=== PATIENT | male | born 1940 | race Caucasian/White ===

== ENCOUNTER → 2018-09-13 07:38 | Outpatient (BNVA) | payer OTHER, SELFPAY | PROVIDERS: PCP Family Medicine; Visit Provider Urology | DX: N13.8 Other obstructive and reflux uropathy (principal); N40.1 Benign prostatic hyperplasia with lower urinary tract symptoms | CPT/HCPCS: 99213 ==

== ENCOUNTER 2019-04-07 10:29 | Outpatient (REF) | payer OTHER, SELFPAY ==
[2019-04-07 19:30] LABS: RBC 20-50 (0-2); WBC >50 HPF (0-5)
[2019-04-07 19:31] LABS: Bacteria Many HPF (Negative); C & S Indicated? Yes; Casts Negative LPF (Negative); Crystals Negative HPF (Negative); Epithelial Cells Negative HPF (Negative); Mucus Negative (Negative)
[2019-04-07 19:52] LABS: ALT 26 U/L (12-78); AST 18 U/L (15-37); Alkaline Phosphatase 87 U/L (46-116); Anion Gap 11.3 mmol/L (3-11); BUN 18 mg/dL (7-18); Bilirubin, Total 0.4 mg/dL (0.2-1.0); CO2 23.7 mmol/L (21.0-32.0); Calcium 9.6 mg/dL (8.5-10.1); Chloride 104 mmol/L (98-107); Glucose 148 mg/dL (70-100); Potassium 4.3 mmol/L (3.5-5.1); Sodium 139 mmol/L (136-145); Total Protein 7.8 g/dL (6.4-8.2)
[2019-04-07 20:19] LABS: Hemoglobin A1C 7.3 % (4.5-6.2)
== END 2019-04-07 10:49 ==
LOC: NCHCN 10:29
PROVIDERS: PCP Family Medicine; Visit Provider Family Medicine
DX: R31.0 Gross hematuria (principal); N40.0 Benign prostatic hyperplasia without lower urinary tract symptoms; E11.9 Type 2 diabetes mellitus without complications; I10 Essential (primary) hypertension; E78.5 Hyperlipidemia, unspecified
CPT/HCPCS: 80053; 81015; 83036; 87086

== ENCOUNTER 2019-04-20 07:40 | Outpatient (CLI) | payer OTHER, SELFPAY ==
[2019-04-20 08:47] LABS: Bilirubin Negative (Negative); Blood Trace-intact (Negative); Clarity Sl Cloudy (Clear); Glucose Negative (Negative); Ketones Negative (Negative); Leukocyte Esterase Moderate (Negative); Nitrite Negative (Negative); Urobilinogen 0.2 EU/dL (Up TO 0.2)
[2019-04-20 08:57] LABS: Bacteria Many HPF (Negative); C & S Indicated? Yes; Casts Negative LPF (Negative); Crystals Negative HPF (Negative); Epithelial Cells Negative HPF (Negative); Mucus Negative (Negative); WBC >50 HPF (0-5)
== END 2019-04-20 08:00 ==
PROVIDERS: PCP Family Medicine; Visit Provider Family Medicine
DX: R31.9 Hematuria, unspecified (principal)
CPT/HCPCS: 81003; 81015; 87086

== ENCOUNTER → 2019-09-12 07:38 | Outpatient (BNVA) | payer OTHER, SELFPAY | PROVIDERS: PCP Family Medicine; Referring Provider Family Medicine; Visit Provider Urology | DX: N40.1 Benign prostatic hyperplasia with lower urinary tract symptoms (principal); N13.8 Other obstructive and reflux uropathy | CPT/HCPCS: 99213 ==

== ENCOUNTER 2019-09-22 09:23 | Outpatient (REF) | payer OTHER, SELFPAY ==
[2019-09-22 19:14] LABS: BUN 16 mg/dL (7-18); CREATININE 0.91 mg/dL (0.70-1.30); Chloride 105 mmol/L (98-107); Glucose 150 mg/dL (74-106); Potassium 4.2 mmol/L (3.5-5.1); Sodium 140 mmol/L (136-145); Vitamin B12 371 pg/mL (193-986)
== END 2019-09-22 09:43 ==
LOC: NCHCN 09:23
PROVIDERS: PCP Family Medicine; Visit Provider Family Medicine
DX: E11.9 Type 2 diabetes mellitus without complications (principal); R20.2 Paresthesia of skin
CPT/HCPCS: 80048; 82607; 84443

== ENCOUNTER 2020-04-09 00:35 | Outpatient (REF) | payer OTHER, SELFPAY | END 2020-04-09 00:55 | LOC: NCHCN 00:35 | PROVIDERS: PCP Family Medicine; Visit Provider Family Medicine | DX: R31.9 Hematuria, unspecified (principal) | CPT/HCPCS: 87086 ==

== ENCOUNTER → 2020-09-10 07:48 | Outpatient (BNVA) | payer OTHER, SELFPAY | PROVIDERS: PCP Family Medicine; Referring Provider Family Medicine; Visit Provider Urology | DX: N40.1 Benign prostatic hyperplasia with lower urinary tract symptoms (principal); N13.8 Other obstructive and reflux uropathy; Z79.899 Other long term (current) drug therapy | CPT/HCPCS: 99213 ==

== ENCOUNTER 2021-06-27 13:35 | Outpatient (REF) | payer OTHER, SELFPAY ==
[2021-06-27 19:54] LABS: ALT 27 U/L (16-63); AST 22 U/L (15-37); Albumin 3.7 g/dL (3.4-5.0); Alkaline Phosphatase 98 U/L (46-116); Anion Gap 5.3 mmol/L (3-11); BUN 15 mg/dL (7-18); Bilirubin, Total 0.3 mg/dL (0.2-1.0); CO2 28.7 mmol/L (21.0-32.0); CREATININE 0.8 mg/dL (0.70-1.30); Calcium 9.2 mg/dL (8.5-10.1); Chloride 107 mmol/L (98-107); Glucose 143 mg/dL (74-106); Potassium 4.3 mmol/L (3.5-5.1); Sodium 141 mmol/L (136-145); Total Protein 7.5 g/dL (6.4-8.2)
== END 2021-06-27 13:36 | disposition home or self-care (01) ==
LOC: NCHCN 13:35
PROVIDERS: PCP Family Medicine; Referring Provider Family Medicine; Visit Provider Family Medicine
DX: I10 Essential (primary) hypertension (principal); E11.9 Type 2 diabetes mellitus without complications; E78.5 Hyperlipidemia, unspecified
CPT/HCPCS: 80053

== ENCOUNTER → 2021-09-12 09:26 | Outpatient (BNVA) | payer MEDICARE, SELFPAY | PROVIDERS: PCP Family Medicine; Referring Provider Family Medicine; Visit Provider Urology | DX: N40.1 Benign prostatic hyperplasia with lower urinary tract symptoms (principal); N13.8 Other obstructive and reflux uropathy; Z79.899 Other long term (current) drug therapy | CPT/HCPCS: 99213 ==

== ENCOUNTER 2022-01-01 02:30 | Outpatient (CLI) | payer MEDICARE, SELFPAY ==
--- NOTE | 2022-01-01 | DI.US_ITS ---
Exam(s) US AAA SCREENING EXAM: US AAA SCREENING CLINICAL HISTORY: HX OF SMOKING, Z87.891, HYPERTENSION, I10,screening for aaa COMPARISON: CT RENAL COLIC WO CONTRAST from 07/14/2016 FINDINGS: Abdominal Aorta: Proximal: Obscured by overlying bowel. Cm Mid: 1.7 x 1.6 cm Distal: 1.5 x 1.4 cm Iliac's: Right: 1.1 x 1.2 cm Left: 1.1 x 1.0 cm Mild atherosclerosis. The urinary bladder is prominently distended and trabeculated. The urinary bladder measures 15 x 16 x 14 cm. IMPRESSION: 1. No evidence of abdominal aortic aneurysm. 2. Distended and trabeculated urinary bladder. This can be seen with chronic bladder outlet obstruct ion, neurogenic bladder or chronic infection/inflammation. Please correlate clinically. DATA REPOSITORY:
== END 2022-01-01 02:50 ==
PROVIDERS: PCP Family Medicine; Visit Provider Family Medicine
DX: I10 Essential (primary) hypertension (principal); Z87.891 Personal history of nicotine dependence; R93.41 Abnormal radiologic findings on diagnostic imaging of renal pelvis, ureter, or bladder
CPT/HCPCS: 76706

== ENCOUNTER 2022-07-02 16:42 | Outpatient (REF) | payer MEDICARE, SELFPAY ==
[2022-07-02 15:57] LABS: HGB 13.3 g/dL (13.5-17.5)
[2022-07-02 16:15] LABS: ALT 19 U/L (16-63); AST 17 U/L (15-37); Albumin 3.7 g/dL (3.4-5.0); Alkaline Phosphatase 103 U/L (46-116); Anion Gap 7.9 mmol/L (3-11); BUN 18 mg/dL (7-18); Bilirubin, Total 0.4 mg/dL (0.2-1.0); CO2 28.1 mmol/L (21.0-32.0); CREATININE 0.9 mg/dL (0.70-1.30); Calcium 9.4 mg/dL (8.5-10.1); Chloride 104 mmol/L (98-107); Estimated GFR 86.34 (mL/min/1.73m2); Glucose 141 mg/dL (74-106); Sodium 140 mmol/L (136-145)
[2022-07-02 16:41] LABS: Hemoglobin A1C 6.9 % (<5.7)
[2022-07-03 17:44] LABS: Ferritin 37 ng/mL (26-388)
== END 2022-07-02 16:43 | disposition home or self-care (01) ==
LOC: NCHCN 16:42
PROVIDERS: PCP Family Medicine; Visit Provider Family Medicine
DX: E11.9 Type 2 diabetes mellitus without complications (principal); I10 Essential (primary) hypertension; E78.5 Hyperlipidemia, unspecified
CPT/HCPCS: 80053; 82728; 83036; 85014; 85018

== ENCOUNTER → 2022-09-11 10:10 | Outpatient (BNVA) | payer MEDICARE, SELFPAY | PROVIDERS: PCP Family Medicine; Referring Provider Family Medicine; Visit Provider Urology | DX: N40.1 Benign prostatic hyperplasia with lower urinary tract symptoms (principal); R33.9 Retention of urine, unspecified | CPT/HCPCS: 99213 ==

== ENCOUNTER 2023-04-23 15:14 | Outpatient (REF) | payer MEDICARE, SELFPAY ==
[2023-04-23 15:51] LABS: Hemoglobin A1C 7.1 % (<5.7)
[2023-04-23 15:59] LABS: ALT 18 U/L (16-63); AST 17 U/L (15-37); Albumin 3.8 g/dL (3.4-5.0); Alkaline Phosphatase 91 U/L (46-116); Anion Gap 10.5 mmol/L (3-11); BUN 19 mg/dL (7-18); Bilirubin, Total 0.4 mg/dL (0.2-1.0); CO2 26.5 mmol/L (21.0-32.0); Calcium 9.3 mg/dL (8.5-10.1); Chloride 104 mmol/L (98-107); Estimated GFR 75.61 (mL/min/1.73m2); Glucose 131 mg/dL (74-106); Potassium 4.1 mmol/L (3.5-5.1); Sodium 141 mmol/L (136-145); Total Protein 7.4 g/dL (6.4-8.2)
[2023-04-26 10:50] LABS: PSA, Screening 0.9 ng/mL (<=6.5)
== END 2023-04-23 15:15 | disposition home or self-care (01) ==
LOC: NCHCN 15:14
PROVIDERS: PCP Family Medicine; Visit Provider Family Medicine
DX: E11.9 Type 2 diabetes mellitus without complications (principal); I10 Essential (primary) hypertension; E78.5 Hyperlipidemia, unspecified; D64.9 Anemia, unspecified; N40.0 Benign prostatic hyperplasia without lower urinary tract symptoms; Z12.5 Encounter for screening for malignant neoplasm of prostate
CPT/HCPCS: 80053; 84153; 83036

== ENCOUNTER → 2023-09-17 14:06 | Outpatient (BNVA) | payer MEDICARE, SELFPAY | PROVIDERS: PCP Family Medicine; Referring Provider Family Medicine; Visit Provider Urology | DX: N13.30 Unspecified hydronephrosis (principal) | CPT/HCPCS: 76775 ==

== ENCOUNTER 2023-11-11 15:13 | Outpatient (REF) | payer MEDICARE, SELFPAY ==
[2023-11-11 15:54] LABS: ALT 51 U/L (16-63); AST 71 U/L (15-37); Albumin 3.7 g/dL (3.4-5.0); Alkaline Phosphatase 88 U/L (46-116); Anion Gap 11.6 mmol/L (3-11); BUN 22 mg/dL (7-18); Bilirubin, Total 0.7 mg/dL (0.2-1.0); CO2 25.4 mmol/L (21.0-32.0); CREATININE 0.8 mg/dL (0.70-1.30); Calcium 9.7 mg/dL (8.5-10.1); Chloride 99 mmol/L (98-107); Estimated GFR 88.36 (mL/min/1.73m2); Glucose 173 mg/dL (74-106); Potassium 4.1 mmol/L (3.5-5.1); Sodium 136 mmol/L (136-145)
[2023-11-11 16:08] LABS: Abs Immature Grans 0.02 10^3/uL (0.0-0.06); Absolute Basophil Count 0.13 10^3/uL (0.0-0.2); Absolute Eosinophil Count 0.31 10^3/uL (0.0-0.7); Absolute Lymphocyte Count 2.02 10^3/uL (1.2-3.4); Absolute Monocyte Count 1.01 10^3/uL (0.1-0.8); Absolute Neutrophil Count 5.07 10^3/uL (1.2-6.7); Basophils % 1.5; Eosinophils % 3.6; HCT 41.1 % (40.0-50.0); HGB 13.4 g/dL (13.5-17.5); Immature Grans % 0.2; Lymphocytes % 23.6; MCH 30.1 pg (27.0-33.0); MCHC 32.6 % (32.0-36.0); MCV 92 fL (80-95); MPV 10.6 fL (8.0-11.0); Monocytes % 11.8; Neutrophils % 59.3; Platelet Count 315 10^3/uL (130-400); RBC 4.45 10^6/uL (4.36-5.78); RDW 13.6 % (11.8-14.1); RDW-SD 46.5 fL; WBC 8.56 10^3/uL (4.4-10.8)
[2023-11-11 16:21] LABS: RBC >50 HPF (0-2)
[2023-11-11 16:22] LABS: Bacteria Many HPF (Negative); C & S Indicated? C&S Done As Ordered
== END 2023-11-11 15:14 | disposition home or self-care (01) ==
LOC: LBN 15:13
PROVIDERS: PCP Family Medicine; Visit Provider Physician Assistant Medical
DX: R31.9 Hematuria, unspecified (principal)
CPT/HCPCS: 80053; 81015; 85025; 87086

== ENCOUNTER → 2023-11-12 01:22 | Outpatient (CLI) | payer MEDICARE, SELFPAY ==
--- NOTE | 2023-11-12 | DI.CT_ITS ---
Exam(s) CT ABDOMEN PELVIS W EXAM: CT ABDOMEN PELVIS W CLINICAL HISTORY: ABD MASS,r19.00 TECHNIQUE: Imaging Protocol: Axial computed tomography images with coronal and sagittal reformatted images were created and reviewed. CONTRAST MATERIAL: Intravenous: Omnipaque 350 Contrast volume:100 mL Oral: Yes COMPARISON: CT RENAL COLIC WO CONTRAST from 07/14/2016 US POCUS EXAM from 09/17/2023 FINDINGS: ABDOMEN: Lung Bases: There is a small hiatal hernia. Liver: Normal density. No measurable mass. Portal, Superior Mesenteric, and Splenic Veins: Unremarkable. Gallbladder and Biliary Tract: No radiodense calculus or dilation. Pancreas: Normal density, no abnormal calcifications or inflammatory process. Spleen: Normal. Adrenals: No masses seen. Kidneys: Normal size, contour and axis. The prostate gland is enlarged. There is marked dilatation o f the urinary bladder with wall trabeculation/thickening and numerous bladder wall diverticula. Ther e is bilateral moderate hydronephrosis likely secondary to the distended urinary bladder. No stones are seen within the ureters. There is been significant worsening of the degree of bladder wall dilat ation compared to the prior examination. There are bilateral renal cysts. There is a new 2.3 x 2.2 cm exophytic hyperdense lesion in the midpole of the left kidney. This may represent a hyperdense cy st or solid mass. Ultrasound and/or MRI is recommended for further evaluation. Abdominal Aorta: Abdominal portion non-dilated. Atherosclerosis. Bowel: The stomach is incompletely distended limiting evaluation. No definite bowel wall thickening is seen. No evidence of bowel obstruction. There is no evidence of appendicitis. Peritoneal Cavity: There is a trace amount of free fluid in the pelvis. No free air. Lymph Nodes: Within normal limits. Bones: Within normal limits for the patient's age. 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 Soft Tissues: Unremarkable. PELVIS: Bladder: Please see the above section under kidneys. Reproductive Organs: The prostate gland is enlarged with calcifications. Lymph Nodes: Within normal limits. Bones: Within normal limits for the patient's age. IMPRESSION: 1. Enlarged prostate gland. 2. Marked enlargement of the urinary bladder with wall trabeculation/thickening and wall diverticula. This may be due to chronic bladder outlet obstruction/neurogenic bladder. Infection or neoplasm ca nnot be entirely excluded. 3. Moderate bilateral hydronephrosis secondary to the urinary bladder obstruction. No obstructing st ones. RADIATION DOSE DELIVERED: 633.44mGy.cm Total DLP DATA REPOSITORY: All CT scans at this facility are submitted to the National Radiology Data Registry (NRDR) Dose Index Registry (DIR) with the [employer] (A[employer]). RADIATION OPTIMIZATION: All CT scans at this facility use at least one of these dose optimization te chniques: automated exposure control; mA and/or kV adjustment per patient size (includes targeted exa ms where dose is matched to clinical indication); or iterative reconstruction.
[2023-11-12] MEDS: Barium Sulfate 2% W/V-Berry Smoothie 450 ML BTL 900 ML PO (09:20)
[2023-11-12] MEDS: Omnipaque 350 MG/ML 500 ML BTL-Imaging package 100 ML IJ (11:25)
[2023-11-12] MEDS: Normal Saline - Diluent 50 ML VIAL IJ (11:26)
== END ==
PROVIDERS: PCP Family Medicine; Visit Provider Physician Assistant Medical
DX: I67.89 Other cerebrovascular disease (principal); R19.00 Intra-abdominal and pelvic swelling, mass and lump, unspecified site
CPT/HCPCS: 74177

== ENCOUNTER 2023-11-13 10:21 | Inpatient (IN) | payer MEDICARE, SELFPAY ==
[2023-11-13] VITALS (7 sets, daily range): BP systolic 111–157; BP diastolic 58–85; PULSE 61–88; RESP 12–121; TEMP 35.6–37.2; O2SAT 95–98
--- NOTE | 2023-11-13 10:30 | DI.CT_ITS ---
Exam(s) CT HEAD WO EXAM: CT HEAD WO CLINICAL HISTORY: ams. TECHNIQUE: Imaging Protocol: Axial computed tomography images with coronal and sagittal reformatted images were created and reviewed COMPARISON: No exams were available for comparison FINDINGS: There are no skull fractures. There is no fluid in the visualized paranasal sinuses. There is no evidence of intracranial hemorrhage, mass effect, or shift of midline structures. There are no extra-axial fluid collections. The ventricles are not enlarged or shifted and there is no blo od within the ventricular system nor within the basal cisterns. There is mild bilateral periventricular hypodensity consistent with chronic small vessel disease. Al so subtle area of hypodensity in the central scottie, probably also ischemic sequela. IMPRESSION: Chronic small-vessel white matter ischemic changes. No obvious focal acute infarct. If clinically i ndicated follow-up MRI with diffusion imaging would add sensitivity and specificity. RADIATION DOSE DELIVERED: 761.43mGy.cm Total DLP DATA REPOSITORY: All CT scans at this facility are submitted to the National Radiology Data Registry (NRDR) Dose Index Registry (DIR) with the [employer] (ACR). RADIATION OPTIMIZATION: All CT scans at this facility use at least one of these dose optimization te chniques: automated exposure control; mA and/or kV adjustment per patient size (includes targeted exa ms where dose is matched to clinical indication); or iterative reconstruction.
[2023-11-13 10:57] LABS: Abs Immature Grans 0.01 10^3/uL (0.0-0.06); Absolute Eosinophil Count 0.27 10^3/uL (0.0-0.7); Absolute Lymphocyte Count 1.89 10^3/uL (1.2-3.4); Absolute Monocyte Count 0.97 10^3/uL (0.1-0.8); Basophils % 1.2; Eosinophils % 3.2; HCT 34.2 % (40.0-50.0); HGB 11.6 g/dL (13.5-17.5); Immature Grans % 0.1; Lymphocytes % 22.1; MCH 30.5 pg (27.0-33.0); MCHC 33.9 % (32.0-36.0); MCV 90 fL (80-95); MPV 9.7 fL (8.0-11.0); Monocytes % 11.4; Platelet Count 251 10^3/uL (130-400); RDW 13.4 % (11.8-14.1); RDW-SD 44.3 fL; WBC 8.54 10^3/uL (4.4-10.8)
--- NOTE | 2023-11-13 11:15 | ED.GENADUL_ITS ---
HPI General Date/Time Provider Initiated Documentation: 11/13/23 10:35 . Limitations to Documentation: altered mental status . Information obtained by: patient and family . HPI Narrative: 83-year-old gentleman with past medical history of BPH, diabetes presents for evaluation of altered mental status. He is here with his brother and vyeuml-gl-oht and son. 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 They report that they have been checking on him daily and over the last 3 days they have noticed a significant change in his mental status. They report that he is very confused. He thinks it is 1940. He has been talking about his children as if there young. They noted that he did have a fall last week and [facility]. They are not sure if he is taking his medications at home they have been making him food to eat. His did a month ago and they felt like since then he has had some decline, but the waistline joiner overlock the last 3 days has been very drastic. Related Data Home Medications Medication Instructions Recorded Confirmed atorvastatin 40 mg tablet (Lipitor) 40 mg PO DAILY 07/14/16 11/13/23 flaxseed oil 1,300 mg-omega 3,6,9 1,400 mg PO DAILY 07/14/16 11/13/23 845 mg-117 mg-117 mg capsule losartan 50 mg tablet 50 mg PO DAILY 07/14/16 11/13/23 metformin 500 mg tablet 500 mg PO am and noon 07/14/16 11/13/23 omeprazole 20 mg capsule,delayed 20 mg PO DAILY 07/14/16 11/13/23 release saw palmetto 450 mg capsule 450 mg PO DAILY 07/14/16 11/13/23 aspirin 81 mg tablet,delayed 81 mg PO DAILY 07/16/16 11/13/23 release (Aspir-) turmeric root extract 500 mg 500 mg PO DAILY 09/12/19 11/13/23 capsule vit A 300 mcg-C 200 mg-E 27 1 tab PO DAILY 09/10/20 11/13/23 rx-xitrkzgg-ddlqpz-lutein tablet (Eye Multivitamin-Lutein(X-C-O-Zn-Cu-selen)) docusate sodium 100 mg capsule 100 mg PO BID 09/11/22 11/13/23 (Dulcolax Stool Softener (docusate)) finasteride 5 mg tablet 5 mg PO DAILY #90 tab-caps 09/11/22 11/13/23 terazosin 10 mg capsule 10 mg PO DAILY #90 caps 09/11/22 11/13/23 vitamin D3 125 mcg (5,000 1 cap PO DAILY 09/17/23 11/13/23 unit)-vitamin K2 90 mcg capsule Previous Rx's Medication Instructions Recorded finasteride 5 mg tablet 5 mg PO DAILY #90 tab-caps 09/11/22 terazosin 10 mg capsule 10 mg PO DAILY #90 caps 09/11/22 Allergies Allergy/AdvReac Type Severity Reaction Status Date / Time No Known Allergies Allergy Unverified 11/13/23 11:00 General Stated Complaint: AMS/LOC TAVARES: 3 Exam Narrative Exam Narrative: Review of Systems: All systems reviewed & are unremarkable except as noted in HPI and below Well-developed, no acute distress NCAT PERRL, normal conjunctiva RRR Unlabored respiratory effort, clear breath sounds bilaterally Nondistended abdomen, nontender Extremities w/o deformity, no cyanosis, no edema No rashes or lesions. Oriented to person, able to identify family members in the room. States it is 1940. States that he has gone back in time Appropriate mood and affect Course Vital Signs Vital signs: Vital Signs Temperature 36.7 C 11/13/23 10:26 Pulse 73 11/13/23 10:26 Respiratory Rate 18 11/13/23 10:26 Blood Pressure 111/85 11/13/23 10:26 Pulse Oximetry 98 11/13/23 10:26 Temperature 36.7 C 11/13/23 10:49 Temperature Source Temporal Artery Scan 11/13/23 10:49 Pulse 73 11/13/23 10:49 Respiratory Rate 18 11/13/23 10:49 Respiratory Effort Normal, Non-Labored 11/13/23 10:49 Respiratory Depth Normal 11/13/23 10:49 Respiratory Pattern Normal 11/13/23 10:49 Blood Pressure 111/85 11/13/23 10:49 Blood Pressure Position Sitting 11/13/23 10:49 Pulse Oximetry 98 11/13/23 10:49 Oxygen Delivery Method Room Air 11/13/23 10:49 Oxygen Flow Rate 0 11/13/23 10:49 Pain Level 0 11/13/23 10:49 Lab/Test Results Lab/Test Results: Laboratory Tests Range/Units 11/13/23 10:47 WBC (4.4-10.8) 10^3/uL 8.54 RBC (4.36-5.78) 10^6/uL 3.80 L Hgb (13.5-17.5) g/dL 11.6 L Hct (40.0-50.0) % 34.2 L MCV (80-95) fL 90 MCH (27.0-33.0) pg 30.5 MCHC (32.0-36.0) % 33.9 RDW (11.8-14.1) % 13.4 Plt Count (130-400) 10^3/uL 251 MPV (8.0-11.0) fL 9.7 Immature Gran % 0.1 Neutrophils % 62.0 Lymphocytes % 22.1 Monocytes % 11.4 Eosinophils % 3.2 Basophils % 1.2 Nucleated RBC % (0.0-0.3) % 0.0 Absolute Neutrophils (1.2-6.7) 10^3/uL 5.30 Absolute Lymphocytes (1.2-3.4) 10^3/uL 1.89 Absolute Monocytes (0.1-0.8) 10^3/uL 0.97 H Absolute Eosinophils (0.0-0.7) 10^3/uL 0.27 Absolute Basophils (0.0-0.2) 10^3/uL 0.10 Medical Decision Making Emergent evaluation of altered mental status. Initial differential includes infectious etiology, CVA, less likely traumatic mechanism. Could be grief reaction or other depression. He has an otherwise nonfocal neurologic exam other than his mental status. He is currently being followed by urology for issues regarding his BPH and urinary incontinence. Recent culture did not indicate an infection. Will repeat labs, cultures, get head CT. Lab work reviewed. No significant leukocytosis or anemia. That his BUN is slightly elevated, but creatinine at baseline. His urinalysis is essentially unreadable secondary to the blood. I visually inspected the urine and it is quite dark, almost black in color. A culture has been sent. I will cover him with Rocephin given his history of recurrent urine infections. His head CT is concerning for some possible subacute findings but an MRI would be beneficial to evaluate for stroke etiology. I discussed with the hospitalist who will admit the patient for further management and workup of his encephalopathy. Medical Records Medical records reviewed: Yes I reviewed the patient's medical records. Lab Data Lab results reviewed: Yes I reviewed the patient's lab results. Quality:SDOH Health Related Social Needs: No Data to Display PFSH All Active Problems (Updated 11/13/23 @ 13:23 by Wei Reed MD) Encephalopathy (Acute) Acute confusion (Acute) Urinary retention with incomplete bladder emptying (Acute) Hematuria (Acute 07/16/16) 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) Social History Smoking/Tobacco Use Status: Former Tobacco Use Smoking risk assessment performed?: Yes Alcohol Intake: never Drug use: Never Substance use type: does not use Housing: house Do you feel safe at home: Yes Do you feel safe in your relationship?: Yes Discharge Plan Disposition Patient Disposition: Admit to [facility] Condition: Stable Discharge Details Chief Complaint: AMS/LOC Clinical Impression: Acute confusion, Hematuria, Encephalopathy Primary Care Provider: Vanita Johnson V ED Provider: Wei Reed Home Meds and New Rx's Prescriptions: No Action turmeric root extract 500 mg capsule 500 mg PO DAILY docusate sodium [Dulcolax Stool Softener (dss)] 100 mg capsule 100 mg PO BID terazosin 10 mg capsule 10 mg PO DAILY Qty: 90 4RF finasteride 5 mg tablet 5 mg PO DAILY Qty: 90 4RF Eye Multivit-Lutein(selenium) 300 mcg-200 mg- 27 mg tablet 1 tab PO DAILY vitamin D3-vitamin K2 125-90 mcg capsule 1 cap PO DAILY aspirin [Aspir-81] 81 MG tablet,delayed release (DR/EC) 81 mg PO DAILY losartan 50 MG tablet 50 mg PO DAILY atorvastatin [Lipitor] 40 MG tablet 40 mg PO DAILY metformin 500 MG tablet 500 mg PO am and noon omeprazole 20 MG capsule,delayed release(DR/EC) 20 mg PO DAILY saw palmetto 450 MG capsule 450 mg PO DAILY flaxseed oil-omega 3,6,9 1 EACH capsule 1,400 mg PO DAILY
[2023-11-13 11:19] LABS: ALT 44 U/L (16-63); AST 39 U/L (15-37); Albumin 2.9 g/dL (3.4-5.0); Alkaline Phosphatase 67 U/L (46-116); Anion Gap 11.9 mmol/L (3-11); BUN 30 mg/dL (7-18); Bilirubin, Total 0.6 mg/dL (0.2-1.0); CO2 23.1 mmol/L (21.0-32.0); CREATININE 0.9 mg/dL (0.70-1.30); Calcium 8.9 mg/dL (8.5-10.1); Chloride 105 mmol/L (98-107); Estimated GFR 85.27 (mL/min/1.73m2); Glucose 170 mg/dL (74-106); Magnesium 1.7 mg/dL (1.8-2.4); Potassium 3.5 mmol/L (3.5-5.1); Sodium 140 mmol/L (136-145); TSH (W/Ref FT4) 1.05 uIU/mL (0.36-3.74); Total Protein 6.8 g/dL (6.4-8.2); Troponin I < 50 ng/L (< or =60)
[2023-11-13 11:21] LABS: ETHANOL BLOOD < 3.0 mg/dL (<10)
--- NOTE | 2023-11-13 11:32 | DI.VRAD_ITS ---
PROCEDURE INFORMATION: Exam: CT Head Without Contrast Exam date and time: 11/13/2023 11:07 AM Age: 83 years old Clinical indication: Alteration of consciousness; Other: Not identified TECHNIQUE: Imaging protocol: Computed tomography of the head without contrast. COMPARISON: No relevant prior studies available. FINDINGS: Brain: Hypodensities bilaterally, nonspecific, but compatible with changes of small vessel disease, lacunar infarctions. Hypodensities over brainstem, scottie may be artifact. Otherwise, no intracranial mass, midline shift, acute intracranial hemorrhage, nor abnormal extra-axial fluid collection seen. Cerebral ventricles: Prominence of ventricles, sulci bilaterally suggesting volume loss, atrophy. Paranasal sinuses: Partial opacification left maxillary sinus with rounded filling defect which may be mucous retention cyst or other polypoid lesion. Mild partial opacification ethmoid air cells, sphenoid sinus, frontoethmoidal areas. Mastoid air cells: Slight partial opacification posterior right mastoid air cells.. Bones/joints: No displaced, depressed skull fracture seen. Soft tissues: Subcutaneous densities left foraminal region, supraorbital area, possible contusions. Vasculature: Arterial calcification. IMPRESSION: Hypodensities bilaterally, nonspecific, but compatible with changes of small vessel disease, lacunar infarctions. Hypodensities over brainstem, scottie may be artifact. MRI may be helpful, if indicated. Dictated and Authenticated by: Sean Woods MD. Ordering:PEARL West MD
[2023-11-13 12:33] LABS: *AMPHETAMINES SCREEN URINE Negative (Negative); *BARBITURATES SCREEN URINE Negative (Negative); *BENZODIAZEPINES SCREEN URINE Negative (Negative); Cannabinoids THC Negative (Negative); Cocaine Screen,Urine Negative (Negative); METHADONE URINE SCREEN Negative (Negative); OPIATES URINE SCREEN Negative (Negative)
[2023-11-13 12:41] LABS: Tricyclic Antidepressants Negative (Negative)
[2023-11-13 12:47] LABS: Bilirubin Color Interference (Negative); Blood Color Interference (Negative); Clarity Cloudy (Clear); Glucose Color Interference mg/dL (Negative); Ketones Color Interference mg/dL (Negative); Leukocyte Esterase Color Interference (Negative); Nitrite Color Interference (Negative); Specific Gravity 1.025 (1.005-1.025); Urobilinogen Color Interference mg/dL (Up to 0.2)
[2023-11-13 12:48] LABS: C & S Indicated? Yes; RBC >50 HPF (0-2)
[2023-11-13] MEDS: cefTRIAXone 1 GM/50 ML BAG IVPB (13:06)
[2023-11-13] MEDS: MAGNESIUM SULFATE 2 GM/50 ML BAG IVPB (13:50)
--- NOTE | 2023-11-13 13:59 | HPE_ITS ---
Date of service: 11/13/23 Time of Service: 13:15 Assessment and Plan Assessment and plan (1) Encephalopathy: Status: Acute Assessment and plan: Might be d/t grieving process VS infection: Treating UTI Continue rocephin, urine culture pending Abnormal head CT: MRI on Wednesday (2) Urinary tract infection: Status: Acute Assessment and plan: As above Qualifiers: Hematuria presence: with hematuria (3) Hematuria: Status: Acute Assessment and plan: As above Qualifiers: Hematuria type: gross Qualified Code(s): R31.0 - Gross hematuria (4) Acute confusion: Status: Acute Assessment and plan: As above (5) Urinary retention with incomplete bladder emptying: Status: Acute Assessment and plan: Resuming home meds: Finesteride and Terasozin Bladder scan and straight cath PRN for vol >500 (6) BPH w urinary obs/LUTS: Status: Acute Assessment and plan: As above (7) Contraindication for enoxaparin: Status: Acute Assessment and plan: Hematuria no lovenox for DVT prophylaxis TEDs SCD's (8) Abdominal tenderness: Status: Acute Assessment and plan: CT of the abdomen completed on 11/12/2023: MRI recommended for findings, no GI findings except for trace amount of fluid in peritoneal cavity: please see report. (9) Medication management: Status: Acute Assessment and plan: Resuming home meds : ASA and Lipitor fro PMHx of CVA Omeprazole Losartan: HTN (10) Discharge planning issues: Status: Acute Assessment and plan: CM to follow Discussed with Dr. Blanc History of Present Illness History of Present Illness Chief Complaint: Encephalopathy, confusion, UTI, stroke Narrative: This 84-year-old male patient living alone at home since the recent of his spouse a month ago with a past medical history of CVA, benign prostatic hypertrophy, diabetes, presented to the ED at [facility] today for evaluation of confusion. Family member family members reported checking on him on a daily basis and that over the last 3 days they noticed important an change in his mental status. As reported by family members the patient thought it was 1940 and has been talking about his children as if they were young. They also reported a fall last week for which the patient was a very evaluated at [facility]. They are not sure if they were not sure that the patient was taking his medicine at home but they have been ensuring that he has food to eat.. Family members mention noticing some decline since the passing of his spouse a month ago with more acute changes in the past 3 days. In the emergency room lab work was unremarkable except for WBC at 11.27, BUN at 30. The urine analysis was reported as unreadable due to hematuria. The ED provider reported that urine was quite dark almost black in color; urine culture sent. Patient was treated with IV ceftriaxone. The head CT reported concern for subacute findings with recommendation for an MRI to evaluate for stroke etiology. The hospitalist was consulted and the patient was admitted for evaluation and management of encephalopathy, confusion, UTI and stroke. Patient was met in the ED and the present of is son Cornell and [id number] Jagruti. The patient denied lightheadedness, dizziness, change in vision, recent falls, chest pain, shortness of breath, nausea, vomiting. Patient reports constipation over the past 10 days with 2 episodes of liquid stool yesterday, patient also reports diffuse abdominal pain on palpation. Patient has a COLST form indicating DNR/DNI. Review of Systems All systems reviewed & are unremarkable except as noted in HPI and below PFSH All Active Problems (Updated 11/13/23 @ 14:49 by Meredith Ordaz APRN) Medication management (Acute) Abdominal tenderness (Acute) Discharge planning issues (Acute) Contraindication for enoxaparin (Acute) Urinary tract infection (Acute) Encephalopathy (Acute) Acute confusion (Acute) Urinary retention with incomplete bladder emptying (Acute) Hematuria (Acute 07/16/16) 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) Medical History (Updated 11/13/23 @ 14:49 by Meredith Ordaz APRN) Bilateral renal cysts Social History Smoking/Tobacco Use Status: Former Tobacco Use Smoking risk assessment performed?: Yes Alcohol Intake: never Drug use: Never Substance use type: does not use Housing: house Do you feel safe at home: Yes Do you feel safe in your relationship?: Yes Meds Allergies and Home Medications Allergies Allergy/AdvReac Type Severity Reaction Status Date / Time No Known Allergies Allergy Unverified 11/13/23 11:00 Home Medications Medication Instructions Recorded Confirmed Type atorvastatin 40 mg tablet (Lipitor) 40 mg PO DAILY 07/14/16 11/13/23 History flaxseed oil 1,300 mg-omega 3,6,9 1,400 mg PO DAILY 07/14/16 11/13/23 History 845 mg-117 mg-117 mg capsule losartan 50 mg tablet 50 mg PO DAILY 07/14/16 11/13/23 History metformin 500 mg tablet 500 mg PO am and noon 07/14/16 11/13/23 History omeprazole 20 mg capsule,delayed 20 mg PO DAILY 07/14/16 11/13/23 History release saw palmetto 450 mg capsule 450 mg PO DAILY 07/14/16 11/13/23 History aspirin 81 mg tablet,delayed 81 mg PO DAILY 07/16/16 11/13/23 History release (Aspir-) turmeric root extract 500 mg 500 mg PO DAILY 09/12/19 11/13/23 History capsule vit A 300 mcg-C 200 mg-E 27 1 tab PO DAILY 09/10/20 11/13/23 History hz-fbmavztq-cmkyjl-lutein tablet (Eye Multivitamin-Lutein(H-M-L-Zn-Cu-selen)) docusate sodium 100 mg capsule 100 mg PO BID 09/11/22 11/13/23 History (Dulcolax Stool Softener (docusate)) finasteride 5 mg tablet 5 mg PO DAILY #90 tab-caps 09/11/22 11/13/23 Rx terazosin 10 mg capsule 10 mg PO DAILY #90 caps 09/11/22 11/13/23 Rx vitamin D3 125 mcg (5,000 1 cap PO DAILY 09/17/23 11/13/23 History unit)-vitamin K2 90 mcg capsule Exam Narrative Exam Narrative: Constitutional The patient on stretcher in ED HENMT: Head is atraumatic, normocephalic, no lymphadenopathy. Facial structures with normal appearance Eyes: Well aligned, intact ROM Neck: Normal ROM, no JVD,no meningeal signs Neuro:alert and oriented to self, person, place, confused about time . No neurological focal deficit, PERRLA on ambient light Altered short term memory, nursing home memory intact Chest:Chest is symmetrical and normal appearance Resp: Normal respiratory pattern, speaks in full sentences, unlabored breathing, clear lung bilaterally Cardio: regular rhythm, S1, S2, no murmur, capillary refill<3 sec., bilateral radial and dorsalis pedis pulses are positive GI: Abdomen is not distended, semi-firm and tender, bowel sounds are present : no bladder distension, gross hematuria Back/spine/Pelvis: No back tenderness, normal alignment Integumentary: No skin lesions or rash Extremities: strength 5/5 to bilateral lower and upper extremities Psych: RASS 0, congruent mood and normal-sad affect. Results Labs 11/13/23 10:47 11/13/23 10:47 Labs: Laboratory Results - last 24 hr 11/13/23 11/13/23 10:47 12:02 WBC 8.54 RBC 3.80 L Hgb 11.6 L Hct 34.2 L MCV 90 MCH 30.5 MCHC 33.9 RDW 13.4 Plt Count 251 MPV 9.7 Immature Gran % 0.1 Neutrophils % 62.0 Lymphocytes % 22.1 Monocytes % 11.4 Eosinophils % 3.2 Basophils % 1.2 Nucleated RBC % 0.0 Absolute Neutrophils 5.30 Absolute Lymphocytes 1.89 Absolute Monocytes 0.97 H Absolute Eosinophils 0.27 Absolute Basophils 0.10 Sodium 140 Potassium 3.5 Chloride 105 Carbon Dioxide 23.1 Anion Gap 11.9 H BUN 30 H Creatinine 0.9 Est GFR (CKD-EPI 2020) 85.27 Glucose 170 H Calcium 8.9 Magnesium 1.7 L Total Bilirubin 0.6 AST 39 H ALT 44 Alkaline Phosphatase 67 Troponin I < 50 Total Protein 6.8 Albumin 2.9 L TSH 1.05 Urine Color Brown Urine Clarity Cloudy Urine pH Ur Specific [place] 1.025 Urine Protein Color Interference Urine Ketones Color Interference Urine Blood Color Interference Urine Nitrite Color Interference Urine Bilirubin Color Interference Urine Urobilinogen Color Interference Ur Leukocyte Esterase Color Interference Urine RBC >50 H Urine WBC Ur Epithelial Cells Not Applicable Urine Crystals Not Applicable Urine Bacteria Not Applicable Urine Mucus Not Applicable Ur Culture Indicated? Yes Urine Glucose Color Interference Urine Opiates Screen Negative Urine Methadone Screen Negative Ur Barbiturates Screen Negative Ur Tricyclics Screen Negative Ur Amphetamines Screen Negative U Benzodiazepines Scrn Negative Urine Cocaine Screen Negative Ur THC Screen Negative Ethyl Alcohol < 3.0 Last Vital Signs Temp 36.7 C 11/13/23 10:49 Pulse 73 11/13/23 10:49 Resp 18 11/13/23 10:49 BP 111/85 11/13/23 10:49 Pulse Ox 98 11/13/23 10:49 PAWSS Pt Consumed Any Amount of Alcohol Within the Last 30 days OR had positive ASHANTI Upon Admission: No Time Spent Time spent with Patient: >75 minutes Time was spent: preparing to see the patient(eg.review tests), obtaining and/or reviewing separately otained hiistory, ordering medications,tests, procedures, referring, communicating with other health healthcare administration internship, indepentently interpreting results, counseling the patient and care coordination
[2023-11-13] MEDS: Insulin Aspart 300 UNITS/3 ML PEN SC (17:30)
[2023-11-13] MEDS: Docusate Sodium 100 MG CAP PO (19:36)
[2023-11-13] MEDS: Normal Saline Flush 10 ML SYR IVP (19:37)
[2023-11-14 06:24] LABS: Abs Immature Grans 0.03 10^3/uL (0.0-0.06); Absolute Basophil Count 0.09 10^3/uL (0.0-0.2); Absolute Lymphocyte Count 1.61 10^3/uL (1.2-3.4); Absolute Monocyte Count 0.91 10^3/uL (0.1-0.8); Absolute Neutrophil Count 5.93 10^3/uL (1.2-6.7); Eosinophils % 4.5; HCT 34.7 % (40.0-50.0); HGB 11.8 g/dL (13.5-17.5); Immature Grans % 0.3; Lymphocytes % 17.9; MCV 91 fL (80-95); MPV 10.4 fL (8.0-11.0); Monocytes % 10.1; Neutrophils % 66.2; Platelet Count 259 10^3/uL (130-400); RBC 3.81 10^6/uL (4.36-5.78); RDW 13.5 % (11.8-14.1); RDW-SD 45.1 fL; WBC 8.97 10^3/uL (4.4-10.8)
[2023-11-14 06:35] LABS: Anion Gap 8.6 mmol/L (3-11); BUN 27 mg/dL (7-18); CO2 24.4 mmol/L (21.0-32.0); Calcium 8.6 mg/dL (8.5-10.1); Chloride 104 mmol/L (98-107); Estimated GFR 75.14 (mL/min/1.73m2); Glucose 168 mg/dL (74-106); Potassium 3.6 mmol/L (3.5-5.1); Sodium 137 mmol/L (136-145)
[2023-11-14 07:57] VITALS: BP 198/78; PULSE 63; RESP 17; TEMP 36.6; O2SAT 98
--- NOTE | 2023-11-14 09:07 | INITIAL_ITS ---
Date of service: 11/14/23 Time of Service: 09:07 Care Management Initial Assmt Initial Assessment REASON FOR HOSPITALIZATION:: Encephalopathy, UTI, stroke PREVIOUS FUNCTIONAL STATUS/SOCIAL/FAMILY SUPPORTS:: Jamey lives in [place], alone. His in August 2023, and his son, brother and sister in law have been helping to support him since her passing. He is independent with his ADL's at baseline. CURRENT FUNCTIONAL STATUS:: Jamey was lying in bed when CM met with him. He had multiple visitors this morning, and stated that he played cribbage with his son, brother and sister in law. He expressed overwhelming grief over losing his ; he stated that he spent all of his time with her, including playing cards with their morning coffee. He stated that he is ready to go now, and be with her. He stated that he feels he is close to , both physically and emotionally. He stated that he wants to be on hospice, as his was. CM stated that there is a palliative care consult pending, and that he will likely meet with them during this admission to discuss his healthcare goals and wishes. Per report, he is receiving antibiotics, and is scheduled to have an MRI tomorrow. Jamey stated that he is ok with being at [facility] and having treatment at this time, and he is very happy with the care he is receiving. CM will continue to follow. ADVANCE DIRECTIVES:: [facility] on file; Arleen (his late ) listed as HCA. Palliative is consulted to discuss his healthcare goals, and to discuss naming an alternative HCA. Has patient been provided with info about the portal/API?: Yes Did the patient sign up for the portal?: No CODE STATUS:: DNR/DNI INSURANCE COVERAGE / FINANCIAL ISSUES:: [facility] MCR replacement CURRENT HOME/COMMUNITY SERVICES/EQUIPMENT:: Family support since the passing of his . PRIMARY CARE PHYSICIAN:: Vanita Johnson POTENTIAL DISCHARGE NEEDS:: Evaluations for further needs, follow up appointments. PATIENT/FAMILY EDUCATION NEEDS:: Review discharge instructions and limitations, discussion of self care needs including ask me three. ANTICIPATED BARRIERS TO DISCHARGE:: None identified. TRANSPORTATION:: Via private vehicle by family. PLAN:: Anticipate Jamey will return home once medically cleared. His family will drive him home via private vehicle when ready. He will follow up with his PCP and discharge plan of care. CM will continue to follow. PFSH All Active Problems (Updated 11/13/23 @ 14:49 by Meredith Ordaz APRN) Medication management (Acute) Abdominal tenderness (Acute) Discharge planning issues (Acute) Contraindication for enoxaparin (Acute) Urinary tract infection (Acute) Encephalopathy (Acute) Acute confusion (Acute) Urinary retention with incomplete bladder emptying (Acute) Hematuria (Acute 07/16/16) 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) Medical History (Updated 11/13/23 @ 14:49 by Meredith Ordaz APRN) Bilateral renal cysts Social History Smoking/Tobacco Use Status: Former Tobacco Use Smoking risk assessment performed?: Yes Alcohol Intake: never Drug use: Never Substance use type: does not use Housing: house Do you feel safe at home: Yes Do you feel safe in your relationship?: Yes SDOH(Care Management) Screening Will the Patient Participate in the Screening?: Yes Do you worry about having a steady place to live?: no Problems where you live: no known problems In the past 12 months, have you had to go without electric, gas, oil or water in your home?: no Have you or anyone in your house had to go without enough food to eat?: no Has lack of transportation kept you from medical appointments or from doing things needed for daily living?: no Has anyone in your support network made you feel unsafe for any reason?: no
[2023-11-14] MEDS: Omeprazole 20 MG CAPCR PO (09:10)
[2023-11-14] MEDS: Insulin Aspart 300 UNITS/3 ML PEN SC ×3 (09:10→16:41)
[2023-11-14] MEDS: Losartan 50 MG TAB PO (09:11)
[2023-11-14] MEDS: Aspirin E.C. 81 MG TABEC PO (09:11)
[2023-11-14] MEDS: Atorvastatin 40 MG TAB PO (09:11)
[2023-11-14] MEDS: Docusate Sodium 100 MG CAP PO (09:11)
[2023-11-14] MEDS: Finasteride 5 MG TAB PO (09:11)
[2023-11-14] MEDS: Normal Saline Flush 10 ML SYR IVP ×2 (09:12→21:55)
--- NOTE | 2023-11-14 10:30 | W.PM.PROGNOT ---
Date of Service Date of service: 11/14/23 Time of Service: 10:31 Assessment and Plan Assessment and plan (1) Encephalopathy: Status: Acute Assessment and plan: Might be d/t grieving process VS infection: Most unlikely to have a UTI: GPC < 35572 colonies in urine, UA with gross hematiuria no other abnormalities Treating with ceftriaxone 2 gm IV Q 12 : Meningitis VS tick borne illness Tick and lyme panel ordered Abnormal head CT: MRI, MRA head and neck on Wednesday Psych consult Neuro consult palliative care consult (2) Urinary tract infection: Status: Acute Assessment and plan: As above Bladder scan and Straight cath PRN Qualifiers: Hematuria presence: with hematuria (3) Hematuria: Status: Acute Assessment and plan: As above Qualifiers: Hematuria type: gross Qualified Code(s): R31.0 - Gross hematuria (4) Acute confusion: Status: Acute Assessment and plan: As above (5) Urinary retention with incomplete bladder emptying: Status: Acute Assessment and plan: As above and continue Finesteride and Terasozin ( Were resumed on the day of admission as patient had stopped taking his medicine a month ago after spouse passing) Considering urology consult As per CT report completed on 11/12/2023 as an outpatient, the patient had -Enlarged prostate gland -Marked enlargement of the urinary bladder with wall trabeculation/thickening and wall diverticula. This may be due to chronic bladder outlet obstruction/ neurogenic bladder. Infection or neoplasm cannot be entirely excluded. - Moderate bilateral hydronephrosis secondary to the urinary bladder obstruction. No obstructing stones. Horner catheter and urology consultation ordered by Dr. Norton on 11/15/2023 (6) BPH w urinary obs/LUTS: Status: Acute Assessment and plan: As above (7) Contraindication for enoxaparin: Status: Acute Assessment and plan: Hematuria no lovenox for DVT prophylaxis Continue SCD's (8) Medication management: Status: Acute Assessment and plan: Continue home meds : ASA, Lipitor, Omeprazole and losartan (9) Discharge planning issues: Status: Acute Assessment and plan: CM to follow Discussed with Dr. Norton Subjective Subjective Patient reports: no new complaints, feels better, tolerating liquids well, tolerating a regular diet, voiding w/o difficulty (hematuria), flatus and bowel movement; denies diarrhea, vomiting, shortness of breath or fever Exam Narrative Exam Narrative: Constitutional The patient in bed feeling sleepy, cooperative and pleasant Eyes: Well aligned, intact ROM Neck: Normal ROM, no JVD,no meningeal signs Neuro:alert and oriented to self, person, place, confused about time, can repeat the date immediately but cannot remember the date after 5 minutes . No neurological focal deficit Resp: clear lung bilaterally Cardio: regular rhythm, S1, S2, no murmur GI: Abdomen is not distended, semi-firm and non-tender, bowel sounds are present : no bladder distension Extremities: strength 5/5 to bilateral lower and upper extremities Psych: RASS 0, congruent mood and normal-sad affect. Objective Last Vital Signs Temp 36.6 C 11/14/23 07:57 Pulse 63 11/14/23 07:57 Resp 17 11/14/23 07:57 BP 198/78 H 11/14/23 07:57 Pulse Ox 98 11/14/23 07:57 Laboratory Results - last 24 hr 11/13/23 11/13/23 11/14/23 10:47 12:02 05:56 WBC 8.54 8.97 RBC 3.80 L 3.81 L Hgb 11.6 L 11.8 L Hct 34.2 L 34.7 L MCV 90 91 MCH 30.5 31.0 MCHC 33.9 34.0 RDW 13.4 13.5 Plt Count 251 259 MPV 9.7 10.4 Immature Gran % 0.1 0.3 Neutrophils % 62.0 66.2 Lymphocytes % 22.1 17.9 Monocytes % 11.4 10.1 Eosinophils % 3.2 4.5 Basophils % 1.2 1.0 Nucleated RBC % 0.0 0.0 Absolute Neutrophils 5.30 5.93 Absolute Lymphocytes 1.89 1.61 Absolute Monocytes 0.97 H 0.91 H Absolute Eosinophils 0.27 0.40 Absolute Basophils 0.10 0.09 Sodium 140 137 Potassium 3.5 3.6 Chloride 105 104 Carbon Dioxide 23.1 24.4 Anion Gap 11.9 H 8.6 BUN 30 H 27 H Creatinine 0.9 1.0 Est GFR (CKD-EPI 2020) 85.27 75.14 Glucose 170 H 168 H Calcium 8.9 8.6 Magnesium 1.7 L Total Bilirubin 0.6 AST 39 H ALT 44 Alkaline Phosphatase 67 Troponin I < 50 Total Protein 6.8 Albumin 2.9 L TSH 1.05 Urine Color Brown Urine Clarity Cloudy Urine pH Ur Specific [place] 1.025 Urine Protein Color Interference Urine Ketones Color Interference Urine Blood Color Interference Urine Nitrite Color Interference Urine Bilirubin Color Interference Urine Urobilinogen Color Interference Ur Leukocyte Esterase Color Interference Urine RBC >50 H Urine WBC Ur Epithelial Cells Not Applicable Urine Crystals Not Applicable Urine Bacteria Not Applicable Urine Mucus Not Applicable Ur Culture Indicated? Yes Urine Glucose Color Interference Urine Opiates Screen Negative Urine Methadone Screen Negative Ur Barbiturates Screen Negative Ur Tricyclics Screen Negative Ur Amphetamines Screen Negative U Benzodiazepines Scrn Negative Urine Cocaine Screen Negative Ur THC Screen Negative Ethyl Alcohol < 3.0 PAWSS Pt Consumed Any Amount of Alcohol Within the Last 30 days OR had positive ASHANTI Upon Admission: No Time Spent with Patient Time Spent with Patient: >50 minutes Time was spent: preparing to see the patient(eg.review tests), obtaining and/or reviewing separately otained hiistory, ordering medications,tests, procedures, referring, communicating with other health intensive care ambulance paramedic, indepentently interpreting results, counseling the patient and care coordination
[2023-11-14 11:09] VITALS: BP 123/68
[2023-11-14] MEDS: cefTRIAXone 1 GM/50 ML BAG IVPB ×2 (11:33→13:36)
[2023-11-14 13:55] LABS: Lab Add On Test DONE
[2023-11-14 14:19] LABS: Ammonia < 10 umol/L (11-32)
[2023-11-14 15:15] VITALS: BP 134/67; PULSE 64; RESP 16; TEMP 35.9; O2SAT 96
--- NOTE | 2023-11-15 | DI.MRI_ITS ---
Exam(s) MR ANGIO BRAIN WO EXAM: MR ANGIO BRAIN WO CLINICAL HISTORY: Abnormal CT TECHNIQUE: Performed on 1.5 ann unit with [id number] sequence. COMPARISON: MR MR BRAIN WO from 11/15/2023 FINDINGS: ANTERIOR CIRCULATION: Both internal carotid arteries are patent in the skull base-carotid canals and are also patent within the cavernous sinuses. The supraclinoid aspects are patent and nonaneurysmal. A1 segments are diff icult to assess because of motion artifact but appear to be patent. There is no obvious aneurysm at the level of the anterior communicating artery, realized limitations of resolution due to motion here . Middle cerebral arteries appear patent. No obvious stenosis. No aneurysms. POSTERIOR CIRCULATION: Basilar artery at the skull base is formed by both vertebral arteries and the basilar artery ascends with normal luminal diameter. Distally it gives off superior cerebellar arteries and above this leve l terminates as patent bilateral posterior cerebral arteries. There is a posterior communicating art joana on the left side of the [id number]. There is no aneurysm of the tip of the basilar artery. IMPRESSION: This study is somewhat limited by motion artifact but the intracranial arteries appear to be patent a nd there are no obvious significant stenoses nor obvious aneurysms evident. DATA REPOSITORY:
[2023-11-15 00:08] VITALS: BP 148/73; PULSE 64; RESP 16; TEMP 36.5; O2SAT 95
[2023-11-15] MEDS: cefTRIAXone 2 GM/50 ML BAG IVPB ×2 (00:56→12:20)
[2023-11-15 07:16] LABS: Abs Immature Grans 0.02 10^3/uL (0.0-0.06); Absolute Eosinophil Count 0.43 10^3/uL (0.0-0.7); Absolute Lymphocyte Count 1.65 10^3/uL (1.2-3.4); Absolute Monocyte Count 0.63 10^3/uL (0.1-0.8); Absolute Neutrophil Count 4.16 10^3/uL (1.2-6.7); Basophils % 1.4; Eosinophils % 6.2; HCT 34.7 % (40.0-50.0); HGB 11.6 g/dL (13.5-17.5); Immature Grans % 0.3; Lymphocytes % 23.6; MCH 30.3 pg (27.0-33.0); MCHC 33.4 % (32.0-36.0); MCV 91 fL (80-95); MPV 10.7 fL (8.0-11.0); Neutrophils % 59.5; Platelet Count 254 10^3/uL (130-400); RBC 3.83 10^6/uL (4.36-5.78); RDW 13.4 % (11.8-14.1); RDW-SD 44.6 fL; WBC 6.99 10^3/uL (4.4-10.8)
[2023-11-15 07:27] LABS: Anion Gap 10.3 mmol/L (3-11); BUN 24 mg/dL (7-18); CO2 26.7 mmol/L (21.0-32.0); CREATININE 0.9 mg/dL (0.70-1.30); Calcium 8.7 mg/dL (8.5-10.1); Chloride 105 mmol/L (98-107); Estimated GFR 85.27 (mL/min/1.73m2); Glucose 182 mg/dL (74-106); Magnesium 1.7 mg/dL (1.8-2.4); Potassium 3.8 mmol/L (3.5-5.1); Sodium 142 mmol/L (136-145)
[2023-11-15 07:45] VITALS: BP 171/75; PULSE 60; TEMP 36.7; O2SAT 98
[2023-11-15] MEDS: Insulin Aspart 300 UNITS/3 ML PEN SC ×3 (07:51→16:55)
[2023-11-15] MEDS: MAGNESIUM SULFATE 2 GM/50 ML BAG IVPB (07:52)
[2023-11-15] MEDS: Docusate Sodium 100 MG CAP PO (07:53)
[2023-11-15] MEDS: Aspirin E.C. 81 MG TABEC PO (07:53)
[2023-11-15] MEDS: Omeprazole 20 MG CAPCR PO (07:53)
[2023-11-15] MEDS: Normal Saline Flush 10 ML SYR IVP ×2 (07:53→12:21)
[2023-11-15] MEDS: Losartan 50 MG TAB PO (07:53)
[2023-11-15] MEDS: Atorvastatin 40 MG TAB PO (07:53)
[2023-11-15] MEDS: Finasteride 5 MG TAB PO (07:53)
--- NOTE | 2023-11-15 08:00 | DI.MRI_ITS ---
Exam(s) MR BRAIN WO EXAM: MR BRAIN WO CLINICAL HISTORY: Abnormal CT TECHNIQUE: Multiplanar multisequence MRI of the brain was performed. COMPARISON: MR MR ANGIO BRAIN WO from 11/15/[address] scan of 11/12/2023 reviewed FINDINGS: CEREBRAL PARENCHYMA: There is no evidence of intracranial hemorrhage, mass effect, or shift of midline structures. There are no extra-axial fluid collections. Ventricles are not enlarged or shifted. There is involutional change consistent with this patient's advanced age. No evidence to suggest normal pressure hydrocep halus. There is no significant signal abnormality in the cerebellar hemispheres. There is signal abnormalit y in the central scottie consistent with chronic ischemic change, not associated with hemorrhage nor res tricted diffusion. There is no abnormal signal in the mesentery Rojas nor in the thalami. There is a moderate amount of bilateral periventricular signal abnormality consistent with chronic small vesse l disease. There is no significant focal signal abnormality evident on diffusion imaging to suggest acute ischem ic event. PITUITARY GLAND: No obvious mass. No obvious abnormality of the cavernous sinuses. FLOW VOIDS: The expected flow void are noted. No evidence of obvious aneurysm nor obvious vascular ma lformation. PARANASAL SINUSES: There is a post inflammatory retention cyst in the left maxillary sinus measuring approximately 1.3 x 1.0 cm. There is no associated fluid level. Other paranasal sinuses are clear. ORBITS: No obvious findings. IMPRESSION: There is a moderate amount of bilateral periventricular signal abnormality consistent with chronic sm all vessel disease. Also chronic ischemic changes in the central scottie noted. There is no evidence o f restricted diffusion to suggest acute ischemic event. No evidence of intracranial hemorrhage. Involutional changes symmetrical and consistent with this patient's advanced age. No evidence to sug gest normal pressure hydrocephalus DATA REPOSITORY:
--- NOTE | 2023-11-15 08:00 | DI.MRI_ITS ---
Exam(s) MR ANGIO NECK WO CLINICAL HISTORY: Abnormal CT. TECHNIQUE: Performed on 1.5 ann unit with [id number] sequence CONTRAST MATERIAL: IV Contrast: None COMPARISON: None. Brain CT scan 11/13/2023 was reviewed. FINDINGS: Anterior circulation: Both common arteries ascend with normal luminal diameters. There is no significant stenosis at the c arotid bifurcations and proximal internal carotid arteries on either side. Both internal carotid art eries are patent and non tortuous in the upper neck and are also demonstrated to be patent in the sku ll base. Posterior circulation: Vertebral arteries originate in conventional fashion off of the subclavian arteries and both vertebra l arteries ascend with normal and equal luminal diameters within the foramen transverse area with no evidence of intraluminal filling defects nor evidence to suggest vertebral artery dissection. At the skull base both vertebral arteries contribute to the formation of the basilar artery. IMPRESSION: 1. Patent carotid arteries in the neck without evidence of obvious significant stenosis. 2. Both vertebral arteries are also demonstrated to be patent in the neck and of equal diameter. Bot h vertebral arteries contribute to the formation of the basilar artery. This patient was apparently not able to complete further sequences of the brain. DATA REPOSITORY:
--- NOTE | 2023-11-15 08:22 | PDOC.CMPRO ---
Date of service: 11/15/23 Time of Service: 08:23 Care Management Progress Note Progress Note Text Progress Note Text: S/O:Jamey was sitting up in a chair visiting with his [id number]-[id number]-bup Jacob when CM met with him. He was polite and agreeable to conversation. Jamey informed CM that his about a month ago, almost to the day. He stated that she had a stroke and went on hospice and 4 days later. He is still grieving and admits to having a difficult time, understandably. Jacob's sister was Jamey's . Both men shared what good friends they are and how they spent a lot of time together as couples. Jamey stated that he is independent at baseline and does not receive any community services nor does her require the use of a cane or walker. He does not anticipate needing any services at discharge. A: Jamey is an 83 year old man admitted on 11/13/23 with encephalopathy, stroke and a UTI P:Anticipate Jamey will return home with no new services, once medically cleared. His family will drive him home via private vehicle when ready. He will follow up with his PCP and discharge plan of care. CM will continue to follow and support discharge planning needs. SDOH(Care Management) Screening Will the Patient Participate in the Screening?: Yes Do you worry about having a steady place to live?: no Problems where you live: no known problems In the past 12 months, have you had to go without electric, gas, oil or water in your home?: no Have you or anyone in your house had to go without enough food to eat?: no Has lack of transportation kept you from medical appointments or from doing things needed for daily living?: no Has anyone in your support network made you feel unsafe for any reason?: no
--- NOTE | 2023-11-15 10:09 | PGE_ITS ---
Date of Service Date of service: 11/15/23 Time of Service: 10:09 Assessment and Plan Assessment and plan (1) Encephalopathy: Status: Acute Assessment and plan: Might be d/t grieving process VS infection: Most unlikely to have a UTI: GPC < 86776 colonies in urine, UA with gross hematiuria no other abnormalities Initially treating with ceftriaxone 2 gm IV Q 12 for Meningitis VS tick borne illness; Tick and lyme panel pending. Seen by neuro , please see notes -Patient is likely to have dementia and will see neurology as an outpatient after discussion with Dr. Tran -Will stop ceftriaxone -Will order B12 level and supplement last level in 2019 was in the 300's Abnormal head CT: MRI, MRA head and neck are negative for stroke, occlusion or stenosis Psych consult : unable to complete as patient was somnolent after MRI, to be reordered when more alert if needed palliative care consult pending (2) Urinary retention with incomplete bladder emptying: Status: Acute Assessment and plan: Continue Finesteride and Terasozin ( Were resumed on the day of admission as patient had stopped taking his medicine a month ago after spouse passing) Urology consult pending As per CT report completed on 11/12/2023 as an outpatient, the patient had: -An enlarged prostate gland -Marked enlargement of the urinary bladder with wall trabeculation/thickening and wall diverticula. This may be due to chronic bladder outlet obstruction/ neurogenic bladder. Infection or neoplasm cannot be entirely excluded. - Moderate bilateral hydronephrosis secondary to the urinary bladder obstruction. No obstructing stones. Rivera catheter and urology consultation ordered by Dr. Norton on 11/15/2023 Urology consult pending (3) BPH w urinary obs/LUTS: Status: Acute Assessment and plan: As above (4) Acute confusion: Status: Acute Assessment and plan: As above Encephalopathy VS urinary retention: Urology consult pending As per neurology: Dementia (5) Hematuria: Status: Acute Assessment and plan: As above Qualifiers: Hematuria type: gross Qualified Code(s): R31.0 - Gross hematuria (6) Urinary tract infection: Status: Acute Assessment and plan: Unlikely: UA inconclusive and micro has < 66655 colonies of mixed GPC Qualifiers: Hematuria presence: with hematuria (7) Contraindication for enoxaparin: Status: Acute Assessment and plan: Continue SCD's, hemturia on admission (8) Medication management: Status: Acute Assessment and plan: Continue home meds restarted on admit: ASA, Lipitor, Omeprazole and losartan (9) Discharge planning issues: Status: Acute Assessment and plan: CM to follow Discussed with Dr. Norton Subjective Subjective Patient reports: no new complaints, tolerating liquids well, tolerating a regular diet, voiding w/o difficulty (rivera in ), flatus and bowel movement; denies diarrhea, blood in stool, nausea, vomiting, shortness of breath or fever Exam Narrative Exam Narrative: Constitutional The patient in bed feeling sleepy, cooperative and pleasant,tangential and persevere with his ideas Eyes: intact ROM Neck: Normal ROM,no meningeal signs, no nuchal rigidity Neuro:alert and oriented to self, person, place, confused about time. No focal neurological deficit Resp: clear lung bilaterally Cardio: regular rhythm, S1, S2, no murmur GI: Abdomen is not distended, semi-firm and non-tender, bowel sounds are present : no bladder distension rivera in place, no CVA tenderness Extremities: strength 5/5 to bilateral lower and upper extremities Psych: RASS 0, congruent mood and normal-sad affect. Objective Last Vital Signs Temp 36.7 C 11/15/23 07:45 Pulse 60 11/15/23 07:45 Resp 16 11/15/23 00:08 BP 171/75 H 11/15/23 07:45 Pulse Ox 98 11/15/23 07:45 Laboratory Results - last 24 hr 11/14/23 11/14/23 11/15/23 13:55 Unknown 06:30 WBC 6.99 RBC 3.83 L Hgb 11.6 L Hct 34.7 L MCV 91 MCH 30.3 MCHC 33.4 RDW 13.4 Plt Count 254 MPV 10.7 Immature Gran % 0.3 Neutrophils % 59.5 Lymphocytes % 23.6 Monocytes % 9.0 Eosinophils % 6.2 Basophils % 1.4 Nucleated RBC % 0.0 Absolute Neutrophils 4.16 Absolute Lymphocytes 1.65 Absolute Monocytes 0.63 Absolute Eosinophils 0.43 Absolute Basophils 0.10 Sodium 142 Potassium 3.8 Chloride 105 Carbon Dioxide 26.7 Anion Gap 10.3 BUN 24 H Creatinine 0.9 Est GFR (CKD-EPI 2020) 85.27 Glucose 182 H Calcium 8.7 Magnesium 1.7 L Ammonia < 10 L Add-On Test Request DONE PAWSS Pt Consumed Any Amount of Alcohol Within the Last 30 days OR had positive ASHANTI Upon Admission: No Time Spent with Patient Time Spent with Patient: >50 minutes Time was spent: preparing to see the patient(eg.review tests), obtaining and/or reviewing separately otained hiistory, ordering medications,tests, procedures, referring, communicating with other health career consultant, indepentently interpreting results, counseling the patient and care coordination
[2023-11-15] MEDS: LORazepam 2 MG/ML VIAL 1 MG IVP (11:22)
[2023-11-15] MEDS: MORPHine 2 MG/ML SYR 0.5 MG IVP (11:22)
--- NOTE | 2023-11-15 12:31 | DM INPTCON_ITS ---
Date of service: 11/15/23 Time of Service: 10:30 Diabetes Inpatient Consult Reason for Visit: routine consult - diabetes education DESCRIPTION/ASSESSMENT: Pt with visitors (including his son) upon visit. He is an 83yo male who recently lost his this past August, leaving him home alone to prepare meals for himself (with the help of his supporting family). Last A1C was 7.1% last April. FBG this morning was 182 and 168 yesterday. low albumin, low hgb/h ct, low Mg noted. Ordered for heart healthy consistent carb diet with normal consistencies. Pt denies food allergies or any special dietary needs during this admission. taking metformin and sensitive sliding scale insulin aspart for meal coverage during this admission - pt just takes Metformin BID at home. Report good food quality here but states he has trouble getting lids off and opening containers on his tray. INTERVENTION: Reviewed diet order with pt. Alerted staff in kitchen that when meal trays are passed that pt need assistance with getting items set up and open for him. After discussing with pt and attending hospitalist, will initiate oral nutrition supplements for nutrition and protein support. Will add glucerna ONS to break fast tray and will add 8oz whey protein smoothie with sucralose to 2pm nourishment. Pt voices that he doesn't feel he needs diabetes education at this time (son disagrees however). PLAN: I left some carb counting materials with pt and reviewed 2-3 carb servings per meal and 1 per snack (1-3 snacks per day) is a good thing to keep in mind. I gave pt my business card should he desire to come in for diabetes education more specific to his needs. will monitor labs and ONS toleration/po intake. Time Spent in Nutritional Counseling and Treatment: 15 minutes face to face
--- NOTE | 2023-11-15 14:10 | W.TELEPSYCH ---
Date of service: 11/15/23 Time of Service: 14:11 Summary Note Name: Jamey Jhaveri?: 1940 Date?and?Time: 11/15/2023 1:46:21 PM Location of the patient: [facility] IP?Location of the doctor: [facility] Length of consult: 45 minutes This evaluation was conducted via video telepsychiatry with the assistance of onsite staff Reason for consult: Psychiatric Evaluation Requested by: Medicine team History of Present Illness: Patient is 83 year old male who resides in [place]. He has a past psychiatric history for bereavement ( one month ago), no prior inpatient psychiatrics hospitalizations, no prior suicide attempts, no history of non suicidal self injurious behavior, and no prior chemical dependency concerns. He has a past medical history significant for urinary retention. BPH, and diabetes. Patient presented to the emergency room on 11/13/23 with altered mental status. Patient was subsequently admitted for further medical stabilization. Psychiatry was consulted with concern for bereavement and co-occurring depression as patient has been refusing medications during this admission. On psychiatric interview, patient had significant alterations in his sensorium and orientation. Patient is only oriented to self, and month. Patient is not oriented to year, day of the week, reason for hospitalization. Patient is not able to open his eyes and is difficult to engage. Nursing reports that patient went for an MRI at 11:30 am and had to receive lorazepam for claustrophobia and has been sedated since returning from the MRI. Collateral Contacted: No?Reason for not contacting the collateral:None available Sleep issues?: Unknown-NA Psychiatric History/Treatment History:? Past diagnoses: unknown Hospitalizations: Unknown-NA Current Treatment:Unknown-NA Suicide Assessment: PSS-3: 1) Over the past 2 weeks have you felt down, depressed or hopeless??Unknown-NA? 2) Over the past 2 weeks have you had thoughts of killing yourself??Unknown-NA 3) Have you ever in your life attempted to kill yourself??Unknown-NA Within the past 6 months??? [facility] Safety Assessment: Risk Factors Stressors: chronic medical conditions Attempts/Self-injury: Unknown-NA Impulsivity:Unknown-NA Drug/Alcohol History:Unknown-NA Trauma History:Unknown-NA Access to firearms:Unknown-NA HI/Violence/Property destruction:Unknown-NA Legal: Unknown-NA Family Psych History:Unknown-NA ? Family History of suicide:Unknown-NA Protective Factors:? Can handle stress well??Unknown-NA ? Shinto??Unknown-NA ? External: ? Social supports/ Therapeutic relationships: Unknown-NA ? Relationship history: unknown ? Living situation: unknown ? Employment: Unknown-NA ? Education: unknown ? Responsibility to family/children/work: Unknown-NA ? Future orientation:Unknown-NA Health History: ? Medical History: BPH diabetes ? Medications & Freq: no psychotropics ? Allergies: no known allergies Mental Status Exam: Appearance and Attire:?dressed in hospital gown, not able to open eyes laying back in chair Psychomotor agitation:?calm kinetics Attitude and behavior:?very calm, appears quite sedated Speech:?Slow, Soft, Slurred, Paucity of speech, Increased latency Mood:?unable to assess due to somnolence Affect:?unable to assess due to somnolence Thought process:?unable to assess due to somnolence Thought content:?unable to assess due to somnolence Perception:?unable to assess due to somnolence Intel:?unable to assess due to somnolence Abstract:?Poor reasoning Language:?Impaired to Naming, Impaired to Word finding, Impaired to Repetition Orientation:?oriented to self and month only Sense:?altered sensorium Knowledge:?unable to assess due to somnolence Memory:?Impaired to Immediate recall, Impaired to Recent recall (3 min), Impaired to Remote recall, Impaired to Executive function Insight:?limited insight Judgement:?limited judgment Gait:?unable to assess Impression/Risk Assessment: Current Suicide Risk Elevated?Description:?too sedated to participate Current Violence Risk Elevated?Description:?too sedated to participate Issues with ability to care for self?Description:?too sedated to participate Summary: Patient is 83 year old male who resides in [place]. He has a past psychiatric history for bereavement ( one month ago), no prior inpatient psychiatrics hospitalizations, no prior suicide attempts, no history of non suicidal self injurious behavior, and no prior chemical dependency concerns. He has a past medical history significant for urinary retention. BPH, and diabetes. Patient presented to the emergency room on 11/13/23 with altered mental status. Patient was subsequently admitted for further medical stabilization. Psychiatry was consulted with concern for bereavement and co-occurring depression as patient has been refusing medications during this admission. Patient was sedated from MRI after receiving lorazepam. Patient was unable to open his eyes and was only oriented to self and month. Diagnosis: F43.0 Acute stress reaction CPT Codes: 23833 - Psychiatric Diagnostic Evaluation with Medical Services Treatment Plan:? General: 1. Patient was quite sedated after receiving lorazepam for previously performed MRI at 11:30 am. 2. Would recommend to consult psychiatry when patient is no longer sedated and is able to participate in psychiatric interview. ? Level of Care: Continue current status ? Psychiatric Clearance: No??Description:?too sedated to participate ? Observation level ? 1:1 needed?: No ? Pharmacological: none ? Patient psychotic?No ? Therapy: None ? Follow up needed while in the hospital?: Yes?Follow up Frequency:?24hr ? Discussed plan with onsite steamfitter supervisor: Yes Who Deann Ordaz nurse practitioner ? Other:
--- NOTE | 2023-11-15 16:05 | UCONE_ITS ---
Date of service: 11/16/23 Time of Service: 07:21 Assessment and Plan Assessment and plan (1) Urinary retention with incomplete bladder emptying: Status: Acute (2) Hydronephrosis: Status: Acute Assessment and plan: Our recommended management for his incomplete bladder emptying and hydronephrosis is clean intermittent catheterization. When I last met with the patient, I had serious doubts that he would be able to perform CIC on his own. He had no interest in an invasive workup or treatment. Now that he is in the hospital, CIC seems much more appropriate. With the degree of his bladder distention, it is not likely that he would ever be able to empty his bladder completely even if we were to do a surgical procedure such as a TURP. He is already on maximal medical therapy, so I do not think I have any medical or surgical treatments that would be of benefit for him. I had considered recommending an indwelling catheter (rivera or suprapubic tube) in this gentleman, but with his lack of urinary tract infections and his preserved renal function, I was concerned that introducing a chronic catheter in this gentleman would just lead to recurrent infections and episodes of sepsis. Now that he has had gross hematuria even with negative urine cultures, we should arrange for hematuria workup if the patient is agreeable. Typically, we recommend some type of imaging study that involves the kidneys. He has already had CT scans. We would also need a cystoscopy to evaluate his lower urinary tract. Perhaps the cysto could be done while he is here in the hospital assuming his mental status improves. Doing a cystoscopy in the office as an outpatient is also an option for us. I guess our ultimate recommendations for his bladder management will depend on his placement. History of Present Illness History of Present Illness Chief Complaint: Incomplete bladder emptying Narrative: This is an 83-year-old gentleman who is well-known to me. He has a history of incomplete bladder emptying dating at least back to 2012. When I first met him in 2014, he was having recurrent UTIs. He had a markedly distended bladder but had no hydronephrosis at that time. We were able to manage him with alpha blockers and timed voiding. He was not able to empty his bladder completely, but he was able to remain infection free. More recently, he has had progression of his incomplete bladder emptying to the point where he now has findings of bilateral hydronephrosis and hydroureter. Remarkably, his renal function has not been compromised. He has not had any documented urinary tract infections, but he has had episodes of gross hematuria. He does have urinary incontinence. He has had a recent CT of the abdomen and pelvis and there was a question of a solid mass on the left kidney. As I had reviewed his previous renal ultrasounds, it appeared that he did have a cystic mass on the left kidney previously. I had recommended a follow-up renal ultrasound to assess the renal mass. He is now admitted with mental status changes [facility] All Active Problems (Updated 11/15/23 @ 20:46 by Meryl Blanchard MD) Acute cognitive decline (Acute) Memory changes (Acute) Hydronephrosis (Acute) Medication management (Acute) Abdominal tenderness (Acute) Discharge planning issues (Acute) Contraindication for enoxaparin (Acute) Urinary tract infection (Acute) Encephalopathy (Acute) Acute confusion (Acute) Urinary retention with incomplete bladder emptying (Acute) Hematuria (Acute 07/16/16) 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) Medical History Bilateral renal cysts Social History Smoking/Tobacco Use Status: Former Tobacco Use Smoking risk assessment performed?: Yes Alcohol Intake: never Drug use: Never Substance use type: does not use Housing: house Do you feel safe at home: Yes Do you feel safe in your relationship?: Yes Exam Narrative Exam Narrative: He is sitting up in the chair this morning. His vital signs are documented elsewhere He has a Rivera catheter in place that is draining yellow-tinged urine with no gross hematuria He is awake and alert. He recognizes me but lacks insight when discussing his current medical situation Results Last Vital Signs Temp 36.7 C 11/15/23 07:45 Pulse 60 11/15/23 07:45 Resp 16 11/15/23 00:08 BP 171/75 H 11/15/23 07:45 Pulse Ox 98 11/15/23 07:45 Labs 11/15/23 06:30 11/15/23 06:30 Labs: Laboratory Results - last 24 hr 11/15/23 06:30 WBC 6.99 RBC 3.83 L Hgb 11.6 L Hct 34.7 L MCV 91 MCH 30.3 MCHC 33.4 RDW 13.4 Plt Count 254 MPV 10.7 Immature Gran % 0.3 Neutrophils % 59.5 Lymphocytes % 23.6 Monocytes % 9.0 Eosinophils % 6.2 Basophils % 1.4 Nucleated RBC % 0.0 Absolute Neutrophils 4.16 Absolute Lymphocytes 1.65 Absolute Monocytes 0.63 Absolute Eosinophils 0.43 Absolute Basophils 0.10 Sodium 142 Potassium 3.8 Chloride 105 Carbon Dioxide 26.7 Anion Gap 10.3 BUN 24 H Creatinine 0.9 Est GFR (CKD-EPI 2020) 85.27 Glucose 182 H Calcium 8.7 Magnesium 1.7 L
[2023-11-15 16:12] VITALS: BP 95/52; PULSE 61; RESP 18; TEMP 36.8; O2SAT 96
--- NOTE | 2023-11-15 17:33 | W.NEUROCONSU ---
Date of service: 11/15/23 Time of Service: 17:33 Assessment and Plan Assessment and plan (1) Memory changes: Status: Acute (2) Acute cognitive decline: Status: Acute Assessment and plan: Mr. Jhaveri is admitted with acute on chronic decline. 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 In the last one month, he has had a more acute decline likely secondary to mourning passing of his 's , other increased stressors, and sleep deprivation. Please check a vitamin B12 as further work-up. Agree with psych eval. Will plan to perform extensive cognitive testing as an outpatient. Encourage good sleep hygiene. CM/SW for placement vs home with significant supports. He shouldn't be living independently at this time. He should not be driving. Will schedule him for f/up in neurology clinic. History of Present Illness History of Present Illness Chief Complaint: AMS Narrative: Handedness: right. HPI: Mr. Jhaveri is an 83 year-old with hyperlipidemia, DM2, GERD, known distended bladder and hydronephrosis as well as episodes of gross hematuria. Ms. Jhaveri was brought by family to [facility] ER on 11/13/23 for several weeks of increased confusion and inability to care for himself. Mr. Jhaveri's about 1month ago. Since then, family has been bringing him food, but otherwise, it's not clear that he has been taking his medications or performing any other self or home care. Mr. Jhaveri notes difficulty sleeping in the last 1 month. He has been reporting vivid dreams to his family - not reported in the past. Otherwise, son at bedside. Family has noted memory issues for 2 years and presumed that he had dementia. Though it's not clear that he was ever evaluated for this. Mr. Jhaveri's it seemed managed the household, bills, etc. Mr. Jhaveri was apparently driving without issue until about 1 month ago. In addition to mourning his and reduce sleep, it sounds like there have been other stressors regarding moving households x2 in the last month?? I am not clear. Since admission, Mr. Jhaveri continues to have confusion/timelines, tangential speech worse than baseline 1 mo ago. He has current gross hematuria of unknown duration. He has a fixed delusion that his right kidney is and that it needs to be surgically removed - he even went into detail of how it should be done including a small hand to reach in and grab the kidney and then tape to close the wound after. He has had an extensive negative work-up for stroke, UTI, etc. Pysch eval was attempted today, but he was still sedated from MRI medications. Work-up: -CTH (11/13/23): ?old ischemia in the central [place]. Chronic vascular changes. No acute findings. I reviewed these images personally and this is my personal interpretation. -Labs (11/13/23): W 8.54, Hgb 11.6, Na 140, K 3.5, BUN 30, Cr 0.9, glucose 170, UDS/ETOH neg, Ca 8.9, Mg 1.7, Tbili 0.6, AST 39, ALT 44, AlkP 67, tropx1 neg, TSH 1.05, ammonia <10 -UA (11/11/23 and 11/13/23): cultures negative - small amounts of mixed gram+ radha. -MRI brain w/o (11/15/23): No acute findings. Mild chronic vascular changes as expected for age. More significant generalized atrophy. I reviewed these images personally and this is my personal interpretation. -MRA head/neck (11/15/23): Limited by motion artifact, but no obvious narrowing, etc. I reviewed these images personally and this is my personal interpretation. -Pending: tick/lyme panel Review of Systems Unobtainable due to mental status PFSH All Active Problems (Updated 11/15/23 @ 20:46 by Meryl Blanchard MD) Acute cognitive decline (Acute) Memory changes (Acute) Hydronephrosis (Acute) Medication management (Acute) Abdominal tenderness (Acute) Discharge planning issues (Acute) Contraindication for enoxaparin (Acute) Urinary tract infection (Acute) Encephalopathy (Acute) Acute confusion (Acute) Urinary retention with incomplete bladder emptying (Acute) Hematuria (Acute 07/16/16) 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) Medical History Bilateral renal cysts Social History (Reviewed 11/15/23 @ 20:40 by SEBASTIAN Jones Smoking/Tobacco Use Status: Former Tobacco Use Smoking risk assessment performed?: Yes Alcohol Intake: never Drug use: Never Substance use type: does not use Housing: house Do you feel safe at home: Yes Do you feel safe in your relationship?: Yes Visit Medication and Allergies Active Medications Generic Name Dose Route Start Last Admin Trade Name Freq PRN Reason Stop Dose Admin Albuterol Sulfate 2.5 mg 11/13/23 14:40 Albuterol 2.5 Mg/3 Ml Inh Soln Vial UPD Q2H PRN PRN Aspirin 81 mg 11/14/23 08:30 11/15/23 07:53 Aspirin E.C. 81 Mg Tabec PO 81 mg DAILY PAUL Administration Atorvastatin Calcium 40 mg 11/14/23 08:30 11/15/23 07:53 Atorvastatin 40 Mg Tab PO 40 mg DAILY PAUL Administration Dextrose 0 gm 11/13/23 14:46 Glucose Oral Gel 15 Gm/37.5 Gm Tube PO DIRECTED PRN Dextrose/Water 0 gm 11/13/23 14:46 Dextrose 50%-Water 25 Gm/50 Ml Syr IVP DIRECTED PRN Docusate Sodium 100 mg 11/13/23 20:00 11/15/23 07:53 Docusate Sodium 100 Mg Cap PO 100 mg BID PAUL Administration Docusate Sodium 100 mg 11/13/23 14:40 Docusate Sodium 100 Mg Cap PO TID PRN PRN Finasteride 5 mg 11/14/23 08:30 11/15/23 07:53 Finasteride 5 Mg Tab PO 5 mg DAILY PAUL Administration Ceftriaxone Sodium/Dextrose 2 gm in 50 mls @ 100 mls/hr 11/15/23 00:00 11/15/23 12:20 Rocephin IVPB 100 mls/hr Q12H PAUL Administration IV Miscellaneous Supplies 1 each 11/13/23 14:40 Iv Access IV DIRECTED PAUL Insulin Aspart 0 units 11/15/23 08:00 11/15/23 16:55 Insulin Aspart 300 Units/3 Ml Pen SC 2 units 0800,1200,1700,2200 PAUL Administration Protocol Lorazepam 1 mg 11/15/23 10:45 11/15/23 11:22 Lorazepam 2 Mg/Ml Vial IVP 1 mg [employer] PAUL Administration Losartan Potassium 50 mg 11/14/23 08:30 11/15/23 07:53 Losartan 50 Mg Tab PO 50 mg DAILY PAUL Administration Melatonin 3 mg 11/14/23 22:00 11/14/23 21:55 Melatonin 3 Mg Tab PO Not Given HS [facility] Metformin HCl 500 mg 11/17/23 08:30 Metformin 500 Mg Tab PO 0830,1200 [facility] Morphine Sulfate 0.5 mg 11/15/23 11:15 11/15/23 11:22 Morphine 2 Mg/Ml Syr IVP 0.5 mg [employer] PAUL Administration Omeprazole 20 mg 11/14/23 07:30 11/15/23 07:53 Omeprazole 20 Mg Capcr PO 20 mg DAILY@0730 PAUL Administration Polyethylene Glycol 17 gm 11/13/23 14:40 Polyethylene Glycol 3350 17 Gm Packet PO DAILY PRN PRN Constipation Sodium Chloride 0 ml 11/13/23 14:40 11/15/23 12:21 Normal Saline Flush 10 Ml Syr IVP 20 ml PRN PRN Administration Sodium Chloride 0 ml 11/13/23 20:00 11/15/23 07:53 Normal Saline Flush 10 Ml Syr IVP 10 ml BID PAUL Administration Sodium Chloride 0 ml 11/13/23 14:40 Normal Saline 10 Ml Vial IJ DIRECTED PRN Terazosin HCl 10 mg 11/14/23 08:30 11/15/23 07:53 Terazosin 5 Mg Cap PO 10 mg DAILY PAUL Administration Allergies No Known Allergies Allergy (Unverified 11/13/23 11:00) Exam Narrative Exam Narrative: Physical Exam: Constitutional: Patient of apparent stated age, well nourished, well developed, no acute distress Neck: Supple, no meningismus CV: RRR, S1, S2, no murmur Resp: CTAB Abd: Soft, nontender, nondistended Extrem: no edema Neuro: MS/Language/Speech: Alert, oriented to self only - could not tell me where we were but then asked me what he would do to make the hospital more efficient - though again never answered directly my question. No aphasia. No dysarthria. Tangential speech. For example, he was talking about his urinary symptoms and then switched without warning to constipation. No segue. CN: PERRL, EOMI, visual edmondson full, trigeminal sensation intact, no facial asymmetry, hearing intact, palate elevates symmetrically, tongue protrudes midline, SCM and trap strength intact Motor: Normal bulk and tone. FMM intact, no pronator drift. 5/5 strength in bilateral upper and lower extremities Sensation: Intact to light touch throughout Reflexes: 2+ DTRs except absent at the achilles bilaterally, downgoing toes Coordination: Finger to nose performed without dysmetria Gait: not seen Results Last Vital Signs Temp 98.2 F 11/15/23 16:12 Pulse 61 11/15/23 16:12 Resp 18 11/15/23 16:12 BP 95/52 L 11/15/23 16:12 Pulse Ox 96 11/15/23 16:12 Labs 11/15/23 06:30 11/15/23 06:30 Labs: Laboratory Results - last 24 hr 11/15/23 06:30 WBC 6.99 RBC 3.83 L Hgb 11.6 L Hct 34.7 L MCV 91 MCH 30.3 MCHC 33.4 RDW 13.4 Plt Count 254 MPV 10.7 Immature Gran % 0.3 Neutrophils % 59.5 Lymphocytes % 23.6 Monocytes % 9.0 Eosinophils % 6.2 Basophils % 1.4 Nucleated RBC % 0.0 Absolute Neutrophils 4.16 Absolute Lymphocytes 1.65 Absolute Monocytes 0.63 Absolute Eosinophils 0.43 Absolute Basophils 0.10 Sodium 142 Potassium 3.8 Chloride 105 Carbon Dioxide 26.7 Anion Gap 10.3 BUN 24 H Creatinine 0.9 Est GFR (CKD-EPI 2020) 85.27 Glucose 182 H Calcium 8.7 Magnesium 1.7 L
[2023-11-15 19:25] VITALS: BP 137/56; PULSE 69; RESP 19; TEMP 36.3; O2SAT 97
[2023-11-15 23:18] VITALS: BP 133/48; PULSE 73; RESP 20; TEMP 36; O2SAT 97
[2023-11-16 03:10] VITALS: BP 129/56; PULSE 74; RESP 19; TEMP 36.2; O2SAT 94
[2023-11-16 07:08] VITALS: BP 138/71; PULSE 66; RESP 17; TEMP 36.6; O2SAT 98
[2023-11-16 07:42] LABS: Vitamin B12 743 pg/mL (193-986)
[2023-11-16 07:54] LABS: Abs Immature Grans 0.03 10^3/uL (0.0-0.06); Absolute Eosinophil Count 0.64 10^3/uL (0.0-0.7); Absolute Lymphocyte Count 1.66 10^3/uL (1.2-3.4); Absolute Monocyte Count 0.68 10^3/uL (0.1-0.8); Basophils % 1.1; Eosinophils % 6.9; HGB 12.1 g/dL (13.5-17.5); Immature Grans % 0.3; Lymphocytes % 17.8; MCHC 32.7 % (32.0-36.0); MCV 92 fL (80-95); MPV 10.9 fL (8.0-11.0); Monocytes % 7.3; Neutrophils % 66.6; Platelet Count 286 10^3/uL (130-400); RBC 4.03 10^6/uL (4.36-5.78); RDW 13.5 % (11.8-14.1); RDW-SD 45.9 fL; WBC 9.31 10^3/uL (4.4-10.8)
[2023-11-16] MEDS: Docusate Sodium 100 MG CAP PO ×2 (07:58→20:33)
[2023-11-16] MEDS: Cyanocobalamin 500 MCG TAB 1000 MCG PO (07:58)
[2023-11-16] MEDS: Aspirin E.C. 81 MG TABEC PO (07:58)
[2023-11-16] MEDS: Losartan 50 MG TAB PO (07:58)
[2023-11-16] MEDS: Omeprazole 20 MG CAPCR PO (07:59)
[2023-11-16] MEDS: Insulin Aspart 300 UNITS/3 ML PEN SC ×4 (07:59→20:33)
[2023-11-16] MEDS: Finasteride 5 MG TAB PO (07:59)
[2023-11-16] MEDS: Atorvastatin 40 MG TAB PO (08:01)
[2023-11-16] MEDS: Normal Saline Flush 10 ML SYR IVP ×2 (08:02→20:33)
[2023-11-16 08:20] LABS: Anion Gap 4.8 mmol/L (3-11); BUN 25 mg/dL (7-18); CO2 28.2 mmol/L (21.0-32.0); CREATININE 0.9 mg/dL (0.70-1.30); Calcium 8.9 mg/dL (8.5-10.1); Chloride 105 mmol/L (98-107); Estimated GFR 85.27 (mL/min/1.73m2); Glucose 183 mg/dL (74-106); Magnesium 1.9 mg/dL (1.8-2.4); Potassium 4.3 mmol/L (3.5-5.1); Sodium 138 mmol/L (136-145)
--- NOTE | 2023-11-16 09:55 | PDOC.CMPRO ---
Date of service: 11/16/23 Time of Service: 09:55 Care Management Progress Note Progress Note Text Progress Note Text: S/O:Jamey was sitting up in a chair chatting with a visitor when CM met with him. He looked much better today than yesterday. His color was better and he was more engaged in conversation. Jamey was eating lunch and the conversation turned to food and appetites. Jamey talked about all of the food that was cooked for him after his . He stated that he ate too many sweets and needs to eat a little less right now. His visitor laughed and stated that he ate well on the leftovers as well. Jamey had a telepsych consult today. Jamey was able to participate and no new medications were recommended. The psychiatrist did not feel that Jamey has a major depressive disorder, just Adjustment disorder with depressed mood related to the recent loss of his . The psychiatrist also identified that Jamey may have early Alzheimers type dementia. A: Jamey is an 83 year old man admitted on 11/13/23 with encephalopathy, stroke and a UTI P:Anticipate Jamey will return home with no new services, once medically cleared. His family will drive him home via private vehicle when ready. He will follow up with his PCP and discharge plan of care. CM will continue to follow and support discharge planning needs. SDOH(Care Management) Screening Will the Patient Participate in the Screening?: Yes Do you worry about having a steady place to live?: no Problems where you live: no known problems In the past 12 months, have you had to go without electric, gas, oil or water in your home?: no Have you or anyone in your house had to go without enough food to eat?: no Has lack of transportation kept you from medical appointments or from doing things needed for daily living?: no Has anyone in your support network made you feel unsafe for any reason?: no
[2023-11-16 10:23] LABS: Lyme Ab w Rflx to Lyme Confirm Negative (Negative)
[2023-11-16 11:13] VITALS: BP 114/73; PULSE 70; RESP 17; TEMP 36.3; O2SAT 99
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
--- NOTE | 2023-11-16 12:53 | W.PM.PROGNOT ---
Date of Service Date of service: 11/16/23 Time of Service: 12:53 Assessment and Plan Assessment and plan (1) Encephalopathy: Status: Acute Assessment and plan: neurology as an outpatient after discussion with Dr. Tran Psych consult : normal grieving process - no meds recommended Palliative care consult pending (2) Urinary retention with incomplete bladder emptying: Status: Acute Assessment and plan: Continue Finesteride and Terasozin Urology consult - will see out patient Horner catheter in place and draining, clear, pale yellow (3) BPH w urinary obs/LUTS: Status: Acute Assessment and plan: As above (4) Acute confusion: Status: Acute Assessment and plan: As per neurology: Dementia (5) Hematuria: Status: Resolved Assessment and plan: As above Qualifiers: Hematuria type: gross Qualified Code(s): R31.0 - Gross hematuria (6) Urinary tract infection: Status: Resolved Assessment and plan: Unlikely: UA inconclusive and micro has < [id number] colonies of mixed GPC Qualifiers: Hematuria presence: with hematuria (7) Contraindication for enoxaparin: Status: Acute Assessment and plan: Continue SCD's, hemturia on admission (8) Medication management: Status: Acute Assessment and plan: Continue home meds restarted on admit: ASA, Lipitor, Omeprazole and losartan (9) Discharge planning issues: Status: Acute Assessment and plan: CM to follow Discussed with Dr. Norton Subjective Subjective Patient reports: no new complaints, tolerating liquids well, tolerating a regular diet and bowel movement; denies diarrhea, nausea, vomiting, shortness of breath or fever Interval history since last seen: Continues to be sad s/t to his passing Exam Narrative Exam Narrative: Constitutional Semi fowlers in bed, tearful, conversant HENMT: Head is atraumatic, normocephalic, no lymphadenopathy. Facial structures with normal appearance Eyes: Well aligned, EOMI, intact, PERRL Neck: Normal ROM, no JVD, no meningeal signs Neuro:alert and oriented to self, knows he is in the hospital, confused about past events and time Altered short term memory, retirement memory intact Chest:Chest is symmetrical and normal appearance Resp: Normal respiratory pattern, speaks in full sentences, unlabored breathing, lungs clear bilaterally Cardio: regular rhythm, S1, S2, no murmur, capillary refill<3 sec., bilateral radial and dorsalis pedis pulses are positive GI: Abdomen is not distended, non-tender, bowel sounds are present throughout : no bladder distension, gross hematuria Back/spine/Pelvis: No back tenderness, normal alignment Integumentary: No skin lesions or rash Extremities: strength 5/5 to bilateral lower and upper extremities Psych: Flat, crying, states he is sad about his passing 1 week ago to the day Objective Last Vital Signs Temp 36.3 C L 11/16/23 11:13 Pulse 70 11/16/23 11:13 Resp 17 11/16/23 11:13 BP 114/73 11/16/23 11:13 Pulse Ox 99 11/16/23 11:13 Laboratory Results - last 24 hr 11/14/23 11/16/23 11/16/23 05:56 06:20 06:30 WBC 9.31 RBC 4.03 L Hgb 12.1 L Hct 37.0 L MCV 92 MCH 30.0 MCHC 32.7 RDW 13.5 Plt Count 286 MPV 10.9 Immature Gran % 0.3 Neutrophils % 66.6 Lymphocytes % 17.8 Monocytes % 7.3 Eosinophils % 6.9 Basophils % 1.1 Nucleated RBC % 0.0 Absolute Neutrophils 6.20 Absolute Lymphocytes 1.66 Absolute Monocytes 0.68 Absolute Eosinophils 0.64 Absolute Basophils 0.10 Sodium 138 Potassium 4.3 Chloride 105 Carbon Dioxide 28.2 Anion Gap 4.8 BUN 25 H Creatinine 0.9 Est GFR (CKD-EPI 2020) 85.27 Glucose 183 H Calcium 8.9 Magnesium 1.9 Vitamin B12 743 Lyme Disease Antibody Negative PAWSS Pt Consumed Any Amount of Alcohol Within the Last 30 days OR had positive ASHANTI Upon Admission: No Time Spent with Patient Time Spent with Patient: 25-34 minutes Time was spent: preparing to see the patient(eg.review tests), obtaining and/or reviewing separately otained hiistory, referring, communicating with other health critical care technician, indepentently interpreting results, counseling the patient and care coordination
--- NOTE | 2023-11-16 13:49 | PHA.REVIEW2 ---
Pharmacy Admission Review Admission Clinical Review Admission Pharmacy Review: (Updated 11/15/23 @ 20:46 by Meryl Blanchard MD) Acute cognitive decline (Acute) Memory changes (Acute) Hydronephrosis (Acute) Medication management (Acute) Abdominal tenderness (Acute) Discharge planning issues (Acute) Contraindication for enoxaparin (Acute) Urinary tract infection (Acute) Encephalopathy (Acute) Acute confusion (Acute) Urinary retention with incomplete bladder emptying (Acute) Hematuria (Acute 07/16/16) 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) No Known Allergies Allergy (Unverified 11/13/23 11:00) Resuscitation Status DNR/DNI Height 5 ft 4 in Weight 66.76 kg Comments Comments/Follow Ups: Thought to have UTI when presented to ER and was started on ABX but these were discontinued when UTI was ruled out. Per morning meeting there is still blood present in patients urine. Psych evaluation scheduled for today. Pharmacy Admission Review Renal Dosing Renal Dosing: BUN 25 mg/dL (7-18) H 11/16/23 06:20 Creatinine 0.9 mg/dL (0.70-1.30) 11/16/23 06:20 Medications needing adjustments: Reviewed (CrCl 53.78 mL/min) Anticoagulation Anticoagulation: Hgb 12.1 g/dL (13.5-17.5) L 11/16/23 06:20 Hct 37.0 % (40.0-50.0) L 11/16/23 06:20 Plt Count 286 10^3/uL (130-400) 11/16/23 06:20 Creatinine 0.9 mg/dL (0.70-1.30) 11/16/23 06:20 DVT Prophylaxis: Reviewed (SCD's, no chemical prophylaxis due to hematuria) Relevant Labs Relevant Labs: Sodium 138 mmol/L (136-145) 11/16/23 06:20 Potassium 4.3 mmol/L (3.5-5.1) 11/16/23 06:20 Chloride 105 mmol/L (98-107) 11/16/23 06:20 Magnesium 1.9 mg/dL (1.8-2.4) 11/16/23 06:20 Electrolytes, C-Reactive P, ESR: Reviewed (BUN 25, Hgb increased to 12.1, serology pending) DM Control DM Control: Reviewed Insulin Dosing, Diabetic Medication: Glucose 183 at 0620 this morning. Has order for sliding scale insulin and metformin (home med) Cardiac Review Cardiac Review: Troponin I < 50 ng/L (< or =60) 11/13/23 10:47 BP, HR, EF%: Reviewed (HR/BP WNL) QTc Review QTc: N/A (No EKG in patients file) IV to PO Switch IV Medications: Reviewed Home Meds Home Med List reviewed: Reviewed Relevent Home Meds Not ordered & why?: Supplements were okay to D/C per MD, all other home meds have orders Current Meds Current Medication Order Review: Reviewed Comments Comments/Follow Ups: Thought to have UTI when presented to ER and was started on ABX but these were discontinued when UTI was ruled out. Per morning meeting there is still blood present in patients urine. Psych evaluation scheduled for today.
[2023-11-16 14:45] VITALS: BP 138/71; PULSE 73; RESP 17; TEMP 36.2; O2SAT 97
--- NOTE | 2023-11-16 15:20 | PSYCO_ITS ---
Date of service: 11/16/23 Time of Service: 03:25 Summary Note Name: Jamey Jhaveri?: 1940 Date?and?Time: 11/16/2023 2:43:05 PM Location of the patient: [facility] IP?Location of the doctor: [place] Length of consult: 45 minutes This evaluation was conducted via video telepsychiatry with the assistance of onsite staff Reason for consult: Depression Requested by: hospitalist History of Present Illness: 83-year-old male who resides in [place]. He has no prior psychiatric diagnosis that is known but has been admitted to the emergency department on 11/13/2023 for abdominal tenderness, and altered mental status. Patient has additional medical history of urinary retention, BPH, diabetes. Brother, [id number], and son brought him in but he does live alone. They have been checking on him daily and have him have noticed a significant change in his mental status. He has been more confused, thinks it is 1939. He has been talking as if his children were still young. He apparently had a fall the prior week and was seen at [facility] for that. They are not sure if he has been taking his meds but they have been making sure he has been eating. 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 Psychiatry was asked to see him to rule out depression and attempted yesterday however he was unable to be examined. He apparently has been refusing medications during hospitalization as well. At the time of the evaluation he was are only oriented to self and was not able to open his eyes, difficult to engage, and sedated since returning from MRI. He apparently had to receive Ativan due to claustrophobia. Recommendation was for consult when he is more awake and able to participate. Neuro has seen him and feel he has early dementia and recommended B12 levels and scheduled for outpatient neurocognitive testing. AMS likely due to Sleep deprivation, mourning and other stressors. Met with patient and he says he is here for medical issues. He had been retaining urine. He says his just a bit over a month ago. He admits he's been depressed. He feels he has been doing as good as I can be coping with it. He is often sad, talks to her she talks back to me then he goes to sleep. Not hallucinating. Relying on his sasha. He believes in a creator but doesnt attend muslim, believes in the 10 commandments. He says his sleep is down, goes to bed but thinking all the time, gets an hour or 2 of sleep at best and this has been ongoing, no change since his passed. Appetite has been about usual but he admits he ate alot of sweet people brought after his . Feels like he has enjoyed the usual things he would. Still goes to the diner he frequents, maintaining contact with friends. Denies any loss of interest. Deneis any SI or feelings of not wanting to live. Collateral Contacted: No?Reason for not contacting the collateral:Other?Other:? not needed for this consult Sleep issues?: Yes?Sleep Quantity:?2 hours?Sleep Quality:?chronic, no change in sleep since of Psychiatric History/Treatment History:? Past diagnoses: none Hospitalizations: No Current Treatment:No Suicide Assessment: PSS-3: 1) Over the past 2 weeks have you felt down, depressed or hopeless??Yes? 2) Over the past 2 weeks have you had thoughts of killing yourself??No 3) Have you ever in your life attempted to kill yourself??No Within the past 6 months??? [facility] Safety Assessment: Risk Factors Stressors: of Attempts/Self-injury: No Impulsivity:No Drug/Alcohol History:No Trauma History:No Access to firearms:Yes?Description:?has guns at home but most he gave to his son a while ago. Has 3-4 he uses for hunting. HI/Violence/Property destruction:No Legal: No Family Psych History:Yes?Description:?alcoholism in family ? Family History of suicide:No Protective Factors:? Can handle stress well??No ? Jewish??Unknown-NA ? External: ? Social supports/ Therapeutic relationships: Yes?Description:?family ? Relationship history: ? Living situation: lives alone since a month ago ? Employment: No ? 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 Responsibility to family/children/work: No ? Future orientation:Yes?Description: Health History: ? Medical History: see HPI ? Medications & Freq: none ? Allergies: Mental Status Exam: Appearance and Attire:?Normal, Good eye contact, Well groomed Psychomotor agitation:?No abnormality Attitude and behavior:?Cooperative Speech:?No abnormality, Mood:?Depressed Affect:?Full range of affect Thought process:?Circumstantial Thought content:?No abnormality, No suicidal ideation, No homicidal ideation, No paranoia, No delusions Perception:?No hallucinations Intel:?Average Abstract:?Appropriate Language:?No abnormality Orientation:?Oriented to person, Oriented to place, Nov, Sense:?Normal Knowledge:?Mild impairment, Devin, Has trouble coming up with president before him Memory:?Can spell world forwards, WORLD/ video unit on backward task and lost signal Insight:?Appropriate Judgement:?Appropriate Gait:?No abnormality Impression/Risk Assessment: Current Suicide Risk Elevated??No ? Current Violence Risk Elevated??No ? Issues with ability to care for self??Yes ? Summary: 83-year-old male who resides in [place]. He has no prior psychiatric diagnosis that is known but has been admitted to the emergency department on 11/13/2023 for abdominal tenderness, and altered mental status. Patient has additional medical history of urinary retention, BPH, diabetes. Brother, [id number], and son brought him in but he does live alone. They have been checking on him daily and have him have noticed a significant change in his mental status. He has been more confused, thinks it is [birth year]. He has been talking as if his children were still young. He apparently had a fall the prior week and [facility] They are not sure if he has been taking his meds but they have been making sure he has been eating. 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 Psychiatry was asked to see him to rule out depression and attempted yesterday however he was unable to be examined. He apparently has been refusing medications during hospitalization as well. At the time of the evaluation he was are only oriented to self and was not able to open his eyes, difficult to engage, and sedated since returning from MRI. He apparently had to receive Ativan due to claustrophobia. Recommendation was for consult when he is more awake and able to participate. When seen, patient is pleasant and cooperative. He appears to be better oriented than when he came in. He admits he has been depressed over the past month since his but denies most neurovegetative symptoms of major depression. He does say that he has been having trouble sleeping and only gets about 2 hours a night however he says this is his usual and that his sleep pattern has not changed since his passed. I am concerned that with chronic primary insomnia that he may be more prone to cognitive changes when under stress. In addition, it appears he may be developing Alzheimer's type dementia and be in the early stages. At this point, I do not feel that he needs psychiatric medications. I do feel he would benefit from supportive counseling as an outpatient, however he is not interested, and he feels that he has enough supports through friends and family. Given this, no further interventions are indicated at this time. Diagnosis: F43.21 Adjustment disorder with depressed mood, F51.01 Primary insomnia, G309 Alzheimer's disease, unspecified CPT Codes: 85719 - Psychiatric Diagnostic Evaluation with Medical Services Treatment Plan:? Level of Care: Outpatient ? Psychiatric Clearance: Yes? Observation level ? 1:1 needed?: No ? Pharmacological: Not indicated ? Patient psychotic?No ? Therapy: Recommended supportive psychotherapy to cope with of , the patient is not interested ? Follow up needed while in the hospital?: No ? Discussed plan with onsite maintenance team member: Yes Who Althea Limon viscose cellar charge hand ? Other:
[2023-11-16 16:39] LABS: Lab Add On Test DONE
[2023-11-16 17:25] LABS: Vitamin B12 710 pg/mL (193-986)
[2023-11-16 19:27] VITALS: BP 149/75; PULSE 63; RESP 18; TEMP 36.8; O2SAT 96
[2023-11-16] MEDS: Melatonin 3 MG TAB PO (20:33)
[2023-11-16 21:48] VITALS: BP 121/57; PULSE 69; RESP 18; TEMP 36.4; O2SAT 95
--- NOTE | 2023-11-16 21:49 | NUR.NOTE ---
Nursing Note: Patient called staff and stated not feeling good as I will pass out B/P 121/57 [place] 69. FS repeated was 174.Patient requested for orange juice. and was tolerated. Instructed not to get out of bed without assistance. Patient does not trust hospital glucometer, he was used of result of single digit. Education provided and verbalized of understanding. Bed alarm in progress and call lights at reach.
[2023-11-17 06:51] LABS: Abs Immature Grans 0.03 10^3/uL (0.0-0.06); Absolute Basophil Count 0.11 10^3/uL (0.0-0.2); Absolute Eosinophil Count 0.72 10^3/uL (0.0-0.7); Absolute Lymphocyte Count 1.74 10^3/uL (1.2-3.4); Absolute Monocyte Count 0.64 10^3/uL (0.1-0.8); Absolute Neutrophil Count 5.44 10^3/uL (1.2-6.7); Basophils % 1.3; Eosinophils % 8.3; HCT 36.1 % (40.0-50.0); HGB 11.8 g/dL (13.5-17.5); Immature Grans % 0.3; MCH 29.9 pg (27.0-33.0); MCHC 32.7 % (32.0-36.0); MCV 92 fL (80-95); MPV 10.7 fL (8.0-11.0); Monocytes % 7.4; Neutrophils % 62.7; Platelet Count 224 10^3/uL (130-400); RBC 3.94 10^6/uL (4.36-5.78); RDW 13.2 % (11.8-14.1); RDW-SD 44.8 fL; WBC 8.68 10^3/uL (4.4-10.8)
[2023-11-17 07:23] LABS: Anion Gap 9.7 mmol/L (3-11); BUN 19 mg/dL (7-18); CO2 25.3 mmol/L (21.0-32.0); CREATININE 0.8 mg/dL (0.70-1.30); Chloride 106 mmol/L (98-107); Estimated GFR 88.36 (mL/min/1.73m2); Glucose 185 mg/dL (74-106); Magnesium 1.8 mg/dL (1.8-2.4); Potassium 4.4 mmol/L (3.5-5.1); Sodium 141 mmol/L (136-145)
[2023-11-17] MEDS: Docusate Sodium 100 MG CAP PO (08:45)
[2023-11-17] MEDS: Cyanocobalamin 500 MCG TAB 1000 MCG PO (08:45)
[2023-11-17] MEDS: Finasteride 5 MG TAB PO (08:45)
[2023-11-17] MEDS: Losartan 50 MG TAB PO (08:46)
[2023-11-17] MEDS: Insulin Aspart 300 UNITS/3 ML PEN SC ×2 (08:46→12:10)
[2023-11-17] MEDS: metFORMIN 500 MG TAB PO ×2 (08:46→12:09)
[2023-11-17] MEDS: Omeprazole 20 MG CAPCR PO (08:46)
[2023-11-17] MEDS: Aspirin E.C. 81 MG TABEC PO (08:46)
[2023-11-17 08:50] VITALS: BP 145/74; PULSE 74; RESP 18; TEMP 36.7; O2SAT 92
--- NOTE | 2023-11-17 08:56 | PDOC.CMPRO ---
Date of service: 11/17/23 Time of Service: 08:56 Care Management Progress Note Progress Note Text Progress Note Text: S/O:Jamey A: Jamey is an 83 year old man admitted on 11/13/23 with encephalopathy, stroke and a UTI P:Anticipate Jamey will return home with no new services, once medically cleared. His family will drive him home via private vehicle when ready. He will follow up with his PCP and discharge plan of care. CM will continue to follow and support discharge planning needs. SDOH(Care Management) Screening Will the Patient Participate in the Screening?: Yes Do you worry about having a steady place to live?: no Problems where you live: no known problems In the past 12 months, have you had to go without electric, gas, oil or water in your home?: no Have you or anyone in your house had to go without enough food to eat?: no Has lack of transportation kept you from medical appointments or from doing things needed for daily living?: no Has anyone in your support network made you feel unsafe for any reason?: no
[2023-11-17] MEDS: Normal Saline Flush 10 ML SYR IVP (08:57)
[2023-11-17] MEDS: Atorvastatin 40 MG TAB PO (08:58)
[2023-11-17 09:35] VITALS: BP 121/60; PULSE 70; RESP 18; TEMP 36.4; O2SAT 95
--- NOTE | 2023-11-17 11:39 | DSE_ITS ---
Date of service: 11/17/23 Time of Service: 11:39 DS: Diagnosis Discharge Diagnosis (1) Palliative care encounter: Status: Acute (2) Advanced care planning/counseling discussion: Status: Acute (3) Mild cognitive impairment: Status: Acute (4) Encephalopathy: Status: Acute (5) Urinary retention with incomplete bladder emptying: Status: Acute (6) Grief reaction: Status: Chronic Discharge Plan Disposition Patient Disposition: Home W/Home Health Services Condition: Improving Discharge Details Reason For Visit: Encephalopathy, UTI, Stroke Admit Date/Time: 11/13/23 13:21 Admit Provider: Ovidio Blanc Attending Provider: Ovidio Blanc Primary Care Provider: Vanita Johnson V Hospital Course Hospital Course: This 84-year-old male patient living alone at home since the recent (one month ago) of his spouse, who has significant but not limited to past medical history of CVA, benign prostatic hypertrophy, diabetes, who presented to the [facility] ED on 11/13/23 for evaluation of confusion. Family member reported a 3 day history of altered mental status. Per family, the patient thought it was 1940 and has been referring to his children as if they were school aged. They also reported a fall last week for which the patient was evaluated at [facility] and found to be ok. Patient has not been taking his medication since his . In the ED, patient was noted to have hematuria. Patient was treated with IV ceftriaxone for suspected UTI. The patient denied lightheadedness, dizziness, change in vision, recent falls, chest pain, shortness of breath, nausea, vomiting. Head CT concern for subacute findings with recommendation for an MRI to evaluate for stroke etiology. The patient was admitted to the hospital. He was evaluated by urology, psychiatry, neurology and palliative care. Patient is established patient of Dr Mendoza, urology. He saw him and recommended he have a cystoscopy out patient and should go home with indwelling urinary catheter as patient is unable to do clean intermittent catheterization. MRI negative for stroke. Neurology recommended he follow up with them out patient for cognitive testing, and also recommended he not drive and he not live alone. Palliative care recommends follow up out patient. Patient is DNR/DNI. Patient is grieving his passing and is sad. He denies suicidal ideation. Psychiatry saw him and recommended the patient seek counseling as an outpatient, however patient is not interested and feels he has good family and friend support. No interventions were recommended. 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 Patient was discharged to home, stable, with indwelling urinary catheter with his son. Home Meds and New Rx's Prescriptions: Continued turmeric root extract 500 mg capsule 500 mg PO DAILY docusate sodium [Dulcolax Stool Softener (dss)] 100 mg capsule 100 mg PO BID terazosin 10 mg capsule 10 mg PO DAILY Qty: 90 4RF finasteride 5 mg tablet 5 mg PO DAILY Qty: 90 4RF Eye Multivit-Lutein(selenium) 300 mcg-200 mg- 27 mg tablet 1 tab PO DAILY vitamin D3-vitamin K2 125-90 mcg capsule 1 cap PO DAILY aspirin [Aspir-81] 81 MG tablet,delayed release (DR/EC) 81 mg PO DAILY Patient Comments: pt's son reports pt has not been taking any medications for approx. 6wks losartan 50 MG tablet 50 mg PO DAILY atorvastatin [Lipitor] 40 MG tablet 40 mg PO DAILY omeprazole 20 MG capsule,delayed release(DR/EC) 20 mg PO DAILY saw palmetto 450 MG capsule 450 mg PO DAILY flaxseed oil-omega 3,6,9 1 EACH capsule 1,400 mg PO DAILY metformin 500 MG tablet 500 mg PO am and noon Qty: 60 0RF Discharge Instructions Instructions: Urinary Retention in Men (ED), Enlarged Prostate (BPH) (DC), Grief and Loss (DC) Additional Instructions: Follow up with Dr Mendoza as planned. Home health will call you and arrange a time to come to your home; they will help you with medication managment and rivera catheter care. Do not drive until follow up with PCP. Stand Alone Forms: Nursing Discharge Form Referrals: Vanita Johnson MD [Primary Care Provider] - 11/19/23 11:30 am (BARBIE Regarding glucose control) Sagar Mendoza MD [ [facility] STAFF PHYSICIAN] - 11/29/23 3:00 pm (1-2 weeks for OP cysto as discussed) Nena Aguilar MD [ [facility] STAFF PHYSICIAN] - (2-3 weeks) Meryl Blanchard MD [ [facility] STAFF PHYSICIAN] - (2-3 weeks) Activity:: Activity as Tolerated Equipment/Supplies:: Rivera Catheter Diet:: As Tolerated Discharge Orders Discharge Orders: Discharge Order (Routine); Ordered 11/17/23 Ordered By: Cassy Hannah Discharge Data Discharge Date/Time-TO BE ENTERED AT DEPARTURE: 11/17/23 13:26 DS: Summary Time Spent with Patient providing and/or coordinating discharge services: Greater than 30 minutes Status at Discharge Functional status at discharge: independent ambulation Overall status at discharge: patient is progressing back to baseline Mental Status: mental status grossly normal Speech and Movement: speech and movement normal Mood: congruent mood Affect: normal affect Quality:SDOH Health Related Social Needs: No Data to Display Exam Narrative Exam Narrative: Constitutional Sitting in a chair, smiling, conversant HENMT: Head is atraumatic, normocephalic, no lymphadenopathy. Facial structures with normal appearance Eyes: Well aligned, EOMI, intact, PERRL Neck: Normal ROM, no JVD, no meningeal signs Neuro:alert and oriented to self, knows he is in the hospital, less confusion today: altered short term memory, senior care memory intact Chest:Chest is symmetrical and normal appearance Resp: Normal respiratory pattern, speaks in full sentences, unlabored breathing, lungs clear bilaterally Cardio: regular rhythm, S1, S2, no murmur, capillary refill<3 sec., bilateral radial and dorsalis pedis pulses are positive GI: Abdomen is not distended, non-tender, bowel sounds are present throughout : no bladder distension, gross hematuria Back/spine/Pelvis: No back tenderness, normal alignment Integumentary: No skin lesions or rash Extremities: strength 5/5 to bilateral lower and upper extremities Psych: Smiling, conversant, pleasant, denies SI Psych Mental Status: mental status grossly normal Speech and Movement: speech and movement normal Mood: congruent mood Affect: normal affect DS: Data Vitals/I&O Vitals and I&O: Vital Signs Temperature 36.4 C L 11/17/23 09:35 Temperature Source Tympanic 11/17/23 09:35 Pulse 70 11/17/23 09:35 Pulse Rhythm Regular 11/17/23 08:35 Pulse 61 11/13/23 14:00 Respiratory Rate 18 11/17/23 09:35 Respiratory Effort Normal, Non-Labored 11/17/23 08:35 Respiratory Depth Normal 11/17/23 08:35 Respiratory Pattern Normal 11/17/23 08:35 Blood Pressure 121/60 11/17/23 09:35 Blood Pressure Position Sitting 11/13/23 10:49 Pulse Oximetry 95 11/17/23 09:35 Oxygen Delivery Method Room Air 11/17/23 09:35 Oxygen Flow Rate 0 11/17/23 09:35 Pain Level 0 11/17/23 08:50 Comment Nurse notified about BP. 11/14/23 07:57 Intake & Output 11/16/23 11/16/23 11/17/23 11:59 23:59 11:59 Intake Total 350 / 360 Output Total 1775 / 3125 1350 / 3125 1650 / 1650 Balance -1425 / -2765 -1340 / -2765 -1640 / -1640 Weight 66.76 kg Intake: IV Oral 340 / 340 Output: Urine 1775 / 3125 1350 / 3125 1650 / 1650 Other: Urine Color Yellow Yellow Yellow [place] Urine Appearance Sediment Clear Sediment Hematuria Comment streaks of blood noted at times, no clots Voiding Methods Indwelling Catheter Data Completed and Pending Labs on day of discharge: Labs from last 24 hours 11/17/23 11/16/23 11/16/23 06:25 16:39 06:30 WBC 8.68 RBC 3.94 L Hgb 11.8 L Hct 36.1 L MCV 92 MCH 29.9 MCHC 32.7 RDW 13.2 Plt Count 224 MPV 10.7 Immature Gran % 0.3 Neutrophils % 62.7 Lymphocytes % 20.0 Monocytes % 7.4 Eosinophils % 8.3 Basophils % 1.3 Nucleated RBC % 0.0 Absolute Neutrophils 5.44 Absolute Lymphocytes 1.74 Absolute Monocytes 0.64 Absolute Eosinophils 0.72 H Absolute Basophils 0.11 Sodium 141 Potassium 4.4 Chloride 106 Carbon Dioxide 25.3 Anion Gap 9.7 BUN 19 H Creatinine 0.8 Est GFR (CKD-EPI 2020) 88.36 Glucose 185 H Calcium 9.0 Magnesium 1.8 Vitamin B12 710 Add-On Test Request DONE PFSH All Active Problems (Updated 11/16/23 @ 20:43 by Nena Aguilar MD) Grief reaction (Chronic) Mild cognitive impairment (Acute) Advanced care planning/counseling discussion (Acute) Palliative care encounter (Acute) Acute cognitive decline (Acute) Memory changes (Acute) Hydronephrosis (Acute) Medication management (Acute) Abdominal tenderness (Acute) Discharge planning issues (Acute) Contraindication for enoxaparin (Acute) Encephalopathy (Acute) Acute confusion (Acute) Urinary retention with incomplete bladder emptying (Acute) 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) Medical History Bilateral renal cysts Social History Smoking/Tobacco Use Status: Former Tobacco Use Smoking risk assessment performed?: Yes Alcohol Intake: never Drug use: Never Substance use type: does not use Housing: house Do you feel safe at home: Yes Do you feel safe in your relationship?: Yes Time Spent with Patient Time Spent with Patient: 45-69 minutes Time was spent: preparing to see the patient(eg.review tests), ordering medications,tests, procedures, referring, communicating with other health career education teacher, indepentently interpreting results, counseling the patient and care coordination
--- NOTE | 2023-11-17 14:43 | PDOC.HHF2F ---
Home Health Referral Home Health Orders Clinical synopsis of why skilled professionals are needed: This 84-year-old male patient living alone at home since the recent (one month ago) of his spouse, who has significant but not limited to past medical history of CVA, benign prostatic hypertrophy, diabetes, who presented to the [facility] ED on 11/13/23 for evaluation of confusion. Family member reported a 3 day history of altered mental status. Per family, the patient thought it was 1940 and has been referring to his children as if they were school aged. They also reported a fall last week for which the patient was evaluated at [facility] and found to be ok. Patient has not been taking his medication since his . In the ED, patient was noted to have hematuria. Patient was treated with IV ceftriaxone for suspected UTI. The patient denied lightheadedness, dizziness, change in vision, recent falls, chest pain, shortness of breath, nausea, vomiting. Head CT concern for subacute findings with recommendation for an MRI to evaluate for stroke etiology. The patient was admitted to the hospital. He was evaluated by urology, psychiatry, neurology and palliative care. Patient is established patient of Dr Mendoza, urology. He saw him and recommended he have a cystoscopy out patient and should go home with indwelling urinary catheter as patient is unable to do clean intermittent catheterization. MRI negative for stroke. Neurology recommended he follow up with them out patient for cognitive testing, and also recommended he not drive and he not live alone. Palliative care recommends follow up out patient. Patient is DNR/DNI. Patient is grieving his passing and is sad. He denies suicidal ideation. Psychiatry saw him and recommended the patient seek counseling as an outpatient, however patient is not interested and feels he has good family and friend support. No interventions were recommended. 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 Patient was discharged to home, stable, with indwelling urinary catheter with his son. Medical diagnosis necessitation home health referral: Urinary retention; unable to manage medications, falls, situational depression Registered Nurse: Check all that apply Instruct on new or changed medication(s)/assess compliance: Ordered Instruct on, and maintenance of, urinary device: Ordered Assess for exacerbation of medical condition, instruct patient/caregivers on signs and symptoms to report for early detection: Ordered Physical Therapist: Check all that apply Increase strength & endurance for safe mobility at home: Ordered To design/establish home maintenance program: Ordered Fall reduction therapy program for patient with history of frequent falls: Ordered Home safety evaluation and teaching/gait training including stair management (if applicable): Ordered Occupational Therapist: Evaluate and treat for patient unable to perform ADL/IADL/self-care: Ordered Upper extremity strengthening, range and motion: Ordered Brand Coordinator: Assist with community resources: Ordered Assist with shelter care planning: Ordered Home Bound Status Assistance of another person (Describe assistance and medical necessity): Unable to take medications independently; unable to care for rivera catheter Patient has a condition such that leaving home is medically contraindicated (Describe): Patient has been told not to drive; patient lives alone Describe why leaving home would require a considerable and taxing effort: Confusion and Safety Concerns: describe (recent fall; altered mental status) Encounter Date and Reason: I certify that a FTF encounter for this patient was performed on November 17, 2023 and that such encounter was related to the primary reason the patient requires home health services. The encounter was conducted in the following manner: By me as the certifying physician, EXHIBIT BUILDER, PA or By an inpatient physician, EXHIBIT BUILDER or PA during an inpatient stay who communicated findings to me, Certification And Authentication I certify that I composed the above information based on my clinical judgment relating to this patient's medical condition and, if applicable, clinical findings communicated to me by the NPP or inpatient physician who performed the FTF encounter. Name of Provider that will be monitoring home health services: Vanita Johnson
--- NOTE | 2023-11-17 17:15 | PDOC.CMDIS ---
Date of service: 11/17/23 Time of Service: 17:15 LACE Index Scoring Tool Questions: Length of Stay (in days): 4 - 6 Was the patient admitted via the E.D.?: Yes E.D. 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 he will follow up with his PCP and transport with family. Patient/Family Education Needs: Review discharge instructions and limitations, discussion of self care needs including ask me three. Services Needed at Discharge: Home Health Care Services SDOH Health Related Social Needs: No Data to Display
[2023-11-19 15:28] LABS: Anaplasma phagocytophilum Negative (Negative); B. miyamotoi PCR Negative (Negative); Babesia divergens/MO-1 Negative (Negative); Babesia duncani Negative (Negative); Babesia microti Negative (Negative); Ehrlichia chaffeensis Negative (Negative); Ehrlichia ewingii/canis Negative (Negative); Ehrlichia muris eauclairensis Negative (Negative)
== END 2023-11-17 13:26 | disposition home health service (06) | DRG 71 ==
LOC: ER 13:56 → MS 14:31
PROVIDERS: Internal Medicine; Nurse Practitioner Acute Care; Nurse Practitioner Family; Admitting Provider Family Medicine; Emergency Provider Emergency Medicine; PCP Family Medicine; Visit Provider Family Medicine
DX: G93.40 Encephalopathy, unspecified (principal); N13.30 Unspecified hydronephrosis; N40.1 Benign prostatic hyperplasia with lower urinary tract symptoms; R33.8 Other retention of urine; R31.0 Gross hematuria; N31.8 Other neuromuscular dysfunction of bladder; R41.3 Other amnesia; R10.819 Abdominal tenderness, unspecified site; N28.1 Cyst of kidney, acquired; Z87.891 Personal history of nicotine dependence; I10 Essential (primary) hypertension; Z66 Do not resuscitate; Z86.73 Personal history of transient ischemic attack (TIA), and cerebral infarction without residual deficits; Z91.148 Patient's other noncompliance with medication regimen for other reason; F43.21 Adjustment disorder with depressed mood; E11.9 Type 2 diabetes mellitus without complications; Z79.84 Long term (current) use of oral hypoglycemic drugs
CPT/HCPCS: 00123; 36415; 70544; 70547; 80048; 80053; 80307; 87798; 96365; 96367; 99222; 99223; 99285; 70450; 70551; 80320; 81003; 81015; 82140; 82607; 83735; 84443; 84484; 85025; 86618; 87086; 99232; 99233; 99239; J0696; J1815; J2060; J2270; J3475

== ENCOUNTER 2023-11-18 08:46 | Emergency (ER) | payer MEDICARE, SELFPAY ==
[2023-11-18 08:49] VITALS: BP 144/82; PULSE 78; RESP 16; TEMP 37; O2SAT 98
--- NOTE | 2023-11-18 09:03 | ED.GENADUL_ITS ---
HPI General Date/Time Provider Initiated Documentation: 11/18/23 08:47 . Limitations to Documentation: no limitations . Information obtained by: patient and family . History of Present Illness 83 year old M presents to the emergency department with the chief complaint of Pulled out catheter, described as moderate, Patient started experiencing this hour(s) (2) and it has been constant. No relieving factors improve symptom(s), No exacerbating factors reported . Patient notes no other symptoms.; denies chest pain, fever/chills and shortness of breath. Patient did receive the following treatments prior to arrival, none Related Data Home Medications Medication Instructions Recorded Confirmed atorvastatin 40 mg tablet (Lipitor) 40 mg PO DAILY 07/14/16 11/13/23 flaxseed oil 1,300 mg-omega 3,6,9 1,400 mg PO DAILY 07/14/16 11/13/23 845 mg-117 mg-117 mg capsule losartan 50 mg tablet 50 mg PO DAILY 07/14/16 11/13/23 omeprazole 20 mg capsule,delayed 20 mg PO DAILY 07/14/16 11/13/23 release saw palmetto 450 mg capsule 450 mg PO DAILY 07/14/16 11/13/23 aspirin 81 mg tablet,delayed 81 mg PO DAILY 07/16/16 11/13/23 release (Aspir-) turmeric root extract 500 mg 500 mg PO DAILY 09/12/19 11/13/23 capsule vit A 300 mcg-C 200 mg-E 27 1 tab PO DAILY 09/10/20 11/13/23 wm-gryvxjzi-clqroi-lutein tablet (Eye Multivitamin-Lutein(W-E-Y-Zn-Cu-selen)) docusate sodium 100 mg capsule 100 mg PO BID 09/11/22 11/13/23 (Dulcolax Stool Softener (docusate)) finasteride 5 mg tablet 5 mg PO DAILY #90 tab-caps 09/11/22 11/13/23 terazosin 10 mg capsule 10 mg PO DAILY #90 caps 09/11/22 11/13/23 vitamin D3 125 mcg (5,000 1 cap PO DAILY 09/17/23 11/13/23 unit)-vitamin K2 90 mcg capsule metformin 500 mg tablet 500 mg PO am and noon #60 tabs 11/17/23 Previous Rx's Medication Instructions Recorded finasteride 5 mg tablet 5 mg PO DAILY #90 tab-caps 09/11/22 terazosin 10 mg capsule 10 mg PO DAILY #90 caps 09/11/22 metformin 500 mg tablet 500 mg PO am and noon #60 tabs 11/17/23 Allergies Allergy/AdvReac Type Severity Reaction Status Date / Time No Known Allergies Allergy Unverified 11/13/23 11:00 General Stated Complaint: Urinary TAVARES: 4 Review of Systems All systems reviewed & are unremarkable except as noted in HPI and below Constitutional Constitutional: Denies chills, Denies fever(s) and Denies weakness Cardiovascular Cardiovascular: Denies chest pain and Denies dyspnea Respiratory Respiratory: Denies cough and Denies dyspnea Gastrointestinal Gastrointestinal: Denies abdominal pain, Denies nausea and Denies vomiting Musculoskeletal Musculoskeletal: Denies joint swelling Neurologic Neurologic: Denies weakness Exam Const General: no acute distress Orientation: alert HENMT Head: normal to inspection Ears: external ears normal General nose exam: external nose normal Mouth: moist mucous membranes Eyes General: appearance normal, both eyes and all related structures Neck Neck: normal visual inspection Resp Effort & Inspection: normal respiratory effort and able to speak in complete sentences Cardio Rate: regular rate GI Palpation: soft and nontender Scrotum: no ecchymosis and not edematous Skin General skin exam: no rashes or lesions noted Neuro General: patient alert and patient oriented x3 Extrem General: normal to inspection Psych Mental Status: mental status grossly normal Course Vital Signs Vital signs: Vital Signs Temperature 37 C 11/18/23 08:49 Pulse 78 11/18/23 08:49 Respiratory Rate 16 11/18/23 08:49 Blood Pressure 144/82 H 11/18/23 08:49 Pulse Oximetry 98 11/18/23 08:49 Temperature 37 C 11/18/23 08:49 Temperature Source Skin 11/18/23 08:49 Pulse 78 11/18/23 08:49 Respiratory Rate 16 11/18/23 08:49 Blood Pressure 144/82 H 11/18/23 08:49 Blood Pressure Position Sitting 11/18/23 08:49 Pulse Oximetry 98 11/18/23 08:49 Oxygen Delivery Method Room Air 11/18/23 08:49 Oxygen Flow Rate 0 11/18/23 08:49 Pain Level 0 11/18/23 08:49 Medical Decision Making 83-year-old with history of dementia, hypertension, diabetes, who was just discharged from the hospital yesterday after being admitted for encephalopathy, comes in after he pulled out his Rivera catheter this morning. He denies any abdominal pain back pain fevers chills vomiting. He is alert and oriented to name and place, not sure of the time. He has no abdominal tenderness no back tenderness no scrotal edema does have small amount of blood at the meatus. Given lack of symptoms and just discharged from the hospital yesterday do not feel any imaging or blood work indicated, will have nursing attempt to place Rivera catheter Nursing successfully place Rivera with no complications, patient tolerated well, draining yellow-colored urine. 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) Medical History Bilateral renal cysts Social History Smoking/Tobacco Use Status: Former Tobacco Use Smoking risk assessment performed?: Yes Alcohol Intake: never Drug use: Never Substance use type: does not use Housing: house Do you feel safe at home: Yes Do you feel safe in your relationship?: Yes Discharge Plan Disposition Patient Disposition: Home Condition: Stable Discharge Details Clinical Impression: Displacement of Rivera catheter Primary Care Provider: Vanita Johnson V ED Provider: Russ Bryant Home Meds and New Rx's Prescriptions: Continued turmeric root extract 500 mg capsule 500 mg PO DAILY docusate sodium [Dulcolax Stool Softener (dss)] 100 mg capsule 100 mg PO BID terazosin 10 mg capsule 10 mg PO DAILY Qty: 90 4RF finasteride 5 mg tablet 5 mg PO DAILY Qty: 90 4RF Eye Multivit-Lutein(selenium) 300 mcg-200 mg- 27 mg tablet 1 tab PO DAILY vitamin D3-vitamin K2 125-90 mcg capsule 1 cap PO DAILY aspirin [Aspir-81] 81 MG tablet,delayed release (DR/EC) 81 mg PO DAILY Patient Comments: pt's son reports pt has not been taking any medications for approx. 6wks losartan 50 MG tablet 50 mg PO DAILY atorvastatin [Lipitor] 40 MG tablet 40 mg PO DAILY omeprazole 20 MG capsule,delayed release(DR/EC) 20 mg PO DAILY saw palmetto 450 MG capsule 450 mg PO DAILY flaxseed oil-omega 3,6,9 1 EACH capsule 1,400 mg PO DAILY metformin 500 MG tablet 500 mg PO am and noon Qty: 60 0RF Discharge Instructions Additional Instructions: Follow-up with your outpatient providers as scheduled If you, feel more ill, have severe abdominal pain, fevers, or difficulty breathing return to the emergency department
[2023-11-18 09:16] VITALS: BP 144/82; PULSE 78; RESP 16; TEMP 37; O2SAT 98
[2023-11-18] MEDS: Lidocaine 2% Jelly 6 ML SYR (09:18)
== END 2023-11-18 09:37 | disposition home or self-care (01) ==
PROVIDERS: Emergency Provider Emergency Medicine; PCP Family Medicine
DX: T83.021A Displacement of indwelling urethral catheter, initial encounter (principal); N40.1 Benign prostatic hyperplasia with lower urinary tract symptoms; N13.8 Other obstructive and reflux uropathy; G31.84 Mild cognitive impairment of uncertain or unknown etiology
CPT/HCPCS: 51702; 99283

== ENCOUNTER 2023-11-19 05:43 | Emergency (ER) | payer MEDICARE, SELFPAY ==
[2023-11-19 05:45] VITALS: BP 175/69; PULSE 89; RESP 16; TEMP 36.6; O2SAT 97
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
--- NOTE | 2023-11-19 06:19 | NUR.NOTE ---
Referral to Care Management for potential assistance at home. Refer to Dr Agarwal's note.Nursing Note:
--- NOTE | 2023-11-19 06:21 | NUR.NOTE ---
Pt refusing to have rivera replaced. Pt has an appointment at PCP at 1100 today. Family is hoping that either pt will be able to spontaneously empty his bladder or that he will be uncomfortable as it fills and be agreeable to cauterization.
== END 2023-11-19 06:23 | disposition home or self-care (01) ==
PROVIDERS: Emergency Provider Student in an Organized Health Care Education/Training Program; PCP Family Medicine
DX: T83.021A Displacement of indwelling urethral catheter, initial encounter (principal); N40.1 Benign prostatic hyperplasia with lower urinary tract symptoms; N13.8 Other obstructive and reflux uropathy; G31.84 Mild cognitive impairment of uncertain or unknown etiology; E66.9 Obesity, unspecified
CPT/HCPCS: 99282; 99283

== ENCOUNTER 2023-11-19 13:20 | Emergency (ER) | payer MEDICARE, SELFPAY ==
[2023-11-19 13:26] VITALS: BP 138/50; PULSE 78; RESP 16; TEMP 36.7; O2SAT 99
[2023-11-19 13:33] VITALS: BP 180/62; PULSE 98; RESP 14; TEMP 36.5; O2SAT 97
--- NOTE | 2023-11-19 13:38 | ED.GENADUL_ITS ---
HPI General Date/Time Provider Initiated Documentation: 11/19/23 13:31 . HPI Narrative: 83-year-old male accidentally pulled out his Horner catheter this morning. History of BPH. Has not been able to void since. Related Data Home Medications Medication Instructions Recorded Confirmed atorvastatin 40 mg tablet (Lipitor) 40 mg PO DAILY 07/14/16 11/19/23 flaxseed oil 1,300 mg-omega 3,6,9 1,400 mg PO DAILY 07/14/16 11/19/23 845 mg-117 mg-117 mg capsule losartan 50 mg tablet 50 mg PO DAILY 07/14/16 11/19/23 omeprazole 20 mg capsule,delayed 20 mg PO DAILY 07/14/16 11/19/23 release saw palmetto 450 mg capsule 450 mg PO DAILY 07/14/16 11/19/23 aspirin 81 mg tablet,delayed 81 mg PO DAILY 07/16/16 11/19/23 release (Aspir-) turmeric root extract 500 mg 500 mg PO DAILY 09/12/19 11/19/23 capsule vit A 300 mcg-C 200 mg-E 27 1 tab PO DAILY 09/10/20 11/19/23 [id number]-lutein tablet (Eye Multivitamin-Lutein(B-X-G-Zn-Cu-selen)) docusate sodium 100 mg capsule 100 mg PO BID 09/11/22 11/19/23 (Dulcolax Stool Softener (docusate)) finasteride 5 mg tablet 5 mg PO DAILY #90 tab-caps 09/11/22 11/19/23 terazosin 10 mg capsule 10 mg PO DAILY #90 caps 09/11/22 11/13/23 vitamin D3 125 mcg (5,000 1 cap PO DAILY 09/17/23 11/19/23 unit)-vitamin K2 90 mcg capsule metformin 500 mg tablet 500 mg PO am and noon #60 tabs 11/17/23 11/19/23 Previous Rx's Medication Instructions Recorded finasteride 5 mg tablet 5 mg PO DAILY #90 tab-caps 09/11/22 terazosin 10 mg capsule 10 mg PO DAILY #90 caps 09/11/22 metformin 500 mg tablet 500 mg PO am and noon #60 tabs 11/17/23 Allergies Allergy/AdvReac Type Severity Reaction Status Date / Time No Known Allergies Allergy Unverified 11/19/23 05:54 General Stated Complaint: Urinary TAVARES: 4 Review of Systems Narrative: Review of Systems Constitutional: negative Eyes: negative ENT: negative Cardiovascular: negative Respiratory: negative Gastrointestinal: negative : Dislodged Horner catheter Musculoskeletal: negative Skin: negative Neurologic: negative Psych: negative Exam Narrative Exam Narrative: Physical Examination General: alert, awake, cooperative, resting comfortably, no acute distress : Suprapubic fullness, mild irritation to urethra without evidence of urethral disruption or penile laceration Skin: no lesions, rashes or trauma appreciated Neuro: AAOx3, normal speech, moving all extremities Course Vital Signs Vital signs: Vital Signs Temperature 36.7 C 11/19/23 13:26 Pulse 78 11/19/23 13:26 Respiratory Rate 16 11/19/23 13:26 Blood Pressure 138/50 L 11/19/23 13:26 Pulse Oximetry 99 11/19/23 13:26 Temperature 36.7 C 11/19/23 13:26 Temperature Source Temporal Artery Scan 11/19/23 13:26 Pulse 78 11/19/23 13:26 Respiratory Rate 16 11/19/23 13:26 Blood Pressure 138/50 L 11/19/23 13:26 Pulse Oximetry 99 11/19/23 13:26 Oxygen Delivery Method Room Air 11/19/23 13:26 Oxygen Flow Rate 0 11/19/23 13:26 Pain Level 0 11/19/23 13:26 Medical Decision Making 83-year-old male accidentally dislodged his urinary catheter, history of BPH, has not been able to void since, patient does have suprapubic fullness on examination nonperitoneal, slight irritation to urethral meatus without evidence of penile laceration. Horner catheter being placed at bedside. Afebrile nontoxic. Will be discharged home with leg bag. Quality:SDOH Health Related Social Needs: No Data to Display PFSH All Active Problems (Updated 11/19/23 @ 13:41 by Eleno Perez MD) Complication of Horner catheter (Acute) Horner catheter problem (Acute) Displacement of Horner catheter (Acute) Grief reaction (Chronic) Mild cognitive impairment (Acute) Hydronephrosis (Acute) Urinary retention with incomplete bladder emptying (Acute) 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) Medical History Memory changes Bilateral renal cysts Social History Smoking/Tobacco Use Status: Former Tobacco Use Smoking risk assessment performed?: Yes Alcohol Intake: never Drug use: Never Substance use type: does not use Housing: house Do you feel safe at home: Yes Do you feel safe in your relationship?: Yes Discharge Plan Disposition Patient Disposition: Home Condition: Improving Discharge Details Chief Complaint: Urinary Clinical Impression: Complication of Horner catheter Primary Care Provider: Vanita Johnson V ED Provider: Eleno Perez Home Meds and New Rx's Prescriptions: No Action turmeric root extract 500 mg capsule 500 mg PO DAILY docusate sodium [Dulcolax Stool Softener (dss)] 100 mg capsule 100 mg PO BID terazosin 10 mg capsule 10 mg PO DAILY Qty: 90 4RF finasteride 5 mg tablet 5 mg PO DAILY Qty: 90 4RF Eye Multivit-Lutein(selenium) 300 mcg-200 mg- 27 mg tablet 1 tab PO DAILY vitamin D3-vitamin K2 125-90 mcg capsule 1 cap PO DAILY aspirin [Aspir-81] 81 MG tablet,delayed release (DR/EC) 81 mg PO DAILY Patient Comments: pt's son reports pt has not been taking any medications for approx. 6wks losartan 50 MG tablet 50 mg PO DAILY atorvastatin [Lipitor] 40 MG tablet 40 mg PO DAILY omeprazole 20 MG capsule,delayed release(DR/EC) 20 mg PO DAILY saw palmetto 450 MG capsule 450 mg PO DAILY flaxseed oil-omega 3,6,9 1 EACH capsule 1,400 mg PO DAILY metformin 500 MG tablet 500 mg PO am and noon Qty: 60 0RF Discharge Instructions Instructions: Horner Catheter Placement and Care (ED) Additional Instructions: Please follow-up with urology team as scheduled. Return to the emergency department for any worsening symptoms
[2023-11-19 14:01] VITALS: BP 180/62; PULSE 98; RESP 14; TEMP 36.5; O2SAT 97
== END 2023-11-19 14:13 | disposition home or self-care (01) ==
PROVIDERS: Emergency Provider Emergency Medicine; PCP Family Medicine
DX: T83.028A Displacement of other urinary catheter, initial encounter (principal); N40.1 Benign prostatic hyperplasia with lower urinary tract symptoms; R33.8 Other retention of urine; I10 Essential (primary) hypertension; Z79.82 Long term (current) use of aspirin; Z87.891 Personal history of nicotine dependence
CPT/HCPCS: 51702; 99283

== ENCOUNTER → 2023-11-26 01:38 | Outpatient (CLI) | payer MEDICARE, SELFPAY ==
--- NOTE | 2023-11-26 | DI.US_ITS ---
Exam(s) US RENAL EXAM: US RENAL CLINICAL HISTORY: DISORDER OF KIDNEY,URETER,N28.9,F/U ABNL CT, RENAL LESION. TECHNIQUE: Silvestre scale, color and spectral Doppler were used. COMPARISON: CT CT ABDOMEN PELVIS W from 11/12/2023 FINDINGS: Renal size in cm: Right: 10.5. Left: 11.1. Echogenicity: Normal. Hydronephrosis: No. Cyst or mass: There are bilateral renal cysts. There is a 1.0 x 1.1 x 1.0 cm septated cyst in the ri ght kidney. This corresponds to the cysts seen on the CT scan. No follow-up is recommended. On the left, there is a simple cyst in the inferior pole measuring 2.8 x 3.7 x 3.9 cm. This corresponds to the simple cyst seen on the CT scan. There is a 2 x 1.9 x 1.9 cm cyst in the posterior aspect of th e midpole of the left kidney which corresponds to the hyperdense lesion seen on the CT scan from 2023. No solid renal mass is seen. Nephrolithiasis: No. Other findings: None. Bladder:There is marked thickening of the wall of the urinary bladder. There is a Horner catheter wit hin the bladder which is not distended. Ureteral jets: Right: Not visualized on this examination. Left: Not visualized on this examination. Prevoid vol:0 cc. There is a Horner catheter present. Postvoid vol:0 cc Renal color flow: Symmetric and within normal limits. IMPRESSION: 1. No evidence of a solid left renal mass. 2. The hyperdense lesion seen on the CT scan from 11/12/2023 corresponds to the 2 x 1.9 x 1.9 cm cyst s een sonographically. 3. Bilateral renal cysts. No follow-up is recommended. 4. Markedly thickened wall of the urinary bladder. This may be due to chronic bladder outlet obstruc tion, neurogenic bladder. Neoplasm cannot be excluded. There is a Horner catheter in place limiting evaluation. Follow-up as clinically appropriate. DATA REPOSITORY:
== END ==
PROVIDERS: PCP Family Medicine; Visit Provider Physician Assistant Medical
DX: N28.9 Disorder of kidney and ureter, unspecified (principal)
CPT/HCPCS: 76770

== ENCOUNTER → 2023-11-29 14:47 | Outpatient (BNVA) | payer MEDICARE, SELFPAY | PROVIDERS: PCP Family Medicine; Referring Provider Family Medicine; Visit Provider Urology | DX: N13.30 Unspecified hydronephrosis (principal); R33.9 Retention of urine, unspecified | CPT/HCPCS: 99213 ==

== ENCOUNTER 2023-12-04 08:28 | Observation (INO) | payer MEDICARE, SELFPAY ==
[2023-12-04] VITALS (20 sets, daily range): BP systolic 120–217; BP diastolic 56–80; PULSE 44–70; RESP 11–22; TEMP 36.2–37.1; O2SAT 95–99
--- NOTE | 2023-12-04 08:15 | DI.CT_ITS ---
Exam(s) CT BRAIN NECK CTA EXAM: CT BRAIN NECK CTA CLINICAL HISTORY: hx fall AMS. TECHNIQUE: Imaging Protocol: Axial CT angiography was performed with multi-slice acquisition and mu lti-planar and/or 3D reconstructions. CONTRAST MATERIAL: Intravenous: Omnipaque 350 Contrast volume:85 mL. COMPARISON: CT CT ABDOMEN PELVIS W from 11/12/2023 FINDINGS: CTA Neck W: Aortic arch anatomy: The aortic arch anatomy is conventional and there is no significant stenosis at the origin of the great vessels off of the aortic arch. No intimal flap evident. Anterior circulation: Both common carotid arteries ascend with normal luminal diameters. At the level the carotid bulbs and proximal internal carotid arteries there is mild plaque evident bi laterally but without hemodynamically significant stenosis evident. Internal carotid arteries also demonstrated be patent in the upper neck and not tortuous. Also demon strated be patent in the skull base-carotid canals without aneurysm nor dissection. Posterior circulation: Both vertebral arteries originate in conventional fashion off of the subclavian arteries and there is no obvious stenosis at the origin of the vertebral arteries. Both vertebral arteries exhibit normal luminal diameters within the foramen transversarium. Lumen diameter of both vertebral arteries in the foramen transverse area is symmetrical. At the skul l base both vertebral arteries contribute to the formation of the basilar artery. CTA Brain W: Anterior circulation: Both internal carotid arteries are patent in the skull base-carotid canals as well as within the cave rnous sinuses. There is some peripheral calcification of the intracavernous internal carotid arterie s but doubtful for significant stenosis. The supraclinoid aspects of the ICAs are patent. Both A1 segments are patent as are the anterior cer ebral arteries and there is no evidence of aneurysm at the level of the anterior communicating artery . Both middle cerebral arteries are patent with no evidence of significant stenosis nor intraluminal th rombus. There also no aneurysms of these vessels. Posterior circulation: Basilar artery is patent and relatively midline. Distally the basilar artery gives off superior cerebellar arteries on both sides and above this level terminates as patent posterior cerebral arteries. There is no evidence of aneurysm at the tip of the basilar artery nor elsewhere in the [id number]-Mvqb is. CT BRAIN: There is no evidence of intracranial hemorrhage, mass effect, or shift of midline structures. There are no extra-axial fluid collections. Ventricles are not enlarged or shifted. There are no ring enh ancing lesions in the brain and no abnormal meningeal enhancement. Is some bilateral periventricular hypodensity which is relatively symmetrical and consistent with chronic small vessel disease. No ob vious acute infarct evident. Mucosal thickening noted in the maxillary sinuses and there is also a fluid level in left maxillary s inus consistent with acute sinusitis superimposed upon chronic mucosal thickening. Mild mucosal thic kening also noted in the frontal sinuses and ethmoidal air cells. IMPRESSION: 1. Patent carotid arteries in the neck. No hemodynamically significant stenosis. 2. Patent vertebral arteries. 3. Patent intracranial arteries. 4. Chronic small-vessel white matter ischemic changes in the periventricular white matter which are s ymmetrical. No evidence of obvious acute infarct. No ring enhancing lesions nor abnormal meningeal enhancement. RADIATION DOSE DELIVERED: 2,055.71mGy.cm Total DLP DATA REPOSITORY: All CT scans at this facility are submitted to the National Radiology Data Registry (NRDR) Dose Index Registry (DIR) with the [employer] (ACR). RADIATION OPTIMIZATION: All CT scans at this facility use at least one of these dose optimization te chniques: automated exposure control; mA and/or kV adjustment per patient size (includes targeted exa ms where dose is matched to clinical indication); or iterative reconstruction.
--- NOTE | 2023-12-04 08:15 | RT.EKG_ITS ---
APPROVED REPORT Exam: Resting ECG Reason for Exam: Fall Patient Location: E HR:59 bpm ECG Measurements Heart Rate 59 AXIS NJ 141 P 64 QRSd 98 QRS 64 QT 432 T 49 QTc 429 Conclusion Sinus bradycardia...rate< 60 Narrow complex sinus bradycardia at a rate of 59. Intervals within normal limits. No ST segment abn ormalities. No T wave inversions. T wave flattening in aVL. No prior for comparison. No acute inj ury pattern.
--- NOTE | 2023-12-04 08:21 | W.ED.GENAD ---
Discharge Plan Disposition Patient Disposition: Admit to [facility] Discharge Details Clinical Impression: Syncope and collapse, Hypoalbuminemia, Hypomagnesemia Admit Date/Time: 12/04/23 10:26 Admit Provider: Yary Norton Attending Provider: Yary Norton Primary Care Provider: Vanita Johnson V ED Provider: Jacob Wright Discharge Data Discharge Date/Time-TO BE ENTERED AT DEPARTURE: 12/04/23 10:51 HPI General Date/Time Provider Initiated Documentation: 12/04/23 08:54. HPI Narrative: MDM This is a chronically ill-appearing hypertensive but afebrile and nontachycardic altered DNI DNR 83-year-old male with sudden onset unresponsive depressed GCS concerning for the possibility of intracranial hemorrhage versus ischemic CVA versus seizure versus syncope for which patient will undergo CT head with angiogram and CT neck with angiogram. Primary survey intact. Reassuring shock index. Regular rate and rhythm. No pain out of proportion to suggest necrotizing soft tissue infection. No recent nausea no vomiting to suggest intra-abdominal infection. No reported preceding chest pain and nonischemic ECG however will obtain 2 sets of troponins. No reported overdose however will obtain salicylates, ethanol, and acetaminophen levels. I considered sepsis however in the absence of any preceding fevers and with no hypotension or tachycardia I did not draw cultures nor treat empirically with antibiotics. No concerns for overdose based on report from family. Given concern for possible seizures we will load with 3.5 g levetiracetam. No obvious focal neurological deficits and given concern for intracranial hemorrhage I felt that the patient is a tPA candidate. Will maintain c-collar given trauma. 8:54 AM CBC showing normocytic anemia improved creatinine prior. No leukocytosis. No thrombocytopenia. Venous blood gas with no acidemia nor hypercarbia. 9 AM Patient's son Cornell can be reached at the following number: [phone] 9:15 AM Patient returned from CT scan. On reassessment he is GCS is 15. He had no cervical spinal tenderness and I was able to clear his cervical collar clinically based on Nexus criteria. His chest x-ray showed no acute cardiopulmonary process. On tertiary survey he had a reassuring trauma assessment. I discontinued his levetiracetam as he did not bite his tongue my suspicion is low for seizure. He is neurologically intact and as result I do not feel he is a tPA candidate. Given no focal neurological deficits I do not feel he requires an MRI as my suspicion is low for CVA. No nuchal rigidity no fevers to suggest meningitis I do not feel he requires a lumbar puncture. Given low suspicion for seizures I do not feel he requires an EEG. 9:31 AM Negative acetaminophen level. Comprehensive metabolic panel with mild hyperglycemia but no anion gap and normal bicarbonate??not consistent with DKA. No acute electrolyte abnormalities. No significant LFT abnormalities. Mild hypoalbuminemia. Mild hypomagnesemia for which patient will receive oral repletion. Normal lipase. Negative salicylate level. Normal reassuring TSH. Reassuring normal troponin. CK not consistent with rhabdomyolysis. 10 AM Patient remains GCS 15. He is occasionally a bit bradycardic on the monitor and certainly may benefit from an echocardiogram ongoing telemetry and possibly Holter monitor with consideration of pacemaker if patient has any significant abnormalities. Reassuring CT head. 10:20 AM Negative ethanol level. I spoke with Dr. Norton who graciously agreed to accept the patient for hospitalization. Chronic conditions affecting the care of the patient: Mild cognitive impairment History obtained from an outside historian: Paramedics and family External record review: Minimal records [facility] [place] Diagnostic interpretations performed by me: Per my independent interpretation chest x-ray shows: No acute cardiopulmonary process. Per my independent interpretation EKG shows: Narrow complex sinus bradycardia at a rate of 59. Intervals within normal limits. No ST segment abnormalities. No T wave inversions. T wave flattening in aVL. No prior for comparison. No acute injury pattern. ]Medications: Levetiracetam Social determinants of health affecting disposition: N/A Management discussed with: Dr. Norton Treatment/interventions considered: Intubation but deferred given DNI DNR Response to therapies provided: Improved mental status HPI This is an 83-year-old male with mild cognitive impairment via paramedics following a fall with unresponsiveness. Patient was reportedly last seen normal last night at 10 PM by family. Patient reportedly stood up from his chair where he sleeps and fell forward to the ground. He was found by his daughter's boyfriend at approximately 8:00 this morning. He is minimally responsive. He is an orally controlled diabetic and his fingerstick blood glucose per paramedics was 161. He was protecting his airway. He is a DNI DNR in place. His end-tidal was 25. His blood pressure was 197/88. He was saturating 93% on room air. His GCS was reportedly 6. His daughter reports that he sleeps overnight in a chair. He had been in his usual state of health yesterday. Unable to obtain any review of systems secondary to the acuity of the patient's presentation. Exam General: Chronically ill minimally responsive protecting airway. Head: Normocephalic, atraumatic. Eye:[Pupils equal, round reactive to light.] No conjunctival injection. No scleral icterus. Ear, nose, mouth, throat: Grossly normal inspection. handling secretions normally. Neck: Trachea midline. Wearing cervical spinal collar. Cardiovascular: Well-perfused distal extremities. Regular rate and rhythm. Respiratory: Nonlabored respiration. Clear lungs bilaterally. Gastrointestinal: Nondistended abdomen. Soft nontender. Musculoskeletal: Several beats of clonus bilateral lower extremities. At the end of assessment patient did follow commands with his uppers. Skin: Normal for age and race, grossly normal temperature and turgor. No acute rash. Neurologic: initially GCS 7: E , 3, V3, M1. Subsequently patient's GCS improved to 12: E3, V3, M6. Related Data Home Medications Medication Instructions Recorded Confirmed atorvastatin 40 mg tablet (Lipitor) 40 mg PO DAILY 07/14/16 12/04/23 losartan 50 mg tablet 50 mg PO DAILY 07/14/16 12/04/23 omeprazole 20 mg capsule,delayed 20 mg PO DAILY 07/14/16 12/04/23 release docusate sodium 100 mg capsule 100 mg PO BID 09/11/22 12/04/23 (Dulcolax Stool Softener (docusate)) finasteride 5 mg tablet 5 mg PO DAILY #90 tab-caps 09/11/22 12/04/23 metformin 500 mg tablet 500 mg PO am and noon #60 tabs 11/17/23 12/04/23 terazosin 10 mg capsule 10 mg PO QPM 12/04/23 12/04/23 Previous Rx's Medication Instructions Recorded finasteride 5 mg tablet 5 mg PO DAILY #90 tab-caps 09/11/22 metformin 500 mg tablet 500 mg PO am and noon #60 tabs 11/17/23 Allergies Allergy/AdvReac Type Severity Reaction Status Date / Time No Known Allergies Allergy Verified 12/02/23 14:37 General TAVARES: 4 Medical Decision Making Quality:SDOH Health Related Social Needs: No Data to Display PFSH All Active Problems (Updated 12/04/23 @ 13:44 by Sun Umaña NP) Acute confusion (Acute) Hypomagnesemia (Acute) Hypoalbuminemia (Acute) Syncope and collapse (Acute) Complication of Horner catheter (Acute) Horner catheter problem (Acute) Displacement of Horner catheter (Acute) Grief reaction (Chronic) Mild cognitive impairment (Acute) Hydronephrosis (Acute) Urinary retention with incomplete bladder emptying (Acute) 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) Medical History Memory changes Bilateral renal cysts Social History Smoking/Tobacco Use Status: Former Tobacco Use Quit Date: 10/11/60 Smoking risk assessment performed?: Yes Alcohol Intake: never Drug use: Never Substance use type: does not use Housing: house Additional Social history: Unable to assess privately
--- NOTE | 2023-12-04 08:30 | DI.RAD_ITS ---
Exam(s) XR PORTABLE CHEST AP EXAM: XR PORTABLE CHEST AP CLINICAL HISTORY: Altered mental status. TECHNIQUE: 2D digital imaging was performed. COMPARISON: No exams were available for comparison FINDINGS: Single AP portable view. Heart size is upper normal. The mediastinum is not widened. No infiltrates nor obvious pleural effusions. IMPRESSION: No acute pulmonary findings on this single AP portable view of the chest. DATA REPOSITORY: RADIATION DOSE DELIVERED:
[2023-12-04] MEDS: Normal Saline - Diluent 50 ML VIAL IJ (08:37)
[2023-12-04 08:48] LABS: BE (Venous) 2 mmol/L (-2-3); HCO3 (Venous) 26 mmol/L (23-28); O2 Sat (Venous) 81 %; TCO2 (Venous) 24 mmol/L (24-29); pCO2 (Venous) 42 mmHg (41-51); pH (Venous) 7.41 (7.31-7.41); pO2 (Venous) 46 mmHg
[2023-12-04 08:49] LABS: Abs Immature Grans 0.02 10^3/uL (0.0-0.06); Absolute Basophil Count 0.04 10^3/uL (0.0-0.2); Absolute Eosinophil Count 0.43 10^3/uL (0.0-0.7); Absolute Lymphocyte Count 1.87 10^3/uL (1.2-3.4); Absolute Monocyte Count 0.62 10^3/uL (0.1-0.8); Basophils % 0.6; Eosinophils % 6.1; HCT 38.2 % (40.0-50.0); HGB 12.5 g/dL (13.5-17.5); Immature Grans % 0.3; Lymphocytes % 26.4; MCH 29.8 pg (27.0-33.0); MCHC 32.7 % (32.0-36.0); MCV 91 fL (80-95); MPV 9.7 fL (8.0-11.0); Monocytes % 8.8; Neutrophils % 57.8; Platelet Count 220 10^3/uL (130-400); RDW 13.2 % (11.8-14.1); RDW-SD 44.1 fL; WBC 7.08 10^3/uL (4.4-10.8)
[2023-12-04 08:58] LABS: INR 1.1 (0.9-1.1)
[2023-12-04] MEDS: Normal Saline 500 ML IV (09:00)
[2023-12-04 09:06] LABS: Salicylate < 2.8 mg/dL (<2.8)
[2023-12-04 09:15] LABS: ALT 16 U/L (16-63); AST 16 U/L (15-37); Albumin 2.9 g/dL (3.4-5.0); Alkaline Phosphatase 78 U/L (46-116); Anion Gap 7.7 mmol/L (3-11); BUN 16 mg/dL (7-18); Bilirubin, Total 0.5 mg/dL (0.2-1.0); CO2 26.3 mmol/L (21.0-32.0); Chloride 104 mmol/L (98-107); Creatine Kinase 59 U/L (39-308); Estimated GFR 75.14 (mL/min/1.73m2); Glucose 157 mg/dL (74-106); Lipase 43 U/L (16-77); Magnesium 1.7 mg/dL (1.8-2.4); Potassium 3.9 mmol/L (3.5-5.1); Sodium 138 mmol/L (136-145); TSH (W/Ref FT4) 0.57 uIU/mL (0.36-3.74); Total Protein 7.4 g/dL (6.4-8.2); Troponin I < 50 ng/L (< or =60)
--- NOTE | 2023-12-04 09:18 | DI.VRAD_ITS ---
PROCEDURE INFORMATION: Exam: XR Chest Exam date and time: 12/04/2023 9:10 AM Age: 83 years old Clinical indication: Other: AMS TECHNIQUE: Imaging protocol: Radiologic exam of the chest. Views: 1 view. COMPARISON: CT BRAIN NECK CTA 12/04/2023 8:42 AM FINDINGS: Lungs: Unremarkable. No consolidation. Pleural spaces: Unremarkable. No pleural effusion. No pneumothorax. Heart/Mediastinum: Unremarkable. No cardiomegaly. Bones/joints: Unremarkable. IMPRESSION: No acute findings. Dictated and Authenticated by: Diandra Lozano MD. Ordering:CIARA James MD
--- NOTE | 2023-12-04 09:21 | NUR.NOTE ---
Nursing Note: Pt's mental status dramatically improved shortly after arrival - he started answering questions appropriately.
[2023-12-04 09:28] LABS: Acetaminophen < 2 ug/mL (10-30)
[2023-12-04 09:32] LABS: ETHANOL BLOOD < 3.0 mg/dL (<10)
--- NOTE | 2023-12-04 09:41 | DI.VRAD_ITS ---
PROCEDURE INFORMATION: Exam: CTA Head Without and With Contrast, Arteriography Exam date and time: 12/04/2023 8:42 AM Age: 83 years old Clinical indication: Altered mental status. Other: HX fall AMS TECHNIQUE: Imaging protocol: Initial unenhanced images were obtained through the brain to determine presence or absence of acute intracranial hemorrhage. Computed tomographic angiography of the head with contrast. Exam focused on the arteries. 3D rendering (Not supervised by radiologist): MIP and/or 3D reconstructed images were created by the technologist. Contrast material: OMNIPAQUE 350; Contrast volume: 85 ml; Contrast route: INTRAVENOUS (IV); COMPARISON: MR ANGIO BRAIN WO 11/15/2023 (NO REPORT AVAILABLE) FINDINGS: Initial unenhanced images demonstrate no obvious acute intracranial hemorrhage or mass effect. Chronic appearing small-vessel ischemic changes are seen within both cerebral hemispheres. There is age-related generalized cerebral atrophy and volume loss with associated prominence of ventricles and sulci. Minimal fluid in the left maxillary sinus. Mild mucosal thickening throughout the paranasal sinuses. Delayed images show no obvious pathologic intracranial enhancement. Left transverse sinus may be developmentally absent. Right transverse sinus in the left sigmoid sinus are widely patent. Superior sagittal sinus and straight sinus are patent. Internal carotid: Intracranial segments of the internal carotid arteries are patent. Bilateral carotid siphon atherosclerotic calcifications without evidence of flow-limiting stenosis. Anterior cerebral: Bilateral anterior cerebral arteries are patent without obvious flow-limiting stenosis. Middle cerebral: Bilateral middle cerebral arteries and proximal branch vessels are patent without obvious flow-limiting stenosis or occlusion. Posterior cerebral: Bilateral proximal posterior cerebral arteries are patent without evidence of flow-limiting stenosis or occlusion. A left posterior communicating artery is present. Vertebrobasilar: No basilar artery stenosis. No significant stenosis of the intracranial segments of the vertebral arteries. IMPRESSION: 1. CTA head demonstrates no large vessel occlusion or flow-limiting stenosis. 2. No acute intracranial hemorrhage or mass effect detected. PROCEDURE INFORMATION: Exam: CTA Neck With Contrast Exam date and time: 12/04/2023 8:42 AM Age: 83 years old Clinical indication: Other: HX fall AMS TECHNIQUE: Imaging protocol: Computed tomographic angiography of the neck with contrast. Exam focused on the cervical segments of the vasculature. 3D rendering (Not supervised by radiologist): MIP and/or 3D reconstructed images were created by the technologist. Contrast material: OMNIPAQUE 350; Contrast volume: 85 ml; Contrast route: INTRAVENOUS (IV); COMPARISON: MR ANGIO NECK WO 11/15/2023 (NO REPORT AVAILABLE) FINDINGS: Aortic arch: Standard arch anatomy without evidence of significant stenosis involving the great vessels at their origins from the aortic arch. Right carotid: Minimal atherosclerosis at the bifurcation with estimated stenosis less than 15%. No significant stenosis of the right common, internal, or proximal external carotid arteries in the neck is identified. Left carotid: Minimal atherosclerosis at the left carotid bifurcation with estimated stenosis less than 15%. No hemodynamically significant stenosis of the left common, internal, or proximal external carotid arteries in the neck is identified. Left vertebral: Patent without evidence of flow-limiting stenosis or dissection. Right vertebral: Patent without evidence of flow-limiting stenosis or dissection. Chronic multilevel cervical degenerative disc disease and facet arthropathy are present. There is focal ossification in the ligamentum nuchae at the C4-C5 level, perhaps related to remote trauma. No acute abnormality of the soft tissues of the neck identified. Incidental note of a 1 cm right thyroid nodule. IMPRESSION: CTA neck demonstrates no occlusion or significant stenosis involving the extracranial cerebrovascular circulation. REFERENCES: NASCET CRITERIA. The degree of stenosis in the cervical segment of the internal carotid artery is based on NASCET criteria. Normal is no stenosis. Mild is less than 50% stenosis. Moderate is 50-69% stenosis. Severe is 70% to 99% stenosis. Total occlusion is no detectable patent lumen. Dictated and Authenticated by: Onur Rodriguez MD. Ordering:CIARA James MD
[2023-12-04] MEDS: Magnesium Oxide 400 MG TAB PO (10:32)
[2023-12-04] MEDS: Finasteride 5 MG TAB PO (10:43)
[2023-12-04] MEDS: Losartan 25 MG TAB 50 MG PO (10:43)
[2023-12-04] MEDS: Insulin Aspart 300 UNITS/3 ML PEN SC ×2 (12:10→16:56)
[2023-12-04 12:14] LABS: Troponin I < 50 ng/L (< or =60)
--- NOTE | 2023-12-04 13:39 | W.PM.HP.N ---
Date of service: 12/04/23 Time of Service: 13:39 Assessment and Plan Assessment and plan (1) Syncope and collapse: Status: Acute Assessment and plan: admitted on telemetry check orthostatics consider echo on Wednesday if still here. PT consult and fall precautions (2) Acute confusion: Status: Acute Assessment and plan: now at baseline. ? postictal, ? concussed, (3) Urinary retention with incomplete bladder emptying: Status: Acute Assessment and plan: Continue Finesteride and Terasozin Urology consult - will see out patient Horner catheter in place and draining, clear, pale yellow (4) Medication management: Status: Deleted Assessment and plan: Continue home meds restarted on admit: ASA, Lipitor, Omeprazole and losartan (5) Discharge planning issues: Status: Deleted Assessment and plan: CM to follow Discussed with Dr. Norton History of Present Illness History of Present Illness Chief Complaint: syncope Narrative: This is an 83 year old male, found down today, initially confused but now at his baseline. He has no complaints and had no injuries, he states prior he was in his usual state of health with no recent illness. 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) Medical History Memory changes Bilateral renal cysts Social History Smoking/Tobacco Use Status: Former Tobacco Use Quit Date: 10/11/60 Smoking risk assessment performed?: Yes Alcohol Intake: never Drug use: Never Substance use type: does not use Housing: house Additional Social history: Unable to assess privately Meds Allergies and Home Medications Allergies Allergy/AdvReac Type Severity Reaction Status Date / Time No Known Allergies Allergy Verified 12/02/23 14:37 Home Medications Medication Instructions Recorded Confirmed Type atorvastatin 40 mg tablet (Lipitor) 40 mg PO DAILY 07/14/16 12/04/23 History losartan 50 mg tablet 50 mg PO DAILY 07/14/16 12/04/23 History omeprazole 20 mg capsule,delayed 20 mg PO DAILY 07/14/16 12/04/23 History release docusate sodium 100 mg capsule 100 mg PO BID 09/11/22 12/04/23 History (Dulcolax Stool Softener (docusate)) finasteride 5 mg tablet 5 mg PO DAILY #90 tab-caps 09/11/22 12/04/23 Rx metformin 500 mg tablet 500 mg PO am and noon #60 tabs 11/17/23 12/04/23 Rx terazosin 10 mg capsule 10 mg PO QPM 12/04/23 12/04/23 History Exam Const General: frail appearing and ill appearing chronically Nutritional Appearance: average body habitus Orientation: alert, awake and oriented x3 HENMT Head: normal to inspection, normocephalic and atraumatic Face and sinus: normal facial exam Mouth: oral mucosae normal Eyes General: appearance normal, both eyes and all related structures Chest Chest: normal inspection of the chest Resp Effort & Inspection: normal respiratory effort Auscultation: clear to auscultation bilaterally Cardio Rate: regular rate Rhythm: regular rhythm GI Inspection: normal to inspection Palpation: soft Skin General skin exam: dry skin Neuro General: patient alert, patient awake and patient oriented x3 Cognition: normal cognition Speech: speech normal Extrem General: normal to inspection and full ROM Results Labs 12/05/23 06:02 12/05/23 06:02 Labs: Laboratory Results - last 24 hr 12/04/23 12/04/23 12/04/23 08:25 08:32 11:40 WBC 7.08 RBC 4.20 L Hgb 12.5 L Hct 38.2 L MCV 91 MCH 29.8 MCHC 32.7 RDW 13.2 Plt Count 220 MPV 9.7 Immature Gran % 0.3 Neutrophils % 57.8 Lymphocytes % 26.4 Monocytes % 8.8 Eosinophils % 6.1 Basophils % 0.6 Nucleated RBC % 0.0 Absolute Neutrophils 4.10 Absolute Lymphocytes 1.87 Absolute Monocytes 0.62 Absolute Eosinophils 0.43 Absolute Basophils 0.04 PT 11.0 INR 1.1 VBG pH 7.41 VBG pCO2 42 VBG pO2 46 VBG HCO3 26 VBG Total CO2 24 VBG O2 Saturation 81 VBG Base Excess 2 Sodium 138 Potassium 3.9 Chloride 104 Carbon Dioxide 26.3 Anion Gap 7.7 BUN 16 Creatinine 1.0 Est GFR (CKD-EPI 2020) 75.14 Glucose 157 H Calcium 9.0 Magnesium 1.7 L Total Bilirubin 0.5 AST 16 ALT 16 Alkaline Phosphatase 78 Ammonia Cancelled Creatine Kinase 59 Cancelled Troponin I < 50 Cancelled < 50 Total Protein 7.4 Albumin 2.9 L Lipase 43 TSH 0.57 Salicylates < 2.8 Acetaminophen < 2 Ethyl Alcohol < 3.0 Last Vital Signs Temp 36.2 C L 12/04/23 11:06 Pulse 55 L 12/04/23 11:06 Resp 16 12/04/23 11:06 BP 177/73 H 12/04/23 11:06 Pulse Ox 97 12/04/23 11:06 Time Spent Time spent with Patient: 40-54 minutes Time was spent: preparing to see the patient(eg.review tests), obtaining and/or reviewing separately otained hiistory, ordering medications,tests, procedures, indepentently interpreting results and counseling the patient
[2023-12-04 16:22] LABS: Troponin I < 50 ng/L (< or =60)
[2023-12-04] MEDS: Normal Saline Flush 10 ML SYR IVP (19:38)
[2023-12-04] MEDS: Docusate Sodium 100 MG CAP PO (19:38)
[2023-12-05 03:39] VITALS: BP 152/73; PULSE 68; RESP 16; TEMP 37.1; O2SAT 97
[2023-12-05 06:36] LABS: Abs Immature Grans 0.02 10^3/uL (0.0-0.06); Absolute Basophil Count 0.05 10^3/uL (0.0-0.2); Absolute Eosinophil Count 0.25 10^3/uL (0.0-0.7); Absolute Lymphocyte Count 2.01 10^3/uL (1.2-3.4); Absolute Monocyte Count 0.68 10^3/uL (0.1-0.8); Basophils % 0.6; Eosinophils % 2.9; HCT 36.9 % (40.0-50.0); HGB 12.3 g/dL (13.5-17.5); Immature Grans % 0.2; Lymphocytes % 23.3; MCH 29.9 pg (27.0-33.0); MCHC 33.3 % (32.0-36.0); MCV 90 fL (80-95); MPV 10.1 fL (8.0-11.0); Monocytes % 7.9; Neutrophils % 65.1; Platelet Count 213 10^3/uL (130-400); RBC 4.11 10^6/uL (4.36-5.78); RDW 12.9 % (11.8-14.1); RDW-SD 42.5 fL; WBC 8.61 10^3/uL (4.4-10.8)
[2023-12-05 06:51] LABS: Anion Gap 10.8 mmol/L (3-11); BUN 15 mg/dL (7-18); CO2 24.2 mmol/L (21.0-32.0); CREATININE 0.8 mg/dL (0.70-1.30); Calcium 8.8 mg/dL (8.5-10.1); Calculated LDL 145 mg/dL (<100); Chloride 103 mmol/L (98-107); Cholesterol 205 mg/dL (<200); Estimated GFR 88.36 (mL/min/1.73m2); Glucose 156 mg/dL (74-106); HDL Cholesterol 51 mg/dL (40-60); Magnesium 1.7 mg/dL (1.8-2.4); Potassium 3.8 mmol/L (3.5-5.1); Sodium 138 mmol/L (136-145); Triglyceride 45 mg/dL (<150)
[2023-12-05 07:40] VITALS: BP 176/73; PULSE 71; RESP 18; TEMP 36.6; O2SAT 98
[2023-12-05] MEDS: Insulin Aspart 300 UNITS/3 ML PEN SC ×4 (08:19→22:00)
[2023-12-05] MEDS: Docusate Sodium 100 MG CAP PO ×2 (08:20→20:48)
[2023-12-05] MEDS: Omeprazole 20 MG CAPCR PO (08:20)
[2023-12-05] MEDS: Atorvastatin 40 MG TAB PO (08:20)
[2023-12-05] MEDS: Finasteride 5 MG TAB PO (08:20)
[2023-12-05] MEDS: MAGNESIUM SULFATE 2 GM/50 ML BAG IVPB (08:20)
[2023-12-05] MEDS: Losartan 50 MG TAB PO (08:20)
[2023-12-05] MEDS: Normal Saline Flush 10 ML SYR IVP ×2 (08:21→20:56)
--- NOTE | 2023-12-05 09:44 | PT.INIE ---
Date of service: 12/05/23 Time of Service: 09:10 PT Notes Visit Reasons: Syncope Inpatient Physical Therapy Evaluation Date: December 05, 2023 Referring Doctor: Yary Norton PT Orders: PT CONSULT: Limited ability Precautions: Standard Patient Profile/Admitting Diagnosis: Jamey is an 83 year old male admitted secondary to Syncope and collapse, Hypoalbuminemia, Hypomagnesemia. Jamey was found by his family on the floor yesterday morning. Brought to ED. PMHX: (Updated 12/04/23 @ 13:44 by Sun Umaña NP) Acute confusion (Acute) Hypomagnesemia (Acute) Hypoalbuminemia (Acute) Syncope and collapse (Acute) Complication of Horner catheter (Acute) Horner catheter problem (Acute) Displacement of Horner catheter (Acute) Grief reaction (Chronic) Mild cognitive impairment (Acute) Hydronephrosis (Acute) Urinary retention with incomplete bladder emptying (Acute) 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) Medical History Memory changes Bilateral renal cysts Social History/Home Situation: Lives alone in a private home. Recently lost his . Has 2 children. Daughter lives in [place], son lives close by and checks in regularly. Jamey notes he is completely independent at home. Lives off grid. Utilizing a pellet stove for heating. Continues to be able to lift the 40lb bags of pellets without difficulty. Current Functional Limitations: Memory changes. Physically feels good. Equipment Owned/DME: Does not utilize any assistive device. Subjective: Jamey notes overall feeling well. Complains of pain in his penis. Does see Urology for this. Notes that he has told his nurse. Objective: General Observation: IV L UE, catheter, telemetry Mental Status: Alert and oriented Pain: Noted pain in his penis. Vital Signs: Monitored via nursing ROM: Right Upper Extremity: Demonstrates WNL AROM of the R UE Left Upper Extremity: Demonstrates WNL AROM of the L UE Right Lower Extremity: Demonstrates WNL AROM of the R LE Left Lower Extremity: Demonstrates WNL AROM of the L LE Strength: Right Upper Extremity: Demonstrates good functional strength of the R UE Left Upper Extremity: Demonstrates good functional strength of the L UE Right Lower Extremity: Demonstrates good functional strength of the R LE Left Lower Extremity: Demonstrates good functional strength of the L LE Bed Mobility/Transfers: Supine-sit: Supervision Sit-supine: Independent Sit-stand: Supervision Stand-sit: Supervision Bed-Chair: SBA no assistive device Gait: 40 ft bed to door with use of IV pole no other assistive device, supervision. Patient then ambulated to bathroom from chair then back to chair following toileting. Balance: Static Sitting: Normal Dynamic Sitting: Normal Static Standing: Good Dynamic Standing: Fair Special Tests: Mobility Limitations Standardized Measure [facility] 6 clicks Basic Mobility Inpatient Short Form: Raw Score: 21 CMS Score: 28.97% Informed Consent/Education: Patient instructed in purpose of PT consult and plan of care. Assessment: Patient is a 83 year old male referred to physical therapy services with the diagnosis of syncope. Patient presents with clinical signs and symptoms consistent with diagnosis, as demonstrated by the following impairment level findings: mild dynamic balance impairment otherwise demonstrates good UE/LE strength and overall mobility. Required only supervision with transfers. Impairments are contributing to the following functional limitations: mild balance deficit Patient is assessed as a Low 04397 complexity based on the following: History: As above Examination: As above Presentation: Stable Decision Making: Low Goals: Goals X1 week 1. Supine-Sit Independent 2. Sit-Supine Independent 3. Sit-Stand Independent 4. Stand-Sit Independent 5. Bed-Chair Independent 6. Chair-Bed Independent 7. Gait Independent 8. Stairs Independent with use of railing Plan of Care/Treatment Plan: 1-2x/day, 7 days/week x 1 week. Plan of care has been reviewed with the [employer] LEADER providing the service under Physical Therapy direction. Initiate Physical Therapy intervention for strengthening, bed mobility, transfers, gait, stairs, balance training, use of assistive device. DISCHARGE RECOMMENDATIONS: Home with no services once medically cleared TREATMENT CODE/TIME: 68735, 30 minutes, IE 9:10 am TASH [place] [facility] Please sign an return this page within 30 days if you agree with the above POC. Thank you! Physician Signature Date [facility] Disclaimer: This note was created using [employer] voice recognition software. It was reviewed for major content. However, there may be multiple small discrepancies and errors due to the voice recognition aspects of the software.
--- NOTE | 2023-12-05 09:56 | NUR.NOTE ---
Nursing Note: Patient is sitting in chair, no complaints. Patient is oriented to person, place, and time, but has limited comprehension of situation and is confused. Patient's son is at the bedside. Patient had a necklace with three rings and a pendant attached which was on the bedside table, and patient's son told this RN he took it for safe keeping. Patient reported pain in the lower abdomen at the level of the bladder this morning, but reported the pain resolved before intervention could be performed.
--- NOTE | 2023-12-05 10:15 | INITIAL_ITS ---
Date of service: 12/05/23 Time of Service: 10:16 Care Management Initial Assmt Initial Assessment REASON FOR HOSPITALIZATION:: Syncope PREVIOUS FUNCTIONAL STATUS/SOCIAL/FAMILY SUPPORTS:: Jamey lives in [place], alone. His in August 2023, and his son, brother and sister in law have been helping to support him since her passing. He is independent with his ADL's at baseline. CURRENT FUNCTIONAL STATUS:: Jamey was lying in bed, watching a basketball game. When asked, he reports being at [facility] like 4 times in the last month, including ED visits. He reports I pulled out my catheter, he smiles when he says I'm going to be good now. Jamey was pleasant in interaction and did not appear confused to this service writer. He reported having home health, and stated he believed they sent him to the hospital, but wasn't fully sure. ADVANCE DIRECTIVES:: COLST Has patient been provided with info about the portal/API?: Yes Did the patient sign up for the portal?: No CODE STATUS:: DNR/DNI INSURANCE COVERAGE / FINANCIAL ISSUES:: [facility] MCR replacement CURRENT HOME/COMMUNITY SERVICES/EQUIPMENT:: Family support since the passing of his . PRIMARY CARE PHYSICIAN:: Vanita Johnson POTENTIAL DISCHARGE NEEDS:: Evaluations for further needs, follow up appointments. PATIENT/FAMILY EDUCATION NEEDS:: Review discharge instructions and limitations, discussion of self care needs including ask me three. ANTICIPATED BARRIERS TO DISCHARGE:: None identified. TRANSPORTATION:: Via private vehicle by family. PLAN:: Jamey will return home once medically cleared. His family will drive him home via private vehicle when ready. He will follow up with his PCP and discharge plan of care. CM will continue to follow. PFSH All Active Problems (Updated 12/05/23 @ 11:27 by Sun Uamña NP) Medication management (Acute) Discharge planning issues (Acute) Acute confusion (Acute) Hypomagnesemia (Acute) Hypoalbuminemia (Acute) Syncope and collapse (Acute) Complication of Horner catheter (Acute) Horner catheter problem (Acute) Displacement of Horner catheter (Acute) Grief reaction (Chronic) Mild cognitive impairment (Acute) Hydronephrosis (Acute) Urinary retention with incomplete bladder emptying (Acute) 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) Medical History Memory changes Bilateral renal cysts Social History Smoking/Tobacco Use Status: Former Tobacco Use Quit Date: 10/11/60 Smoking risk assessment performed?: Yes Alcohol Intake: never Drug use: Never Substance use type: does not use Housing: house Additional Social history: Unable to assess privately Readmission Within the Past 30 Days Yes or No: Yes Date of First Admission Date of 1st Admission: 11/13/23 Date of this Admission Date of Admission: 12/04/23 This admission was: Through ED Speicalist Appointments Have you seen any other specialist since your 1st Admission?: Yes Date you saw the Specialist: 11/29/23 Specialist Seen: Urologist: Reji If the patient had a VNA ordered Did the patient have a VNA order?: Yes Did you call the VNA before you came?: Yes Did the VNA tell you to come to the hospital?: Yes Do you know if the VNA called your physician?: No If the patient had home care service Call them to discuss the patient's admission: Wkend admission ED visits How many ED visits in the past 12 months: 5 Assessment for Readmission Summary of readmission circumstances, based upon interviews: 11/13/23-11/17/23 Inpatient: Encephalopathy, UTI, Stroke 11/18/23 ED Urinary 11/19/23 ED Cath pulled out 11/19/23 ED Urinary 11/26/23: Diagnostic Imaging 11/29/23 Dr. Mendoza: Urology 12/06/23 Dr. Mendoza: Scheduled Cysto SPT 12/21/23 Dr. Aguilar: Palliative SDOH(Care Management) Screening Will the Patient Participate in the Screening?: Yes Do you worry about having a steady place to live?: no In the past 12 months, have you had to go without electric, gas, oil or water in your home?: no Have you or anyone in your house had to go without enough food to eat?: no Has lack of transportation kept you from medical appointments or from doing things needed for daily living?: no Has anyone in your support network made you feel unsafe for any reason?: no
--- NOTE | 2023-12-05 10:52 | W.PM.PROGNOT ---
Date of Service Date of service: 12/05/23 Time of Service: 10:52 Assessment and Plan Assessment and plan (1) Syncope and collapse: Status: Acute Assessment and plan: no definite etiology, continue telemetry. did have self limiting SVT last night in setting of agitation echo on Wednesday PT consult and fall precautions (2) Acute confusion: Status: Acute Assessment and plan: now at baseline. ? postictal, ? concussed, (3) Urinary retention with incomplete bladder emptying: Status: Acute Assessment and plan: Continue Finesteride and Terasozin Urology consult - will place for wednesday with possible suprapubic tube placement Horner catheter in place and draining, clear, pale yellow. (4) Medication management: Status: Acute Assessment and plan: Continue home medications (5) Discharge planning issues: Status: Acute Assessment and plan: CM to follow Discussed with Dr. Norton Subjective Subjective Patient reports: no new complaints, tolerating liquids well, tolerating a regular diet and afebrile; denies shortness of breath Exam Const General: frail appearing and ill appearing chronically Nutritional Appearance: average body habitus Orientation: alert, awake and oriented x3 HENMT Head: normal to inspection, normocephalic and atraumatic Face and sinus: normal facial exam Mouth: oral mucosae normal Eyes General: appearance normal, both eyes and all related structures Chest Chest: normal inspection of the chest Resp Effort & Inspection: normal respiratory effort Auscultation: clear to auscultation bilaterally Cardio Rate: regular rate Rhythm: regular rhythm GI Inspection: normal to inspection Palpation: soft Skin General skin exam: dry skin Neuro General: patient alert, patient awake and patient oriented x3 Cognition: normal cognition Speech: speech normal Extrem General: normal to inspection and full ROM Objective Last Vital Signs Temp 36.6 C 12/05/23 07:40 Pulse 71 12/05/23 07:40 Resp 18 12/05/23 07:40 BP 176/73 H 12/05/23 07:40 Pulse Ox 98 12/05/23 07:40 Laboratory Results - last 24 hr 12/04/23 12/04/23 12/05/23 11:40 15:45 06:02 WBC 8.61 RBC 4.11 L Hgb 12.3 L Hct 36.9 L MCV 90 MCH 29.9 MCHC 33.3 RDW 12.9 Plt Count 213 MPV 10.1 Immature Gran % 0.2 Neutrophils % 65.1 Lymphocytes % 23.3 Monocytes % 7.9 Eosinophils % 2.9 Basophils % 0.6 Nucleated RBC % 0.0 Absolute Neutrophils 5.60 Absolute Lymphocytes 2.01 Absolute Monocytes 0.68 Absolute Eosinophils 0.25 Absolute Basophils 0.05 Sodium 138 Potassium 3.8 Chloride 103 Carbon Dioxide 24.2 Anion Gap 10.8 BUN 15 Creatinine 0.8 Est GFR (CKD-EPI 2020) 88.36 Glucose 156 H Calcium 8.8 Magnesium 1.7 L Troponin I < 50 < 50 Triglycerides 45 Total Cholesterol 205 H LDL Cholesterol, Calc 145 H HDL Cholesterol 51 Time Spent with Patient Time Spent with Patient: <25 minutes Time was spent: preparing to see the patient(eg.review tests), ordering medications,tests, procedures, indepentently interpreting results and counseling the patient
[2023-12-05 11:36] VITALS: BP 115/64; PULSE 57; RESP 16; TEMP 36.4; O2SAT 97
[2023-12-05 15:03] VITALS: BP 111/64; PULSE 70; RESP 17; TEMP 36.8; O2SAT 97
[2023-12-05 20:08] VITALS: BP 144/74; PULSE 63; RESP 17; TEMP 36; O2SAT 96
[2023-12-05] MEDS: Metoprolol 12.5 MG TAB PO (20:47)
[2023-12-05 22:50] VITALS: BP 126/74; PULSE 57; RESP 17; TEMP 36.4; O2SAT 96
[2023-12-06 03:06] VITALS: BP 162/77; PULSE 55; RESP 18; TEMP 35.7; O2SAT 98
[2023-12-06 08:06] VITALS: BP 157/77; PULSE 52; RESP 17; TEMP 36.3; O2SAT 97
[2023-12-06] MEDS: Normal Saline Flush 10 ML SYR IVP (08:50)
[2023-12-06] MEDS: Atorvastatin 40 MG TAB PO (08:51)
[2023-12-06] MEDS: Insulin Aspart 300 UNITS/3 ML PEN SC ×2 (08:51→13:06)
[2023-12-06] MEDS: Finasteride 5 MG TAB PO (08:51)
[2023-12-06] MEDS: Omeprazole 20 MG CAPCR PO (08:51)
[2023-12-06] MEDS: Losartan 50 MG TAB PO (08:51)
[2023-12-06] MEDS: Metoprolol 12.5 MG TAB PO (08:51)
[2023-12-06] MEDS: Docusate Sodium 100 MG CAP PO (08:51)
--- NOTE | 2023-12-06 09:43 | DSE_ITS ---
Date of service: 12/06/23 Time of Service: 09:43 DS: Diagnosis Discharge Diagnosis (1) Syncope and collapse: Status: Acute (2) Acute confusion: Status: Acute (3) Urinary retention with incomplete bladder emptying: Status: Acute Discharge Plan Disposition Patient Disposition: Home W/Home Health Services Condition: Improving Discharge Details Reason For Visit: Syncope Admit Date/Time: 12/04/23 10:26 Admit Provider: Yary Norton Attending Provider: Yary Norton Primary Care Provider: Vanita Johnson V Hospital Course Hospital Course: This frail appearing 83-year-old male patient with past medical history of hypertension, dementia, hydronephrosis and urinary retention presented to the ED at [facility] on 12/04/2023 for evaluation of sudden onset of unresponsiveness. The patient the patient had a depressed [place] Coma Scale on arrival concerning for the possibility of intracranial hemorrhage versus ischemic CVA versus seizure versus syncope. The patient was found by the ED provider to have a reassuring primary survey,, regular heart rate and rhythm. Labs in the ED were unremarkable and no overdose concerns were verbalized by the family. The CT of the head with angiogram and CT of the neck with angiogram completed in the ED were negative. The patient received 1 dose of Keppra in the emergency room but due to low suspicion of seizure due to the absence of tongue biting the ED provider stopped the Keppra. The patient had a few episodes of bradycardia on the monitor warranting an echocardiogram encourage monitoring and a possible Holter monitor with consideration of pacemaker if the patient has significant abnormalities. The hospitalist was consulted and the patient was admitted to the medical surgical floor with telemetry for evaluation and management of syncope. During the stay, the patient had an episode of SVT with an heart rate of 150 without symptoms. The patient was initiated on metoprolol tartrate 12.5 oral twice a day but then during the night the patient had his heart rate dropped into the 40s maintaining his sinus rhythm, this morning while awake the patient heart rate was 52. Lopressor was discontinued. The patient wanted to go home Against medical advice today. The patient was convinced to remain in the hospital until we could complete the urology consult and the echocardiogram. 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 Dr. Mendoza saw the patient and the course is maintain for outpatient treatment if the patient decides to leave before tomorrow. 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 The patient will need to follow-up with his primary care physician within 7 days. The patient will resume services. Discussed with Dr. Sanchez Home Meds and New Rx's Prescriptions: Continued docusate sodium [Dulcolax Stool Softener (dss)] 100 mg capsule 100 mg PO BID finasteride 5 mg tablet 5 mg PO DAILY Qty: 90 4RF losartan 50 MG tablet 50 mg PO DAILY atorvastatin [Lipitor] 40 MG tablet 40 mg PO DAILY omeprazole 20 MG capsule,delayed release(DR/EC) 20 mg PO DAILY metformin 500 MG tablet 500 mg PO am and noon Qty: 60 0RF terazosin 10 mg capsule 10 mg PO QPM Discharge Instructions Stand Alone Forms: Nursing Discharge Form Referrals: Vanita Johnson MD [Primary Care Provider] - (keep your appointment that you already have for next week ) Sagar Mendoza MD [[facility] STAFF PHYSICIAN] - None (Suprapubic catheter consultation: Already initiated outpatient A nurse will call you from Dr Mendoza office with an appointment ) Activity:: Activity as Tolerated Equipment/Supplies:: No Equipment Needed Diet:: heart healthy diabetic Discharge Orders Discharge Orders: Discharge Order (Routine); Ordered 12/06/23 Ordered By: Meredith Ordaz Other Ambulatory Orders: Cardiac Event Recorder (Routine) Timeframe: 20231206 Facility: [facility] - Location: Respiratory Therapy Ordered By: Meredith Ordaz Discharge Data Discharge Date/Time-TO BE ENTERED AT DEPARTURE: 12/06/23 15:21 DS: Summary Time Spent with Patient providing and/or coordinating discharge services: Greater than 30 minutes Status at Discharge Functional status at discharge: uses cane/walker Overall status at discharge: patient is progressing back to baseline Mental Status: mental status grossly normal Speech and Movement: speech and movement normal Mood: anxious mood Affect: labile affect and anxious affect Quality:SDOH Health Related Social Needs: No Data to Display Exam Narrative Exam Narrative: Constitutional The patient is sitting in chair, well groomed without acute distress HENMT: Facial structures with normal appearance Eyes: Well aligned, intact ROM Neuro:alert and confused. No neurological focal deficit Chest:Chest is symmetrical and normal appearance Resp: Normal respiratory pattern, speaks in full sentences, unlabored breathing, clear lung bilaterally Cardio: regular rhythm, S1, S2, no murmur, capillary refill<3 sec. GI: Abdomen is not distended, soft and non tender, bowel sounds are present Extremities: strength 5/5 to bilateral lower and upper extremities Psych: RASS 0, congruent, labile, mood and normal , anxious affect. Psych Mental Status: mental status grossly normal Speech and Movement: speech and movement normal Mood: anxious mood Affect: labile affect and anxious affect DS: Data Vitals/I&O Vitals and I&O: Vital Signs Temperature 36.3 C L 12/06/23 08:06 Temperature Source Tympanic 12/06/23 08:06 Pulse 52 L 12/06/23 08:06 Pulse Rhythm Regular 12/06/23 00:18 Pulse 61 12/04/23 10:30 Respiratory Rate 17 12/06/23 08:06 Respiratory Effort Normal, Non-Labored 12/06/23 00:18 Respiratory Depth Shallow 12/06/23 00:18 Respiratory Pattern Normal 12/06/23 00:18 Blood Pressure 157/77 H 12/06/23 08:06 Blood Pressure Mean 90 12/04/23 10:17 Blood Pressure Position Supine 12/04/23 08:25 Pulse Oximetry 97 12/06/23 08:06 Oxygen Delivery Method Room Air 12/06/23 08:06 Oxygen Flow Rate 0 12/06/23 08:06 Pain Level 0 12/06/23 08:06 Comment RN Notified 12/05/23 03:39 Intake & Output 12/05/23 12/05/23 12/06/23 11:59 23:59 11:59 Intake Total 580 / 580 Output Total 800 / 950 150 / 950 400 / 400 Balance -800 / -370 430 / -370 -390 / -390 Intake: IV Oral 580 / 580 Output: Urine 800 / 950 150 / 950 400 / 400 Other: Urine Color Straw Yellow Yellow Urine Appearance Sediment Cloudy Clear Comment Urine had a smell. 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) Medical History Memory changes Bilateral renal cysts Social History Smoking/Tobacco Use Status: Former Tobacco Use Quit Date: 10/11/60 Smoking risk assessment performed?: Yes Alcohol Intake: never Drug use: Never Substance use type: does not use Housing: house Additional Social history: Unable to assess privately Time Spent with Patient Time Spent with Patient: <45 minutes Time was spent: preparing to see the patient(eg.review tests), ordering medications,tests, procedures, referring, communicating with other health auto care center manager, indepentently interpreting results and counseling the patient
[2023-12-06 11:15] LABS: Abs Immature Grans 0.02 10^3/uL (0.0-0.06); Absolute Basophil Count 0.04 10^3/uL (0.0-0.2); Absolute Lymphocyte Count 1.36 10^3/uL (1.2-3.4); Absolute Monocyte Count 0.49 10^3/uL (0.1-0.8); Absolute Neutrophil Count 6.61 10^3/uL (1.2-6.7); Basophils % 0.5; Eosinophils % 1.2; HCT 36.9 % (40.0-50.0); Immature Grans % 0.2; Lymphocytes % 15.8; MCH 29.6 pg (27.0-33.0); MCHC 32.5 % (32.0-36.0); MCV 91 fL (80-95); Monocytes % 5.7; Neutrophils % 76.6; Platelet Count 173 10^3/uL (130-400); RBC 4.06 10^6/uL (4.36-5.78); WBC 8.62 10^3/uL (4.4-10.8)
[2023-12-06 11:26] LABS: Anion Gap 11.3 mmol/L (3-11); BUN 25 mg/dL (7-18); CO2 23.7 mmol/L (21.0-32.0); CREATININE 1.1 mg/dL (0.70-1.30); Calcium 8.8 mg/dL (8.5-10.1); Chloride 100 mmol/L (98-107); Estimated GFR 67.02 (mL/min/1.73m2); Glucose 242 mg/dL (74-106); Sodium 135 mmol/L (136-145)
--- NOTE | 2023-12-06 11:57 | W.UROLOGYCON ---
Date of service: 12/06/23 Time of Service: 11:57 Assessment and Plan Assessment and plan (1) Urinary retention with incomplete bladder emptying: Status: Acute (2) Hydronephrosis: Status: Acute Assessment and plan: I do not see any medical reason to consider the suprapubic placement emergent, so we will follow our anesthesia guidelines and wait the 2 weeks before placing the SP tube. The procedure is already been scheduled so no changes in his follow-up should be necessary. History of Present Illness History of Present Illness Chief Complaint: Urinary retention Narrative: This is an 83-year-old gentleman who has a history of urinary retention. He has recently been found to have bilateral hydronephrosis although his serum creatinine has remained stable. He has an indwelling urethral catheter. He has not been able to perform CIC, so we had planned on placing a suprapubic tube for him. He was actually scheduled for an outpatient suprapubic tube placement today, but during his preop phone call last week, he admitted to a scratchy throat and some upper respiratory tract infection type symptoms. The anesthesia protocol is to postpone any nonemergent procedure for 2 weeks. We actually have him scheduled for 2 weeks from today. He is currently hospitalized after a fall. He tells me that he is hoping that he can go home today. 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) Medical History Memory changes Bilateral renal cysts Social History Smoking/Tobacco Use Status: Former Tobacco Use Quit Date: 10/11/60 Smoking risk assessment performed?: Yes Alcohol Intake: never Drug use: Never Substance use type: does not use Housing: house Additional Social history: Unable to assess privately Exam Narrative Exam Narrative: He is pleasantly confused He does not appear septic or toxic He is awake and alert Results Last Vital Signs Temp 36.3 C L 12/06/23 08:06 Pulse 52 L 12/06/23 08:06 Resp 17 12/06/23 08:06 BP 157/77 H 12/06/23 08:06 Pulse Ox 97 12/06/23 08:06 Labs 12/06/23 10:37 12/06/23 10:37 Labs: Laboratory Results - last 24 hr 12/06/23 10:37 WBC 8.62 RBC 4.06 L Hgb 12.0 L Hct 36.9 L MCV 91 MCH 29.6 MCHC 32.5 RDW 13.0 Plt Count 173 MPV 11.0 Immature Gran % 0.2 Neutrophils % 76.6 Lymphocytes % 15.8 Monocytes % 5.7 Eosinophils % 1.2 Basophils % 0.5 Nucleated RBC % 0.0 Absolute Neutrophils 6.61 Absolute Lymphocytes 1.36 Absolute Monocytes 0.49 Absolute Eosinophils 0.10 Absolute Basophils 0.04 Sodium 135 L Potassium 4.0 Chloride 100 Carbon Dioxide 23.7 Anion Gap 11.3 H BUN 25 H Creatinine 1.1 Est GFR (CKD-EPI 2020) 67.02 Glucose 242 H Calcium 8.8
--- NOTE | 2023-12-06 12:00 | DI.US_ITS ---
APPROVED REPORT EXAM: Comprehensive 2D, Doppler, and color-flow Echocardiogram Patient Location: In-Patient Room/Bed: 210 Hot Stamp Operator: Dakota Mendez RDCS (AE) Indications: syncope Conclusion Normal left ventricular wall thickness and chamber size. EF is 60 to 65%. Wall motion is normal Normal right ventricular size and systolic function Both atria are normal in size Aortic valve is mildly sclerotic and trileaflet without stenosis or regurgitation There is no additional structural or hemodynamically significant valvular disease Estimated right ventricular systolic pressure is 19 mm Hg Wall motion Left Ventricle The left ventricle is normal size. The left ventricular systolic function is normal. The left ventric ular ejection fraction is within the normal range. There is normal left ventricular wall thickness. T here is normal LV segmental wall motion. There is no ventricular septal defect visualized. LVEF is 60 -64%. Right Ventricle The right ventricle is normal size. The right ventricular systolic function is normal. Atria The left atrium size is normal. Right atrium is mildly dilated. The interatrial septum is intact with no evidence for an atrial septal defect. Aortic Valve The aortic valve is mildly sclerotic. Aortic valve is trileaflet. There is no aortic valvular stenosi s. No aortic regurgitation is present. Mitral Valve The mitral valve is normal in structure. No evidence of mitral valve stenosis. Trace mitral regurgita tion. Tricuspid Valve The tricuspid valve is normal in structure. There is no tricuspid valve stenosis. Mild tricuspid regu rgitation. The RVSP is 19.5 mmHg. Pulmonic Valve The pulmonary valve is normal in structure. There is no pulmonic valvular stenosis. Mild pulmonic reg urgitation. Great Vessels The aortic root is normal in size. Ascending aorta is not well visualized. Aortic arch is not well vi sualized. IVC is normal in size and collapses >50% with inspiration. Pericardium There is no pericardial effusion. 2D Dimensions IVSD d PLAX 0.72 cm M: 0.6-1.2 Ao Root d 3.36 cm M: 3.1 - 3.7 LVPW d PLAX 0.69 cm M: 0.6 - 1.2 LVID d PLAX 4.44 cm M: 4.2 - 5.8 LVDs 2.90 cm M: 2.5 - 4.0 LV EF Teichholz 64.0 % FS 34.62 % LV EDV (Teich) 89.4 mL LV ESV (Teich) 32.2 mL Stroke Vol Index (Teich) 32.32 M-Mode TAPSE 2.09 cm (M/F) >1.7 Auto EF LV EDV A4C 128.9 mL LV EDV A2C 98.0 mL LV EDV BP 114.8 mL LV ESV A4C 51.7 mL LV ESV A2C 38.1 mL LV ESV BP 45.1 mL LVEF(%) A4C 59.9 % LVEF(%) A2C 61.1 % LVEF(%) BP 60.7 % LV SV A4C 77.3 ml LV SV A2C 59.9 ml LV SV BP 69.7 ml LV CO A4C 4.0 L/min LV CO A2C 3.1 L/min LV CO BP 3.6 L/min HR A4C 52.40 BPM HR A2C 52.48 BPM LV EDV Index (BP) LA Volume LA Length A4C 4.3 cm LA Length A2C 4.0 cm LA Area A4C s 12.48 cm2 LA Area A2C s 12.09 cm2 LA Vol A4C A-L 30.40 mL LA Vol A2C A-L 31.37 mL LA Vol Biplane A-L 32.4 mL LA Vol/BSA A4C A-L LA Vol/BSA A2C A-L LA Vol/BSA BP A-L 18.3 mL/m2 LA Vol A4C MOD 27.6 mL LA Vol A2C MOD 29.7 mL LA Vol BP MOD 29.9 mL RA Volume RA Area A4C 11.9 cm2 RA ESV A4C (A-L) 29.3mL RA Vol/BSA A4C A-L RA Length A4C 4.1 cm RA ESV A4C (MOD) 28.0mL LV Diastology MV E' medial 0.074 (>0.07 m/s) MV E Vmax 0.72 (0.4-1.3 m/s) MV E/E' MED 9.74 (<14) MV A Vmax 0.95 (0.4-1.3 m/s) MV E' lateral 0.079 (>0.1 m/s) E/A Ratio 0.8 MV E/E' LAT 9.19 (<14) MV E' Average 0.076 m/s MV E/E'(average) 9.45 Aortic Valve AoV Vmax 0.87 m/s LVOT Vmax 0.85 m/s AoV Peak Grad 3.1 mmHg LVOT Peak Grad 2.9 mmHg AoV Area (Vmax) 3.17 cm2 LVOT VTI 0.201 m AoV VTI 0.234 m LVOT Mean Grad 1.4 mmHg AoV Mean Jose. 0.60 m/s LVOT SV 65.73 mL AoV Mean Grad 1.6 mmHg LVOT Diam s 2.00 cm AoV Area (VTI) 2.81 cm2 Velocity Ratio 0.98 Mitral Valve MV DT 255 (160-240 msec) Pulmonary Valve PV Vmax 0.67 (0.5-1.5 m/s) RVOT Vmax 0.56 m/s PV Peak Grad 1.8 mmHg RVOT Peak Gr. 1.2 mmHg PV Mean Jose 0.48 m/s RVOT VTI 0.144 m PV Mean Grad 1.0 mmHg RVOT Mean Gr. 0.8 mmHg Tricuspid Valve RA Pressure 3.00 mmHg TR Vmax 2.03 m/s TR Peak Grad 16.5 mmHg RVSP (TR) 19.5 mmHg
[2023-12-06 12:05] VITALS: BP 93/48; PULSE 49; RESP 18; TEMP 36.9; O2SAT 100
--- NOTE | 2023-12-06 14:34 | CMDISCH_ITS ---
Date of service: 12/06/23 Time of Service: 14:34 LACE Index Scoring Tool Questions: Length of Stay (in days): 2 Was the patient admitted via the E.D.?: Yes E.D. 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 His son will drive him home via private vehicle a nd Jamey will follow up with his PCP and discharge plan of care. Patient/Family Education Needs: Review discharge instructions and limitations, discussion of self care needs including ask me three. Services Needed at Discharge: Home Health Care Services SDOH Health Related Social Needs: No Data to Display
== END 2023-12-06 15:21 | disposition home health service (06) ==
LOC: ER 10:20 → MS 10:56
PROVIDERS: Nurse Practitioner Acute Care; Admitting Provider Internal Medicine; Emergency Provider Emergency Medicine; PCP Family Medicine; Visit Provider Internal Medicine
DX: R55 Syncope and collapse (principal); R41.0 Disorientation, unspecified; I47.10 Supraventricular tachycardia, unspecified; R33.9 Retention of urine, unspecified; R00.1 Bradycardia, unspecified; N13.30 Unspecified hydronephrosis; Z79.899 Other long term (current) drug therapy; W19.XXXA Unspecified fall, initial encounter; E83.42 Hypomagnesemia; E88.09 Other disorders of plasma-protein metabolism, not elsewhere classified; I10 Essential (primary) hypertension; F03.90 Unspecified dementia, unspecified severity, without behavioral disturbance, psychotic disturbance, mood disturbance, and anxiety
CPT/HCPCS: 00123; 36410; 36415; 70496; 70498; 80048; 80053; 80061; 82550; 82805; 83690; 93005; 93306; 96360; 96361; 97161; 99222; 99285; 71045; 80320; 80329; 82140; 83735; 84443; 84484; 85025; 85610; 93010; 99238; G0378; J1815; J3475; J3490

== ENCOUNTER → 2023-12-06 08:24 | Outpatient (BNVA) | payer MEDICARE, SELFPAY | PROVIDERS: PCP Family Medicine; Referring Provider Family Medicine; Visit Provider Urology ==

== ENCOUNTER 2023-12-06 13:53 | Outpatient (RCR) | payer MEDICARE, SELFPAY | END 2023-12-21 23:59 | disposition home or self-care (01) | LOC: RT 13:53 | PROVIDERS: PCP Family Medicine; Visit Provider Nurse Practitioner Acute Care | DX: R55 Syncope and collapse (principal) | CPT/HCPCS: 93270 ==

== ENCOUNTER 2023-12-09 07:12 | Inpatient (IN) | payer MEDICARE, SELFPAY ==
[2023-12-09 07:17] VITALS: BP 137/66; PULSE 80; RESP 18; TEMP 36.6; O2SAT 98
[2023-12-09] MEDS: OLANZapine 10 MG VIAL IM (08:07)
[2023-12-09 08:58] LABS: Abs Immature Grans 0.06 10^3/uL (0.0-0.06); Absolute Basophil Count 0.07 10^3/uL (0.0-0.2); Absolute Eosinophil Count 0.45 10^3/uL (0.0-0.7); Absolute Lymphocyte Count 1.49 10^3/uL (1.2-3.4); Absolute Monocyte Count 0.57 10^3/uL (0.1-0.8); Absolute Neutrophil Count 5.45 10^3/uL (1.2-6.7); Basophils % 0.9; Eosinophils % 5.6; HCT 37.8 % (40.0-50.0); HGB 12.5 g/dL (13.5-17.5); Immature Grans % 0.7; Lymphocytes % 18.4; MCHC 33.1 % (32.0-36.0); MCV 91 fL (80-95); MPV 9.7 fL (8.0-11.0); Neutrophils % 67.4; Platelet Count 271 10^3/uL (130-400); RBC 4.17 10^6/uL (4.36-5.78); RDW-SD 43.5 fL; WBC 8.09 10^3/uL (4.4-10.8)
[2023-12-09 09:11] LABS: Ammonia < 10 umol/L (11-32)
[2023-12-09 09:18] LABS: Bilirubin Negative (Negative); Blood Moderate (Negative); Clarity Cloudy (Clear); Glucose Negative (Negative); Ketones 15 mg/dL (Negative); Leukocyte Esterase Large (Negative); Nitrite Positive (Negative); Specific Gravity 1.025 (1.005-1.025); Urobilinogen 0.2 mg/dL (Up to 0.2)
[2023-12-09 09:21] LABS: ALT 14 U/L (16-63); AST 13 U/L (15-37); Albumin 2.9 g/dL (3.4-5.0); Alkaline Phosphatase 78 U/L (46-116); Anion Gap 10.3 mmol/L (3-11); BUN 23 mg/dL (7-18); Bilirubin, Total 0.3 mg/dL (0.2-1.0); CO2 22.7 mmol/L (21.0-32.0); Calcium 8.7 mg/dL (8.5-10.1); Chloride 104 mmol/L (98-107); Estimated GFR 75.14 (mL/min/1.73m2); Glucose 175 mg/dL (74-106); Magnesium 1.7 mg/dL (1.8-2.4); Sodium 137 mmol/L (136-145); TSH 0.91 uIU/Ml (0.36-3.74); Total Protein 7.1 g/dL (6.4-8.2)
[2023-12-09 09:33] LABS: C & S Indicated? Yes; RBC 20-50 HPF (0-2); WBC >50 HPF (0-5)
[2023-12-09] MEDS: cefTRIAXone 1 GM/50 ML BAG IV (10:15)
--- NOTE | 2023-12-09 10:48 | ED.GENADUL_ITS ---
Discharge Plan Disposition Patient Disposition: Admit to [facility] Condition: Stable Discharge Details Chief Complaint: GenMedical Clinical Impression: Delirium, Complication of Horner catheter, Acute UTI Primary Care Provider: Vanita Johnson V ED Provider: Wei Reed Home Meds and New Rx's Prescriptions: No Action docusate sodium [Dulcolax Stool Softener (dss)] 100 mg capsule 100 mg PO BID finasteride 5 mg tablet 5 mg PO DAILY Qty: 90 4RF losartan 50 MG tablet 50 mg PO DAILY atorvastatin [Lipitor] 40 MG tablet 40 mg PO DAILY omeprazole 20 MG capsule,delayed release(DR/EC) 20 mg PO DAILY metformin 500 MG tablet 500 mg PO am and noon Qty: 60 0RF terazosin 10 mg capsule 10 mg PO QPM memantine 7 mg capsule,sprinkle,ER 24hr 7 mg PO DAILY Patient Comments: TAKE ONE CAPSULE BY MOUTH EVERY DAY (CAN BE AM. AND PM.) FOR 1-2 WEEKS THEN INCREASE TO TWO CAPSULES DAILY AT THE SAME TIME risperidone 0.5 mg tablet 0.5 mg PO DAILY PRN trazodone 50 mg tablet 75 mg PO HS Patient Comments: TAKE 1/2 TO 1 TABLET AT BEDTIME HPI General Date/Time Provider Initiated Documentation: 12/09/23 07:13 . Limitations to Documentation: no limitations . Information obtained by: patient . HPI Narrative: 83-year-old gentleman with past medical history of BPH, urinary retention with indwelling Horner catheter presents with acute confusion. Patient's son brought him to the hospital because patient was insisting that he needed to get a colonoscopy today. He kept insisting that this procedure needed to be done. The patient told the son that if he was not going to take him to the hospital he would have to do it himself and the son found him with a cup and a knife. So he brought him to the hospital at that time. Patient's behavior and confusion has been significantly worsening. Related Data Home Medications Medication Instructions Recorded Confirmed atorvastatin 40 mg tablet (Lipitor) 40 mg PO DAILY 07/14/16 12/09/23 losartan 50 mg tablet 50 mg PO DAILY 07/14/16 12/09/23 omeprazole 20 mg capsule,delayed 20 mg PO DAILY 07/14/16 12/09/23 release docusate sodium 100 mg capsule 100 mg PO BID 09/11/22 12/09/23 (Dulcolax Stool Softener (docusate)) finasteride 5 mg tablet 5 mg PO DAILY #90 tab-caps 09/11/22 12/09/23 metformin 500 mg tablet 500 mg PO am and noon #60 tabs 11/17/23 12/09/23 terazosin 10 mg capsule 10 mg PO QPM 12/04/23 12/09/23 memantine 7 mg capsule 7 mg PO DAILY 12/09/23 12/09/23 sprinkle,extended release 24hr risperidone 0.5 mg tablet 0.5 mg PO DAILY PRN 12/09/23 12/09/23 trazodone 50 mg tablet 75 mg PO HS 12/09/23 12/09/23 Previous Rx's Medication Instructions Recorded finasteride 5 mg tablet 5 mg PO DAILY #90 tab-caps 09/11/22 metformin 500 mg tablet 500 mg PO am and noon #60 tabs 11/17/23 Allergies Allergy/AdvReac Type Severity Reaction Status Date / Time No Known Allergies Allergy Verified 12/09/23 07:19 General Stated Complaint: GenMedical TAVARES: 3 Exam Narrative Exam Narrative: Review of Systems: All systems reviewed & are unremarkable except as noted in HPI and below Well-developed, no acute distress NCAT PERRL, normal conjunctiva RRR Unlabored respiratory effort Nondistended abdomen + Horner catheter in place Extremities w/o deformity, no cyanosis, no edema No rashes or lesions. no focal neurologic deficits Agitated, confused slightly delusional Course Vital Signs Vital signs: Vital Signs Temperature 36.6 C 12/09/23 07:17 Pulse 80 12/09/23 07:17 Respiratory Rate 18 12/09/23 07:17 Blood Pressure 137/66 12/09/23 07:17 Pulse Oximetry 98 12/09/23 07:17 Temperature 36.6 C 12/09/23 07:17 Pulse 80 12/09/23 07:17 Respiratory Rate 18 12/09/23 07:17 Respiratory Effort Normal 12/09/23 07:59 Respiratory Depth Normal 12/09/23 07:59 Respiratory Pattern Normal 12/09/23 07:59 Blood Pressure 137/66 12/09/23 07:17 Blood Pressure Position Sitting 12/09/23 07:17 Pulse Oximetry 98 02/29/24 07:17 Oxygen Delivery Method Room Air 12/09/23 07:59 Oxygen Flow Rate 0 12/09/23 07:17 Pain Level 0 12/09/23 07:59 Comment Denies pain, but is agitated and fixated on seeing Dr. Mendoza 12/09/23 07:59 Lab/Test Results Lab/Test Results: 12/09/23 10:20 Blood Blood Culture - Pending 12/09/23 10:00 Blood Blood Culture - Pending 12/09/23 09:05 Urine - Reflex from Ua Urine Culture - Pending Laboratory Tests Range/Units 12/09/23 12/09/23 08:45 09:05 WBC (4.4-10.8) 10^3/uL 8.09 RBC (4.36-5.78) 10^6/uL 4.17 L Hgb (13.5-17.5) g/dL 12.5 L Hct (40.0-50.0) % 37.8 L MCV (80-95) fL 91 MCH (27.0-33.0) pg 30.0 MCHC (32.0-36.0) % 33.1 RDW (11.8-14.1) % 13.0 Plt Count (130-400) 10^3/uL 271 D MPV (8.0-11.0) fL 9.7 Immature Gran % 0.7 Neutrophils % 67.4 Lymphocytes % 18.4 Monocytes % 7.0 Eosinophils % 5.6 Basophils % 0.9 Nucleated RBC % (0.0-0.3) % 0.0 Absolute Neutrophils (1.2-6.7) 10^3/uL 5.45 Absolute Lymphocytes (1.2-3.4) 10^3/uL 1.49 Absolute Monocytes (0.1-0.8) 10^3/uL 0.57 Absolute Eosinophils (0.0-0.7) 10^3/uL 0.45 Absolute Basophils (0.0-0.2) 10^3/uL 0.07 Sodium (136-145) mmol/L 137 Potassium (3.5-5.1) mmol/L 4.0 Chloride (98-107) mmol/L 104 Carbon Dioxide (21.0-32.0) mmol/L 22.7 Anion Gap (3-11) mmol/L 10.3 BUN (7-18) mg/dL 23 H Creatinine (0.70-1.30) mg/dL 1.0 Est GFR (CKD-EPI 2020) (mL/min/1.73m2) 75.14 Glucose (74-106) mg/dL 175 H Calcium (8.5-10.1) mg/dL 8.7 Magnesium (1.8-2.4) mg/dL 1.7 L Total Bilirubin (0.2-1.0) mg/dL 0.3 AST (15-37) U/L 13 L ALT (16-63) U/L 14 L Alkaline Phosphatase (46-116) U/L 78 Ammonia (11-32) umol/L < 10 L Total Protein (6.4-8.2) g/dL 7.1 Albumin (3.4-5.0) g/dL 2.9 L TSH (0.36-3.74) uIU/Ml 0.91 Urine Color (Yellow) Yellow Urine Clarity (Clear) Cloudy Urine pH (5-8) 6.0 Ur Specific [place] (1.005-1.025) 1.025 Urine Protein (Neg-Trace) mg/dL 100 H Urine Ketones (Negative) mg/dL 15 H Urine Blood (Negative) Moderate H Urine Nitrite (Negative) Positive H Urine Bilirubin (Negative) Negative Urine Urobilinogen (Up to 0.2) mg/dL 0.2 Ur Leukocyte Esterase (Negative) Large H Urine RBC (0-2) HPF 20-50 H Urine WBC (0-5) HPF >50 H Ur Epithelial Cells Not Applicable Urine Crystals Not Applicable Urine Bacteria Not Applicable Urine Mucus Not Applicable Ur Culture Indicated? Yes Urine Glucose (Negative) mg/dL Negative Medical Decision Making Emergent evaluation of acute altered mental status. I reviewed the patient's medical record and noted his prior admission. During that time he was having some symptoms concerning for dementia. He was evaluated by psychiatry as well as neurology they wanted further outpatient workup for definitive diagnosis. He has had some decompensation in behavior function since his . Son reports that the episode this morning seems to be very acute and severe change. He does have an indwelling Horner catheter. Patient is very aggressive about his need to get to Dr. Mendoza to get a colonoscopy. He is trying to leave the department to go find him. I have given IM Zyprexa for his agitation and this does seem to have helped. Discussed with care management, Carlos, who is familiar with this patient. She states that his behavior today does seem to be atypical for him. I evaluated lab work and did discover that he has a urinary tract infection. The patient was treated with Rocephin. Cultures have been sent. Given his significant delirium and mental status changes in the setting of a urinary tract infection the patient will be admitted to the hospital for further management. Medical Records Medical records reviewed: Yes I reviewed the patient's medical records. Lab Data Lab results reviewed: Yes I reviewed the patient's lab results. Quality:[facility] Related Social Needs: No Data to Display PFSH All Active Problems (Updated 12/09/23 @ 10:52 by Wei Reed MD) Acute UTI (Acute) Delirium (Acute) Acute confusion (Acute) Syncope and collapse (Acute) Complication of Horner catheter (Acute) Horner catheter problem (Acute) Displacement of Horner catheter (Acute) Grief reaction (Chronic) Mild cognitive impairment (Acute) Hydronephrosis (Acute) Urinary retention with incomplete bladder emptying (Acute) 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) Medical History Hypomagnesemia Hypoalbuminemia Medication management Memory changes Bilateral renal cysts Social History Smoking/Tobacco Use Status: Former Tobacco Use Quit Date: 10/11/60 Smoking risk assessment performed?: Yes Alcohol Intake: never Drug use: Never Substance use type: does not use Housing: house Do you feel safe at home: Yes Do you feel safe in your relationship?: Yes Additional Social history: Unable to assess privately
[2023-12-09 11:00] VITALS: BP 132/76; PULSE 74; RESP 16; O2SAT 97
[2023-12-09 11:05] VITALS: BP 116/66; PULSE 66; RESP 18; TEMP 35.7; O2SAT 99
[2023-12-09] MEDS: Enoxaparin 40 MG/0.4 ML SYR SC (11:40)
[2023-12-09 13:28] LABS: Troponin I < 50 ng/L (< or =60)
--- NOTE | 2023-12-09 13:42 | UCONE_ITS ---
Date of service: 12/09/23 Time of Service: 13:42 Assessment and Plan Assessment and plan (1) Urinary retention with incomplete bladder emptying: Status: Acute (2) Hydronephrosis: Status: Acute Assessment and plan: Patients with indwelling catheters will almost always have bacteriuria when testing the urine. The recommendation is to not treat bacteriuria unless the patient is symptomatic. Treating asymptomatic bacteriuria would lead to antibiotic resistance. In confused individuals, it is always difficult to tell if any or all of the patient's confusion is related to an infectious process. The patient's urine sample is certainly not normal, but it is not an unexpected finding in a patient with an indwelling catheter. The lack of fever and white blood count makes it clinically significant UTI a bit less likely. Using clean intermittent catheterization has a much lower risk of infection and urosepsis, but I do not believe CIC is an option for this gentleman. Placing a suprapubic tube will be our recommendation, but will not be expected to decrease the risk of UTI/urosepsis. It may decrease the risk of prostatitis and orchitis, but his abnormal urinalysis and urine cultures will continue. History of Present Illness History of Present Illness Chief Complaint: urinary retention Narrative: This is an 83-year-old gentleman who is well-known to me. He has incomplete bladder emptying which has progressed to the point where he now has bilateral hydronephrosis. Our usual treatment is clean intermittent catheterization. Because of his mental status, the patient has not been able to perform CIC. He now has an indwelling urethral catheter. He becomes confused and actually has removed his catheter several times. It is never clear to me whether the catheter removal is inadvertent or done intentionally. We thought he might be able to to tolerate a suprapubic tube better than a urethral catheter. We had him scheduled for SP tube placement as an outpatient. We had to cancel/postpone the initial procedure when he admitted to a cough and some respiratory symptoms on his preop call. The anesthesia protocol is for patients to be symptom-free for about 2 weeks before having the procedure done (unless the procedure is deemed emergent). We rescheduled his procedure for December 19. The patient has become so confused that he actually came to our office yesterday insisting that the procedure was being done. He also believes the procedure is a colonoscopy. These beliefs continued this morning when he came to the emergency department. The staff in the ED had me come down and explained to the patient that the procedure was not a colonoscopy it was not scheduled for today. The procedure is actually scheduled for the . Review of Systems Unobtainable due to mental status PFSH All Active Problems (Updated 12/14/23 @ 00:07 by ROMELIA PAREKH) Delirium (Acute) Acute confusion (Acute) Syncope and collapse (Acute) Horner catheter problem (Acute) Displacement of Horner catheter (Acute) Grief reaction (Chronic) Mild cognitive impairment (Acute) Hydronephrosis (Acute) Urinary retention with incomplete bladder emptying (Acute) 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) Medical History Hypomagnesemia Hypoalbuminemia Medication management Memory changes Bilateral renal cysts Social History Smoking/Tobacco Use Status: Former Tobacco Use Quit Date: 10/11/60 Smoking risk assessment performed?: Yes Alcohol Intake: never Drug use: Never Substance use type: does not use Housing: house Do you feel safe at home: Yes Do you feel safe in your relationship?: Yes Additional Social history: Unable to assess privately Exam Narrative Exam Narrative: He does not appear septic or toxic He seemed to calm down a bit when I spoke with him, but I am not sure that he comprehends the procedure we have proposed and the reason for postponing gaps until next week. Results Last Vital Signs Temp 35.7 C L 12/09/23 11:05 Pulse 66 12/09/23 11:05 Resp 18 12/09/23 11:05 BP 116/66 12/09/23 11:05 Pulse Ox 99 12/09/23 11:05 Labs 12/14/23 06:14 12/14/23 06:14 Labs: Laboratory Results - last 24 hr 12/09/23 12/09/23 12/09/23 08:45 09:05 13:05 WBC 8.09 RBC 4.17 L Hgb 12.5 L Hct 37.8 L MCV 91 MCH 30.0 MCHC 33.1 RDW 13.0 Plt Count 271 D MPV 9.7 Immature Gran % 0.7 Neutrophils % 67.4 Lymphocytes % 18.4 Monocytes % 7.0 Eosinophils % 5.6 Basophils % 0.9 Nucleated RBC % 0.0 Absolute Neutrophils 5.45 Absolute Lymphocytes 1.49 Absolute Monocytes 0.57 Absolute Eosinophils 0.45 Absolute Basophils 0.07 Sodium 137 Potassium 4.0 Chloride 104 Carbon Dioxide 22.7 Anion Gap 10.3 BUN 23 H Creatinine 1.0 Est GFR (CKD-EPI 2020) 75.14 Glucose 175 H Calcium 8.7 Magnesium 1.7 L Total Bilirubin 0.3 AST 13 L ALT 14 L Alkaline Phosphatase 78 Ammonia < 10 L Troponin I < 50 Total Protein 7.1 Albumin 2.9 L TSH 0.91 Urine Color Yellow Urine Clarity Cloudy Urine pH 6.0 Ur Specific [place] 1.025 Urine Protein 100 H Urine Ketones 15 H Urine Blood Moderate H Urine Nitrite Positive H Urine Bilirubin Negative Urine Urobilinogen 0.2 Ur Leukocyte Esterase Large H Urine RBC 20-50 H Urine WBC >50 H Ur Epithelial Cells Not Applicable Urine Crystals Not Applicable Urine Bacteria Not Applicable Urine Mucus Not Applicable Ur Culture Indicated? Yes Urine Glucose Negative
[2023-12-09 14:40] VITALS: BP 121/66; PULSE 77; RESP 14; TEMP 36.4; O2SAT 99
--- NOTE | 2023-12-09 14:48 | PHA.REVIEW2 ---
Pharmacy Admission Review Admission Clinical Review Admission Pharmacy Review: Acute UTI (Acute) Delirium (Acute) Complication of Horner catheter (Acute) Hydronephrosis (Acute) Urinary retention with incomplete bladder emptying (Acute) No Known Allergies Allergy (Verified 12/09/23 07:19) Resuscitation Status DNR/DNI Height 5 ft 4 in Weight 70.307 kg Pharmacy Admission Review Renal Dosing Renal Dosing: BUN 23 mg/dL (7-18) H 12/09/23 08:45 Creatinine 1.0 mg/dL (0.70-1.30) 12/09/23 08:45 Medications needing adjustments: Reviewed (CrCl 56.64 mL/min) Anticoagulation Anticoagulation: Hgb 12.5 g/dL (13.5-17.5) L 12/09/23 08:45 Hct 37.8 % (40.0-50.0) L 12/09/23 08:45 Plt Count 271 10^3/uL (130-400) D 12/09/23 08:45 Creatinine 1.0 mg/dL (0.70-1.30) 12/09/23 08:45 DVT Prophylaxis: Reviewed Medications: Enoxaparin (40mg q24h) Relevant Labs Relevant Labs: Sodium 137 mmol/L (136-145) 12/09/23 08:45 Potassium 4.0 mmol/L (3.5-5.1) 12/09/23 08:45 Chloride 104 mmol/L (98-107) 12/09/23 08:45 Magnesium 1.7 mg/dL (1.8-2.4) L 12/09/23 08:45 Electrolytes, C-Reactive P, ESR: Reviewed (BUN 23, Mg 1.7, Hgb 12.5, glucose 175) Cardiac Review Cardiac Review: Troponin I < 50 ng/L (< or =60) 12/09/23 13:05 BP, HR, EF%: Reviewed (HR and BP WNL) QTc Review QTc: Reviewed (429 from 12/04/23) IV to PO Switch IV Medications: Reviewed Home Meds Home Med List reviewed: Reviewed Relevent Home Meds Not ordered & why?: No external fill history available Current Meds Current Medication Order Review: Reviewed Pharmacy Antibiotic Review Pharmacy Antibiotic Activity: D/C antibiotic and Reviewed, no change Comments: Patient received one dose of ceftriaxone in the ER at 1015 for suspected UTI. No order has been put in yet for any more antibiotics. Blood and urine cultures are pending.
[2023-12-09] MEDS: metFORMIN 500 MG TAB PO (16:42)
--- NOTE | 2023-12-09 17:36 | HPE_ITS ---
Date of service: 12/09/23 Time of Service: 12:00 Assessment and Plan Assessment and plan (1) Acute confusion: Status: Acute Assessment and plan: in setting of UTI Consult urology December 19 outpt suprapubic planned Not candidate for CIC Seroquel 25 mg BID Lorazepam prn (2) Urinary retention with incomplete bladder emptying: Status: Acute Assessment and plan: Continue Finesteride and Terasozin Horner catheter exchanged draining, clear, pale yellow. (3) Medication management: Assessment and plan: Continue home medications (4) Discharge planning issues: Status: Deleted Assessment and plan: CM to follow Discussed with Dr. Sanchez History of Present Illness History of Present Illness Chief Complaint: Confusion Narrative: This is an 83-year-old male patient with past medical history for but not limited to BPH, urinary retention with indwelling Horner catheter and dementia who presented to the [facility] ED for evaluation of acute confusion. Patient's son brought him to the hospital because patient was insisting he needed to get a colonoscopy today. He kept insisting that this procedure needed to be done. The patient told the son that if he was not going to take him to the hospital he would have to do it himself and the son found him with a cup and a knife. On a prior hospitalization, patient was evaluated by psychiatry as well as neurology they wanted further outpatient workup for definitive diagnosis. Son reports that patient has had increased agitation and confusion since his . Urine was checked in the ED and he was found to have a UTI, culture pending. He was started on ceftriaxone IV. Labs in the ED WBC 8.09, Hgb 12.5, electrolytes unremarkable, Cr 1.0, glucose 175, ammonia < 10. He was given Zyprexa IM for agitation. Patient was discharged from [facility] 12/06/23 after admission for evaluation of unresponsiveness. Patient has scheduled out patient procedure with Dr Mendoza on December 19 for suprapubic catheter. Echo on 12/06/23 EF 60-65%, wall motion is normal. Given his significant delirium and mental status changes in the setting of a urinary tract infection the patientis admitted to the medical floor for further testing and treatment. Patient is DNR/DNI. Review of Systems All systems reviewed & are unremarkable except as noted in HPI and below PFSH All Active Problems (Updated 12/09/23 @ 10:52 by Wei Reed MD) Acute UTI (Acute) Delirium (Acute) Acute confusion (Acute) Syncope and collapse (Acute) Complication of Horner catheter (Acute) Horner catheter problem (Acute) Displacement of Horner catheter (Acute) Grief reaction (Chronic) Mild cognitive impairment (Acute) Hydronephrosis (Acute) Urinary retention with incomplete bladder emptying (Acute) 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) Medical History Hypomagnesemia Hypoalbuminemia Medication management Memory changes Bilateral renal cysts Social History Smoking/Tobacco Use Status: Former Tobacco Use Quit Date: 10/11/60 Smoking risk assessment performed?: Yes Alcohol Intake: never Drug use: Never Substance use type: does not use Housing: house Do you feel safe at home: Yes Do you feel safe in your relationship?: Yes Additional Social history: Unable to assess privately Meds Allergies and Home Medications Allergies Allergy/AdvReac Type Severity Reaction Status Date / Time No Known Allergies Allergy Verified 12/09/23 07:19 Home Medications Medication Instructions Recorded Confirmed Type atorvastatin 40 mg tablet (Lipitor) 40 mg PO DAILY 07/14/16 12/09/23 History losartan 50 mg tablet 50 mg PO DAILY 07/14/16 12/09/23 History omeprazole 20 mg capsule,delayed 20 mg PO DAILY 07/14/16 12/09/23 History release docusate sodium 100 mg capsule 100 mg PO BID 09/11/22 12/09/23 History (Dulcolax Stool Softener (docusate)) finasteride 5 mg tablet 5 mg PO DAILY #90 tab-caps 09/11/22 12/09/23 Rx metformin 500 mg tablet 500 mg PO am and noon #60 tabs 11/17/23 12/09/23 Rx terazosin 10 mg capsule 10 mg PO QPM 12/04/23 12/09/23 History memantine 7 mg capsule 7 mg PO DAILY 12/09/23 12/09/23 History sprinkle,extended release 24hr risperidone 0.5 mg tablet 0.5 mg PO DAILY PRN 12/09/23 12/09/23 History trazodone 50 mg tablet 75 mg PO HS 12/09/23 12/09/23 History Exam Narrative Exam Narrative: Constitutional The patient is sitting in chair, awake, alert, no acute distress HENMT: Facial structures with normal appearance Eyes: Well aligned, intact ROM Neuro:alert and confused. No neurological focal deficit Chest:Chest is symmetrical and normal appearance Resp: Normal respiratory pattern, speaks in full sentences, unlabored breathing, lungs clear bilaterally Cardio: regular rhythm, S1, S2, no murmur, capillary refill<3 sec. GI: Abdomen is not distended, soft and non tender, bowel sounds are present Extremities: strength 5/5 to bilateral lower and upper extremities Psych: congruent, labile, anxious affect. Psych Speech and Movement: speech and movement normal Mood: anxious mood Affect: labile affect and anxious affect Results Labs 12/09/23 08:45 12/09/23 08:45 Labs: Laboratory Results - last 24 hr 12/09/23 12/09/23 12/09/23 08:45 09:05 13:05 WBC 8.09 RBC 4.17 L Hgb 12.5 L Hct 37.8 L MCV 91 MCH 30.0 MCHC 33.1 RDW 13.0 Plt Count 271 D MPV 9.7 Immature Gran % 0.7 Neutrophils % 67.4 Lymphocytes % 18.4 Monocytes % 7.0 Eosinophils % 5.6 Basophils % 0.9 Nucleated RBC % 0.0 Absolute Neutrophils 5.45 Absolute Lymphocytes 1.49 Absolute Monocytes 0.57 Absolute Eosinophils 0.45 Absolute Basophils 0.07 Sodium 137 Potassium 4.0 Chloride 104 Carbon Dioxide 22.7 Anion Gap 10.3 BUN 23 H Creatinine 1.0 Est GFR (CKD-EPI 2020) 75.14 Glucose 175 H Calcium 8.7 Magnesium 1.7 L Total Bilirubin 0.3 AST 13 L ALT 14 L Alkaline Phosphatase 78 Ammonia < 10 L Troponin I < 50 Total Protein 7.1 Albumin 2.9 L TSH 0.91 Urine Color Yellow Urine Clarity Cloudy Urine pH 6.0 Ur Specific [place] 1.025 Urine Protein 100 H Urine Ketones 15 H Urine Blood Moderate H Urine Nitrite Positive H Urine Bilirubin Negative Urine Urobilinogen 0.2 Ur Leukocyte Esterase Large H Urine RBC 20-50 H Urine WBC >50 H Ur Epithelial Cells Not Applicable Urine Crystals Not Applicable Urine Bacteria Not Applicable Urine Mucus Not Applicable Ur Culture Indicated? Yes Urine Glucose Negative Last Vital Signs Temp 36.4 C L 12/09/23 14:40 Pulse 77 12/09/23 14:40 Resp 14 12/09/23 14:40 BP 121/66 12/09/23 14:40 Pulse Ox 99 12/09/23 14:40 Time Spent Time spent with Patient: 55-74 minutes Time was spent: preparing to see the patient(eg.review tests), obtaining and/or reviewing separately otained hiistory, ordering medications,tests, procedures, referring, communicating with other health anesthesiologist and critical care, indepentently interpreting results, counseling the patient and care coordination
[2023-12-09] MEDS: traZODone 50 MG TAB PO (22:39)
[2023-12-09] MEDS: QUEtiapine 25 MG TAB PO (22:39)
[2023-12-09] MEDS: Docusate Sodium 100 MG CAP PO (22:39)
[2023-12-10] VITALS (7 sets, daily range): BP systolic 100–156; BP diastolic 54–79; PULSE 56–69; RESP 16–18; TEMP 36.1–36.4; O2SAT 96–99
[2023-12-10 06:13] LABS: Abs Immature Grans 0.04 10^3/uL (0.0-0.06); Absolute Basophil Count 0.07 10^3/uL (0.0-0.2); Absolute Eosinophil Count 0.72 10^3/uL (0.0-0.7); Absolute Lymphocyte Count 2.45 10^3/uL (1.2-3.4); Absolute Monocyte Count 0.62 10^3/uL (0.1-0.8); Absolute Neutrophil Count 4.03 10^3/uL (1.2-6.7); Basophils % 0.9; Eosinophils % 9.1; HCT 38.7 % (40.0-50.0); HGB 12.6 g/dL (13.5-17.5); Immature Grans % 0.5; Lymphocytes % 30.9; MCH 29.6 pg (27.0-33.0); MCHC 32.6 % (32.0-36.0); MCV 91 fL (80-95); MPV 10.2 fL (8.0-11.0); Monocytes % 7.8; Neutrophils % 50.8; Platelet Count 274 10^3/uL (130-400); RBC 4.26 10^6/uL (4.36-5.78); RDW 13.2 % (11.8-14.1); RDW-SD 43.8 fL; WBC 7.93 10^3/uL (4.4-10.8)
[2023-12-10 06:33] LABS: Magnesium 1.9 mg/dL (1.8-2.4)
[2023-12-10 06:34] LABS: Anion Gap 9.9 mmol/L (3-11); BUN 22 mg/dL (7-18); CO2 24.1 mmol/L (21.0-32.0); Calcium 9.2 mg/dL (8.5-10.1); Chloride 107 mmol/L (98-107); Estimated GFR 75.14 (mL/min/1.73m2); Glucose 151 mg/dL (74-106); Potassium 4.2 mmol/L (3.5-5.1); Sodium 141 mmol/L (136-145)
[2023-12-10] MEDS: Losartan 50 MG TAB PO (08:11)
[2023-12-10] MEDS: Finasteride 5 MG TAB PO (08:11)
[2023-12-10] MEDS: Atorvastatin 40 MG TAB PO (08:11)
[2023-12-10] MEDS: Omeprazole 20 MG CAPCR PO (08:11)
[2023-12-10] MEDS: Polyethylene Glycol 3350 17 GM PACKET PO (08:11)
[2023-12-10] MEDS: metFORMIN 500 MG TAB PO ×2 (08:11→17:32)
[2023-12-10] MEDS: QUEtiapine 25 MG TAB PO ×2 (08:12→20:31)
[2023-12-10] MEDS: Docusate Sodium 100 MG CAP PO ×2 (08:12→20:31)
--- NOTE | 2023-12-10 10:03 | PGE_ITS ---
Date of Service Date of service: 12/10/23 Time of Service: 10:39 Assessment and Plan Assessment and plan (1) Acute confusion: Status: Acute Assessment and plan: in setting of UTI Consult urology December 19 outpt suprapubic planned Not candidate for CIC Seroquel 25 mg BID started Lorazepam prn Referral to [facility] 3 admissions in last 30 days, increasing confusion and agitation (2) Urinary retention with incomplete bladder emptying: Status: Acute Assessment and plan: Continue Finesteride and Terasozin Horner catheter exchanged draining, clear, pale yellow. (3) Medication management: Assessment and plan: Continue home medications (4) Discharge planning issues: Status: Deleted Assessment and plan: CM to follow Discussed with Dr. Sanchez Subjective Subjective Patient reports: no new complaints, bowel movement and afebrile; denies diarrhea, nausea, vomiting or shortness of breath Interval history since last seen: Sitting in chair, awake, alert, family in to visit. Exam Narrative Exam Narrative: Constitutional The patient is sitting in chair, awake, alert, no acute distress HENMT: Facial structures with normal appearance Eyes: Well aligned, intact ROM Neuro:alert and confused. No neurological focal deficit Chest:Chest is symmetrical and normal appearance Resp: Normal respiratory pattern, speaks in full sentences, unlabored breathing, lungs clear bilaterally Cardio: regular rhythm, S1, S2, no murmur, capillary refill<3 sec. GI: Abdomen is not distended, soft and non tender, bowel sounds are present Extremities: strength 5/5 to bilateral lower and upper extremities Psych: congruent, labile, anxious affect. Psych Speech and Movement: speech and movement normal Mood: anxious mood Affect: labile affect and anxious affect Objective Last Vital Signs Temp 36.4 C L 12/10/23 07:47 Pulse 67 12/10/23 07:47 Resp 16 12/10/23 07:47 BP 102/55 L 12/10/23 07:47 Pulse Ox 96 12/10/23 07:47 Laboratory Results - last 24 hr 12/09/23 12/10/23 13:05 05:47 WBC 7.93 RBC 4.26 L Hgb 12.6 L Hct 38.7 L MCV 91 MCH 29.6 MCHC 32.6 RDW 13.2 Plt Count 274 MPV 10.2 Immature Gran % 0.5 Neutrophils % 50.8 Lymphocytes % 30.9 Monocytes % 7.8 Eosinophils % 9.1 Basophils % 0.9 Nucleated RBC % 0.0 Absolute Neutrophils 4.03 Absolute Lymphocytes 2.45 Absolute Monocytes 0.62 Absolute Eosinophils 0.72 H Absolute Basophils 0.07 Sodium 141 Potassium 4.2 Chloride 107 Carbon Dioxide 24.1 Anion Gap 9.9 BUN 22 H Creatinine 1.0 Est GFR (CKD-EPI 2020) 75.14 Glucose 151 H Calcium 9.2 Magnesium 1.9 Troponin I < 50 Time Spent with Patient Time Spent with Patient: 35-49 minutes Time was spent: preparing to see the patient(eg.review tests), ordering medications,tests, procedures, referring, communicating with other health patient care provider, indepentently interpreting results, counseling the patient and care coordination
[2023-12-10] MEDS: Enoxaparin 40 MG/0.4 ML SYR SC (12:16)
[2023-12-10] MEDS: Normal Saline Flush 10 ML SYR IVP (12:16)
--- NOTE | 2023-12-10 13:30 | PDOC.CMIN ---
Date of service: 12/10/23 Time of Service: 13:30 Care Management Initial Assmt Initial Assessment REASON FOR HOSPITALIZATION:: UTI, delirium PREVIOUS FUNCTIONAL STATUS/SOCIAL/FAMILY SUPPORTS:: Jamey lives in [place], alone. His in August 2023, and his son, brother and sister in law have been helping to support him since her passing. He is independent with his ADL's at baseline. CURRENT FUNCTIONAL STATUS:: Jamey was sitting up in his chair when CM met with him. He reported that he feels ok, and he wants to go home. He stated that he is waiting to meet with Dr. Mendoza, and is planning to have his catheter changed to suprapubic. Per report, there is a urology consult on this admission, although his suprapubic catheter change is scheduled for 12/20/23. CM discussed the concern about his confusion and agitation, with the recommendation for him to go to [facility]; he insists that he has not been confused and feels that he is safe to discharge home. He stated that he felt ready for discharge home on his previous admission, and feels that he is also ready for discharge now, after he meets with Urology. He stated that he has had difficulty with his catheter and is looking forward to this changing. Jamey is adamant during the conversation that he will be returning either home or to his daughter's home, which is his family's home that he spent time in as a child, although his daughter, he reports, lives in [place]. He stated that he has good support from his son, Cornell, and his 's brother and , [place]. CM will continue to follow. ADVANCE DIRECTIVES:: COLST Has patient been provided with info about the portal/API?: Yes Did the patient sign up for the portal?: No CODE STATUS:: DNR/DNI INSURANCE COVERAGE / FINANCIAL ISSUES:: [facility] MCR replacement CURRENT HOME/COMMUNITY SERVICES/EQUIPMENT:: services, Family support since the passing of his . PRIMARY CARE PHYSICIAN:: Vanita Johnson POTENTIAL DISCHARGE NEEDS:: Evaluations for further needs, follow up appointments. PATIENT/FAMILY EDUCATION NEEDS:: Review discharge instructions and limitations, discussion of self care needs including ask me three. ANTICIPATED BARRIERS TO DISCHARGE:: None identified. TRANSPORTATION:: Via private vehicle by family. PLAN:: Anticipate Jamey will return home once medically cleared with a resumption of HH orders. The provider recommends a referral to [facility]; Jamey is declining this, therefore CM cannot send referral. He will be transported via private vehicle by family and will follow up with his PCP and discharge plan of care. CM will continue to follow. 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
[2023-12-10] MEDS: traZODone 50 MG TAB PO (20:31)
[2023-12-11 03:45] VITALS: BP 146/79; PULSE 70; RESP 16; TEMP 36.6; O2SAT 98
[2023-12-11 06:27] LABS: Abs Immature Grans 0.05 10^3/uL (0.0-0.06); Absolute Basophil Count 0.09 10^3/uL (0.0-0.2); Absolute Lymphocyte Count 2.34 10^3/uL (1.2-3.4); Absolute Monocyte Count 0.65 10^3/uL (0.1-0.8); Absolute Neutrophil Count 4.23 10^3/uL (1.2-6.7); Basophils % 1.1; Eosinophils % 8.7; HCT 36.4 % (40.0-50.0); HGB 12.1 g/dL (13.5-17.5); Immature Grans % 0.6; MCH 30.3 pg (27.0-33.0); MCHC 33.2 % (32.0-36.0); MCV 91 fL (80-95); MPV 9.4 fL (8.0-11.0); Monocytes % 8.1; Neutrophils % 52.5; Platelet Count 285 10^3/uL (130-400); RBC 3.99 10^6/uL (4.36-5.78); RDW 13.2 % (11.8-14.1); RDW-SD 44.5 fL; WBC 8.06 10^3/uL (4.4-10.8)
[2023-12-11 06:37] LABS: Anion Gap 8.1 mmol/L (3-11); BUN 21 mg/dL (7-18); CO2 24.9 mmol/L (21.0-32.0); Calcium 8.7 mg/dL (8.5-10.1); Chloride 105 mmol/L (98-107); Estimated GFR 75.14 (mL/min/1.73m2); Glucose 136 mg/dL (74-106); Magnesium 1.7 mg/dL (1.8-2.4); Potassium 4.4 mmol/L (3.5-5.1); Sodium 138 mmol/L (136-145)
[2023-12-11 06:52] VITALS: BP 149/74; PULSE 58; RESP 16; TEMP 36.2; O2SAT 97
[2023-12-11] MEDS: Atorvastatin 40 MG TAB PO (07:57)
[2023-12-11] MEDS: QUEtiapine 25 MG TAB PO ×2 (07:57→19:33)
[2023-12-11] MEDS: Docusate Sodium 100 MG CAP PO ×2 (07:57→19:33)
[2023-12-11] MEDS: Omeprazole 20 MG CAPCR PO (07:57)
[2023-12-11] MEDS: metFORMIN 500 MG TAB PO ×2 (07:58→16:19)
[2023-12-11] MEDS: Finasteride 5 MG TAB PO (07:58)
[2023-12-11] MEDS: Losartan 50 MG TAB PO (07:58)
[2023-12-11] MEDS: Polyethylene Glycol 3350 17 GM PACKET PO (08:15)
[2023-12-11] MEDS: cefTRIAXone 1 GM/50 ML BAG IVPB (09:03)
[2023-12-11] MEDS: Normal Saline Flush 10 ML SYR IVP (09:04)
[2023-12-11] MEDS: Normal Saline 500 ML 100 ML IV (09:04)
[2023-12-11 11:32] VITALS: PULSE 61; RESP 16; TEMP 36.2; O2SAT 99
--- NOTE | 2023-12-11 12:22 | W.PM.PROGNOT ---
Date of Service Date of service: 12/11/23 Time of Service: 12:22 Assessment and Plan Assessment and plan (1) Acute confusion: Status: Acute Assessment and plan: in setting of UTI Consulted urology Dr Mendoza : Patients with indwelling catheters will almost always have bacteriuria when testing the urine. The recommendation is to not treat bacteriuria unless the patient is symptomatic. Treating asymptomatic bacteriuria would lead to antibiotic resistance. In confused individuals, it is always difficult to tell if any or all of the patient's confusion is related to an infectious process. The patient's urine sample is certainly not normal, but it is not an unexpected finding in a patient with an indwelling catheter. The lack of fever and white blood count makes it clinically significant UTI a bit less likely. Dr Sanchez ordered Ceftriaxone today to be started in setting of UC + gm neg rods; BC neg, WBC 8.06, afebrile December 19 outpt suprapubic planned - family request that be expedited, advised them I would speak with Dr Mendoza, if he is here, on Wednesday Not candidate for CIC Seroquel 25 mg BID started, more sleepy, less impulsive Lorazepam prn Family and patient refused [facility] option 3 admissions in last 30 days, increasing confusion and agitation, doubt UTI (2) Urinary retention with incomplete bladder emptying: Status: Acute Assessment and plan: Continue Finesteride and Terasozin Horner catheter exchanged draining, clear, pale yellow. (3) Medication management: Assessment and plan: Continue home medications (4) Discharge planning issues: Status: Deleted Assessment and plan: CM to follow Will speak with Dr Mendoza on Wednesday Discussed with Dr. Sanchez Subjective Subjective Patient reports: no new complaints, tolerating a regular diet, bowel movement and afebrile; denies diarrhea, vomiting or shortness of breath Interval history since last seen: Patient is sitting in recliner, family in the room. He is sleeping but alert to voice. Patient continues to complain of indwelling urinary catheter. He and family ask if Dr Mendoza will reconsider suprapubic for this week instead of waiting until December 19. I explained that Dr Mendoaz is not here on weekends, however we could discuss with him on Wednesday if he is here. Exam Narrative Exam Narrative: Constitutional The patient is sitting in chair, awake, alert, no acute distress, sleepy HENMT: Facial structures with normal appearance Eyes: Well aligned, intact ROM Neuro:Alert and continues to be confused. No neurological focal deficit Chest:Chest is symmetrical and normal appearance Resp: Normal respiratory pattern, speaks in full sentences, unlabored breathing, lungs clear bilaterally Cardio: regular rhythm, S1, S2, no murmur, capillary refill<3 sec. GI: Abdomen is not distended, soft and non tender, bowel sounds are present Extremities: strength 5/5 to bilateral lower and upper extremities Psych: congruent, labile, anxious affect. Psych Speech and Movement: speech and movement normal Mood: anxious mood Affect: labile affect and anxious affect Objective Last Vital Signs Temp 36.2 C L 12/11/23 11:32 Pulse 61 12/11/23 11:32 Resp 16 12/11/23 11:32 BP 149/74 H 12/11/23 06:52 Pulse Ox 99 12/11/23 11:32 Laboratory Results - last 24 hr 12/11/23 06:05 WBC 8.06 RBC 3.99 L Hgb 12.1 L Hct 36.4 L MCV 91 MCH 30.3 MCHC 33.2 RDW 13.2 Plt Count 285 MPV 9.4 Immature Gran % 0.6 Neutrophils % 52.5 Lymphocytes % 29.0 Monocytes % 8.1 Eosinophils % 8.7 Basophils % 1.1 Nucleated RBC % 0.0 Absolute Neutrophils 4.23 Absolute Lymphocytes 2.34 Absolute Monocytes 0.65 Absolute Eosinophils 0.70 Absolute Basophils 0.09 Sodium 138 Potassium 4.4 Chloride 105 Carbon Dioxide 24.9 Anion Gap 8.1 BUN 21 H Creatinine 1.0 Est GFR (CKD-EPI 2020) 75.14 Glucose 136 H Calcium 8.7 Magnesium 1.7 L Time Spent with Patient Time Spent with Patient: 35-49 minutes Time was spent: preparing to see the patient(eg.review tests), ordering medications,tests, procedures, referring, communicating with other health child care centre director, indepentently interpreting results, counseling the patient and care coordination
[2023-12-11] MEDS: Enoxaparin 40 MG/0.4 ML SYR SC (12:37)
[2023-12-11 14:49] VITALS: BP 101/50; PULSE 69; RESP 16; TEMP 36.3; O2SAT 97
[2023-12-11] MEDS: MAGNESIUM SULFATE 1 GM/100 ML BAG IVPB (16:34)
[2023-12-11 19:20] VITALS: BP 112/56; PULSE 74; RESP 16; TEMP 36.3; O2SAT 95
[2023-12-11] MEDS: traZODone 50 MG TAB PO (19:33)
[2023-12-11 23:10] VITALS: BP 134/80; PULSE 71; RESP 16; TEMP 37.4; O2SAT 97
[2023-12-12] VITALS (7 sets, daily range): BP systolic 95–172; BP diastolic 60–80; PULSE 66–84; RESP 14–17; TEMP 35.8–36.9; O2SAT 95–99
[2023-12-12 06:33] LABS: Abs Immature Grans 0.08 10^3/uL (0.0-0.06); Absolute Basophil Count 0.09 10^3/uL (0.0-0.2); Absolute Eosinophil Count 0.76 10^3/uL (0.0-0.7); Absolute Lymphocyte Count 2.05 10^3/uL (1.2-3.4); Basophils % 0.9; Eosinophils % 7.4; HCT 37.9 % (40.0-50.0); HGB 12.4 g/dL (13.5-17.5); Immature Grans % 0.8; Lymphocytes % 19.9; MCH 29.7 pg (27.0-33.0); MCHC 32.7 % (32.0-36.0); MCV 91 fL (80-95); Monocytes % 6.8; Neutrophils % 64.2; Platelet Count 243 10^3/uL (130-400); RBC 4.18 10^6/uL (4.36-5.78); RDW 13.2 % (11.8-14.1); WBC 10.28 10^3/uL (4.4-10.8)
[2023-12-12 06:58] LABS: Anion Gap 9.7 mmol/L (3-11); BUN 24 mg/dL (7-18); CO2 24.3 mmol/L (21.0-32.0); CREATININE 1.1 mg/dL (0.70-1.30); Calcium 9.2 mg/dL (8.5-10.1); Chloride 104 mmol/L (98-107); Estimated GFR 67.02 (mL/min/1.73m2); Glucose 128 mg/dL (74-106); Potassium 4.6 mmol/L (3.5-5.1); Sodium 138 mmol/L (136-145)
[2023-12-12] MEDS: metFORMIN 500 MG TAB PO ×2 (08:23→16:45)
[2023-12-12] MEDS: cefTRIAXone 1 GM/50 ML BAG IVPB (08:23)
[2023-12-12] MEDS: Atorvastatin 40 MG TAB PO (08:24)
[2023-12-12] MEDS: Losartan 50 MG TAB PO (08:24)
[2023-12-12] MEDS: Docusate Sodium 100 MG CAP PO ×2 (08:24→19:52)
[2023-12-12] MEDS: Finasteride 5 MG TAB PO (08:24)
[2023-12-12] MEDS: Omeprazole 20 MG CAPCR PO (08:24)
[2023-12-12] MEDS: QUEtiapine 25 MG TAB PO ×2 (08:24→19:52)
[2023-12-12] MEDS: Normal Saline Flush 10 ML SYR IVP (08:25)
[2023-12-12] MEDS: Polyethylene Glycol 3350 17 GM PACKET PO (10:19)
[2023-12-12] MEDS: Enoxaparin 40 MG/0.4 ML SYR SC (11:40)
--- NOTE | 2023-12-12 18:08 | PGE_ITS ---
Date of Service Date of service: 12/12/23 Time of Service: 10:30 Assessment and Plan Assessment and plan (1) Acute confusion: Status: Acute Assessment and plan: tolerating seroquel (2) Urinary retention with incomplete bladder emptying: Status: Acute Assessment and plan: Continue Finesteride and Terasozin Rivera catheter exchanged draining, clear, pale yellow. awaiting urology consult for possible (3) Medication management: Assessment and plan: Continue home medications (4) Discharge planning issues: Status: Deleted Assessment and plan: CM to follow Will speak with Dr Mendoza on Wednesday Discussed with Dr. Blanc Subjective Subjective Patient reports: no new complaints, tolerating liquids well and tolerating a regular diet Interval history since last seen: no behavioral issues, remains pleasantly confused and medically stable. did pull rivera cath out during the night and having some bright red blood at meatus. urine is clear. Exam Const General: frail appearing and ill appearing chronically Nutritional Appearance: average body habitus Orientation: alert, awake and oriented x3 HENMT Head: normal to inspection, normocephalic and atraumatic Face and sinus: normal facial exam Mouth: oral mucosae normal Eyes General: appearance normal, both eyes and all related structures Chest Chest: normal inspection of the chest Resp Effort & Inspection: normal respiratory effort Auscultation: clear to auscultation bilaterally Cardio Rate: regular rate Rhythm: regular rhythm GI Inspection: normal to inspection Palpation: soft Skin General skin exam: dry skin Neuro General: patient alert, patient awake and patient oriented x3 Cognition: normal cognition Speech: speech normal Extrem General: normal to inspection and full ROM Objective Last Vital Signs Temp 36.5 C 12/12/23 15:16 Pulse 66 12/12/23 15:16 Resp 17 12/12/23 15:16 BP 95/60 L 12/12/23 15:16 Pulse Ox 99 12/12/23 15:16 Laboratory Results - last 24 hr 12/09/23 12/12/23 09:05 06:15 WBC 10.28 RBC 4.18 L Hgb 12.4 L Hct 37.9 L MCV 91 MCH 29.7 MCHC 32.7 RDW 13.2 Plt Count 243 MPV 10.0 Immature Gran % 0.8 Neutrophils % 64.2 Lymphocytes % 19.9 Monocytes % 6.8 Eosinophils % 7.4 Basophils % 0.9 Nucleated RBC % 0.0 Absolute Neutrophils 6.60 Absolute Lymphocytes 2.05 Absolute Monocytes 0.70 Absolute Eosinophils 0.76 H Absolute Basophils 0.09 Sodium 138 Potassium 4.6 Chloride 104 Carbon Dioxide 24.3 Anion Gap 9.7 BUN 24 H Creatinine 1.1 Est GFR (CKD-EPI 2020) 67.02 Glucose 128 H Calcium 9.2 Magnesium 2.0 Urine Color Yellow Urine Clarity Cloudy Urine pH 6.0 Ur Specific Ranger 1.025 Urine Protein 100 H Urine Ketones 15 H Urine Blood Moderate H Urine Nitrite Positive H Urine Bilirubin Negative Urine Urobilinogen 0.2 Ur Leukocyte Esterase Large H Urine RBC 20-50 H Urine WBC >50 H Ur Culture Indicated? Yes Urine Glucose Negative Time Spent with Patient Time Spent with Patient: <25 minutes Time was spent: preparing to see the patient(eg.review tests), obtaining and/or reviewing separately otained hiistory, ordering medications,tests, procedures, indepentently interpreting results and counseling the patient (discussion with son)
[2023-12-12] MEDS: traZODone 50 MG TAB PO (19:52)
[2023-12-13 03:31] VITALS: BP 138/71; PULSE 68; RESP 18; TEMP 36.8; O2SAT 97
[2023-12-13 07:23] VITALS: BP 96/60; PULSE 66; RESP 16; TEMP 36; O2SAT 99
[2023-12-13] MEDS: Omeprazole 20 MG CAPCR PO (07:37)
[2023-12-13] MEDS: Atorvastatin 40 MG TAB PO (07:37)
[2023-12-13] MEDS: Finasteride 5 MG TAB PO (07:37)
[2023-12-13] MEDS: metFORMIN 500 MG TAB PO ×2 (07:38→16:51)
[2023-12-13] MEDS: Losartan 50 MG TAB PO (07:38)
[2023-12-13] MEDS: Docusate Sodium 100 MG CAP PO ×2 (07:38→20:09)
[2023-12-13] MEDS: QUEtiapine 25 MG TAB PO ×2 (07:38→20:09)
[2023-12-13] MEDS: cefTRIAXone 1 GM/50 ML BAG IVPB (07:56)
[2023-12-13 11:34] VITALS: BP 91/55; PULSE 70; RESP 19; TEMP 35.7; O2SAT 99
[2023-12-13] MEDS: Enoxaparin 40 MG/0.4 ML SYR SC (12:57)
--- NOTE | 2023-12-13 13:44 | DSE_ITS ---
Date of service: 12/13/23 Time of Service: 13:44 DS: Diagnosis Discharge Diagnosis (1) Acute confusion: Status: Acute (2) Urinary retention with incomplete bladder emptying: Status: Acute Discharge Plan Disposition Patient Disposition: Home W/Home Health Services Condition: Fair Discharge Details Reason For Visit: UTI; Delirium Admit Date/Time: 12/09/23 10:14 Admit Provider: Zeeshan Sanchez Attending Provider: Zeeshan Sanchez Primary Care Provider: Vanita Johnson V Home Meds and New Rx's Prescriptions: New quetiapine 25 mg Tablet 25 mg PO BID Qty: 60 0RF Continued docusate sodium [Dulcolax Stool Softener (dss)] 100 mg capsule 100 mg PO BID finasteride 5 mg tablet 5 mg PO DAILY Qty: 90 4RF losartan 50 MG tablet 50 mg PO DAILY atorvastatin [Lipitor] 40 MG tablet 40 mg PO DAILY omeprazole 20 MG capsule,delayed release(DR/EC) 20 mg PO DAILY metformin 500 MG tablet 500 mg PO am and noon Qty: 60 0RF terazosin 10 mg capsule 10 mg PO QPM memantine 7 mg capsule,sprinkle,ER 24hr 7 mg PO DAILY Patient Comments: TAKE ONE CAPSULE BY MOUTH EVERY DAY (CAN BE AM. AND PM.) FOR 1-2 WEEKS THEN INCREASE TO TWO CAPSULES DAILY AT THE SAME TIME risperidone 0.5 mg tablet 0.5 mg PO DAILY PRN trazodone 50 mg tablet 75 mg PO HS Patient Comments: TAKE 1/2 TO 1 TABLET AT BEDTIME Discharge Instructions Instructions: Quetiapine (By mouth), Horner Catheter Placement and Care (DC), How to Change a Catheter Drainage Bag (DC) Additional Instructions: Take Quetiapine twice a day. General catheter care. Follow up with urology as planned. Resumption of home health services - they will call you. Stand Alone Forms: Nursing Discharge Form Referrals: Vanita Johnson MD [Primary Care Provider] - (Please call for an apt within 7- 10 days) Sagar Mendoza MD [ [facility] STAFF PHYSICIAN] - (Please call to set up follow up apt) Activity:: Activity as Tolerated Equipment/Supplies:: Walker Diet:: As Tolerated DS: Summary Status at Discharge Speech and Movement: delayed speech Mood: anxious mood and labile mood Affect: indifferent Quality:SDOH Health Related Social Needs: No Data to Display Exam Const General: frail appearing and ill appearing chronically Nutritional Appearance: average body habitus Orientation: alert, awake and oriented x3 HENMT Head: normal to inspection, normocephalic and atraumatic Face and sinus: normal facial exam Mouth: oral mucosae normal Eyes General: appearance normal, both eyes and all related structures Chest Chest: normal inspection of the chest Resp Effort & Inspection: normal respiratory effort Auscultation: clear to auscultation bilaterally Cardio Rate: regular rate Rhythm: regular rhythm GI Inspection: normal to inspection Palpation: soft Skin General skin exam: dry skin Neuro General: patient alert, patient awake and patient oriented x3 Cognition: normal cognition Speech: speech normal Extrem General: normal to inspection and full ROM Psych Appearance: grossly normal Speech and Movement: delayed speech Mood: anxious mood and labile mood Affect: indifferent Attitude: guarded Thought Content: compulsions Insight: poor Judgment: poor DS: Data Vitals/I&O Vitals and I&O: Vital Signs Temperature 35.7 C L 12/13/23 11:34 Temperature Source Tympanic 12/13/23 11:34 Pulse 70 12/13/23 11:34 Pulse Rhythm Regular 12/13/23 07:23 Respiratory Rate 19 12/13/23 11:34 Respiratory Effort Normal 12/13/23 07:23 Respiratory Depth Normal 12/13/23 07:23 Respiratory Pattern Normal 12/13/23 07:23 Blood Pressure 91/55 L 12/13/23 11:34 Blood Pressure Position Sitting 12/09/23 07:17 Pulse Oximetry 99 12/13/23 11:34 Oxygen Delivery Method Room Air 12/13/23 11:34 Oxygen Flow Rate 0 12/13/23 11:34 Pain Level 0 12/13/23 11:34 Comment COAGULATING BATH MIXER Notified, RN was busy 12/12/23 22:47 Intake & Output 12/12/23 12/13/23 12/13/23 23:59 11:59 23:59 Intake Total 260 / 310 400 / 700 300 / 700 Output Total 1700 / 3550 600 / 600 Balance -1440 / -3240 -200 / 100 300 / 100 Intake: IV 10 Oral 250 / 250 400 / 700 300 / 700 Output: Urine 1700 / 3550 600 / 600 Other: Urine Color Yellow Yellow Urine Appearance Cloudy Clear Mucous Threads Data Completed and Pending Labs on day of discharge: Preliminary micro results at discharge 12/09/23 10:20 Blood Culture - Preliminary Blood NO GROWTH 96 HOURS 12/09/23 10:00 Blood Culture - Preliminary Blood NO GROWTH 96 HOURS PFSH All Active Problems (Updated 12/09/23 @ 10:52 by Wei Reed MD) Acute UTI (Acute) Delirium (Acute) Acute confusion (Acute) Syncope and collapse (Acute) Complication of Horner catheter (Acute) Horner catheter problem (Acute) Displacement of Horner catheter (Acute) Grief reaction (Chronic) Mild cognitive impairment (Acute) Hydronephrosis (Acute) Urinary retention with incomplete bladder emptying (Acute) 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) Medical History Hypomagnesemia Hypoalbuminemia Medication management Memory changes Bilateral renal cysts Social History Smoking/Tobacco Use Status: Former Tobacco Use Quit Date: 10/11/60 Smoking risk assessment performed?: Yes Alcohol Intake: never Drug use: Never Substance use type: does not use Housing: house Do you feel safe at home: Yes Do you feel safe in your relationship?: Yes Additional Social history: Unable to assess privately Time Spent with Patient Time Spent with Patient: 45-69 minutes Time was spent: preparing to see the patient(eg.review tests), ordering medications,tests, procedures, referring, communicating with other health director of healthcare systems, indepentently interpreting results, counseling the patient and care coordination
[2023-12-13] MEDS: Lactated Ringers 1,000 ML 500 ML IV (14:07)
[2023-12-13 15:15] VITALS: BP 120/71; PULSE 60; RESP 19; TEMP 35.6; O2SAT 98
--- NOTE | 2023-12-13 15:44 | NUR.NOTE ---
Dr. Mendoza in to see pt: having anesthesia up to assess pt tonight or tomorrow morning for sp cath placement. Dr. Mendoza will be in tomorrow morning to decide if he can have suprapubic cath procedure tomorrow, and may still be able to go home same day. Nursing Note:
--- NOTE | 2023-12-13 16:04 | W.PM.PROGNOT ---
Date of Service Date of service: 12/13/23 Time of Service: 16:04 Assessment and Plan Assessment and plan (1) Urinary retention with incomplete bladder emptying: Status: Acute (2) Hydronephrosis: Status: Acute Assessment and plan: I have asked our anesthesia providers to evaluate the patient and see if it would be appropriate to do his suprapubic tube placement sooner than was previously scheduled. The only reason his surgery was pushed back is because of concerns for an upper respiratory tract infection. I explained to the patient that our anesthesia providers are short staffed of this week so we may not have an answer for him until tomorrow. That discussion was conducted with family members on speaker phone and friends and nursing staff in attendance. The patient seemed to understand at this point. Subjective Subjective Interval history since last seen: The patient tells me that he feels better than when he was admitted. The patient's son is on speaker phone and he agrees that this dad seems better as well. The family is concerned that the patient might remove his own Horner catheter at home (as he has done on several occasions) and are wondering if we might be able to place his suprapubic tube while he is still here in the hospital. Exam Narrative Exam Narrative: He is involved in our discussion and seems to understand at this time He is not short of breath at rest His lungs are clear with decreased breath sounds at the bases He is awake and alert Objective Last Vital Signs Temp 35.6 C L 12/13/23 15:15 Pulse 60 12/13/23 15:15 Resp 19 12/13/23 15:15 BP 120/71 12/13/23 15:15 Pulse Ox 98 12/13/23 15:15 Time Spent with Patient Time Spent with Patient: <25 minutes Time was spent: other
--- NOTE | 2023-12-13 18:11 | PGE_ITS ---
Date of Service Date of service: 12/13/23 Time of Service: 15:30 Assessment and Plan Assessment and plan (1) Acute confusion: Status: Acute Assessment and plan: tolerating seroquel, continue (2) Urinary retention with incomplete bladder emptying: Status: Acute Assessment and plan: Continue Finesteride and Terasozin Horner catheter exchanged draining, clear, pale yellow. awaiting urology consult for possible suprapubic placement. (3) Medication management: Assessment and plan: Continue home medications (4) Discharge planning issues: Status: Deleted Assessment and plan: CM to follow Waiting for Dr Mendoza, will keep overnight and plan discharge tomorrow if appropriate Discussed with Dr. Blanc Subjective Subjective Patient reports: no new complaints, feels better, tolerating liquids well, tolerating a regular diet, bowel movement and afebrile; denies diarrhea or nausea Interval history since last seen: Patient reports feeling better, he would like his catheter removed. Family would like to have his suprapubic catheter placed while he is here for - consult for Dr Mendoza to [facility]. Exam Const General: frail appearing and ill appearing chronically Nutritional Appearance: average body habitus Orientation: alert, awake and oriented x3 HENMT Head: normal to inspection, normocephalic and atraumatic Face and sinus: normal facial exam Mouth: oral mucosae normal Eyes General: appearance normal, both eyes and all related structures Chest Chest: normal inspection of the chest Resp Effort & Inspection: normal respiratory effort Auscultation: clear to auscultation bilaterally Cardio Rate: regular rate Rhythm: regular rhythm GI Inspection: normal to inspection Palpation: soft Skin General skin exam: dry skin Neuro General: patient alert, patient awake and patient oriented x3 Cognition: normal cognition Speech: speech normal Extrem General: normal to inspection and full ROM Objective Last Vital Signs Temp 35.6 C L 12/13/23 15:15 Pulse 60 12/13/23 15:15 Resp 19 12/13/23 15:15 BP 120/71 12/13/23 15:15 Pulse Ox 98 12/13/23 15:15 Time Spent with Patient Time Spent with Patient: 35-49 minutes Time was spent: preparing to see the patient(eg.review tests), ordering medications,tests, procedures, referring, communicating with other health urgent care technician, indepentently interpreting results, counseling the patient and care coordination
--- NOTE | 2023-12-13 18:56 | PDOC.CMPRO ---
Date of service: 12/13/23 Time of Service: 18:56 Care Management Progress Note Progress Note Text Progress Note Text: S/O: Jamey was sitting up in his chair when CM met with him. CM spoke to his son, Cornell, who brought in clothes for him today, anticipating his likely discharge. Jamey had a consult with urology today regarding the potential placement of a suprapubic catheter to help decrease occurrences of Jamey removing the catheter on his own, which he has several times, reportedly, at home, while confused. Dr. Mendoza will consider placing the suprapubic catheter tomorrow, if appropriate and if his schedule allows. CM will continue to follow. A: Jamey is an 83 year old male admitted to [facility] on 12/09/23 for UTI, delirium. P: Anticipate Jamey will return home once medically cleared with a resumption of HH orders. He will be transported via private vehicle by family and will follow up with his PCP and discharge plan of care. CM will continue to follow. SDOH(Care Management) Screening Will the Patient Participate in the Screening?: Unable to obtain
[2023-12-13 19:38] VITALS: BP 132/77; PULSE 71; RESP 19; TEMP 36.4; O2SAT 96
[2023-12-13] MEDS: Polyethylene Glycol 3350 17 GM PACKET PO (20:08)
[2023-12-13] MEDS: traZODone 50 MG TAB PO (20:09)
[2023-12-13] MEDS: Normal Saline Flush 10 ML SYR IVP (20:10)
[2023-12-13] MEDS: Normal Saline 1,000 ML 125 ML IV (20:10)
[2023-12-13 22:50] VITALS: BP 136/66; PULSE 65; RESP 16; TEMP 36.1; O2SAT 96
[2023-12-14] VITALS (16 sets, daily range): BP systolic 113–191; BP diastolic 56–99; PULSE 63–110; RESP 11–19; TEMP 35.7–37.4; O2SAT 96–100; BMI 26.6
[2023-12-14] MEDS: Normal Saline 1,000 ML 125 ML IV ×2 (03:54→13:42)
[2023-12-14 06:32] LABS: Abs Immature Grans 0.06 10^3/uL (0.0-0.06); Absolute Basophil Count 0.09 10^3/uL (0.0-0.2); Absolute Eosinophil Count 0.42 10^3/uL (0.0-0.7); Absolute Lymphocyte Count 1.92 10^3/uL (1.2-3.4); Absolute Monocyte Count 0.64 10^3/uL (0.1-0.8); Absolute Neutrophil Count 4.08 10^3/uL (1.2-6.7); Basophils % 1.2; Eosinophils % 5.8; HCT 37.3 % (40.0-50.0); Immature Grans % 0.8; Lymphocytes % 26.6; MCH 29.3 pg (27.0-33.0); MCHC 32.2 % (32.0-36.0); MCV 91 fL (80-95); MPV 9.4 fL (8.0-11.0); Monocytes % 8.9; Neutrophils % 56.7; Platelet Count 290 10^3/uL (130-400); RBC 4.09 10^6/uL (4.36-5.78); RDW 13.2 % (11.8-14.1); RDW-SD 43.9 fL; WBC 7.21 10^3/uL (4.4-10.8)
[2023-12-14 06:42] LABS: Anion Gap 6.9 mmol/L (3-11); BUN 20 mg/dL (7-18); CO2 27.1 mmol/L (21.0-32.0); CREATININE 0.9 mg/dL (0.70-1.30); Calcium 8.8 mg/dL (8.5-10.1); Chloride 107 mmol/L (98-107); Estimated GFR 85.27 (mL/min/1.73m2); Glucose 115 mg/dL (74-106); Magnesium 1.6 mg/dL (1.8-2.4); Potassium 4.8 mmol/L (3.5-5.1); Sodium 141 mmol/L (136-145)
[2023-12-14] MEDS: Losartan 50 MG TAB PO (07:44)
[2023-12-14] MEDS: Atorvastatin 40 MG TAB PO (07:44)
[2023-12-14] MEDS: Finasteride 5 MG TAB PO (07:44)
[2023-12-14] MEDS: QUEtiapine 25 MG TAB PO ×2 (07:44→20:42)
[2023-12-14] MEDS: Omeprazole 20 MG CAPCR PO (07:44)
[2023-12-14] MEDS: Docusate Sodium 100 MG CAP PO ×2 (07:44→20:42)
[2023-12-14] MEDS: Normal Saline Flush 10 ML SYR IVP ×2 (07:44→14:39)
[2023-12-14] MEDS: metFORMIN 500 MG TAB PO ×2 (07:44→17:18)
[2023-12-14] MEDS: cefTRIAXone 1 GM/50 ML BAG IVPB (07:45)
--- NOTE | 2023-12-14 07:56 | W.PM.PROGNOT ---
Date of Service Date of service: 12/14/23 Time of Service: 07:56 Assessment and Plan Assessment and plan (1) Urinary retention with incomplete bladder emptying: Status: Acute (2) Hydronephrosis: Status: Acute Assessment and plan: We will check with the operating room to see what type of availability we have. We do have some restrictions in that some of our anesthesia providers are out to attend their annual national meeting. We will contact the floor once we are able to speak with the operating room staff.. Subjective Subjective Interval history since last seen: 1 the patient is quite confused this morning and does not recall any of our conversation from yesterday afternoon. Our anesthesia providers were able to review this gentlemen's chart and I think it would be reasonable to move his procedure up from its current scheduled time on 12/19. Exam Narrative Exam Narrative: He is sitting at the bedside fully dressed He does recognize me this morning but does not recall seeing me yesterday He is awake and alert Objective Last Vital Signs Temp 36.2 C L 12/14/23 03:49 Pulse 76 12/14/23 03:49 Resp 19 12/14/23 03:49 BP 165/80 H 12/14/23 03:54 Pulse Ox 98 12/14/23 03:49 Laboratory Results - last 24 hr 12/14/23 06:14 WBC 7.21 RBC 4.09 L Hgb 12.0 L Hct 37.3 L MCV 91 MCH 29.3 MCHC 32.2 RDW 13.2 Plt Count 290 MPV 9.4 Immature Gran % 0.8 Neutrophils % 56.7 Lymphocytes % 26.6 Monocytes % 8.9 Eosinophils % 5.8 Basophils % 1.2 Nucleated RBC % 0.0 Absolute Neutrophils 4.08 Absolute Lymphocytes 1.92 Absolute Monocytes 0.64 Absolute Eosinophils 0.42 Absolute Basophils 0.09 Sodium 141 Potassium 4.8 Chloride 107 Carbon Dioxide 27.1 Anion Gap 6.9 BUN 20 H Creatinine 0.9 Est GFR (CKD-EPI 2020) 85.27 Glucose 115 H Calcium 8.8 Magnesium 1.6 L Time Spent with Patient Time Spent with Patient: <25 minutes Time was spent: care coordination
--- NOTE | 2023-12-14 09:27 | CMPROGNOTE_ITS ---
Date of service: 12/14/23 Time of Service: 09:27 Care Management Progress Note Progress Note Text Progress Note Text: S/O: Jamey was sitting up in his chair when CM met with him. His son Cornell was visiting with him and he seemed to be in good spirits. Jamey had just returned from the OR where Dr. Mendoza did a cystoscopy with suprapubic tube placement. Jamey will likely be discharged home tomorrow. He already has a follow up appointment with his PCP for . Hopefully, Jamey will be agreeable to go to [facility] or [facility] for stabilization and medication adjustment for his recent behavioral disturbances. Cornell shared that Jamey seems to have a good relationship with Vanita Jonhson, his PCP and he feels she may be helpful with the conversation. A: Jamey is an 83 year old male admitted to [facility] on 12/09/23 for UTI, delirium. P: Anticipate Jamey will return home once medically cleared with a resumption of HH orders. He will be transported via private vehicle by family and will follow up with his PCP and discharge plan of care. CM will continue to follow. SDOH(Care Management) Screening Will the Patient Participate in the Screening?: Unable to obtain
--- NOTE | 2023-12-14 11:18 | ANES.PREOP_ITS ---
General Info Date of Service Date Performed: 12/14/23 Height: 5 ft 4 in Weight: 70.307 kg Body Mass Index (BMI): 26.6 Surgical Procedure: Operation Date: 12/14/23 12:25 Proposed Procedure Side Surgeon p Cystoscopy/Suprapubic Tube Insertion Sagar Mendoza MD Meds Allergies and Home Medications Allergies Allergy/AdvReac Type Severity Reaction Status Date / Time No Known Allergies Allergy Verified 12/09/23 07:19 Home Medication Medication Instructions Recorded atorvastatin 40 mg tablet (Lipitor) 40 mg PO DAILY 07/14/16 losartan 50 mg tablet 50 mg PO DAILY 07/14/16 omeprazole 20 mg capsule,delayed 20 mg PO DAILY 07/14/16 release docusate sodium 100 mg capsule 100 mg PO BID 09/11/22 (Dulcolax Stool Softener (docusate)) finasteride 5 mg tablet 5 mg PO DAILY #90 tab-caps 09/11/22 metformin 500 mg tablet 500 mg PO am and noon #60 tabs 11/17/23 terazosin 10 mg capsule 10 mg PO QPM 12/04/23 memantine 7 mg capsule 7 mg PO DAILY 12/09/23 sprinkle,extended release 24hr risperidone 0.5 mg tablet 0.5 mg PO DAILY PRN 12/09/23 trazodone 50 mg tablet 75 mg PO HS 12/09/23 quetiapine 25 mg tablet 25 mg PO BID #60 tabs 12/13/23 Current Visit Medications: Current Medications Generic Name Dose Route Start Last Admin Trade Name Freq PRN Reason Stop Dose Admin Acetaminophen 0 mg 12/09/23 11:13 Acetaminophen 325 Mg Tab PO Q4H PRN PRN Atorvastatin Calcium 40 mg 12/10/23 08:30 12/14/23 07:44 Atorvastatin 40 Mg Tab PO 40 mg DAILY PAUL Administration Docusate Sodium 100 mg 12/09/23 20:00 12/14/23 07:44 Docusate Sodium 100 Mg Cap PO 100 mg BID PAUL Administration Enoxaparin Sodium 40 mg 12/09/23 12:00 12/13/23 12:57 Enoxaparin 40 Mg/0.4 Ml Syr SC 40 mg Q24H PAUL Administration Finasteride 5 mg 12/10/23 08:30 12/14/23 07:44 Finasteride 5 Mg Tab PO 5 mg DAILY PAUL Administration Sodium Chloride 500 mls @ 0 mls/hr 12/09/23 11:15 12/11/23 10:15 Saline 500ml Bag IV 0 mls/hr DIRECTED PRN Infusion As Directed Ceftriaxone Sodium/Dextrose 1 gm in 50 mls @ 100 mls/hr 12/11/23 08:00 12/14/23 10:00 Rocephin IVPB Infused Q24H PAUL Infusion Sodium Chloride 1,000 mls @ 125 mls/hr 12/13/23 19:00 12/14/23 03:54 Saline 1000ml Bag IV 125 mls/hr INFUSION PAUL Administration IV Miscellaneous Supplies 1 each 12/09/23 11:15 Iv Access IV DIRECTED PAUL Lorazepam 1 mg 12/09/23 17:58 Lorazepam 2 Mg/Ml Vial IVP Q4H PRN PRN Losartan Potassium 50 mg 12/10/23 08:30 12/14/23 07:44 Losartan 50 Mg Tab PO 50 mg DAILY PAUL Administration Metformin HCl 500 mg 12/11/23 17:00 12/14/23 07:44 Metformin 500 Mg Tab PO 500 mg DAILY@0800,1700 PAUL Administration Omeprazole 20 mg 12/10/23 07:30 12/14/23 07:44 Omeprazole 20 Mg Capcr PO 20 mg DAILY@0730 PAUL Administration Pt's Own Memantine 7 2 each 12/10/23 08:30 12/14/23 07:44 Mg Capsule,Sprinkle PO 2 each ,Er 24hr DAILY PAUL Administration Polyethylene Glycol 17 gm 12/09/23 11:13 12/13/23 20:08 Polyethylene Glycol 3350 17 Gm Packet PO 17 gm DAILY PRN PRN Administration Constipation Quetiapine Fumarate 25 mg 12/09/23 20:00 12/14/23 07:44 Quetiapine 25 Mg Tab PO 25 mg BID PAUL Administration Risperidone 0.5 mg 12/09/23 11:13 Risperidone 0.5 Mg Tab PO DAILY PRN PRN Sodium Chloride 0 ml 12/09/23 08:24 Normal Saline 10 Ml Vial IJ DIRECTED PRN Sodium Chloride 0 ml 12/09/23 11:15 12/14/23 07:44 Normal Saline Flush 10 Ml Syr IVP 30 ml PRN PRN Administration Sterile Water 2.1 ml 12/10/23 07:00 Water,Injection,Sterile 10 Ml Vial IV PRN PRN Terazosin HCl 10 mg 12/09/23 20:00 12/13/23 20:09 Terazosin 5 Mg Cap PO 10 mg QPM PAUL Administration Trazodone HCl 25 - 50 mg 12/09/23 22:00 12/13/23 20:09 Trazodone 50 Mg Tab PO 50 mg HS PAUL Administration PFSH Active Problems Active Problems: Problem Status Onset Code Delirium R41.0 Acute confusion R41.0 Syncope and collapse R55 Horner catheter problem T83.9XXA Displacement of Horner catheter T83.021A Grief reaction F43.21 Mild cognitive impairment G31.84 Hydronephrosis N13.30 Urinary retention with incomplete bladder emptying R33.9 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, N13.8 Medical History Medical History Hypomagnesemia Hypoalbuminemia Medication management Memory changes Bilateral renal cysts Tobacco Smoking/Tobacco Use Status: Former Tobacco Use Alcohol Alcohol Intake: never Substance Use Substance use: Never Substance use type: does not use Vital Signs and Lab Results Vital Signs Most Recent Vital Signs in EMR: Most Recent Vital Signs Temp Pulse Resp BP Pulse Ox 36.7 C 76 12 156/73 H 98 12/14/23 11:11 12/14/23 11:11 12/14/23 11:11 12/14/23 11:11 12/14/23 11:11 Lab Results 12/14/23 06:14 12/14/23 06:14 Blood Type / Crossmatch: 2 No Data to Display Complete Blood Count: 2 White Blood Count 7.21 10^3/uL (4.4-10.8) 12/14/23 06:14 Red Blood Count 4.09 10^6/uL (4.36-5.78) L 12/14/23 06:14 Hemoglobin 12.0 g/dL (13.5-17.5) L 12/14/23 06:14 Hematocrit 37.3 % (40.0-50.0) L 12/14/23 06:14 Platelet Count 290 10^3/uL (130-400) 12/14/23 06:14 Complete Metabolic Panel: 2 Sodium 141 mmol/L (136-145) 12/14/23 06:14 Potassium 4.8 mmol/L (3.5-5.1) 12/14/23 06:14 Chloride 107 mmol/L (98-107) 12/14/23 06:14 Carbon Dioxide 27.1 mmol/L (21.0-32.0) 12/14/23 06:14 BUN 20 mg/dL (7-18) H 12/14/23 06:14 Creatinine 0.9 mg/dL (0.70-1.30) 12/14/23 06:14 Est GFR (CKD-EPI 2020) 85.27 (mL/min/1.73m2) 12/14/23 06:14 Magnesium 1.6 mg/dL (1.8-2.4) L 12/14/23 06:14 Calcium 8.8 mg/dL (8.5-10.1) 12/14/23 06:14 Albumin 2.9 g/dL (3.4-5.0) L 12/09/23 08:45 Glucose 115 mg/dL (74-106) H 12/14/23 06:14 Liver Function Panel: 2 Alanine Aminotransferase (ALT/SGPT) 14 U/L (16-63) L 12/09/23 0 8:45 Aspartate Amino Transf (AST/SGOT) 13 U/L (15-37) L 12/09/23 08: 45 Coagulation Panel: 2 INR International Normalized Ratio 1.1 (0.9-1.1) 12/04/23 08:2 5 Prothrombin Time 11.0 sec (9.1-11.1) 12/04/23 08:25 Cardiac Panel: 2 Troponin I < 50 ng/L (< or =60) 12/09/23 Creatine Kinase 59 U/L (39-308) 12/04/23 Arterial Blood Gas: 2 No Data to Display Venous Blood Gas: 2 Venous Blood pH 7.41 (7.31-7.41) 12/04/23 08:25 Venous Blood Partial Pressure O2 46 mmHg 12/04/23 08:25 Venous Blood Partial Pressure CO2 42 mmHg (41-51) 12/04/23 08:2 5 Venous Blood Oxygen Saturation 81 % 12/04/23 08:25 Venous Blood HCO3 26 mmol/L (23-28) 12/04/23 08:25 Venous Blood Base Excess 2 mmol/L (-2-3) 12/04/23 08:25 Venous Blood Total Carbon Dioxide 24 mmol/L (24-29) 12/04/23 08 :25 Pancreas Panel: 2 Lipase 43 U/L (16-77) 12/04/23 08:25 Thyroid Panel: 2 Thyroid Stimulating Hormone (TSH) 0.91 uIU/Ml (0.36-3.74) 08:45 Infectious Disease: 2 No Data to Display Blood Cultures: 2 No Data to Display Toxicology Panel: 2 Ethyl Alcohol Level < 3.0 mg/dL (<10) 12/04/23 08:25 Imaging and Studies Imaging and Studies Study information below may be from another EMR and interpreted by another provider. Please see original notes in EMR for more complete details. EKG Summary: DATE/TIME OF SERVICE: 12/04/23823 : 1940 PERFORMING LOCATION: [place] APPROVED REPORT Exam: Resting ECG Reason for Exam: Fall Patient Location: E HR:59 bpm ECG Measurements Heart Rate 59 AXIS DE 141 P 64 QRSd 98 QRS 64 QT 432 T49 QTc 429 Conclusion Sinus bradycardia...rate< 60 Narrow complex sinus bradycardia at a rate of 59. Intervals within normal limits. No ST segment abnormalities. No T wave inversions. T wave flattening in aVL. No prior for comparison. No acute injury pattern Echocardiogram Summary: Date of Exam: 12/06/23 Sex: M Admission Date: 12/04/23 : 1940 Age: 83 APPROVED REPORT EXAM: Comprehensive 2D, Doppler, and color-flow Echocardiogram Patient Location: In-Patient Room/Bed: [facility] Bottler Helper: Dakota Mendez RDCS (AE) Indications: syncope Conclusion Normal left ventricular wall thickness and chamber size. EF is 60 to 65%. Wall motion is normal Normal right ventricular size and systolic function Both atria are normal in size Aortic valve is mildly sclerotic and trileaflet without stenosis or regurgitation There is no additional structural or hemodynamically significant valvular disease Estimated right ventricular systolic pressure is 19 mm Hg Anesthesia Assessment and Plan Anesthesia History Personal History: No History of Anesthesia Complications Family History: No Family History of Anesthesia Complications Exercise Tolerance Exercise Tolerance: Metabolic Equivalents>4 Pertinent Negatives Pertinent Negatives: No Symptoms of GERD and No Major Cardiovascular Symptoms or Complaints Cardiac & Pulmonary Exam Cardiac Exam: Normal S1/S2 Heart Sounds Pulmonary Exam: Clear Bilateral Breath Sounds Implantable Cardiac Device Does patient have a Pacemaker or an ICD?: No Airway Exam Known Difficult Airway: No Mallampati Class: 2 Mouth Opening: Normal (> 3cm) Thyromental Distance: Greater than 3 cm Neck Range of Motion: Full ROM Neck Circumference: Normal Teeth Condition: Normal Dentition ASA Classification ASA Score: ASA 2 Emergency Case?: No NPO Status NPO Status: NPO Clears >2 hours, Solids >8 hours Anesthesia Plan Resuscitation Status: Full Code Anesthesia Technique: General Anesthesia Airway Planned: Natural Airway Monitors Used: Standard Monitors
[2023-12-14] MEDS: Lactated Ringers 1,000 ML 50 ML IV (12:15)
[2023-12-14] MEDS: Lidocaine 2% Jelly 11 ML SYR (12:18)
[2023-12-14] MEDS: Lidocaine 1% Pres-Free 30 ML VIAL (12:18)
--- NOTE | 2023-12-14 12:22 | BRIEFOP_ITS ---
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
--- NOTE | 2023-12-14 12:23 | ROE_ITS ---
Date of service: 12/14/23 Time of Service: 12:24 Operative Note Operative Note DATE OF PROCEDURE: 12/14/23 PRE-OP DIAGNOSIS: Urinary retention POST-OP DIAGNOSIS: same PROCEDURE: cystoscopy with insertion of suprapubic tube SURGEON: Sagar Mendoza ANESTHESIA TYPE: Local By Surgeon and General:No Airway Refer to Anesthesia Record ESTIMATED BLOOD LOSS: 5 PATHOLOGY: none sent COMPLICATIONS: None Patient was transported to: PACU Patient's condition: stable Implants: 16 lebanese suprapubic tube with 10 cc sterile water in balloon Indications: This is an 83-year-old gentleman who has a history of urinary retention bilateral hydronephrosis. He is managed with an indwelling urethral catheter, but he continues to attempt to remove the catheter on its own. Procedure Description: The patient was brought to the operating room on 12/14/2023. He was already receiving antibiotics intravenously. After successful induction of general anesthesia without intubation, he was placed in the dorsal lithotomy position. His indwelling catheter balloon was deflated and the catheter was removed in its entirety. His genitalia and lower abdomen were then prepped a curved Lowsley tractor was passed through the urethra and advanced until the tip was within the bladder. The tip was then pushed up against the abdominal wall. The overlying skin was infiltrated with 1% Xylocaine without epinephrine. An incision was made overlying the tip of the Lowsley tractor and the tip was brought through the incision until it was seen on the patient's abdomen. We then opened the jaws of the Lowsley tractor and grasped a 16 Bhutanese catheter. We withdrew the catheter back into the bladder. The catheter was released in the bladder. Cystoscopy was performed once the appropriate positioning of the catheter was noted, we inflated the catheter balloon with 10 cc of sterile water and hooked it to gravity drainage. A dry sterile dressing was applied to the suprapubic site. The patient tolerated the procedure well with no complications.
--- NOTE | 2023-12-14 13:02 | W.PM.PROGNOT ---
Date of Service Date of service: 12/14/23 Time of Service: 13:02 Assessment and Plan Assessment and plan (1) Acute confusion: Status: Acute Assessment and plan: tolerating seroquel was initially thought to be due to UTI but after treatment remains confused and has been failing at home. ideally would recommend discharge to [facility] for inpatient psychiatric evaluation and management. (2) Urinary retention with incomplete bladder emptying: Status: Acute Assessment and plan: Suprapubic catheter placed by Dr Mendoza today. needs one month follow up appointment with Urology, Dr Mendoza to do first catheter change. will discontinue finasteride and terazosin (3) Hypertension: Status: Chronic Assessment and plan: continue losartan, monitor, may need adjustments now off terazosin. (4) Discharge planning issues: Status: Acute Assessment and plan: Plan is to discharge to home +/- home health services, pcp appointment on and hoping to [facility] referral Discussed with Dr. Blanc Subjective Subjective Patient reports: no new complaints, feels better, tolerating liquids well, tolerating a regular diet and afebrile; denies shortness of breath Exam Const General: frail appearing and ill appearing chronically Nutritional Appearance: average body habitus Orientation: alert, awake and oriented x3 HENMT Head: normal to inspection, normocephalic and atraumatic Face and sinus: normal facial exam Mouth: oral mucosae normal Eyes General: appearance normal, both eyes and all related structures Chest Chest: normal inspection of the chest Resp Effort & Inspection: normal respiratory effort Auscultation: clear to auscultation bilaterally Cardio Rate: regular rate Rhythm: regular rhythm GI Inspection: normal to inspection Palpation: soft Skin General skin exam: dry skin Neuro General: patient alert, patient awake and patient oriented x3 Cognition: normal cognition Speech: speech normal Extrem General: normal to inspection and full ROM Objective Last Vital Signs Temp 36.3 C L 12/14/23 12:58 Pulse 67 12/14/23 12:58 Resp 15 12/14/23 12:58 BP 169/71 H 12/14/23 12:58 Pulse Ox 97 12/14/23 12:58 Laboratory Results - last 24 hr 12/14/23 06:14 WBC 7.21 RBC 4.09 L Hgb 12.0 L Hct 37.3 L MCV 91 MCH 29.3 MCHC 32.2 RDW 13.2 Plt Count 290 MPV 9.4 Immature Gran % 0.8 Neutrophils % 56.7 Lymphocytes % 26.6 Monocytes % 8.9 Eosinophils % 5.8 Basophils % 1.2 Nucleated RBC % 0.0 Absolute Neutrophils 4.08 Absolute Lymphocytes 1.92 Absolute Monocytes 0.64 Absolute Eosinophils 0.42 Absolute Basophils 0.09 Sodium 141 Potassium 4.8 Chloride 107 Carbon Dioxide 27.1 Anion Gap 6.9 BUN 20 H Creatinine 0.9 Est GFR (CKD-EPI 2020) 85.27 Glucose 115 H Calcium 8.8 Magnesium 1.6 L Time Spent with Patient Time Spent with Patient: 35-49 minutes Time was spent: preparing to see the patient(eg.review tests), obtaining and/or reviewing separately otained hiistory, ordering medications,tests, procedures, indepentently interpreting results and counseling the patient
[2023-12-14] MEDS: Polyethylene Glycol 3350 17 GM PACKET PO (13:29)
--- NOTE | 2023-12-14 14:43 | W.ANESPOSTOP ---
Postoperative Evaluation Date, Time and Location Date Performed: 12/14/23 Time Performed: 14:00 Patient Location: Med/Surg Vital Signs Most Recent Imported Vital Signs: Most Recent Vital Signs Temp Pulse Resp BP Pulse Ox 35.7 C L 72 16 183/99 H 97 12/14/23 14:00 12/14/23 14:00 12/14/23 14:00 12/14/23 14:00 12/14/23 14:00 Pain Score Most Recent Pain Score: Most Recent Pain Score Pain Level 0 12/14/23 14:00 Assessment Mental Status: Awake (Alert & Oriented to Patient Baseline) Airway and Respiratory Function: Patent airway with normal (patient baseline) respiratory exam Cardiovascular Function: Hemodynamically Stable Hydration Status: Adequately Hydrated Nausea & Vomiting: No Nausea or Vomiting Pain: Pt. Denies Any Pain Peripheral Nerve Block: Patient did not receive a nerve block
[2023-12-14] MEDS: traZODone 50 MG TAB PO (20:42)
[2023-12-15 03:24] VITALS: BP 138/73; PULSE 77; RESP 14; TEMP 36.6; O2SAT 95
[2023-12-15 06:44] LABS: Abs Immature Grans 0.08 10^3/uL (0.0-0.06); Absolute Basophil Count 0.07 10^3/uL (0.0-0.2); Absolute Eosinophil Count 0.19 10^3/uL (0.0-0.7); Absolute Monocyte Count 1.07 10^3/uL (0.1-0.8); Absolute Neutrophil Count 9.67 10^3/uL (1.2-6.7); Basophils % 0.5; Eosinophils % 1.4; HCT 35.6 % (40.0-50.0); HGB 11.3 g/dL (13.5-17.5); Immature Grans % 0.6; MCH 29.3 pg (27.0-33.0); MCHC 31.7 % (32.0-36.0); MCV 92 fL (80-95); MPV 10.2 fL (8.0-11.0); Monocytes % 7.8; Neutrophils % 70.7; Platelet Count 263 10^3/uL (130-400); RBC 3.86 10^6/uL (4.36-5.78); RDW 13.3 % (11.8-14.1); RDW-SD 45.2 fL; WBC 13.68 10^3/uL (4.4-10.8)
[2023-12-15 06:56] LABS: Anion Gap 7.6 mmol/L (3-11); BUN 20 mg/dL (7-18); CO2 25.4 mmol/L (21.0-32.0); CREATININE 0.9 mg/dL (0.70-1.30); Calcium 8.9 mg/dL (8.5-10.1); Chloride 104 mmol/L (98-107); Estimated GFR 85.27 (mL/min/1.73m2); Glucose 138 mg/dL (74-106); Potassium 4.4 mmol/L (3.5-5.1); Sodium 137 mmol/L (136-145)
[2023-12-15 07:24] VITALS: BP 145/71; PULSE 73; RESP 16; TEMP 36.4; O2SAT 98
[2023-12-15] MEDS: Atorvastatin 40 MG TAB PO (08:20)
[2023-12-15] MEDS: Losartan 50 MG TAB PO (08:20)
[2023-12-15] MEDS: metFORMIN 500 MG TAB PO (08:20)
[2023-12-15] MEDS: Omeprazole 20 MG CAPCR PO (08:20)
[2023-12-15] MEDS: QUEtiapine 25 MG TAB PO (08:20)
[2023-12-15] MEDS: Docusate Sodium 100 MG CAP PO (08:20)
[2023-12-15] MEDS: cefTRIAXone 1 GM/50 ML BAG IVPB (08:23)
[2023-12-15 11:13] VITALS: BP 114/66; PULSE 89; RESP 16; TEMP 36.4; O2SAT 97
--- NOTE | 2023-12-15 11:26 | PGE_ITS ---
Date of Service Date of service: 12/15/23 Time of Service: 11:26 Subjective Subjective Patient reports: no new complaints, feels better, tolerating liquids well, tolerating a regular diet and afebrile; denies shortness of breath Exam Const General: frail appearing and ill appearing chronically Nutritional Appearance: average body habitus Orientation: alert, awake and oriented x3 [facility] Head: normal to inspection, normocephalic and atraumatic Face and sinus: normal facial exam Mouth: oral mucosae normal Eyes General: appearance normal, both eyes and all related structures Chest Chest: normal inspection of the chest Resp Effort & Inspection: normal respiratory effort Auscultation: clear to auscultation bilaterally Cardio Rate: regular rate Rhythm: regular rhythm GI Inspection: normal to inspection and other (suprapubic catheter intact, draining well ) Palpation: soft Skin General skin exam: dry skin Neuro General: patient alert, patient awake and patient oriented x3 Cognition: normal cognition Speech: speech normal Extrem General: normal to inspection and full ROM Objective Last Vital Signs Temp 36.4 C L 12/15/23 11:13 Pulse 89 12/15/23 11:13 Resp 16 12/15/23 11:13 BP 114/66 12/15/23 11:13 Pulse Ox 97 12/15/23 11:13 Laboratory Results - last 24 hr 12/15/23 06:08 WBC 13.68 H RBC 3.86 L Hgb 11.3 L Hct 35.6 L MCV 92 MCH 29.3 MCHC 31.7 L RDW 13.3 Plt Count 263 MPV 10.2 Immature Gran % 0.6 Neutrophils % 70.7 Lymphocytes % 19.0 Monocytes % 7.8 Eosinophils % 1.4 Basophils % 0.5 Nucleated RBC % 0.0 Absolute Neutrophils 9.67 H Absolute Lymphocytes 2.60 Absolute Monocytes 1.07 H Absolute Eosinophils 0.19 Absolute Basophils 0.07 Sodium 137 Potassium 4.4 Chloride 104 Carbon Dioxide 25.4 Anion Gap 7.6 BUN 20 H Creatinine 0.9 Est GFR (CKD-EPI 2020) 85.27 Glucose 138 H Calcium 8.9
--- NOTE | 2023-12-15 11:30 | DSE_ITS ---
Date of service: 12/15/23 Time of Service: 11:30 DS: Diagnosis Discharge Diagnosis (1) Acute confusion: Status: Acute (2) Urinary retention with incomplete bladder emptying: Status: Acute (3) Hypertension: Status: Chronic Discharge Plan Disposition Patient Disposition: Home W/Home Health Services Condition: Improving Discharge Details Reason For Visit: UTI; Delirium Admit Date/Time: 12/09/23 10:14 Admit Provider: Zeeshan Sanchez Attending Provider: Zeeshan Sanchez Primary Care Provider: Vanita Johnson V Hospital Course Hospital Course: This is an 83-year-old male patient with past medical history for but not limited to BPH, urinary retention with indwelling Horner catheter and dementia who presented to the [facility] ED for evaluation of acute confusion. Patient's son brought him to the hospital because patient was insisting he needed to get a colonoscopy today. He kept insisting that this procedure needed to be done. The patient told the son that if he was not going to take him to the hospital he would have to do it himself and the son found him with a cup and a knife. On a prior hospitalization, patient was evaluated by psychiatry as well as neurology they wanted further outpatient workup for definitive diagnosis. Son reports that patient has had increased agitation and confusion since his . Urine was checked in the ED and he was found to have a UTI, culture pending. He was started on ceftriaxone IV. Labs in the ED WBC 8.09, Hgb 12.5, electrolytes unremarkable, Cr 1.0, glucose 175, ammonia < 10. He was given Zyprexa IM for agitation. Patient was discharged from [facility] 12/06/23 after admission for evaluation of unresponsiveness. Patient has scheduled out patient procedure with Dr Mendoza on December 19 for suprapubic catheter. Echo on 12/06/23 EF 60-65%, wall motion is normal. Given his significant delirium and mental status changes in the setting of a urinary tract infection he was admitted to the medical floor for further testing and treatment. Patient is DNR/DNI. He was admitted to the hospitalist services he was started on Seroquel with improvement in his delirium. His UTI was treated with ceftriaxone. He worked with physical therapy case management was following for discharge planning. Ultimately he did undergo his suprapubic catheter insertion. He has remained medically stable and wishes to be discharged to home. Attempted to discharge him to [facility] for psychiatric inpatient medication management in setting of recent loss of spouse and confusion. His primary care provider will follow closely for further recommendations. Home Meds and New Rx's Prescriptions: New quetiapine 25 mg Tablet 25 mg PO BID Qty: 60 0RF Continued docusate sodium [Dulcolax Stool Softener (dss)] 100 mg capsule 100 mg PO BID finasteride 5 mg tablet 5 mg PO DAILY Qty: 90 4RF losartan 50 MG tablet 50 mg PO DAILY atorvastatin [Lipitor] 40 MG tablet 40 mg PO DAILY omeprazole 20 MG capsule,delayed release(DR/EC) 20 mg PO DAILY metformin 500 MG tablet 500 mg PO am and noon Qty: 60 0RF terazosin 10 mg capsule 10 mg PO QPM memantine 7 mg capsule,sprinkle,ER 24hr 7 mg PO DAILY Patient Comments: TAKE ONE CAPSULE BY MOUTH EVERY DAY (CAN BE AM. AND PM.) FOR 1-2 WEEKS THEN INCREASE TO TWO CAPSULES DAILY AT THE SAME TIME risperidone 0.5 mg tablet 0.5 mg PO DAILY PRN trazodone 50 mg tablet 75 mg PO HS Patient Comments: TAKE 1/2 TO 1 TABLET AT BEDTIME No Action lorazepam 1 mg tablet 1 mg PO Q4H PRN MDD 6mg Qty: 6 0RF Rx Instructions: Hospice Comfort Oswaldo Rx [facility] See Rx Instructions .ROUTE .COMPLEX Qty: 1 0RF Rx Instructions: Acetaminophen 650mg Supp (Insert 1 TN q6H prn fever/mild-pain. #6); Hyoscyam ine 0.125mg (1-2tabs PO/SL q4H prn secretions. #24tabs);Haloperidol 2mg/ml oral conc (Give 0.5mL PO/SL q6H prn agitation. #15mL); acetaminophen 650 mg suppository 650 mg TN Q6H PRN (Reason: fever or pain) Qty: 6 0RF Rx Instructions: Hospice Comfort Oswaldo hyoscyamine sulfate 0.125 mg tablet See Rx Instructions PO Q4H PRN (Reason: SECRETIONS (dyspepsia)) Qty: 24 0RF Rx Instructions: 0.125mg Give 1-2tabs PO/SL orally every 4 hours PRN; haloperidol lactate 2 mg/mL concentrate See Rx Instructions .ROUTE Q6H PRN (Reason: agitation) Qty: 15 0RF Rx Instructions: 0.5mL (1mg) PO/SL every 6 hours PRN; prochlorperazine maleate 10 mg tablet 10 mg PO Q6H PRN (Reason: nausea and vomiting) Qty: 6 0RF Rx Instructions: Hospice Comfort Pack morphine concentrate 100 mg/5 mL (20 mg/mL) solution See Rx Instructions PO .COMPLEX MDD 100mg PRN (Reason: pain or shortness of breath COMFORT OSWALDO) Qty: 30 0RF Rx Instructions: Take 0.25mL - 1mL po/SL q1-4 hrs orally PRN; HOSPICE bisacodyl [Dulcolax (bisacodyl)] 10 mg suppository 10 mg TN DAILY PRN (Reason: constipation (no BM x 3 days)) Qty: 2 0RF Rx Instructions: Hospice Comfort Pack Discharge Instructions Instructions: Quetiapine (By mouth), Horner Catheter Placement and Care (DC), How to Change a Catheter Drainage Bag (DC) Additional Instructions: Take Quetiapine twice a day. General suprapubic catheter care as instructed. Follow up with urology in one month Resumption of home health services - they will call you. Stand Alone Forms: Nursing Discharge Form Referrals: Vanita Johnson MD [Primary Care Provider] - 12/24/23 9:40 am () Sagar Mendoza MD [ [facility] STAFF PHYSICIAN] - (Follow up as scheduled) Activity:: Activity as Tolerated Equipment/Supplies:: Walker Diet:: As Tolerated Discharge Orders Discharge Orders: Discharge Order (Routine); Ordered 12/15/23 Ordered By: Sun Umaña Discharge Data Discharge Date/Time-TO BE ENTERED AT DEPARTURE: 12/15/23 12:07 DS: Summary Time Spent with Patient providing and/or coordinating discharge services: Greater than 30 minutes Status at Discharge Functional status at discharge: uses cane/walker Overall status at discharge: patient is progressing back to baseline Mental Status: mental status grossly normal Speech and Movement: speech and movement normal Mood: congruent mood Affect: normal affect Quality:SDOH Health Related Social Needs: No Data to Display Exam Narrative Exam Narrative: Thin male of stated age no acute distress head is atraumatic neck is supple with full range of motion respirations even and unlabored cardiovascular regular rate and rhythm his abdomen with suprapubic catheter intact insertion site is clear there is no drainage erythema. Catheter is draining clear yellow urine Psych Mental Status: mental status grossly normal Speech and Movement: speech and movement normal Mood: congruent mood Affect: normal affect DS: Data Vitals/I&O Vitals and I&O: Vital Signs Temperature 36.4 C L 12/15/23 11:13 Temperature Source Tympanic 12/15/23 11:13 Pulse 89 12/15/23 11:13 Pulse Rhythm Regular 12/15/23 08:30 Respiratory Rate 16 12/15/23 11:13 Respiratory Effort Normal, Non-Labored 12/15/23 08:30 Respiratory Depth Normal 12/15/23 08:30 Respiratory Pattern Normal 12/15/23 08:30 Blood Pressure 114/66 12/15/23 11:13 Blood Pressure Position Sitting 12/09/23 07:17 Pulse Oximetry 97 12/15/23 11:13 Respiratory End-tidal CO2 32 12/14/23 12:58 Oxygen Delivery Method Room Air 12/15/23 11:13 Oxygen Flow Rate 0 12/15/23 11:13 Pain Level 0 12/15/23 03:24 Comment PROCESS ENGINEER Notified, RN was busy 12/12/23 22:47 Intake & Output 12/14/23 12/14/23 12/15/23 11:59 23:59 11:59 Intake Total 1016.667 / 3000.416 1983.749 / 3000.416 489.583 / 489.583 Output Total 1850 / 2905 1055 / 2905 500 / 500 Balance -833.333 / 95.416 928.749 / 95.416 -10.417 / -10.417 Weight 70.307 kg Intake: IV 1016.667 / 2760.416 1743.749 / 2760.416 489.583 / 489.583 Oral 240 / 240 Output: Urine 1850 / 2900 1050 / 2900 500 / 500 Estimated Blood Loss 5 / 5 Other: Urine Color Yellow Pale Yellow Yellow Urine Appearance Clear Clear Clear Comment Clean pT due to blood clots. Changed Brief. Scant bleeding from urethra in brief Emesis Description None Voiding Methods Diaper Indwelling Catheter Incontinent Data Completed and Pending Labs on day of discharge: Labs from last 24 hours 12/15/23 06:08 WBC 13.68 H RBC 3.86 L Hgb 11.3 L Hct 35.6 L MCV 92 MCH 29.3 MCHC 31.7 L RDW 13.3 Plt Count 263 MPV 10.2 Immature Gran % 0.6 Neutrophils % 70.7 Lymphocytes % 19.0 Monocytes % 7.8 Eosinophils % 1.4 Basophils % 0.5 Nucleated RBC % 0.0 Absolute Neutrophils 9.67 H Absolute Lymphocytes 2.60 Absolute Monocytes 1.07 H Absolute Eosinophils 0.19 Absolute Basophils 0.07 Sodium 137 Potassium 4.4 Chloride 104 Carbon Dioxide 25.4 Anion Gap 7.6 BUN 20 H Creatinine 0.9 Est GFR (CKD-EPI 2020) 85.27 Glucose 138 H Calcium 8.9 PFSH All Active Problems (Updated 12/19/23 @ 03:47 by Ivana Mills MD) Suprapubic catheter dysfunction (Acute) Alzheimer's dementia (Acute) Dementia (Chronic) Hospice care (Acute) Admission planned for 12/18/23 Hypertension (Chronic) Delirium (Acute) Acute confusion (Acute) Syncope and collapse (Acute) Horner catheter problem (Acute) Displacement of Horner catheter (Acute) Grief reaction (Chronic) Mild cognitive impairment (Acute) Hydronephrosis (Acute) Urinary retention with incomplete bladder emptying (Acute) 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) Medical History Hypomagnesemia Hypoalbuminemia Medication management Memory changes Bilateral renal cysts Social History Smoking/Tobacco Use Status: Former Tobacco Use Quit Date: 10/11/60 Smoking risk assessment performed?: Yes Alcohol Intake: never Drug use: Never Substance use type: does not use Housing: house Do you feel safe at home: Yes Do you feel safe in your relationship?: Yes Additional Social history: Unable to assess privately Time Spent with Patient Time Spent with Patient: 45-69 minutes Time was spent: preparing to see the patient(eg.review tests), obtaining and/or reviewing separately otained hiistory, ordering medications,tests, procedures, indepentently interpreting results, counseling the patient and care coordination
--- NOTE | 2023-12-15 17:25 | PDOC.CMDIS ---
Date of service: 12/15/23 Time of Service: 17:25 LACE Index Scoring Tool Questions: Length of Stay (in days): 4 - 6 Was the patient admitted via the E.D.?: Yes Comorbidities: Dementia E.D. Visits: 6 Answers: Total Score: 14 Risk of Readmission: High Risk Care Management Discharge Plan Reason for Hospitalization: UTI, delirium Discharge Plan: Jamey will return home with a resumption of orders for SN. He will be transported via private vehicle by family and will follow up with his PCP and discharge plan of care. Patient/Family Education Needs: Review discharge instructions and limitations, discussion of self care needs including ask me three. Services Needed at Discharge: Home Health Care Services SDOH Health Related Social Needs: No Data to Display
== END 2023-12-15 12:07 | disposition home health service (06) | DRG 726 ==
LOC: ER 10:52 → MS 11:09
PROVIDERS: Family Medicine; Nurse Practitioner Acute Care; Nurse Practitioner Family; Urology; Admitting Provider Internal Medicine; Emergency Provider Emergency Medicine; PCP Family Medicine; Visit Provider Internal Medicine
PROC: 0T9B30Z Drainage of Bladder with Drainage Device, Percutaneous Approach (ICD-10-PCS; CPT 51102; principal; 2023-12-14 12:15)
DX: N40.1 Benign prostatic hyperplasia with lower urinary tract symptoms (principal); N13.30 Unspecified hydronephrosis; R33.8 Other retention of urine; F03.90 Unspecified dementia, unspecified severity, without behavioral disturbance, psychotic disturbance, mood disturbance, and anxiety; Z66 Do not resuscitate; R41.0 Disorientation, unspecified
CPT/HCPCS: 51102; 00123; 36415; 80048; 80053; 87040; 87077; 96365; 96375; 99222; 99232; 99285; J1650; 81003; 81015; 82140; 83735; 84443; 84484; 85025; 87086; 87186; 99223; 99231; 99238; J0696; J1100; J2001; J2359; J2405; J2704; J3475

== ENCOUNTER → 2023-12-13 10:05 | Outpatient (BNVA) | payer MEDICARE, SELFPAY | PROVIDERS: PCP Family Medicine; Referring Provider Family Medicine; Visit Provider Urology ==

== ENCOUNTER → 2023-12-14 13:41 | Outpatient (BNVA) | payer MEDICARE, SELFPAY | PROVIDERS: PCP Family Medicine; Referring Provider Family Medicine; Visit Provider Urology ==

== ENCOUNTER 2023-12-19 03:22 | Emergency (ER) | payer MEDICARE, SELFPAY ==
--- NOTE | 2023-12-19 03:29 | ED.GENADUL_ITS ---
Discharge Plan Disposition Patient Disposition: Home Condition: Good Discharge Details Clinical Impression: Suprapubic catheter dysfunction Primary Care Provider: Vanita Johnson V ED Provider: Ivana Mills Home Meds and New Rx's Prescriptions: Continued docusate sodium [Dulcolax Stool Softener (dss)] 100 mg capsule 100 mg PO BID finasteride 5 mg tablet 5 mg PO DAILY Qty: 90 4RF lorazepam 1 mg tablet 1 mg PO Q4H PRN MDD 6mg Qty: 6 0RF Rx Instructions: Hospice Comfort Oswaldo Rx [facility] See Rx Instructions .ROUTE .COMPLEX Qty: 1 0RF Rx Instructions: Acetaminophen 650mg Supp (Insert 1 UT q6H prn fever/mild-pain. #6); Hyoscyamine 0.125mg (1-2tabs PO/SL q4H prn secretions. #24tabs);Haloperidol 2mg/ml oral conc (Give 0.5mL PO/SL q6H prn agitation. #15mL); acetaminophen 650 mg suppository 650 mg UT Q6H PRN (Reason: fever or pain) Qty: 6 0RF Rx Instructions: Hospice Comfort Oswaldo hyoscyamine sulfate 0.125 mg tablet See Rx Instructions PO Q4H PRN (Reason: SECRETIONS (dyspepsia)) Qty: 24 0RF Rx Instructions: 0.125mg Give 1-2tabs PO/SL orally every 4 hours PRN; haloperidol lactate 2 mg/mL concentrate See Rx Instructions .ROUTE Q6H PRN (Reason: agitation) Qty: 15 0RF Rx Instructions: 0.5mL (1mg) PO/SL every 6 hours PRN; prochlorperazine maleate 10 mg tablet 10 mg PO Q6H PRN (Reason: nausea and vomiting) Qty: 6 0RF Rx Instructions: Hospice Comfort Pack morphine concentrate 100 mg/5 mL (20 mg/mL) solution See Rx Instructions PO .COMPLEX MDD 100mg PRN (Reason: pain or shortness of breath COMFORT OSWALDO) Qty: 30 0RF Rx Instructions: Take 0.25mL - 1mL po/SL q1-4 hrs orally PRN; HOSPICE bisacodyl [Dulcolax (bisacodyl)] 10 mg suppository 10 mg UT DAILY PRN (Reason: constipation (no BM x 3 days)) Qty: 2 0RF Rx Instructions: Hospice Comfort Pack losartan 50 MG tablet 50 mg PO DAILY atorvastatin [Lipitor] 40 MG tablet 40 mg PO DAILY omeprazole 20 MG capsule,delayed release(DR/EC) 20 mg PO DAILY metformin 500 MG tablet 500 mg PO am and noon Qty: 60 0RF terazosin 10 mg capsule 10 mg PO QPM memantine 7 mg capsule,sprinkle,ER 24hr 7 mg PO DAILY Patient Comments: TAKE ONE CAPSULE BY MOUTH EVERY DAY (CAN BE AM. AND PM.) FOR 1-2 WEEKS THEN INCREASE TO TWO CAPSULES DAILY AT THE SAME TIME risperidone 0.5 mg tablet 0.5 mg PO DAILY PRN trazodone 50 mg tablet 75 mg PO HS Patient Comments: TAKE 1/2 TO 1 TABLET AT BEDTIME quetiapine 25 mg Tablet 25 mg PO BID Qty: 60 0RF Discharge Instructions Instructions: Rivera Catheter Placement and Care (ED) Additional Instructions: Continue to care for the rivera catheter as you did before. Keep the dressing on the suprapubic site until you are seen by urology. Call Dr. Mendoza's office on Wednesday to schedule an appointment to followup on your visit here. Return to the emergency department for new or worsening symptoms including abdominal pain, fever, malodourous urine, bleeding from the suprapubic site, or if the rivera catheter comes out. Referrals: Vanita Johnson MD [Primary Care Provider] - Sagar Mendoza MD [ [facility] STAFF PHYSICIAN] - [facility] General Mode of arrival: ambulatory . Date/Time Provider Initiated Documentation: 12/19/23 03:24 . Limitations to Documentation: other (dementia) . Information obtained by: patient, family and old records reviewed . [facility] Narrative: 83yo M with dementia, HTN, GERD, DM, BPH, recent hospital admission for UTI with suprapubic catheter placement 12/14/[address] Mendoza due to pt recurrently pulling out rivera catheter presents for pulling out suprapubic catheter. Removed his catheter ~1 hour prior to arrival. Otherwise in his usual state of health, no concerns, no fevers, no bleeding from site. Related Data Home Medications Medication Instructions Recorded Confirmed atorvastatin 40 mg tablet (Lipitor) 40 mg PO DAILY 07/14/16 12/19/23 losartan 50 mg tablet 50 mg PO DAILY 07/14/16 12/19/23 omeprazole 20 mg capsule,delayed 20 mg PO DAILY 07/14/16 12/19/23 release docusate sodium 100 mg capsule 100 mg PO BID 09/11/22 12/19/23 (Dulcolax Stool Softener (docusate)) finasteride 5 mg tablet 5 mg PO DAILY #90 tab-caps 09/11/22 12/19/23 metformin 500 mg tablet 500 mg PO am and noon #60 tabs 11/17/23 12/19/23 terazosin 10 mg capsule 10 mg PO QPM 12/04/23 12/19/23 memantine 7 mg capsule 7 mg PO DAILY 12/09/23 12/19/23 sprinkle,extended release 24hr risperidone 0.5 mg tablet 0.5 mg PO DAILY PRN 12/09/23 12/19/23 trazodone 50 mg tablet 75 mg PO HS 12/09/23 12/19/23 quetiapine 25 mg tablet 25 mg PO BID #60 tabs 12/13/23 12/19/23 [facility] See Rx Instructions .Route 12/18/23 12/19/23 .COMPLEX #1 pkg acetaminophen 650 mg rectal 650 mg UT Q6H PRN fever or pain #6 12/18/23 12/19/23 suppository ea bisacodyl 10 mg rectal suppository 10 mg UT DAILY PRN constipation 12/18/23 12/19/23 (Dulcolax (bisacodyl)) (no BM x 3 days) #2 ea haloperidol lactate 2 mg/mL oral See Rx Instructions .Route Q6H PRN 12/18/23 12/19/23 concentrate agitation #15 mL hyoscyamine sulfate 0.125 mg tablet See Rx Instructions PO Q4H PRN 12/18/23 SECRETIONS (dyspepsia) #24 tabs lorazepam 1 mg tablet 1 mg PO Q4H PRN anxiety, dyspnea 12/18/23 12/19/23 on exertion, or nausea #6 tabs morphine concentrate 100 mg/5 mL See Rx Instructions PO .COMPLEX 12/18/23 12/19/23 (20 mg/mL) oral solution PRN pain or shortness of breath COMFORT OSWALDO #30 mL prochlorperazine maleate 10 mg 10 mg PO Q6H PRN nausea and 12/18/23 12/19/23 tablet vomiting #6 tabs Previous Rx's Medication Instructions Recorded finasteride 5 mg tablet 5 mg PO DAILY #90 tab-caps 09/11/22 metformin 500 mg tablet 500 mg PO am and noon #60 tabs 11/17/23 quetiapine 25 mg tablet 25 mg PO BID #60 tabs 12/13/23 [facility] Com[facility] See Rx Instructions .Route 12/18/23 .COMPLEX #1 pkg acetaminophen 650 mg rectal 650 mg UT Q6H PRN fever or pain #6 12/18/23 suppository ea bisacodyl 10 mg rectal suppository 10 mg UT DAILY PRN constipation 12/18/23 (Dulcolax (bisacodyl)) (no BM x 3 days) #2 ea haloperidol lactate 2 mg/mL oral See Rx Instructions .Route Q6H PRN 12/18/23 concentrate agitation #15 mL hyoscyamine sulfate 0.125 mg tablet See Rx Instructions PO Q4H PRN 12/18/23 SECRETIONS (dyspepsia) #24 tabs lorazepam 1 mg tablet 1 mg PO Q4H PRN anxiety, dyspnea 12/18/23 on exertion, or nausea #6 tabs morphine concentrate 100 mg/5 mL See Rx Instructions PO .COMPLEX 12/18/23 (20 mg/mL) oral solution PRN pain or shortness of breath COMFORT OSWALDO #30 mL prochlorperazine maleate 10 mg 10 mg PO Q6H PRN nausea and 12/18/23 tablet vomiting #6 tabs Allergies Allergy/AdvReac Type Severity Reaction Status Date / Time No Known Allergies Allergy Verified 12/19/23 03:32 General TAVARES: 3 Review of Systems Narrative: see HPI Exam Narrative Exam Narrative: General: Alert, well appearing, well nourished, in no acute distress. Head: Normocephalic, atraumatic Neck: Trachea midline, ?Neck supple. Cardiac: No cyanosis. Resp: No respiratory distress. Speaking in full sentences. . Abd: ?Soft, non-distended, nontender. : ?No suprapubic tenderness. Suprapubic catheter tract present, scant serosanginious drainage, no bleeding, no indication of surrounding infection. Extremities: ?No deformities.? No peripheral edema. Medical Decision Making 83yo M with dementia, HTN, GERD, DM, BPH, recent hospital admission for UTI, currently POD #5 from suprapubic catheter placement by Dr. Mendoza due to pt recurrently pulling out rivera catheter presents for pulling out suprapubic catheter. History from patient, family, and [facility] record review. Vital signs reassuring. No abdominal tenderness on exam no bleeding from tract. No indication for labs or imaging. Discussed wtih Dr. Mendoza who advised rivera placement. Rivera catheter placed by nursing with LidoJet. Occlusive dressing placed over suprapubic site. Discharged to outpatient follow up; discharge instructions and return precautions were reviewed with patient and family who verbalized understanding. All questions were answered and they are in full agreement with the plan. Medical Records Medical records reviewed: Yes I reviewed the patient's medical records. Medical records narrative: op note 12/14/23 Quality:SDOH Health Related Social Needs: No Data to Display PFSH All Active Problems (Updated 12/19/23 @ 03:47 by Ivana Mills MD) Suprapubic catheter dysfunction (Acute) Alzheimer's dementia (Acute) Dementia (Chronic) Hospice care (Acute) Admission planned for 12/18/23 Hypertension (Chronic) Delirium (Acute) Acute confusion (Acute) Syncope and collapse (Acute) Rivera catheter problem (Acute) Displacement of Rivera catheter (Acute) Grief reaction (Chronic) Mild cognitive impairment (Acute) Hydronephrosis (Acute) Urinary retention with incomplete bladder emptying (Acute) 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) Medical History Hypomagnesemia Hypoalbuminemia Medication management Memory changes Bilateral renal cysts Social History Smoking/Tobacco Use Status: Former Tobacco Use Quit Date: 10/11/60 Smoking risk assessment performed?: Yes Alcohol Intake: never Drug use: Never Substance use type: does not use Housing: house Do you feel safe at home: Yes Do you feel safe in your relationship?: Yes Additional Social history: Unable to assess privately
[2023-12-19 03:35] VITALS: BP 147/73; PULSE 74; RESP 14; TEMP 36.6; O2SAT 96
== END 2023-12-19 04:07 | disposition home or self-care (01) ==
PROVIDERS: Emergency Provider Student in an Organized Health Care Education/Training Program; PCP Family Medicine
DX: T83.010A Breakdown (mechanical) of cystostomy catheter, initial encounter (principal); G30.9 Alzheimer's disease, unspecified; F02.80 Dementia in other diseases classified elsewhere, unspecified severity, without behavioral disturbance, psychotic disturbance, mood disturbance, and anxiety; Z87.440 Personal history of urinary (tract) infections
CPT/HCPCS: 51702; 99283

== ENCOUNTER 2023-12-20 08:17 | Outpatient (CLI) | payer MEDICARE, SELFPAY ==
--- NOTE | 2023-12-20 09:20 | W.CARDEVENT ---
Date of service: 12/20/23 Time of Service: 09:20 Cardiac Event Recorder Referring Provider:: Vanita Johnson Indications:: Syncope Cardiac Event Note: This is a cardiac event monitor. Patient was monitored for 9 hours Sinus rhythm was present throughout with an average heart rate of 61 No dysrhythmias were recorded
== END 2023-12-20 08:18 | disposition home or self-care (01) ==
LOC: CARDOPNVT 08:17
PROVIDERS: PCP Family Medicine; Visit Provider Internal Medicine Cardiovascular Disease
DX: R55 Syncope and collapse (principal)
CPT/HCPCS: 93248

== ENCOUNTER 2023-12-24 12:03 | Outpatient (REF) | payer MEDICARE, SELFPAY ==
[2023-12-24 15:17] LABS: Bilirubin Negative (Negative); Blood Trace-intact (Negative); Clarity Sl Cloudy (Clear); Glucose 500 mg/dL (Negative); Ketones Negative (Negative); Leukocyte Esterase Trace (Negative); Nitrite Positive (Negative); Specific Gravity >= 1.030 (1.005-1.025); Urobilinogen 0.2 mg/dL (Up to 0.2)
[2023-12-24 15:26] LABS: Bacteria Many HPF (Negative); C & S Indicated? Yes; Crystals Mod Calcium Oxalate HPF (Negative); Epithelial Cells Negative HPF (Negative); Mucus Trace (Negative); Other Cells Negative (Negative); WBC 20-50 HPF (0-5)
== END 2023-12-24 12:04 | disposition home or self-care (01) ==
LOC: NCHCN 12:03
PROVIDERS: PCP Family Medicine; Visit Provider Family Medicine
DX: R82.998 Other abnormal findings in urine (principal); N32.89 Other specified disorders of bladder
CPT/HCPCS: 87077; 81003; 81015; 87086; 87186

== ENCOUNTER 2023-12-29 18:26 | Emergency (ER) | payer MEDICARE, SELFPAY ==
[2023-12-29 18:31] VITALS: BP 218/93; PULSE 80; RESP 18; O2SAT 98
--- NOTE | 2023-12-29 18:48 | W.ED.GENAD ---
Discharge Plan Disposition Patient Disposition: Home Condition: Stable Discharge Details Clinical Impression: Eloped from emergency department, Rivera catheter problem Primary Care Provider: Vanita Johnson V ED Provider: Elie Anaya Home Meds and New Rx's Prescriptions: No Action docusate sodium [Dulcolax Stool Softener (dss)] 100 mg capsule 100 mg PO BID finasteride 5 mg tablet 5 mg PO DAILY Qty: 90 4RF losartan 50 MG tablet 50 mg PO DAILY atorvastatin [Lipitor] 40 MG tablet 40 mg PO DAILY omeprazole 20 MG capsule,delayed release(DR/EC) 20 mg PO DAILY metformin 500 MG tablet 500 mg PO am and noon Qty: 60 0RF terazosin 10 mg capsule 10 mg PO QPM memantine 7 mg capsule,sprinkle,ER 24hr 7 mg PO DAILY Patient Comments: TAKE ONE CAPSULE BY MOUTH EVERY DAY (CAN BE AM. AND PM.) FOR 1-2 WEEKS THEN INCREASE TO TWO CAPSULES DAILY AT THE SAME TIME quetiapine 25 mg Tablet 25 mg PO BID Qty: 60 0RF trazodone 50 mg tablet 50 mg PO DAILY PRN HPI General Date/Time Provider Initiated Documentation: 12/29/23 18:38. HPI Narrative: 83 year-old male presents to ED today by POV/ambulating with his son with a chief complaint of ripped his rivera catheter out- has history of doing similar with onset about 30-60 minutes prior to arrival. Quality described as no pain, states he does not want a catheter tonight, will return tomorrow, no radiation to fever, tachycardia, flank pain, suprapubic pain. Severity is described as unable to quantify. Palliating factors include nothing specific attempted. Provoking factors include nothing specific. Events leading up to the incident/Associated Symptoms: Patient had rivera placed in ED on 12/19/23 after ripping out his suprapubic catheter that was placed 12/14/23- for the reason of chronically ripping out his rivera catheters. Patient not anticoagulated. Related Data Home Medications Medication Instructions Recorded Confirmed atorvastatin 40 mg tablet (Lipitor) 40 mg PO DAILY 07/14/16 12/29/23 losartan 50 mg tablet 50 mg PO DAILY 07/14/16 12/29/23 omeprazole 20 mg capsule,delayed 20 mg PO DAILY 07/14/16 12/29/23 release docusate sodium 100 mg capsule 100 mg PO BID 09/11/22 12/29/23 (Dulcolax Stool Softener (docusate)) finasteride 5 mg tablet 5 mg PO DAILY #90 tab-caps 09/11/22 12/29/23 metformin 500 mg tablet 500 mg PO am and noon #60 tabs 11/17/23 12/29/23 terazosin 10 mg capsule 10 mg PO QPM 12/04/23 12/29/23 memantine 7 mg capsule 7 mg PO DAILY 12/09/23 12/29/23 sprinkle,extended release 24hr quetiapine 25 mg tablet 25 mg PO BID #60 tabs 12/13/23 12/29/23 trazodone 50 mg tablet 50 mg PO DAILY PRN 12/29/23 12/29/23 Previous Rx's Medication Instructions Recorded finasteride 5 mg tablet 5 mg PO DAILY #90 tab-caps 09/11/22 metformin 500 mg tablet 500 mg PO am and noon #60 tabs 11/17/23 quetiapine 25 mg tablet 25 mg PO BID #60 tabs 12/13/23 Allergies Allergy/AdvReac Type Severity Reaction Status Date / Time No Known Allergies Allergy Verified 12/29/23 18:35 General Stated Complaint: Urinary TAVARES: 3 Review of Systems All systems reviewed & are unremarkable except as noted in HPI and below Exam Narrative Exam Narrative: GENERAL APPEARANCE: Well-nourished, non-toxic, awake and alert, atraumatic, no acute distress. SKIN: Warm, pink, dry, intact, without rashes/lesions/ulcerations. HEAD: Normocephalic, atraumatic, normal hair distribution for gender/age. EYES: Pupils PERRLA, EOMs intact without nystagmus, normal conjunctiva, no exudates on lids/lashes. ENT: Nares patent, no circumoral cyanosis, no facial swelling NECK: Supple, trachea midline, painless cervical ROM. LUNGS/CHEST: Non-labored respirations, normal A/P diameter, symmetrical expansion, no chest wall deformity HEART (CV/PV): No peripheral edema, no JVD. ABDOMEN: Soft, non-distended, no guarding. MSK: Normal ROM, no swelling/deformity to bilateral UEs or LEs, moving all extremities without weakness, no cyanosis, spine midline without tenderness, normal curvature. NEURO: Mental Status AAOx4 - alert to person, place, time, events No facial droop, no forehead involvement. Motor: No focal weakness - strength 5/5 in bilateral UEs and LEs, proximal and distal, symmetric. Sensory: sensation intact to light touch globally. Gait normal: patient ambulated without ataxia into ED room. PSYCH: dysthymic, uncooperative, unpleasant, appropriate speech Course Vital Signs Vital signs: Vital Signs Pulse 80 12/29/23 18:31 Respiratory Rate 18 12/29/23 18:31 Blood Pressure 218/93 H 12/29/23 18:31 Pulse Oximetry 98 12/29/23 18:31 Pulse 80 12/29/23 18:31 Respiratory Rate 18 12/29/23 18:31 Respiratory Effort Normal, Non-Labored 12/29/23 18:35 Blood Pressure 218/93 H 12/29/23 18:31 Blood Pressure Position Sitting 12/29/23 18:31 Pulse Oximetry 98 12/29/23 18:31 Oxygen Delivery Method Room Air 12/29/23 18:31 Oxygen Flow Rate 0 12/29/23 18:31 Pain Level 0 12/29/23 18:31 Medical Decision Making This dictation utilizes [id number] dictation software and may contain unedited grammatical errors. 83 y/o M presents to ED today with a chief complaint of ripped his rivera catheter out, was placed in ED on 12/19/23- after he ripped out his suprapubic catheter that was placed by Dr. Mendoza 12/14/23- for chronically ripping out his rivera catheters. Patient has dementia, but still has guardianship of himself- refused hospice care that was recommended by palliative care. Patient likely needs to have his guardianship taken away as he has trouble describing the pathology that required him to have catheters placed in the first place- but he does know his history in that he has a very large bladder- and other specifics of his care, and states he would speak to Dr. Mendoza. 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 Family and social history: lives at home with family, does not drive. Pertinent exam findings / vital signs include no flank pain, no tachycardia, afebrile- combative with son in room. Combative posturing towards staff submarine warfare officer, I had them leave the room and spoke to patient. Differential / pathologies of concern include UTI, Hydronephrosis, BPH w outflow obstruction, Urinary Retention. Diagnostic studies of: -none ordered, patient and son eloped as I was trying to stall the patient awaiting call-back from Dr. Mendoza. Interventions of: -spent about 30-45 minutes trying to convince the patient to have a rivera catheter placed. He was adamant that he wanted to spend the night without it, and would return in the morning for catheter insertion. Patient would not wait, and demanded his son take him home. I discussed that his son needs to sort out guardianship issues if he wishes to have his father sedated for catheterization- and that he would likely just continue to rip them out. -Spoke with Dr. Mendoza by phone, who is not available for ED consult as he is on vacation and [id number]. Discussed need for palliative care inclusion into this chronic issue, possible traci-psych. Dr. Mendoza does state he has a very large anatomical bladder and would likely take days to reach levels of hydronephrosis. -Patient and father eloped while I was on the phone with Dr. Mendoza. Findings not consistent with sepsis at this time, vitals stable- but definitive ruleouts could not be performed. Patient eloped without signing AMA paperwork. His son voluntarily drove him home. Disposition of Eloped from Emergency Department, Rivera Catheter Problem. Patient verbalized understanding of the plan and return to ED criteria and engaged in shared decision making. Medical Records Medical records reviewed: Yes I reviewed the patient's medical records. Quality:[facility] Health Related Social Needs: No Data to Display [facility] All Active Problems (Updated 12/29/23 @ 19:49 by RAVI Marshall) Rivera catheter problem (Acute) Eloped from emergency department (Acute) 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) DNR (do not resuscitate) (Acute) See COLST: DNR/DNI, + transfer and treat and IV and abx Chronic suprapubic catheter (Acute) Palliative care patient (Acute) Dementia with behavioral disturbance (Acute) Suprapubic catheter dysfunction (Acute) Dementia (Chronic) Hypertension (Chronic) Delirium (Acute) Acute confusion (Acute) Syncope and collapse (Acute) Rivera catheter problem (Acute) Displacement of Rivera catheter (Acute) Grief reaction (Chronic) Hydronephrosis (Acute) Urinary retention with incomplete bladder emptying (Acute) 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) Medical History Bilateral renal cysts Hypoalbuminemia Hypomagnesemia Medication management Memory changes Social History Smoking/Tobacco Use Status: Former Tobacco Use Quit Date: 10/11/60 Smoking risk assessment performed?: Yes Alcohol Intake: never Drug use: Never Substance use type: does not use Housing: house Do you feel safe at home: Yes Do you feel safe in your relationship?: Yes Additional Social history: Unable to assess privately
== END 2023-12-30 04:58 | disposition home or self-care (01) ==
PROVIDERS: Emergency Provider Physician Assistant; PCP Family Medicine
DX: F01.518 Vascular dementia, unspecified severity, with other behavioral disturbance; T83.9XXA Unspecified complication of genitourinary prosthetic device, implant and graft, initial encounter; G30.9 Alzheimer's disease, unspecified
CPT/HCPCS: 51702; 99283

== ENCOUNTER 2023-12-30 04:15 | Emergency (ER) | payer MEDICARE, SELFPAY ==
[2023-12-30 04:20] VITALS: BP 171/88; PULSE 91; RESP 18; TEMP 36.5; O2SAT 99
--- NOTE | 2023-12-30 04:24 | ED.GENADUL_ITS ---
Discharge Plan Disposition Patient Disposition: Home Condition: Good Discharge Details Chief Complaint: Male Reproductive Problem Clinical Impression: Complication of Horner catheter Primary Care Provider: Vanita Johnson V ED Provider: Elie Agarwal Home Meds and New Rx's Prescriptions: No Action docusate sodium [Dulcolax Stool Softener (dss)] 100 mg capsule 100 mg PO BID finasteride 5 mg tablet 5 mg PO DAILY Qty: 90 4RF losartan 50 MG tablet 50 mg PO DAILY atorvastatin [Lipitor] 40 MG tablet 40 mg PO DAILY omeprazole 20 MG capsule,delayed release(DR/EC) 20 mg PO DAILY metformin 500 MG tablet 500 mg PO am and noon Qty: 60 0RF terazosin 10 mg capsule 10 mg PO QPM memantine 7 mg capsule,sprinkle,ER 24hr 7 mg PO DAILY Patient Comments: TAKE ONE CAPSULE BY MOUTH EVERY DAY (CAN BE AM. AND PM.) FOR 1-2 WEEKS THEN INCREASE TO TWO CAPSULES DAILY AT THE SAME TIME quetiapine 25 mg Tablet 25 mg PO BID Qty: 60 0RF trazodone 50 mg tablet 50 mg PO DAILY PRN Discharge Instructions Additional Instructions: The Horner catheter has been replaced. Please follow-up with Dr. Mendoza. If you notice any worsening of your symptoms, or any new symptoms such as vomiting, diarrhea, fever, chills, shortness of breath, chest pain, numbness, weakness, or fainting , please return immediately to the emergency department for reevaluation. Please follow up with your primary care provider as soon as possible for reassessment and reevaluation. As always, it was a pleasure participating in your medical care today. Referrals: Vanita Johnson MD [Primary Care Provider] - [facility] General Date/Time Provider Initiated Documentation: 12/30/23 04:16 . [facility] Narrative: 83-year-old male who is a palliative care patient with a past medical history of incomplete bladder emptying, encephalopathy, cognitive impairment chronically, who would chronically rip out his Horner catheter and because of this got his suprapubic pain catheter , but he is now no longer using this and has been back to a Horner catheter for the past 2 weeks. Presents today for removal and need for reinsertion of his Horner catheter. Earlier tonight patient was here after he ripped out his Horner catheter, he became extremely confrontational, began yelling, and eventually eloped with his son while Elie Anaya was on the phone with Dr. Mendoza. Unfortunately Dr. Mendoza is currently out of state. Patient said at that time that he wanted to have it out for the evening, and he would come back in the morning. Currently it is 4:25 AM and he states that he is ready to have it put back in. He has no complaints otherwise. He does admit to seeing some blood at his urethral meatus, but no other complaints otherwise. Related Data Home Medications Medication Instructions Recorded Confirmed atorvastatin 40 mg tablet (Lipitor) 40 mg PO DAILY 07/14/16 12/29/23 losartan 50 mg tablet 50 mg PO DAILY 07/14/16 12/29/23 omeprazole 20 mg capsule,delayed 20 mg PO DAILY 07/14/16 12/29/23 release docusate sodium 100 mg capsule 100 mg PO BID 09/11/22 12/29/23 (Dulcolax Stool Softener (docusate)) finasteride 5 mg tablet 5 mg PO DAILY #90 tab-caps 09/11/22 12/29/23 metformin 500 mg tablet 500 mg PO am and noon #60 tabs 11/17/23 12/29/23 terazosin 10 mg capsule 10 mg PO QPM 12/04/23 12/29/23 memantine 7 mg capsule 7 mg PO DAILY 12/09/23 12/29/23 sprinkle,extended release 24hr quetiapine 25 mg tablet 25 mg PO BID #60 tabs 12/13/23 12/29/23 trazodone 50 mg tablet 50 mg PO DAILY PRN 12/29/23 12/29/23 Previous Rx's Medication Instructions Recorded finasteride 5 mg tablet 5 mg PO DAILY #90 tab-caps 09/11/22 metformin 500 mg tablet 500 mg PO am and noon #60 tabs 11/17/23 quetiapine 25 mg tablet 25 mg PO BID #60 tabs 12/13/23 Allergies Allergy/AdvReac Type Severity Reaction Status Date / Time No Known Allergies Allergy Verified 12/29/23 18:35 General TAVARES: 3 Review of Systems All systems reviewed & are unremarkable except as noted in HPI and below Exam Narrative Exam Narrative: 1.Const: Well-nourished, Well-developed, appearing stated age 2.Eyes: PERRL, no conjunctival injection, and symmetrical lids. 3.ENT: Atraumatic external nose and ears. Moist MM. Neck: Symmetric, trachea midline, No thyromegaly. 4.CVS: +S1/S2, No murmurs or gallops. Peripheral pulses 2+ and equal in all extremities. Brisk capillary refill in all extremities. 5.RESP: Unlabored respiratory effort. Clear to auscultation bilaterally. No wheezes rales or rhonchi 6.GI: Soft, Nontender/Nondistended, No hepatosplenomegaly. No guarding or rebound. Well-healing suprapubic catheter site Genital exam demonstrates a small amount of blood at the urethral meatus. Uncircumcised male. No active bleeding. 7.MSK: Normocephalic/Atraumatic, Extremities w/o deformity or ttp No cyanosis or clubbing, Normal movement of all extremities 8.Skin: Warm, Dry. No rashes or lesions. 9.Neuro: primary clinician II-XII grossly intact. Sensation grossly intact, no focal neurologic deficits. 10.Psych: (AAO) x3. Appropriate mood and affect Procedures Catheter Insertion (Urinary) Prophylactic Antibiotics Given: No Bladder Scan/US before Catheterization: No Preparation: Providone-Iodine Type of Catheter Inserted: Horner Catheter Balloon Size (mls): 10 Topical Anesthesia Used: No Results: successfully catherized-immediate flow Patient Tolerated Procedure: well and no complications Complications: none Medical Decision Making 83-year-old male who is a palliative care patient with a past medical history of incomplete bladder emptying, encephalopathy, cognitive impairment chronically, who would chronically rip out his Horner catheter and because of this got his suprapubic pain catheter on 12/14/2023, presents today for removal and need for reinsertion of his suprapubic catheter. Earlier tonight patient was here after he ripped out his suprapubic catheter, he became extremely confrontational, began yelling, and eventually eloped with his son while Elie Anaya was on the phone with Dr. Mendoza. Unfortunately Dr. Mendoza is currently out of state. Patient said at that time that he wanted to have it out for the evening, and he would come back in the morning. Currently it is 4:25 AM and he states that he is ready to have it put back in. He has no complaints otherwise. He does admit to seeing some blood at his urethral meatus, but no other complaints otherwise. Exam demonstrates well-appearing male who is compliant at this time. Suprapubic site is well-healing. Urethral meatus demonstrates a small amount of blood. Horner catheter was placed by myself in sterile fashion. Patient tolerated pr ocedure well. Urine came out. No complications. Discussed case with the patient's son. He feels comfortable going home. I have extensively reviewed the treatment plan and discharge instructions with the patient and their family. I have addressed all patient concerns at this time. The patient and family was made aware of what symptoms to monitor for that would warrant a return to the emergency department. Discussed the plan with the patient and family, they demonstrate verbal understanding and agreement with our assessment and plan at this time. The documentation in this chart was dictated using Lol[employer] dictation software. Please excuse any dictation errors. Quality:SDOH Health Related Social Needs: No Data to Display PFSH All Active Problems (Updated 12/30/23 @ 04:41 by Elie Agarwal DO) Complication of Horner catheter (Acute) Horner catheter problem (Acute) Eloped from emergency department (Acute) 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) DNR (do not resuscitate) (Acute) See COLST: DNR/DNI, + transfer and treat and IV and abx Chronic suprapubic catheter (Acute) Palliative care patient (Acute) Dementia with behavioral disturbance (Acute) Suprapubic catheter dysfunction (Acute) Dementia (Chronic) Hypertension (Chronic) Delirium (Acute) Acute confusion (Acute) Syncope and collapse (Acute) Horner catheter problem (Acute) Displacement of Horner catheter (Acute) Grief reaction (Chronic) Hydronephrosis (Acute) Urinary retention with incomplete bladder emptying (Acute) 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) Medical History Hypomagnesemia Hypoalbuminemia Medication management Memory changes Bilateral renal cysts Social History Smoking/Tobacco Use Status: Former Tobacco Use Quit Date: 10/11/60 Smoking risk assessment performed?: Yes Alcohol Intake: never Drug use: Never Substance use type: does not use Housing: house Do you feel safe at home: Yes Do you feel safe in your relationship?: Yes Additional Social history: Unable to assess privately
--- NOTE | 2023-12-30 04:33 | NUR.NOTE ---
Nursing Note: pt was seen in the ED and refused to cooperate with staff for rivera replacement, the pt had pulled out his suprapubic cath several weeks ago and today refused to allow staff to place a cath into his penis, the pts son with him due to the pts declining mental status. suprapubic site healed and unable to use for insertions, the son spoke to the MD stating that he needs a cath placed into his penis and that the pt has history of removing them on his own. MD at bedside placing rivera.The pts son returned to the waiting room. rivera placed 16fr
== END 2023-12-30 04:52 | disposition home or self-care (01) ==
LOC: ER 04:54
PROVIDERS: Emergency Provider Student in an Organized Health Care Education/Training Program; PCP Family Medicine
DX: R33.9 Retention of urine, unspecified (principal); G31.84 Mild cognitive impairment of uncertain or unknown etiology; G30.9 Alzheimer's disease, unspecified; F02.80 Dementia in other diseases classified elsewhere, unspecified severity, without behavioral disturbance, psychotic disturbance, mood disturbance, and anxiety; F01.50 Vascular dementia, unspecified severity, without behavioral disturbance, psychotic disturbance, mood disturbance, and anxiety; Z87.891 Personal history of nicotine dependence; Z79.899 Other long term (current) drug therapy
CPT/HCPCS: 51702; 99283

== ENCOUNTER 2024-01-01 04:43 | Emergency (ER) | payer MEDICARE, SELFPAY ==
[2024-01-01 04:50] VITALS: BP 175/68; RESP 18; O2SAT 98
--- NOTE | 2024-01-01 04:56 | W.ED.GENAD ---
Discharge Plan Discharge Details Chief Complaint: Urinary Primary Care Provider: Vanita Johnson V ED Provider: Elie Agarwal Home Meds and New Rx's Prescriptions: No Action docusate sodium [Dulcolax Stool Softener (dss)] 100 mg capsule 100 mg PO BID finasteride 5 mg tablet 5 mg PO DAILY Qty: 90 4RF losartan 50 MG tablet 50 mg PO DAILY atorvastatin [Lipitor] 40 MG tablet 40 mg PO DAILY omeprazole 20 MG capsule,delayed release(DR/EC) 20 mg PO DAILY metformin 500 MG tablet 500 mg PO am and noon Qty: 60 0RF terazosin 10 mg capsule 10 mg PO QPM memantine 7 mg capsule,sprinkle,ER 24hr 7 mg PO DAILY Patient Comments: TAKE ONE CAPSULE BY MOUTH EVERY DAY (CAN BE AM. AND PM.) FOR 1-2 WEEKS THEN INCREASE TO TWO CAPSULES DAILY AT THE SAME TIME quetiapine 25 mg Tablet 25 mg PO BID Qty: 60 0RF trazodone 50 mg tablet 50 mg PO DAILY PRN HPI General Date/Time Provider Initiated Documentation: 01/01/24 04:46. HPI Narrative: 83-year-old male who is a palliative care patient with a past medical history of incomplete bladder emptying, encephalopathy, cognitive impairment chronically, who would chronically rip out his Horner catheter and because of this got his suprapubic pain catheter , but he is now no longer using this and has been back to a Horner catheter for the past 2 weeks. He presents today after ripping out his Horner catheter at 3:30 AM. This is a frequent occurrence. He presents with his son. Patient immediately makes it very clear that he does not want to be here and he will not be receiving his Horner catheter. Son expected this, but felt it was reasonable to give it a try in an effort to have him put his Horner catheter back in. No other complaints. Of historical note, this also occurred yesterday at which point I personally replaced the Horner without complication. Patient was very willing to at that time. Unfortunately in the past he is been very unwilling, and in those scenarios he becomes violent and often kicks staff. Related Data Home Medications Medication Instructions Recorded Confirmed atorvastatin 40 mg tablet (Lipitor) 40 mg PO DAILY 07/14/16 12/29/23 losartan 50 mg tablet 50 mg PO DAILY 07/14/16 12/29/23 omeprazole 20 mg capsule,delayed 20 mg PO DAILY 07/14/16 12/29/23 release docusate sodium 100 mg capsule 100 mg PO BID 09/11/22 12/29/23 (Dulcolax Stool Softener (docusate)) finasteride 5 mg tablet 5 mg PO DAILY #90 tab-caps 09/11/22 12/29/23 metformin 500 mg tablet 500 mg PO am and noon #60 tabs 11/17/23 12/29/23 terazosin 10 mg capsule 10 mg PO QPM 12/04/23 12/29/23 memantine 7 mg capsule 7 mg PO DAILY 12/09/23 12/29/23 sprinkle,extended release 24hr quetiapine 25 mg tablet 25 mg PO BID #60 tabs 12/13/23 12/29/23 trazodone 50 mg tablet 50 mg PO DAILY PRN 12/29/23 12/29/23 Previous Rx's Medication Instructions Recorded finasteride 5 mg tablet 5 mg PO DAILY #90 tab-caps 09/11/22 metformin 500 mg tablet 500 mg PO am and noon #60 tabs 11/17/23 quetiapine 25 mg tablet 25 mg PO BID #60 tabs 12/13/23 Allergies Allergy/AdvReac Type Severity Reaction Status Date / Time No Known Allergies Allergy Verified 12/29/23 18:35 General Stated Complaint: Urinary TAVARES: 3 Review of Systems All systems reviewed & are unremarkable except as noted in HPI and below Exam Narrative Exam Narrative: 1.Const: Well-nourished, Well-developed, appearing stated age 2.Eyes: PERRL, no conjunctival injection, and symmetrical lids. 3.ENT: Atraumatic external nose and ears. Moist MM. Neck: Symmetric, trachea midline, No thyromegaly. 4.CVS: +S1/S2, No murmurs or gallops. Peripheral pulses 2+ and equal in all extremities. Brisk capillary refill in all extremities. 5.RESP: Unlabored respiratory effort. Clear to auscultation bilaterally. No wheezes rales or rhonchi 6.GI: Soft, Nontender/Nondistended, No hepatosplenomegaly. No guarding or rebound. Genital exam was performed with son and nurse at bedside. Patient demonstrates an uncircumcised penis, no bleeding. No tenderness. 7.MSK: Normocephalic/Atraumatic, Extremities w/o deformity or ttp No cyanosis or clubbing, Normal movement of all extremities 8.Skin: Warm, Dry. No rashes or lesions. 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 Sensation grossly intact, no focal neurologic deficits. 10.Psych: (AAO) x1. Appropriate mood and affect Course Vital Signs Vital signs: Vital Signs Respiratory Rate 18 01/01/24 04:50 Blood Pressure 175/68 H 01/01/24 04:50 Pulse Oximetry 98 01/01/24 04:50 Respiratory Rate 18 01/01/24 04:50 Respiratory Effort Normal 01/01/24 04:53 Blood Pressure 175/68 H 01/01/24 04:50 Pulse Oximetry 98 01/01/24 04:50 Oxygen Delivery Method Room Air 01/01/24 04:50 Oxygen Flow Rate 0 01/01/24 04:50 Medical Decision Making 83-year-old male who is a palliative care patient with a past medical history of incomplete bladder emptying, encephalopathy, cognitive impairment chronically, who would chronically rip out his Horner catheter and because of this got his suprapubic pain catheter , but he is now no longer using this and has been back to a Horner catheter for the past 2 weeks. He presents today after ripping out his Horner catheter at 3:30 AM. This is a frequent occurrence. He presents with his son. Patient immediately makes it very clear that he does not want to be here and he will not be receiving his Horner catheter. Son expected this, but felt it was reasonable to give it a try in an effort to have him put his Horner catheter back in. No other complaints. Of historical note, this also occurred yesterday at which point I personally replaced the Horner without complication. Patient was very willing to at that time. Unfortunately in the past he is been very unwilling, and in those scenarios he becomes violent and often kicks staff. Exam demonstrates well-appearing but quite ornery male, who is absolutely and unequivocally refusing to allow Horner catheter to be placed. He states he does not want it, and may come back later to get it. We spent about 15 minutes both the patient's son and myself trying to convince him to get the catheter, at which point he became very aggravated. Patient on exam demonstrates no palpable bladder. Horner catheter only came out about an hour ago. Review of history reveals that the patient has had very large distended bladder, can likely go for quite some time. Plan was made with the patient's son that the patient can return at any time to have the Horner catheter placed back and would be happy to reinsert it. Discussed red flags for which to return. Discussed problems and complications that can occur from not having the Horner catheter in. I have extensively reviewed the treatment plan and discharge instructions with the patient and their family. I have addressed all patient concerns at this time. The patient and family was made aware of what symptoms to monitor for that would warrant a return to the emergency department. Discussed the plan with the patient and family, they demonstrate verbal understanding and agreement with our assessment and plan at this time. The documentation in this chart was dictated using [employer] dictation software. Please excuse any dictation errors. Quality:SDOH Health Related Social Needs: No Data to Display PFSH All Active Problems (Updated 12/30/23 @ 04:41 by Elie Agarwal DO) Complication of Horner catheter (Acute) Horner catheter problem (Acute) Eloped from emergency department (Acute) 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) DNR (do not resuscitate) (Acute) See COLST: DNR/DNI, + transfer and treat and IV and abx Chronic suprapubic catheter (Acute) Palliative care patient (Acute) Dementia with behavioral disturbance (Acute) Suprapubic catheter dysfunction (Acute) Dementia (Chronic) Hypertension (Chronic) Delirium (Acute) Acute confusion (Acute) Syncope and collapse (Acute) Horner catheter problem (Acute) Displacement of Horner catheter (Acute) Grief reaction (Chronic) Hydronephrosis (Acute) Urinary retention with incomplete bladder emptying (Acute) 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) Medical History Hypomagnesemia Hypoalbuminemia Medication management Memory changes Bilateral renal cysts Social History Smoking/Tobacco Use Status: Former Tobacco Use Quit Date: 10/11/60 Smoking risk assessment performed?: Yes Alcohol Intake: never Drug use: Never Substance use type: does not use Housing: house Do you feel safe at home: Yes Do you feel safe in your relationship?: Yes Additional Social history: Unable to assess privately
== END 2024-01-01 05:07 ==
LOC: ER 05:00
PROVIDERS: Emergency Provider Student in an Organized Health Care Education/Training Program; PCP Family Medicine
DX: T83.021A Displacement of indwelling urethral catheter, initial encounter (principal); R33.9 Retention of urine, unspecified; G30.9 Alzheimer's disease, unspecified; G31.84 Mild cognitive impairment of uncertain or unknown etiology; Z53.29 Procedure and treatment not carried out because of patient's decision for other reasons
CPT/HCPCS: 99281; 99283

== ENCOUNTER 2024-01-03 09:21 | Emergency (ER) | payer MEDICARE, SELFPAY ==
[2024-01-03 09:43] VITALS: BP 120/54; PULSE 83; RESP 14; TEMP 36.8; O2SAT 98
--- NOTE | 2024-01-03 09:51 | W.ED.GENAD ---
Discharge Plan Disposition Patient Disposition: Home Condition: Stable Discharge Details Clinical Impression: Rivera catheter problem, Urinary tract infection Primary Care Provider: Vanita Johnson V ED Provider: Elie Anaya Home Meds and New Rx's Prescriptions: New cefpodoxime 200 mg tablet 200 mg PO BID 10 Days Qty: 20 0RF Rx Instructions: must administer with a meal/food Continued docusate sodium [Dulcolax Stool Softener (dss)] 100 mg capsule 100 mg PO BID finasteride 5 mg tablet 5 mg PO DAILY Qty: 90 4RF losartan 50 MG tablet 50 mg PO DAILY atorvastatin [Lipitor] 40 MG tablet 40 mg PO DAILY omeprazole 20 MG capsule,delayed release(DR/EC) 20 mg PO DAILY metformin 500 MG tablet 500 mg PO am and noon Qty: 60 0RF terazosin 10 mg capsule 10 mg PO QPM memantine 7 mg capsule,sprinkle,ER 24hr 7 mg PO DAILY Patient Comments: TAKE ONE CAPSULE BY MOUTH EVERY DAY (CAN BE AM. AND PM.) FOR 1-2 WEEKS THEN INCREASE TO TWO CAPSULES DAILY AT THE SAME TIME quetiapine 25 mg Tablet 25 mg PO BID Qty: 60 0RF trazodone 50 mg tablet 50 mg PO DAILY PRN Discharge Instructions Instructions: Cefpodoxime Proxetil (By mouth), Rivera Catheter Placement and Care (ED), Urinary Tract Infection in Older Adults (ED) Additional Instructions: You were seen in the emergency department for your urinary obstruction chronically, you are frequently seen for removing your own Rivera catheters. We replaced your catheter and drained 1600 mL of urine from your bladder, was malodorous and believe you have a urinary tract infection and there is greater than 50 white blood cells which is highly indicative of urinary tract infection. There is a urine culture pending but I have sent an antibiotic called cefpodoxime to your pharmacy. Please follow-up with Dr. Mendoza for complex urology care. Please return to the ED for any further complications or worsening fever/abdominal pain despite treatment Referrals: [facility] [Provider Group] Vanita Johnson MD [Primary Care Provider] - HPI General Date/Time Provider Initiated Documentation: 01/03/24 09:50. HPI Narrative: 83 year-old male presents to ED today by POV/ambulating with his son with a chief complaint of urinary retention- patient is frequently seen for taking out his catheters, he has advanced dementia and highly labile relationship with self over his need for catheters, followed with Dr. Mendoza with onset last seen Wednesday, with one refusal to be re-catheterized, and later that night one was placed by Dr. Agarwal. Quality described as urinary retention, suprapubic discomfort, no radiation to fever, shortness of breath, chest pain, nausea/vomiting. Severity is described as unable to quantify. Palliating factors include nothing specific. Provoking factors include nothing specific. Patient not anticoagulated. Related Data Home Medications Medication Instructions Recorded Confirmed atorvastatin 40 mg tablet (Lipitor) 40 mg PO DAILY 07/14/16 01/03/24 losartan 50 mg tablet 50 mg PO DAILY 07/14/16 01/03/24 omeprazole 20 mg capsule,delayed 20 mg PO DAILY 07/14/16 01/03/24 release docusate sodium 100 mg capsule 100 mg PO BID 09/11/22 01/03/24 (Dulcolax Stool Softener (docusate)) finasteride 5 mg tablet 5 mg PO DAILY #90 tab-caps 09/11/22 01/03/24 metformin 500 mg tablet 500 mg PO am and noon #60 tabs 11/17/23 01/03/24 terazosin 10 mg capsule 10 mg PO QPM 12/04/23 01/03/24 memantine 7 mg capsule 7 mg PO DAILY 12/09/23 01/03/24 sprinkle,extended release 24hr quetiapine 25 mg tablet 25 mg PO BID #60 tabs 12/13/23 01/03/24 trazodone 50 mg tablet 50 mg PO DAILY PRN 12/29/23 01/03/24 cefpodoxime 200 mg tablet 200 mg PO BID UTI 10 days #20 tabs 01/03/24 Previous Rx's Medication Instructions Recorded finasteride 5 mg tablet 5 mg PO DAILY #90 tab-caps 09/11/22 metformin 500 mg tablet 500 mg PO am and noon #60 tabs 11/17/23 quetiapine 25 mg tablet 25 mg PO BID #60 tabs 12/13/23 cefpodoxime 200 mg tablet 200 mg PO BID UTI 10 days #20 tabs 01/03/24 Allergies Allergy/AdvReac Type Severity Reaction Status Date / Time No Known Allergies Allergy Verified 01/03/24 09:54 General Stated Complaint: Urinary TAVARES: 3 Review of Systems All systems reviewed & are unremarkable except as noted in HPI and below Exam Narrative Exam Narrative: GENERAL APPEARANCE: Well-nourished, non-toxic, awake and alert, atraumatic, no acute distress. SKIN: Warm, pink, dry, intact, without rashes/lesions/ulcerations. HEAD: Normocephalic, atraumatic, normal hair distribution for gender/age. EYES: Pupils PERRLA, EOMs intact without nystagmus, normal conjunctiva, no exudates on lids/lashes. ENT: Nares patent, no circumoral cyanosis, no facial swelling NECK: Supple, trachea midline, painless cervical ROM. LUNGS/CHEST: Lungs CTA bilaterally, non-labored respirations, normal A/P diameter, symmetrical expansion, no chest wall deformity HEART (CV/PV): Regular rate and rhythm without murmur, no peripheral edema, no JVD. ABDOMEN: Soft, non-distended, no guarding. MSK: Normal ROM, no swelling/deformity to bilateral UEs or LEs, moving all extremities without weakness, no cyanosis, spine midline without tenderness, normal curvature. NEURO: Mental Status AAOx4 - alert to person, place, time, events No facial droop, no forehead involvement. Motor: No focal weakness - strength 5/5 in bilateral UEs and LEs, proximal and distal, symmetric. Sensory: sensation intact to light touch globally. Gait normal: patient ambulated without ataxia into ED room. PSYCH: euthymic, cooperative, pleasant, appropriate speech Course Vital Signs Vital signs: Vital Signs Temperature 36.8 C 01/03/24 09:43 Pulse 83 01/03/24 09:43 Respiratory Rate 14 01/03/24 09:43 Blood Pressure 120/54 L 01/03/24 09:43 Pulse Oximetry 98 01/03/24 09:43 Temperature 36.8 C 01/03/24 09:43 Temperature Source Oral 01/03/24 09:43 Pulse 83 01/03/24 09:43 Respiratory Rate 14 01/03/24 09:43 Blood Pressure 120/54 L 01/03/24 09:43 Blood Pressure Position Sitting 01/03/24 09:43 Pulse Oximetry 98 01/03/24 09:43 Oxygen Delivery Method Room Air 01/03/24 09:43 Oxygen Flow Rate 0 03/25/24 09:43 Medical Decision Making This dictation utilizes [id number] dictation software and may contain unedited grammatical errors. 83 y/o M presents to ED today with a chief complaint of need for rivera cath, patient has advanced dementia and frequently removes his catheters- has removed innumerous foleys, had a suprapubic catheter weeks ago, but ripped that out too- that has now closed up. Patient is sometimes combative over rivera catheter placement due to his dementia. Patients' medical history: has a very large bladder, palliative care patient, dementia, hypertension, history of urinary retention with incomplete emptying due to BPH. Family and social history: lives with son's family. Pertinent exam findings / vital signs include no CVA tenderness, suprapubic distention, nontoxic vitals. Differential / pathologies of concern include BPH w outflow obstruction, urinary retention, UTI. Diagnostic studies of: -UA. Interventions of: -Replace rivera catheter. ED Course/Assessment/Plan: 83-year-old male presents with urinary retention, frequently seen for ripping out his own Rivera catheters and prior suprapubic catheter, he has been likely retaining from ripping out his catheter, he had a new Rivera placed, 1600 mL output, he has a very large bladder historically holding up to as much is 4000 mL, his urine is malodorous and is positive for greater than 50 whites on micro exam and culture is pending but I am sending him empiric antibiotics and recommend he follow-up with urology, strict return criteria for signs of fever or systemic infection. Patient's son verbalized understanding the plan and return to ED criteria. Findings not consistent with sepsis, pyelonephritis-no fever, acute surgical abdomen. Disposition of Rivera Catheter Problem, Urinary Tract Infection. Patient verbalized understanding of the plan and return to ED criteria and engaged in shared decision making. Medical Records Medical records reviewed: Yes I reviewed the patient's medical records. Lab Data Lab results reviewed: Yes I reviewed the patient's lab results. Labs: 01/03/24 10:24 Urine - Reflex from Ua Urine Culture - Pending Laboratory Tests Range/Units 01/03/24 10:24 Urine Color (Yellow) Yellow Urine Clarity (Clear) Cloudy Urine pH (5-8) 6.0 Ur Specific [place] (1.005-1.025) 1.015 Urine Protein (Neg-Trace) mg/dL 30 H Urine Ketones (Negative) mg/dL Negative Urine Blood (Negative) Moderate H Urine Nitrite (Negative) Negative Urine Bilirubin (Negative) Negative Urine Urobilinogen (Up to 0.2) mg/dL 0.2 Ur Leukocyte Esterase (Negative) Large H Urine RBC Not Applicable Urine WBC (0-5) HPF >50 H Ur Epithelial Cells Not Applicable Urine Crystals Not Applicable Urine Bacteria Not Applicable Urine Mucus Not Applicable Ur Culture Indicated? Yes Urine Glucose (Negative) mg/dL Negative Quality:SDOH Health Related Social Needs: No Data to Display PFSH All Active Problems (Updated 01/03/24 @ 11:10 by RAVI Marshall) Urinary tract infection (Acute) Complication of Rivera catheter (Acute) Rivera catheter problem (Acute) Eloped from emergency department (Acute) 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) DNR (do not resuscitate) (Acute) See COLST: DNR/DNI, + transfer and treat and IV and abx Chronic suprapubic catheter (Acute) Palliative care patient (Acute) Dementia with behavioral disturbance (Acute) Suprapubic catheter dysfunction (Acute) Dementia (Chronic) Hypertension (Chronic) Delirium (Acute) Acute confusion (Acute) Rivera catheter problem (Acute) Displacement of Rivera catheter (Acute) Grief reaction (Chronic) Hydronephrosis (Acute) Urinary retention with incomplete bladder emptying (Acute) 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) Medical History Hypomagnesemia Hypoalbuminemia Medication management Memory changes Bilateral renal cysts Social History Smoking/Tobacco Use Status: Former Tobacco Use Quit Date: 10/11/60 Smoking risk assessment performed?: Yes Alcohol Intake: never Drug use: Never Substance use type: does not use Housing: house Do you feel safe at home: Yes Do you feel safe in your relationship?: Yes Additional Social history: Unable to assess privately
[2024-01-03 10:43] LABS: Bilirubin Negative (Negative); Blood Moderate (Negative); Clarity Cloudy (Clear); Glucose Negative (Negative); Ketones Negative (Negative); Leukocyte Esterase Large (Negative); Nitrite Negative (Negative); Specific Gravity 1.015 (1.005-1.025); Urobilinogen 0.2 mg/dL (Up to 0.2)
[2024-01-03 10:48] LABS: WBC >50 HPF (0-5)
[2024-01-03 10:49] LABS: C & S Indicated? Yes
[2024-01-03] MEDS: Lidocaine 2% Jelly 6 ML SYR TP (10:57)
== END 2024-01-03 11:21 | disposition home or self-care (01) ==
PROVIDERS: Emergency Provider Physician Assistant; PCP Family Medicine
DX: N39.0 Urinary tract infection, site not specified (principal); T83.9XXA Unspecified complication of genitourinary prosthetic device, implant and graft, initial encounter; R33.9 Retention of urine, unspecified; G30.9 Alzheimer's disease, unspecified; F01.518 Vascular dementia, unspecified severity, with other behavioral disturbance
CPT/HCPCS: 51702; 87077; 99283; 81003; 81015; 87086; 87186

== ENCOUNTER → 2024-01-07 12:26 | Outpatient (BNVA) | payer MEDICARE, SELFPAY | PROVIDERS: PCP Family Medicine; Referring Provider Family Medicine; Visit Provider Urology | DX: R33.8 Other retention of urine (principal); N13.30 Unspecified hydronephrosis | CPT/HCPCS: 51702; 76857; 99214 ==

== ENCOUNTER 2024-01-09 12:58 | Emergency (ER) | payer MEDICARE, SELFPAY ==
[2024-01-09 13:03] VITALS: BP 158/76; PULSE 85; RESP 18; TEMP 37.3; O2SAT 99
[2024-01-09 13:08] VITALS: BP 158/76; PULSE 85; RESP 18; TEMP 37.3; O2SAT 99
--- NOTE | 2024-01-09 13:43 | ED.GENADUL_ITS ---
Discharge Plan Disposition Patient Disposition: Home Condition: Stable Discharge Details Clinical Impression: Dislodged Horner catheter Primary Care Provider: Vanita Johnson V ED Provider: Armida Lazcano Home Meds and New Rx's Prescriptions: Continued docusate sodium [Dulcolax Stool Softener (dss)] 100 mg capsule 100 mg PO BID finasteride 5 mg tablet 5 mg PO DAILY Qty: 90 4RF losartan 50 MG tablet 50 mg PO DAILY atorvastatin [Lipitor] 40 MG tablet 40 mg PO DAILY omeprazole 20 MG capsule,delayed release(DR/EC) 20 mg PO DAILY metformin 500 MG tablet 500 mg PO am and noon Qty: 60 0RF terazosin 10 mg capsule 10 mg PO QPM cefpodoxime 200 mg tablet 200 mg PO BID 10 Days Qty: 20 0RF Rx Instructions: must administer with a meal/food quetiapine 25 mg Tablet 25 mg PO BID Qty: 60 0RF memantine 7 mg capsule,sprinkle,ER 24hr 14 mg PO DAILY Patient Comments: TAKE ONE CAPSULE BY MOUTH EVERY DAY (CAN BE AM. AND PM.) FOR 1-2 WEEKS THEN INCREASE TO TWO CAPSULES DAILY AT THE SAME TIME trazodone 50 mg tablet 50 mg PO DAILY PRN Discharge Instructions Additional Instructions: You may have some wheezing from the Horner catheter being pulled from your urethra, this can cause some trauma, please refrain from ambulating with the bed bag in place, only use your ambulatory smaller bag If the bleeding worsens or is uncontrolled after light pressure to the area, you should return for reassessment Please return earlier should you have new or worsening complaints Referrals: Vanita Johnson MD [Primary Care Provider] - Discharge Data Discharge Date/Time-TO BE ENTERED AT DEPARTURE: 01/09/24 13:57 HPI General Date/Time Provider Initiated Documentation: 01/09/24 13:15 . HPI Narrative: This 83-year-old male presents with report of Horner catheter being dislodged this morning. States this was replaced on Wednesday. Denies any additional complaints at this time or confusion. Related Data Home Medications Medication Instructions Recorded Confirmed atorvastatin 40 mg tablet (Lipitor) 40 mg PO DAILY 07/14/16 01/10/24 losartan 50 mg tablet 50 mg PO DAILY 07/14/16 01/10/24 omeprazole 20 mg capsule,delayed 20 mg PO DAILY 07/14/16 01/10/24 release docusate sodium 100 mg capsule 100 mg PO BID 09/11/22 01/10/24 (Dulcolax Stool Softener (docusate)) finasteride 5 mg tablet 5 mg PO DAILY #90 tab-caps 09/11/22 01/10/24 metformin 500 mg tablet 500 mg PO am and noon #60 tabs 11/17/23 01/10/24 terazosin 10 mg capsule 10 mg PO QPM 12/04/23 01/10/24 quetiapine 25 mg tablet 25 mg PO BID #60 tabs 12/13/23 01/10/24 trazodone 50 mg tablet 50 mg PO DAILY PRN 12/29/23 01/10/24 cefpodoxime 200 mg tablet 200 mg PO BID UTI 10 days #20 tabs 01/03/24 01/10/24 memantine 7 mg capsule 14 mg PO DAILY 01/03/24 01/10/24 sprinkle,extended release 24hr Previous Rx's Medication Instructions Recorded finasteride 5 mg tablet 5 mg PO DAILY #90 tab-caps 09/11/22 metformin 500 mg tablet 500 mg PO am and noon #60 tabs 11/17/23 quetiapine 25 mg tablet 25 mg PO BID #60 tabs 12/13/23 cefpodoxime 200 mg tablet 200 mg PO BID UTI 10 days #20 tabs 01/03/24 Allergies Allergy/AdvReac Type Severity Reaction Status Date / Time No Known Allergies Allergy Verified 01/10/24 03:32 General Stated Complaint: Urinary TAVARES: 4 Course Vital Signs Vital signs: Vital Signs Temperature 37.3 C 01/09/24 13:03 Pulse 85 01/09/24 13:03 Respiratory Rate 18 01/09/24 13:03 Blood Pressure 158/76 H 01/09/24 13:03 Pulse Oximetry 99 01/09/24 13:03 Temperature 37.3 C 01/09/24 13:08 Temperature Source Temporal Artery Scan 01/09/24 13:08 Pulse 85 01/09/24 13:08 Respiratory Rate 18 01/09/24 13:08 Respiratory Effort Normal, Non-Labored 01/09/24 13:07 Blood Pressure 158/76 H 01/09/24 13:08 Blood Pressure Position Sitting 01/09/24 13:08 Pulse Oximetry 99 01/09/24 13:08 Oxygen Delivery Method Room Air 01/09/24 13:08 Oxygen Flow Rate 0 01/09/24 13:08 Medical Decision Making This 83-year-old male presents with report of Horner being dislodged just prior to arrival Horner was successfully replaced by nursing staff, there is some residual bleeding consistent with the balloon being inflated at time of dislodgment, however coagulation has been achieved, there is no evidence of external trauma Patient is afebrile and nontoxic, alert and at his cognitive baseline per son he is in the room, scant blood noted around Horner catheter in urethra, no significant active bleeding, no visible evidence of external trauma, no abdominal tenderness, alert and oriented x 2 Encouraged to follow-up with urology and return earlier with new or worsening complaints Quality:SDOH Health Related Social Needs: No Data to Display PFSH All Active Problems (Updated 01/10/24 @ 03:47 by Joaquina Grace MD) Dislodged Horner catheter (Acute) Urinary tract infection (Acute) Complication of Horner catheter (Acute) Horner catheter problem (Acute) Eloped from emergency department (Acute) 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) DNR (do not resuscitate) (Acute) See COLST: DNR/DNI, + transfer and treat and IV and abx Palliative care patient (Acute) Dementia with behavioral disturbance (Acute) Dementia (Chronic) Hypertension (Chronic) Delirium (Acute) Acute confusion (Acute) Horner catheter problem (Acute) Grief reaction (Chronic) Hydronephrosis (Acute) Urinary retention with incomplete bladder emptying (Acute) 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) Medical History Displacement of Horner catheter Suprapubic catheter dysfunction Hypomagnesemia Hypoalbuminemia Medication management Memory changes Bilateral renal cysts Social History Smoking/Tobacco Use Status: Former Tobacco Use Quit Date: 10/11/60 Smoking risk assessment performed?: Yes Alcohol Intake: never Drug use: Never Substance use type: does not use Housing: house Do you feel safe at home: Yes Do you feel safe in your relationship?: Yes Additional Social history: Unable to assess privately
== END 2024-01-09 13:57 | disposition home or self-care (01) ==
PROVIDERS: Emergency Provider Physician Assistant; PCP Family Medicine
DX: T83.028A Displacement of other urinary catheter, initial encounter (principal); R33.9 Retention of urine, unspecified; G30.9 Alzheimer's disease, unspecified; F02.80 Dementia in other diseases classified elsewhere, unspecified severity, without behavioral disturbance, psychotic disturbance, mood disturbance, and anxiety; F01.50 Vascular dementia, unspecified severity, without behavioral disturbance, psychotic disturbance, mood disturbance, and anxiety; I10 Essential (primary) hypertension; Z87.891 Personal history of nicotine dependence
CPT/HCPCS: 51702; 99283

== ENCOUNTER 2024-01-10 03:22 | Emergency (ER) | payer MEDICARE, SELFPAY ==
[2024-01-10 03:28] VITALS: BP 181/90; PULSE 80; RESP 16; TEMP 36.6; O2SAT 98
[2024-01-10 03:42] VITALS: BP 181/90; PULSE 80; RESP 16; TEMP 36.6; O2SAT 98
--- NOTE | 2024-01-10 03:44 | ED.GENADUL_ITS ---
Discharge Plan Disposition Patient Disposition: Home Condition: Stable Discharge Details Clinical Impression: Urinary retention with incomplete bladder emptying, Dislodged Horner catheter Primary Care Provider: Vanita Johnson V ED Provider: Joaquina Grace Home Meds and New Rx's Prescriptions: No Action docusate sodium [Dulcolax Stool Softener (dss)] 100 mg capsule 100 mg PO BID finasteride 5 mg tablet 5 mg PO DAILY Qty: 90 4RF losartan 50 MG tablet 50 mg PO DAILY atorvastatin [Lipitor] 40 MG tablet 40 mg PO DAILY omeprazole 20 MG capsule,delayed release(DR/EC) 20 mg PO DAILY metformin 500 MG tablet 500 mg PO am and noon Qty: 60 0RF terazosin 10 mg capsule 10 mg PO QPM cefpodoxime 200 mg tablet 200 mg PO BID 10 Days Qty: 20 0RF Rx Instructions: must administer with a meal/food quetiapine 25 mg Tablet 25 mg PO BID Qty: 60 0RF memantine 7 mg capsule,sprinkle,ER 24hr 14 mg PO DAILY Patient Comments: TAKE ONE CAPSULE BY MOUTH EVERY DAY (CAN BE AM. AND PM.) FOR 1-2 WEEKS THEN INCREASE TO TWO CAPSULES DAILY AT THE SAME TIME trazodone 50 mg tablet 50 mg PO DAILY PRN Discharge Instructions Instructions: Horner Catheter Placement and Care (ED) Additional Instructions: Follow-up with urology as planned. Referrals: Vanita Johnson MD [Primary Care Provider] - Discharge Data Discharge Physician: Joaquina Grace [facility] General Date/Time Provider Initiated Documentation: 01/10/24 03:36 . HPI Narrative: 83-year-old male with history of advanced dementia and urinary retention presents for urinary retention. Patient's son states that he pulled his Horner catheter out again. It apparently just happened. He had been urinating up until that time. Patient with significant dementia and frequently needs c atheter replaced. Otherwise been doing well. No fevers. Denies any abdominal pain. Related Data Home Medications Medication Instructions Recorded Confirmed atorvastatin 40 mg tablet (Lipitor) 40 mg PO DAILY 07/14/16 01/10/24 losartan 50 mg tablet 50 mg PO DAILY 07/14/16 01/10/24 omeprazole 20 mg capsule,delayed 20 mg PO DAILY 07/14/16 01/10/24 release docusate sodium 100 mg capsule 100 mg PO BID 09/11/22 01/10/24 (Dulcolax Stool Softener (docusate)) finasteride 5 mg tablet 5 mg PO DAILY #90 tab-caps 09/11/22 01/10/24 metformin 500 mg tablet 500 mg PO am and noon #60 tabs 11/17/23 01/10/24 terazosin 10 mg capsule 10 mg PO QPM 12/04/23 01/10/24 quetiapine 25 mg tablet 25 mg PO BID #60 tabs 12/13/23 01/10/24 trazodone 50 mg tablet 50 mg PO DAILY PRN 12/29/23 01/10/24 cefpodoxime 200 mg tablet 200 mg PO BID UTI 10 days #20 tabs 01/03/24 01/10/24 memantine 7 mg capsule 14 mg PO DAILY 01/03/24 01/10/24 sprinkle,extended release 24hr Previous Rx's Medication Instructions Recorded finasteride 5 mg tablet 5 mg PO DAILY #90 tab-caps 09/11/22 metformin 500 mg tablet 500 mg PO am and noon #60 tabs 11/17/23 quetiapine 25 mg tablet 25 mg PO BID #60 tabs 12/13/23 cefpodoxime 200 mg tablet 200 mg PO BID UTI 10 days #20 tabs 01/03/24 Allergies Allergy/AdvReac Type Severity Reaction Status Date / Time No Known Allergies Allergy Verified 01/10/24 03:32 General Stated Complaint: Urinary TAVARES: 4 Review of Systems Narrative: Remainder of review of systems otherwise unobtainable due to patient's dementia. Exam Narrative Exam Narrative: General: non-toxic, no respiratory distress, comfortable HEENT: normocephalic, atraumatic, lids and lashes normal, PERRL, EOMI, anicteric sclera, no conjunctival injection, moist oral mucosa Card: regular rate and rhythm, S1S2, no murmurs, rubs, or gallops Lungs: good air entry, clear to auscultation bilaterally. no wheezes, rales, rhonchi, or retractions Abd: soft, non-tender, distended, normal bowel sounds, no rebound or guarding, no peritoneal signs Musculoskeletal: full range of motion of arms and legs, no tenderness to palpation. no clubbing, cyanosis, or edema Neurologic: appropriate for age, strength normal Psych: alert and oriented to person Skin: no petechiae, no lesions, warm and dry Course Vital Signs Vital signs: Vital Signs Temperature 36.6 C 01/10/24 03:28 Pulse 80 01/10/24 03:28 Respiratory Rate 16 01/10/24 03:28 Blood Pressure 181/90 H 01/10/24 03:28 Pulse Oximetry 98 01/10/24 03:28 Temperature 36.6 C 01/10/24 03:42 Temperature Source Oral 01/10/24 03:42 Pulse 80 01/10/24 03:42 Respiratory Rate 16 01/10/24 03:42 Respiratory Effort Normal, Non-Labored 01/10/24 03:42 Blood Pressure 181/90 H 01/10/24 03:42 Blood Pressure Position Sitting 01/10/24 03:42 Pulse Oximetry 98 01/10/24 03:42 Oxygen Delivery Method Room Air 01/10/24 03:42 Oxygen Flow Rate 0 01/10/24 03:28 Pain Level 0 01/10/24 03:43 Medical Decision Making 83-year-old male with advanced dementia and urinary retention presents for replacement of Horner catheter. He is agreeable for replacement of catheter by nursing at this time. Uro-Jet ordered. Horner catheter replaced by nursing. There were some blood clots and Horner was irrigated. He will follow-up with urology as planned. Quality:SDOH Health Related Social Needs: No Data to Display PFSH All Active Problems (Updated 01/10/24 @ 03:47 by Joaquina Grace MD) Dislodged Horner catheter (Acute) Urinary tract infection (Acute) Complication of Horner catheter (Acute) Horner catheter problem (Acute) Eloped from emergency department (Acute) 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) DNR (do not resuscitate) (Acute) See COLST: DNR/DNI, + transfer and treat and IV and abx Palliative care patient (Acute) Dementia with behavioral disturbance (Acute) Dementia (Chronic) Hypertension (Chronic) Delirium (Acute) Acute confusion (Acute) Horner catheter problem (Acute) Grief reaction (Chronic) Hydronephrosis (Acute) Urinary retention with incomplete bladder emptying (Acute) 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) Medical History Displacement of Horner catheter Suprapubic catheter dysfunction Hypomagnesemia Hypoalbuminemia Medication management Memory changes Bilateral renal cysts Social History Smoking/Tobacco Use Status: Former Tobacco Use Quit Date: 10/11/60 Smoking risk assessment performed?: Yes Alcohol Intake: never Drug use: Never Substance use type: does not use Housing: house Do you feel safe at home: Yes Do you feel safe in your relationship?: Yes Additional Social history: Unable to assess privately
[2024-01-10] MEDS: Lidocaine 2% Jelly 11 ML SYR UR (04:10)
== END 2024-01-10 04:23 | disposition home or self-care (01) ==
LOC: ER 03:58
PROVIDERS: Emergency Provider Emergency Medicine Emergency Medical Services; PCP Family Medicine
DX: T83.028A Displacement of other urinary catheter, initial encounter (principal); R33.9 Retention of urine, unspecified; I10 Essential (primary) hypertension; G30.9 Alzheimer's disease, unspecified; F02.80 Dementia in other diseases classified elsewhere, unspecified severity, without behavioral disturbance, psychotic disturbance, mood disturbance, and anxiety; F01.50 Vascular dementia, unspecified severity, without behavioral disturbance, psychotic disturbance, mood disturbance, and anxiety; Z87.891 Personal history of nicotine dependence
CPT/HCPCS: 51702; 99283

== ENCOUNTER 2024-01-13 08:24 | Emergency (ER) | payer MEDICARE, SELFPAY ==
[2024-01-13 08:28] VITALS: BP 193/67; PULSE 94; RESP 18; TEMP 36.3; O2SAT 98
[2024-01-13 08:49] VITALS: BP 193/67; PULSE 94; RESP 18; TEMP 36.3; O2SAT 98
[2024-01-13] MEDS: Lidocaine 2% Jelly 11 ML SYR UR (09:58)
--- NOTE | 2024-01-13 10:03 | W.ED.GENAD ---
Discharge Plan Disposition Patient Disposition: Home Condition: Stable Discharge Details Clinical Impression: Dementia with behavioral disturbance, Horner catheter problem Primary Care Provider: Vanita Johnson V ED Provider: Armida Lazcano Home Meds and New Rx's Prescriptions: Continued docusate sodium [Dulcolax Stool Softener (dss)] 100 mg capsule 100 mg PO BID finasteride 5 mg tablet 5 mg PO DAILY Qty: 90 4RF losartan 50 MG tablet 50 mg PO DAILY atorvastatin [Lipitor] 40 MG tablet 40 mg PO DAILY omeprazole 20 MG capsule,delayed release(DR/EC) 20 mg PO DAILY metformin 500 MG tablet 500 mg PO am and noon Qty: 60 0RF terazosin 10 mg capsule 10 mg PO QPM quetiapine 25 mg Tablet 25 mg PO BID Qty: 60 0RF memantine 7 mg capsule,sprinkle,ER 24hr 14 mg PO DAILY Patient Comments: TAKE ONE CAPSULE BY MOUTH EVERY DAY (CAN BE AM. AND PM.) FOR 1-2 WEEKS THEN INCREASE TO TWO CAPSULES DAILY AT THE SAME TIME trazodone 50 mg tablet 50 mg PO DAILY PRN Discharge Instructions Instructions: Dementia (ED) Additional Instructions: Home health will be reestablished for assistance with straight catheterization, for now we will keep the Horner catheter in, Dr. Mendoza recommends straight cath so that you could potentially have the Horner catheter removed This will need to be established so please keep the Horner catheter in until you feel comfortable with straight catheterization Please return earlier should have any change in mentation or fever Referrals: Vanita Johnson MD [Primary Care Provider] - Sagar Mendoza MD [ [facility] STAFF PHYSICIAN] - HPI General Date/Time Provider Initiated Documentation: 01/13/24 08:34. HPI Narrative: This 83-year-old male presenting with recurrent dislodgment of Horner catheter. Son states patient wakes up from sleeping and is typically confused with his dementia and this is the third time he has removed his Horner catheter this week. No acute change in confusion per son. Patient denies any complaints at this time. Son concerned as this is a recurrent issue and unsure how to keep Horner in place, uncomfortable with cathing patient at home. Related Data Home Medications Medication Instructions Recorded Confirmed atorvastatin 40 mg tablet (Lipitor) 40 mg PO DAILY 07/14/16 01/13/24 losartan 50 mg tablet 50 mg PO DAILY 07/14/16 01/13/24 omeprazole 20 mg capsule,delayed 20 mg PO DAILY 07/14/16 01/13/24 release docusate sodium 100 mg capsule 100 mg PO BID 09/11/22 01/13/24 (Dulcolax Stool Softener (docusate)) finasteride 5 mg tablet 5 mg PO DAILY #90 tab-caps 09/11/22 01/13/24 metformin 500 mg tablet 500 mg PO am and noon #60 tabs 11/17/23 01/13/24 terazosin 10 mg capsule 10 mg PO QPM 12/04/23 01/13/24 quetiapine 25 mg tablet 25 mg PO BID #60 tabs 12/13/23 01/13/24 trazodone 50 mg tablet 50 mg PO DAILY PRN 12/29/23 01/13/24 memantine 7 mg capsule 14 mg PO DAILY 01/03/24 01/13/24 sprinkle,extended release 24hr Previous Rx's Medication Instructions Recorded finasteride 5 mg tablet 5 mg PO DAILY #90 tab-caps 09/11/22 metformin 500 mg tablet 500 mg PO am and noon #60 tabs 11/17/23 quetiapine 25 mg tablet 25 mg PO BID #60 tabs 12/13/23 Allergies Allergy/AdvReac Type Severity Reaction Status Date / Time No Known Allergies Allergy Verified 01/13/24 08:39 General Stated Complaint: Urinary TAVARES: 3 Course Vital Signs Vital signs: Vital Signs Temperature 36.3 C L 01/13/24 08:28 Pulse 94 H 01/13/24 08:28 Respiratory Rate 18 01/13/24 08:28 Blood Pressure 193/67 H 01/13/24 08:28 Pulse Oximetry 98 01/13/24 08:28 Temperature 36.3 C L 01/13/24 08:49 Temperature Source Temporal Artery Scan 01/13/24 08:49 Pulse 94 H 01/13/24 08:49 Respiratory Rate 18 01/13/24 08:49 Respiratory Effort Normal, Non-Labored 01/13/24 08:46 Blood Pressure 193/67 H 01/13/24 08:49 Blood Pressure Position Sitting 01/13/24 08:49 Pulse Oximetry 98 01/13/24 08:49 Oxygen Delivery Method Room Air 01/13/24 08:49 Oxygen Flow Rate 0 01/13/24 08:49 Medical Decision Making 83-year-old male male patient at baseline mentation with history of dementia and dislodged Horner catheter today for the third time this week Post void residual 340, will replace Horner catheter care management was consulted for assistance with this patient who currently resides with his son with progressive dementia Palliative care will round on patient at 1130 in the emergency department with plan to transition to hospice, son made aware,son is patient's DPOA Patient is alert and oriented, he is ambulatory He does have leukocytosis and leukocyte Estrace and nitrate positive, however I did consult with Dr. Mendoza and patient is likely colonized for indwelling Horner catheter placement Patient will be reestablished with home health at this time for assistance with self-catheterization as patient will be unlikely willing to tolerate Horner catheter at home for his chronic urinary retention Patient is agreeable to this plan at this time Palliative care is on board, please see their documentation Close outpatient involvement and reassessment by primary care physician encouraged and patient will continue to speak with a counselor in the aging for at home assistance Discharged home in stable condition for patient, ambulatory, with resources to protect Horner until straight catheterization care management has been established with home health involvement Quality:SDOH Health Related Social Needs: No Data to Display PFSH All Active Problems (Updated 01/13/24 @ 11:59 by RAVI Smith) Dislodged Horner catheter (Acute) Urinary tract infection (Acute) Complication of Horner catheter (Acute) Horner catheter problem (Acute) Eloped from emergency department (Acute) 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) DNR (do not resuscitate) (Acute) See COLST: DNR/DNI, + transfer and treat and IV and abx Palliative care patient (Acute) Dementia with behavioral disturbance (Acute) Dementia (Chronic) Hypertension (Chronic) Delirium (Acute) Acute confusion (Acute) Horner catheter problem (Acute) Grief reaction (Chronic) Hydronephrosis (Acute) Urinary retention with incomplete bladder emptying (Acute) 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) Medical History Displacement of Horner catheter Suprapubic catheter dysfunction Hypomagnesemia Hypoalbuminemia Medication management Memory changes Bilateral renal cysts Social History Smoking/Tobacco Use Status: Former Tobacco Use Quit Date: 10/11/60 Smoking risk assessment performed?: Yes Alcohol Intake: never Drug use: Never Substance use type: does not use Housing: house Do you feel safe at home: Yes Do you feel safe in your relationship?: Yes Additional Social history: Unable to assess privately
[2024-01-13 10:08] LABS: Bilirubin Negative (Negative); Blood Small (Negative); Clarity Sl Cloudy (Clear); Glucose 100 mg/dL (Negative); Ketones Negative (Negative); Leukocyte Esterase Moderate (Negative); Nitrite Positive (Negative); Urobilinogen 0.2 mg/dL (Up to 0.2)
[2024-01-13 10:17] LABS: Bacteria Few HPF (Negative); C & S Indicated? Yes; Casts Negative LPF (Negative); Crystals Negative HPF (Negative); Epithelial Cells Rare HPF (Negative); Mucus Negative (Negative); RBC 0-2 HPF (0-2); WBC 20-50 HPF (0-5)
--- NOTE | 2024-01-13 10:26 | PCNE_ITS ---
Date of service: 01/13/24 Time of Service: 10:27 History of Present Illness Narrative: Mr. Jhaveri is an 83-year-old gentleman From [facility], in September 04 2023 who a hx of dementia with behaviorial issues (delirium) dementia . He and his family has been followed by Palliative care team fro help with goals of care, advanced care planning and patient and family support. I last met with son and pt about 2 weeks ago for an office visit. Patient has a history of past CVA, BPH, type 2 diabetes, 2 years of increasing memory issues. Patient's August 2023 and since then it became apparent that he had fairly significant memory loss which was being covered up by the .. It quickly became apparent to rest of family that he needed additional help and Since that time, his son, brother and cimqgs-dt-gns have been helping to support him. Caring for Mr. Jhaveri continues to be very challenging, with continued difficult behaviors, pulling out of rivera and suprapubic catheters, wandering, wanted to resume driving, wanting to move back to his house.Functioning is actually gone down with increased behaviors and decreased independence since I first saw him about 7 weeks ago. Seen in the past week by neurology and quetiepine increased to BID (25mg). (son had only been giving at night, now better with getting it BID) Updates: Consult today from ED staff to ask for family support and assistance with setting up plan to manage rivera catheter. ED also asking if we can make a referral to Hospice. Pt and family with multiple ED and Dr. Valeroits over the last few months after he pulls them out. Often pulls out just as he is waking up in the morning. Irma has declined to do I&O cath. ED nurses report that I/O cath is fairly easy and non-painful for patient. Reji Babb says another option is to cut sphincter; pt would be totally incontinent but would not retain, not need catheter and hopefully not get urosepsis. ED PHOTOGRAPHIC DOUBLE suggesting trial of False Rivera that pt would grab and pull out, instead of real rivera.. CAregiver strss: See A/P Son Kristyn totally burned out. SLeeping better at night. But lots of comflict Dad won't listen. Kristyn has not made phone calls to set up help/caregivers. Non one else helping. Well, is helping. Kristyn still on FMLA leave to care for dad. Still upset by his behavior, such a big change. Makes Kristyn very sad. Care Team: Primary Care physician: Dr. Johnson Urology: [facility] Dr. Mendoza, has been following long-term as outpatient Neurology: Dr. Blanchard Social HX: Family recently moved him into family home in [place], where they hoped to be able to provide more support. August 2023 (she of CVA , while admitted to hospice), 25 years. First after they got , 2nd .. Noelle wasthird . 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 Other family: Aszhojx-to-uvy Jacob (pt's 's brother), Hobbies: Hunting (not recently). 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 Did both ski jumping and alpine skiing. Driving until recently (family has disabled car) Other services: Impression of currents health status: Doing very well. What bothers you the most: That he cannot move back to his house in [place] What worries you the most: Goals: Moving back to his house in [place], likes to help people. Current information preferences: Function: Ambulation: Still able to walk quite well on his own. ADLs: Rivera catheter in place. No fecal incontinence. Needs help with bathing. Able to feed himself. iADLs: Patient unable to do any IADLs on his own at this point. Hearing: OK Vision: OK Cognition: See HPI Falls: None recently Palliative Performance Scale % Ambulation Activity and Evidence of Disease Self Care Intake Level of Consciousness 100 Full Normal activity, no evidence of disease Full Normal Full 90 Full Normal activity, some evidence of disease Full Normal Full 80 Full Normal activity with effort, some evidence of disease Full Normal or reduced Full 70 Reduced Unable to do normal work, some evidence of disease Full Normal or reduced Full 60 Reduced Unable to do hobby or some housework, significant disease Occasional assist necessary Normal or reduced Full or confusion 50 Mainly sit/lie Unable to do any work, extensive disease Considerable assistance required Normal or reduced Full or confusion 40 Mainly in bed Unable to do any work, extensive disease Mainly assistance Normal or reduced Full, drowsy, or confusion 30 Totally bed bound Unable to do any work, extensive disease Total care Reduced Full, drowsy, or confusion 20 Totally bed bound Unable to do any work, extensive disease Total care Minimal sips Full, drowsy, or confusion 10 Totally bed bound Unable to do any work, extensive disease Total care Mouth care only Drowsy or coma 0 - - - - Patient Score: 60 Spiritual history: NO druze, believes in creator, does not pray. Palliative review of systems: Pain: None Dyspnea: None GI symptoms: Appetite: Good, weight stable Depression: Anxiety: Definitely having behaviors. Emotional Distress: Spiritual/Existential Distress: Advanced Care Planning: Advanced Directive: Undated [place] advanced directive on file Health Care Agent: Kristyn Jhaveri is primary ( [phone]), also daughter Armida Whalen [phone]) COLST: 11/16/2023 COLST: DNR/DNI, + transfer and treat, + abx and IV fluids) Limitations: Assessment and Plan Assessment and plan (1) Palliative care patient: Status: Acute Assessment and plan: Jamey continues to be very challenging to care for 1. Urinary retention: on-going saga of Jamey pulling out any type of catheter within a few days. Jamey cannot remember not to pull it out. Multiple ED and urology visits. -Reviewed with Dr Mendoza. Once a day I+O cath would be sufficient. IN the past son has declined to do this. He could go daily to urology office on weekdays for this, but family would have to do on weekends. Nurse report that Jamey is a pretty straighforward cath. -Discussed again with son Kristyn. He is willing to try to I+O cath, or assist dad to do it himself. Referral will be made by ED staff to Home Health to do teaching around this. 2. CAregiver stress: Discussion with Kristyn and pcp with Radha from [facility]. -Patient insistent that he wants to be on hospice with Jagr[facility] Londono. HE is NOT hospice eligible at this time. Kristyn says that Jamey has been saying htis again and again. -Pt has not sepnt time calling for caregiver agencies until this week. The -THe one agency he called had no caregivers available and other folks on waiting list. -Kristyn met with [facility] yesterday for additional resources. -SUpportive counseling with Kristyn today: self care. He has [employer] hot line number. Delegate initial screening phonecalls for caregivers (to sister? ?) -[place]: The advantage would be availability of retirement to deal with catheter/ i&O catheter if needed. Kristyn thinks Dad is on waitlist, not sure, needs to call. 3. [facility]: Radha from [facility] asked Kristyn to call her tomorrow or next week. (2) Dementia with behavioral disturbance: Status: Acute (3) Rivera catheter problem: Status: Acute (4) Urinary retention with incomplete bladder emptying: Status: Acute PFSH All Active Problems (Updated 01/13/24 @ 11:59 by RAVI Smith) Dislodged Rivera catheter (Acute) Urinary tract infection (Acute) Complication of Rivera catheter (Acute) Rivera catheter problem (Acute) Eloped from emergency department (Acute) 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) DNR (do not resuscitate) (Acute) See COLST: DNR/DNI, + transfer and treat and IV and abx Palliative care patient (Acute) Dementia with behavioral disturbance (Acute) Dementia (Chronic) Hypertension (Chronic) Delirium (Acute) Acute confusion (Acute) Rivera catheter problem (Acute) Grief reaction (Chronic) Hydronephrosis (Acute) Urinary retention with incomplete bladder emptying (Acute) 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) Medical History Displacement of Rivera catheter Suprapubic catheter dysfunction Hypomagnesemia Hypoalbuminemia Medication management Memory changes Bilateral renal cysts Social History Smoking/Tobacco Use Status: Former Tobacco Use Quit Date: 10/11/60 Smoking risk assessment performed?: Yes Alcohol Intake: never Drug use: Never Substance use type: does not use Housing: house Do you feel safe at home: Yes Do you feel safe in your relationship?: Yes Additional Social history: Unable to assess privately Exam Narrative Exam Narrative: PLeassnt and talkative, laying on stretcher. Pulling on rivera Year: 2023 Month/day/season: does not know. Place: does not know. Speech fluid. Yells at his son a few times, pleasant with other staff. Results Last Vital Signs Temp 36.3 C L 01/13/24 08:49 Pulse 94 H 01/13/24 08:49 Resp 18 01/13/24 08:49 BP 193/67 H 01/13/24 08:49 Pulse Ox 98 01/13/24 08:49 Labs Labs: Laboratory Results - last 24 hr 01/13/24 09:54 Urine Color Yellow Urine Clarity Sl Cloudy Urine pH 7.0 Ur Specific [place] 1.010 Urine Protein Negative Urine Ketones Negative Urine Blood Small H Urine Nitrite Positive H Urine Bilirubin Negative Urine Urobilinogen 0.2 Ur Leukocyte Esterase Moderate H Urine RBC 0-2 Urine WBC 20-50 H Ur Epithelial Cells Rare Urine Crystals Negative Urine Bacteria Few Urine Casts Negative Urine Mucus Negative Ur Culture Indicated? Yes Urine Glucose 100 H
== END 2024-01-13 12:09 | disposition home or self-care (01) ==
PROVIDERS: Emergency Provider Physician Assistant; PCP Family Medicine
DX: T83.028A Displacement of other urinary catheter, initial encounter; N40.1 Benign prostatic hyperplasia with lower urinary tract symptoms; R33.8 Other retention of urine; G30.9 Alzheimer's disease, unspecified; F02.818 Dementia in other diseases classified elsewhere, unspecified severity, with other behavioral disturbance; F01.50 Vascular dementia, unspecified severity, without behavioral disturbance, psychotic disturbance, mood disturbance, and anxiety; I10 Essential (primary) hypertension
CPT/HCPCS: 51702; 87077; 81003; 81015; 87086; 87186; 99284

== ENCOUNTER 2024-01-18 13:33 | Emergency (ER) | payer MEDICARE, SELFPAY ==
[2024-01-18 13:37] VITALS: BP 167/73; PULSE 97; RESP 14; TEMP 36.4; O2SAT 98
--- NOTE | 2024-01-18 14:04 | NUR.NOTE ---
Nursing Note: Called and spoke with pts son and FRANCISCO Sarabia. Cornell states pt has had good days recently and rivera has been adequately managed by home health nurses. Pt was out for a ride with brother in law and decided he wanted to stop in and see if it was time to have his tube removed. Kyle CLANCY aware of situation.
--- NOTE | 2024-01-18 14:53 | ED.GENADUL_ITS ---
Discharge Plan Disposition Patient Disposition: Home Discharge Details Clinical Impression: Chronic indwelling Horner catheter Primary Care Provider: Vanita Johnson V ED Provider: Jacob Wright Home Meds and New Rx's Prescriptions: Continued docusate sodium [Dulcolax Stool Softener (dss)] 100 mg capsule 100 mg PO BID finasteride 5 mg tablet 5 mg PO DAILY Qty: 90 4RF losartan 50 MG tablet 50 mg PO DAILY atorvastatin [Lipitor] 40 MG tablet 40 mg PO DAILY omeprazole 20 MG capsule,delayed release(DR/EC) 20 mg PO DAILY metformin 500 MG tablet 500 mg PO am and noon Qty: 60 0RF terazosin 10 mg capsule 10 mg PO QPM quetiapine 25 mg Tablet 25 mg PO BID Qty: 60 0RF memantine 7 mg capsule,sprinkle,ER 24hr 14 mg PO DAILY Patient Comments: TAKE ONE CAPSULE BY MOUTH EVERY DAY (CAN BE AM. AND PM.) FOR 1-2 WEEKS THEN INCREASE TO TWO CAPSULES DAILY AT THE SAME TIME trazodone 50 mg tablet 50 mg PO DAILY PRN Discharge Instructions Additional Instructions: You were seen in the emergency department for your catheter. As we discussed if you develop fevers nausea vomiting or if you have any other concerns please return to the emergency department. Otherwise please follow-up with your primary care provider as needed next week. HPI General Date/Time Provider Initiated Documentation: 01/18/24 13:43 . HPI Narrative: MDM This is a normothermic and not tachycardic 83-year-old male with chronic indwelling Horner but no indication for Horner removal given that it is draining clear urine and patient has no signs of sepsis. No fevers to suggest sepsis so I did not order a lactate blood cultures nor treat empirically with antibiotics. No history of recent falls to suggest intracranial hemorrhage so I did not order CT head. No nausea nor vomiting so I did not feel the patient required assessment of his electrolytes. No pain out of proportion to suggest Fely's gangrene. I spoke with the patient's son, Cornell as the patient was driven here by his ohqvgtw-az-gor. Patient reported that the patient has outpatient follow-up with Dr. Mendoza and that the patient had had no recent complaints. No indication for voiding trial in the emergency department. In the absence of any complaints I did not feel that the patient required assessment of his labs catheter appeared to be functioning well with yellow urine in leg bag so I did not change the catheter as I was not concerned for clot hematuria. In the absence of any systemic symptoms I did not send a urinalysis. I advised patient's son to return to the emergency department if the patient develops any fevers chills nausea vomiting or any shortness of breath. Patient's son understood return indications and patient was discharged with an empiric trial of expectant outpatient management. Chronic conditions affecting the care of the patient: Acute confusion Horner catheter History obtained from an outside historian: Patient's son and udxlldx-ho-pnn Social determinants of health affecting disposition: N/A Management discussed with: N/A Treatment/interventions considered: N/A Response to therapies provided: N/A HPI This is an 83-year-old male with a history of dementia arrived to the emergency department via private vehicle with his yjnnzvk-gy-qqi with request to have his catheter removed. Patient requested that his zwvwiyq-bf-lfj drive him to the hospital as they were passing by. Patient decided that he wanted his Horner catheter removed. He has outpatient follow-up with Dr. Mendoza later this spring. He has had no increasing pain. No recent falls. No foul-smelling drainage from Horner catheter. No gross hematuria. No nausea vomiting chest pain or shortness of breath. Patient offers no complaints. Exam General: Well-appearing in no acute distress speaking in complete sentences. Head: Normocephalic, atraumatic. Eye: Extraocular eye movements intact. No conjunctival injection. No scleral icterus. Ear, nose, mouth, throat: Grossly normal inspection. Normal voice, handling secretions normally. Neck: Trachea midline. Cardiovascular: Well-perfused distal extremities. Respiratory: Nonlabored respiration. Gastrointestinal: Nondistended abdomen. : Circumcised penis with Horner catheter in place. No pain out of proportion. Yellow urine in leg bag. Musculoskeletal: No edema. Moving all 4 extremities spontaneously. Skin: Normal for age and race, grossly normal temperature and turgor. No acute rash. Neurologic: Alert and appropriate, no apparent acute deficits. Alert and oriented to person place and time Psychiatric: Mood and manner are appropriate. Grooming and personal hygiene are appropriate. Related Data Home Medications Medication Instructions Recorded Confirmed atorvastatin 40 mg tablet (Lipitor) 40 mg PO DAILY 07/14/16 01/13/24 losartan 50 mg tablet 50 mg PO DAILY 07/14/16 01/13/24 omeprazole 20 mg capsule,delayed 20 mg PO DAILY 07/14/16 01/13/24 release docusate sodium 100 mg capsule 100 mg PO BID 09/11/22 01/13/24 (Dulcolax Stool Softener (docusate)) finasteride 5 mg tablet 5 mg PO DAILY #90 tab-caps 09/11/22 01/13/24 metformin 500 mg tablet 500 mg PO am and noon #60 tabs 11/17/23 01/13/24 terazosin 10 mg capsule 10 mg PO QPM 12/04/23 01/13/24 quetiapine 25 mg tablet 25 mg PO BID #60 tabs 12/13/23 01/13/24 trazodone 50 mg tablet 50 mg PO DAILY PRN 12/29/23 01/13/24 memantine 7 mg capsule 14 mg PO DAILY 01/03/24 01/13/24 sprinkle,extended release 24hr Previous Rx's Medication Instructions Recorded finasteride 5 mg tablet 5 mg PO DAILY #90 tab-caps 09/11/22 metformin 500 mg tablet 500 mg PO am and noon #60 tabs 11/17/23 quetiapine 25 mg tablet 25 mg PO BID #60 tabs 12/13/23 Allergies Allergy/AdvReac Type Severity Reaction Status Date / Time No Known Allergies Allergy Verified 01/13/24 08:39 General Stated Complaint: Urinary TAVARES: 4 Course Vital Signs Vital signs: Vital Signs Temperature 36.4 C 01/18/24 13:37 Pulse 97 H 01/18/24 13:37 Respiratory Rate 14 01/18/24 13:37 Blood Pressure 167/73 H 01/18/24 13:37 Pulse Oximetry 98 01/18/24 13:37 Temperature 36.4 C 01/18/24 13:37 Pulse 97 H 01/18/24 13:37 Respiratory Rate 14 01/18/24 13:37 Respiratory Effort Normal, Non-Labored 01/18/24 13:55 Blood Pressure 167/73 H 01/18/24 13:37 Blood Pressure Position Sitting 01/18/24 13:37 Pulse Oximetry 98 01/18/24 13:37 Oxygen Delivery Method Room Air 01/18/24 13:37 Oxygen Flow Rate 0 01/18/24 13:37 Pain Level 0 01/18/24 13:37 Medical Decision Making Quality:SDOH Health Related Social Needs: No Data to Display PFSH All Active Problems (Updated 01/18/24 @ 15:10 by Jacob Wright MD) Chronic indwelling Horner catheter (Acute) Dislodged Horner catheter (Acute) Urinary tract infection (Acute) Complication of Horner catheter (Acute) Horner catheter problem (Acute) Eloped from emergency department (Acute) 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) DNR (do not resuscitate) (Acute) See COLST: DNR/DNI, + transfer and treat and IV and abx Palliative care patient (Acute) Dementia with behavioral disturbance (Acute) Dementia (Chronic) Hypertension (Chronic) Delirium (Acute) Acute confusion (Acute) Horner catheter problem (Acute) Grief reaction (Chronic) Hydronephrosis (Acute) Urinary retention with incomplete bladder emptying (Acute) 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) Medical History Displacement of Horner catheter Suprapubic catheter dysfunction Hypomagnesemia Hypoalbuminemia Medication management Memory changes Bilateral renal cysts Social History Smoking/Tobacco Use Status: Former Tobacco Use Quit Date: 10/11/60 Smoking risk assessment performed?: Yes Alcohol Intake: never Drug use: Never Substance use type: does not use Housing: house Do you feel safe at home: Yes Do you feel safe in your relationship?: Yes Additional Social history: Unable to assess privately
== END 2024-01-18 15:51 | disposition home or self-care (01) ==
PROVIDERS: Emergency Provider Emergency Medicine; PCP Family Medicine
DX: R33.9 Retention of urine, unspecified (principal); I10 Essential (primary) hypertension; G30.9 Alzheimer's disease, unspecified; F02.818 Dementia in other diseases classified elsewhere, unspecified severity, with other behavioral disturbance; F01.518 Vascular dementia, unspecified severity, with other behavioral disturbance; Z96.0 Presence of urogenital implants; Z87.891 Personal history of nicotine dependence
CPT/HCPCS: 99282

== ENCOUNTER 2024-01-21 10:46 | Inpatient (IN) | payer MEDICARE, SELFPAY ==
[2024-01-21] VITALS (7 sets, daily range): BP systolic 97–163; BP diastolic 61–83; PULSE 72–88; RESP 12–20; TEMP 36.3–37.4; O2SAT 94–99
--- NOTE | 2024-01-21 10:57 | ED.GENADUL_ITS ---
Discharge Plan Discharge Details Chief Complaint: GenMedical Clinical Impression: Urinary tract infection, Sepsis Primary Care Provider: Vanita Johnson V ED Provider: Elie Anaya Home Meds and New Rx's Prescriptions: No Action finasteride 5 mg tablet 5 mg PO DAILY Qty: 90 4RF losartan 50 MG tablet 50 mg PO DAILY metformin 500 MG tablet 500 mg PO am and noon Qty: 60 0RF terazosin 10 mg capsule 10 mg PO QPM quetiapine 25 mg Tablet 25 mg PO BID Qty: 60 0RF memantine 7 mg capsule,sprinkle,ER 24hr 14 mg PO DAILY Patient Comments: TAKE ONE CAPSULE BY MOUTH EVERY DAY (CAN BE AM. AND PM.) FOR 1-2 WEEKS THEN INCREASE TO TWO CAPSULES DAILY AT THE SAME TIME risperidone 0.5 mg tablet 0.5 mg PO PRN PRN HPI General Date/Time Provider Initiated Documentation: 01/21/24 10:57 . HPI Narrative: 83 year-old male presents to ED today by POV/ambulating with his son with a chief complaint of frequent urination, abdominal distention, confusion, chills/sweats, diarrhea, and one episode of vomiting with onset noted for the past 4 days. Patient has advanced dementia and is well known to the ED and Urology practices for frequently pulling out his chronic urinary catheters. Quality described as confused state, patient is unreliable- son states he has been not acting himself for four days, has used the the bathroom 8 or 9 times today, and his blood sugar was 409 this morning, no radiation to chest pain, syncope, repeated vomiting, black/bloody diarrhea, bloody emesis. Severity is described as severe. Palliating factors include drank 32 oz of water this morning to help dilute his blood sugar per guidance from HomeHealth nurse. Provoking factors include nothing specific. The patients' family is in process of getting him into hospice- he may be able to be admitted there tomorrow. Patient not anticoagulated. Related Data Home Medications Medication Instructions Recorded Confirmed losartan 50 mg tablet 50 mg PO DAILY 07/14/16 01/21/24 finasteride 5 mg tablet 5 mg PO DAILY #90 tab-caps 09/11/22 01/21/24 metformin 500 mg tablet 500 mg PO am and noon #60 tabs 11/17/23 01/21/24 terazosin 10 mg capsule 10 mg PO QPM 12/04/23 01/21/24 quetiapine 25 mg tablet 25 mg PO BID #60 tabs 12/13/23 01/21/24 memantine 7 mg capsule 14 mg PO DAILY 01/03/24 01/21/24 sprinkle,extended release 24hr risperidone 0.5 mg tablet 0.5 mg PO PRN PRN 01/21/24 01/21/24 Previous Rx's Medication Instructions Recorded finasteride 5 mg tablet 5 mg PO DAILY #90 tab-caps 09/11/22 metformin 500 mg tablet 500 mg PO am and noon #60 tabs 11/17/23 quetiapine 25 mg tablet 25 mg PO BID #60 tabs 12/13/23 Allergies Allergy/AdvReac Type Severity Reaction Status Date / Time No Known Allergies Allergy Verified 01/21/24 11:04 General Stated Complaint: GenMedical TAVARES: 3 Review of Systems All systems reviewed & are unremarkable except as noted in HPI and below Exam Narrative Exam Narrative: GENERAL APPEARANCE: Frail, toxic, awake and alert- baseline advanced dementia, atraumatic, no acute distress. SKIN: Warm, pink, diaphoretic, intact, without rashes/lesions/ulcerations. HEAD: Normocephalic, atraumatic, normal hair distribution for gender/age. EYES: Pupils PERRLA, EOMs intact without nystagmus, normal conjunctiva, no exudates on lids/lashes. ENT: Nares patent, no circumoral cyanosis, no facial swelling NECK: Supple, trachea midline, painless cervical ROM. LUNGS/CHEST: Lungs CTA bilaterally- no rhonchi/rales/wheezes diffusely, non- labored respirations, normal A/P diameter, symmetrical expansion, no chest wall deformity HEART (CV/PV): Regular rate and rhythm without murmur, no peripheral edema, no JVD. ABDOMEN: Distended suprapubic area, +Rovsing's, no Sears's sign, no McBurney's point tenderness, no CVA tenderness to percussion. MSK: Normal ROM, no swelling/deformity to bilateral UEs or LEs, moving all extremities without weakness, no cyanosis, spine midline without tenderness, normal curvature. NEURO: Mental Status - unreliable, awake, alert to spontaneous activity, advanced dementia No facial droop, no forehead involvement. Motor: No focal weakness - strength 5/5 in bilateral UEs and LEs, proximal and distal, symmetric. Sensory: sensation intact to light touch globally. Gait baseline shuffling PSYCH: euthymic, cooperative, pleasant, appropriate speech Course Vital Signs Vital signs: Vital Signs Temperature 36.5 C 01/21/24 10:48 Pulse 88 01/21/24 10:48 Respiratory Rate 14 01/21/24 10:48 Blood Pressure 162/83 H 01/21/24 10:48 Pulse Oximetry 99 01/21/24 10:48 Temperature 36.5 C 01/21/24 10:57 Temperature Source Skin 01/21/24 10:57 Pulse 88 01/21/24 10:57 Respiratory Rate 14 01/21/24 10:57 Respiratory Effort Normal, Non-Labored 01/21/24 10:52 Blood Pressure 162/83 H 01/21/24 10:57 Blood Pressure Position Sitting 01/21/24 10:57 Pulse Oximetry 99 01/21/24 10:57 Oxygen Delivery Method Room Air 01/21/24 10:57 Oxygen Flow Rate 0 01/21/24 10:57 Pain Level 2 01/21/24 10:57 Medical Decision Making This dictation utilizes [id number] dictation software and may contain unedited grammatical errors. 83 y/o M presents to ED today with a chief complaint of elevated blood sugar, confusion, urinary frequency with complex chronic catheter history, abdominal pain and distention, ongoing for 4 days with some diarrhea and one episode vomiting today. Patient has advanced dementia as well as T2DM, is well-known to the ED and urology practices for frequently removing his chronic catheters. He does have a large bladder that can hold almost 4 L of urine. His son states that he is gone to use the restroom 8 or 9 times today, urine is milky white, patient is not acting himself and is diaphoretic, no overt fever. His blood sugar was 409 this morning at home and he does take metformin. Patients' medical history: History of suprapubic catheter now closed, chronic Horner catheters, advanced dementia, history of UTI, palliative care with DNR/DNI status, hypertension, BPH with urinary obstruction. Family and social history: lives at home with son's family. Pertinent exam findings / vital signs include suprapubic abdominal distention with Rovsing's, no Sears's or McBurney's point tenderness, benign cardiopul monary exam appears toxic, neuro baseline. Differential / pathologies of concern include UTI, Sepsis, PNA, Hydronephrosis, JOSH, ARF, Gastroenteritis, DKA. Diagnostic studies of: CBC, CMP, CRP/ESR, lipase, lactate, procalcitonin, magnesium, phosphorus, urinalysis, blood cultures, VBG, troponin, EKG, x-ray chest, CT abdomen pelvis with contrast, Covid/Flu/RSV PCR -CBC shows leukocytosis with WBCs 16, mild anemia 12.5- improved from priors -CRP & ESR elevated - 4.8/42 -Initial lactate 3.1 - septic - had already obtained cultures and started empiric antibiotics and given 1L, IBW sepsis bolus of 1,920mL -VBG shows a mild compensated alkalosis -CMP shows mild hyponatremia, mildly elevated BUN, creatinine of 1.3, glucose of 378 -Troponin is 70 likely in the setting of demand ischemia -UA with greater than 50 whites -Patients Healthcare Agent, his son Cornell, did not feel CT & XR were necessary, would like him treated with antibiotics. -EKG shows sinus rhythm at 89 bpm with P waves followed by narrow complex QRS with normal axis, poor R wave progression, no ST changes of ischemia, normal QT QTc, consistent with priors. Interventions of: -30cc/kg IBW sepsis fluid bolus of 1920mL, IV APAP/ketorlac, 4mg IV Zofran, 1g IV Ceftriaxone, 500mg IV metronidazole, 1500mg IV vancomycin for broad-spectrum coverage in sepsis in chronic diabetic. -Consult Hospitalist for admission ED Course/Assessment/Plan: 83-year-old male who is well-known to [facility] presents with increased confusion, urinary frequency, elevated blood sugars, nausea vomiting and diarrhea. He is much more subdued and appears toxic than his usual agitated presentations. He has been in process for a long time about obtaining hospice care and Dr. Muñoz is aware of his case, care management is aware of his case. He does have opportunity for hospice tomorrow, he has admittable diagnosis of sepsis and UTI. His healthcare agent his son Cornell wants him treated with antibiotics. I believe it is his intention to improve his mental state from his current toxic presentation for possible more time with the patient as well as time to sit down [id number] with his sister who just flew in from [place] for advance care planning as this has not taken place yet whatsoever. I spoke with care management as well as Dr. Sanchez of the hospitalist service, care management will arrange a palliative care consult for today Wednesday afternoon. They will speak with all family members to seek goals of care solution. ER providers plan is for the patient to be admitted for sepsis and UTI and receive IV antibiotics with possible discharge tomorrow to home where hospice can meet him and admit him from home tomorrow or Wednesday based on his healthcare proxy's wishes. Patient signed out to Armida Lazcano PA-C with admission pending. Disposition of Sepsis, UTI. Patient verbalized understanding of the plan and return to ED criteria and engaged in shared decision making. Medical Records Medical records reviewed: Yes I reviewed the patient's medical records. Imaging Data Radiologic Study: Attestation: I personally reviewed and interpreted this imaging study as follows: Imaging: X-Ray Radiologic Study #2: Attestation: I personally reviewed and interpreted this imaging study as follows: Imaging: CT Scan Lab Data Lab results reviewed: Yes I reviewed the patient's lab results. 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) DNR (do not resuscitate) (Acute) See COLST: DNR/DNI, + transfer and treat and IV and abx Palliative care patient (Acute) Dementia with behavioral disturbance (Acute) Dementia (Chronic) Hypertension (Chronic) Delirium (Acute) Acute confusion (Acute) Horner catheter problem (Acute) Grief reaction (Chronic) Hydronephrosis (Acute) Urinary retention with incomplete bladder emptying (Acute) 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) Medical History Displacement of Horner catheter Suprapubic catheter dysfunction Hypomagnesemia Hypoalbuminemia Medication management Memory changes Bilateral renal cysts Social History Smoking/Tobacco Use Status: Former Tobacco Use Quit Date: 10/11/60 Smoking risk assessment performed?: Yes Alcohol Intake: never Drug use: Never Substance use type: does not use Housing: house Do you feel safe at home: Yes Do you feel safe in your relationship?: Yes Additional Social history: Unable to assess privately
--- NOTE | 2024-01-21 11:00 | RT.EKG_ITS ---
APPROVED REPORT Exam: Resting ECG Reason for Exam: baseline/screening Patient Location: E HR:89 bpm ECG Measurements Heart Rate 89 AXIS WY 140 P 53 QRSd 86 QRS 41 QT 374 T 10 QTc 454 Conclusion Sinus rhythm...normal P axis, V-rate 60- 99 Atrial premature complexes...SV complexes w/ short R-R intvls Probable left atrial enlargement...P >50mS, <-0.10mV V1
[2024-01-21 11:31] LABS: Bilirubin Negative (Negative); Blood Large (Negative); Clarity Turbid (Clear); Glucose >=1000 mg/dL (Negative); Ketones Negative (Negative); Leukocyte Esterase Large (Negative); Nitrite Negative (Negative); Specific Gravity 1.025 (1.005-1.025); Urobilinogen 0.2 mg/dL (Up to 0.2); pH 5.5 (5-8)
[2024-01-21 11:38] LABS: WBC >50 HPF (0-5)
[2024-01-21 11:39] LABS: C & S Indicated? Yes
[2024-01-21] MEDS: ACETAMINOPHEN 1,000 MG/100 ML BTL 400 MG IVPB (12:11)
[2024-01-21] MEDS: Normal Saline 1,000 ML 1000 ML IV ×2 (12:11→13:43)
[2024-01-21] MEDS: Ondansetron 4 MG/2 ML VIAL IVP (12:12)
[2024-01-21] MEDS: Ketorolac 15 MG/ML VIAL IVP (12:12)
[2024-01-21 12:17] LABS: Abs Immature Grans 0.06 10^3/uL (0.0-0.06); Absolute Basophil Count 0.03 10^3/uL (0.0-0.2); Absolute Eosinophil Count 0.02 10^3/uL (0.0-0.7); Absolute Lymphocyte Count 0.86 10^3/uL (1.2-3.4); Absolute Neutrophil Count 14.09 10^3/uL (1.2-6.7); BE (Venous) -1 mmol/L (-2-3); Basophils % 0.2; Eosinophils % 0.1; HCO3 (Venous) 24 mmol/L (23-28); HCT 38.3 % (40.0-50.0); HGB 12.5 g/dL (13.5-17.5); Immature Grans % 0.4; Lymphocytes % 5.4; MCH 29.5 pg (27.0-33.0); MCHC 32.6 % (32.0-36.0); MCV 90 fL (80-95); MPV 9.6 fL (8.0-11.0); Monocytes % 5.9; O2 Sat (Venous) 59 %; Platelet Count 302 10^3/uL (130-400); RBC 4.24 10^6/uL (4.36-5.78); RDW 14.3 % (11.8-14.1); TCO2 (Venous) 22 mmol/L (24-29); WBC 16.01 10^3/uL (4.4-10.8); pCO2 (Venous) 36 mmHg (41-51); pH (Venous) 7.42 (7.31-7.41); pO2 (Venous) 31 mmHg
[2024-01-21 12:18] LABS: Absolute Monocyte Count 0.94 10^3/uL (0.1-0.8)
[2024-01-21 12:19] LABS: Lactate 3.1 mmol/L (0.6-1.4)
[2024-01-21 12:20] LABS: ESR 42 mm/hr (0-20)
[2024-01-21 12:37] LABS: C-Reactive Protein 4.83 mg/dL (<or=0.5); PHOSPHORUS 3.4 mg/dL (2.6-4.7)
[2024-01-21] MEDS: cefTRIAXone 1 GM/50 ML BAG IVPB (12:39)
[2024-01-21 12:41] LABS: ALT 17 U/L (16-63); AST 15 U/L (15-37); Albumin 3.3 g/dL (3.4-5.0); Alkaline Phosphatase 105 U/L (46-116); Anion Gap 9.8 mmol/L (3-11); BUN 24 mg/dL (7-18); Bilirubin, Total 0.6 mg/dL (0.2-1.0); CO2 25.2 mmol/L (21.0-32.0); CREATININE 1.3 mg/dL (0.70-1.30); Chloride 96 mmol/L (98-107); Estimated GFR 54.85 (mL/min/1.73m2); Glucose 378 mg/dL (74-106); Lipase 18 U/L (16-77); Magnesium 1.9 mg/dL (1.8-2.4); Sodium 131 mmol/L (136-145); Total Protein 7.9 g/dL (6.4-8.2)
[2024-01-21 12:43] LABS: COVID-19 PCR Negative (Negative); Influenza A PCR Negative (Negative); Influenza B PCR Negative (Negative); RSV PCR Negative (Negative)
[2024-01-21 12:45] LABS: Troponin I 70 ng/L (< or =60)
[2024-01-21 12:49] LABS: Procalcitonin 0.2 ng/mL
[2024-01-21] MEDS: metroNIDAZOLE 500 MG/100 ML BAG 100 MG IVPB (13:08)
[2024-01-21 13:59] LABS: Source Nasopharynx
[2024-01-21] MEDS: VANCOMYCIN/WATER (PEG) 1.5 GM/300 ML BAG IVPB (14:19)
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
[2024-01-21] MEDS: CEFEPIME 2 GM in Normal Saline 100 ML IVPB (17:43)
[2024-01-21] MEDS: Enoxaparin 40 MG/0.4 ML SYR SC (18:38)
[2024-01-21] MEDS: Lactated Ringers 1,000 ML 100 ML IV (18:39)
[2024-01-21] MEDS: QUEtiapine 25 MG TAB PO (20:14)
[2024-01-22 00:06] VITALS: BP 124/63; PULSE 74; RESP 12; TEMP 36.7; O2SAT 91
[2024-01-22] MEDS: CEFEPIME 2 GM in Normal Saline 100 ML IVPB (06:02)
[2024-01-22 07:22] LABS: Abs Immature Grans 0.06 10^3/uL (0.0-0.06); Absolute Basophil Count 0.07 10^3/uL (0.0-0.2); Absolute Eosinophil Count 0.06 10^3/uL (0.0-0.7); Absolute Lymphocyte Count 1.57 10^3/uL (1.2-3.4); Absolute Monocyte Count 1.17 10^3/uL (0.1-0.8); Basophils % 0.5; Eosinophils % 0.4; HCT 33.5 % (40.0-50.0); HGB 10.9 g/dL (13.5-17.5); Immature Grans % 0.4; Lymphocytes % 11.3; MCH 30.1 pg (27.0-33.0); MCHC 32.5 % (32.0-36.0); MCV 93 fL (80-95); MPV 10.1 fL (8.0-11.0); Monocytes % 8.4; Platelet Count 277 10^3/uL (130-400); RBC 3.62 10^6/uL (4.36-5.78); RDW 14.5 % (11.8-14.1); RDW-SD 49.1 fL; WBC 13.88 10^3/uL (4.4-10.8)
[2024-01-22 07:26] VITALS: BP 128/60; PULSE 65; RESP 16; TEMP 37.2; O2SAT 95
[2024-01-22 07:31] LABS: Absolute Neutrophil Count 10.97 10^3/uL (1.2-6.7)
[2024-01-22 07:40] LABS: ALT 13 U/L (16-63); AST 18 U/L (15-37); Albumin 2.3 g/dL (3.4-5.0); Alkaline Phosphatase 71 U/L (46-116); Anion Gap 7.4 mmol/L (3-11); BUN 19 mg/dL (7-18); Bilirubin, Total 0.4 mg/dL (0.2-1.0); CO2 24.6 mmol/L (21.0-32.0); CREATININE 0.9 mg/dL (0.70-1.30); Calcium 8.3 mg/dL (8.5-10.1); Chloride 108 mmol/L (98-107); Estimated GFR 85.27 (mL/min/1.73m2); Glucose 142 mg/dL (74-106); Potassium 3.7 mmol/L (3.5-5.1); Sodium 140 mmol/L (136-145); Total Protein 5.8 g/dL (6.4-8.2)
[2024-01-22] MEDS: Finasteride 5 MG TAB PO (08:18)
[2024-01-22] MEDS: QUEtiapine 25 MG TAB PO (08:18)
[2024-01-22] MEDS: Normal Saline Flush 10 ML SYR (08:23)
[2024-01-22 10:25] LABS: Lab Add On Test DONE
--- NOTE | 2024-01-22 10:40 | PT.INIE ---
PT Notes Visit Reasons: sepsis, UTI Physical Therapy Inpatient Initial Evaluation Date: 01/22/2024 Referring Doctor: Zeeshan Rodriguez MD PT Orders: PT CONSULT: Limited ability. Exacerbation Chroninc Cond Precautions: Fall. Standard. Activity as tolerated. Patient Profile/Admitting Diagnosis: Jamey is an 83-year-old male who presented to the ED on 01/20/2023 due to increased frequency in urination, abdominal distention, increased confusion, chills, sweats, diarrhea, and vomiting. Patient is admitted for management of acute confusion, urinary tract infection, and urinary retention. PMHX: All Active Problems (Updated 01/21/24 @ 17:33 by Sun Umaña NP) Sepsis (Acute) Urinary tract infection (Acute) Chronic indwelling Horner catheter (Acute) Discharge planning issues (Acute) Dislodged Horner catheter (Acute) Urinary tract infection (Acute) Complication of Horner catheter (Acute) Horner catheter problem (Acute) Eloped from emergency department (Acute) 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) DNR (do not resuscitate) (Acute) See COLST: DNR/DNI, + transfer and treat and IV and abx Palliative care patient (Acute) Dementia with behavioral disturbance (Acute) Dementia (Chronic) Hypertension (Chronic) Delirium (Acute) Acute confusion (Acute) Horner catheter problem (Acute) Grief reaction (Chronic) Hydronephrosis (Acute) Urinary retention with incomplete bladder emptying (Acute) 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) Medical History Displacement of Horner catheter Suprapubic catheter dysfunction Hypomagnesemia Hypoalbuminemia Medication management Memory changes Bilateral renal cysts Social History/Home Situation: Lives in a private home with 2 steps to enter. Has a flight of steps to the bedroom of his house. Independent with all aspects of ADLs prior to surgery. No assistive ambulatory device. Equipment Owned/DME: None Subjective: Jamey states that he has 2 houses that he can go to from here, one being to his own and the other one is at his son's house in [facility]. Complaining of some discomfort in his anal area that Michelle Linton and Armida were able to fix. Objective: General Observation: Horner catheter in place. Mental Status: Alert and oriented as to person, place, time, and purpose. Able to pay attention, focus, and respond appropriately. Pain: As above Vital Signs: BP after walking 133/66, SaO2 97% on RA, HR 77 bpm ROM: Right Upper Extremity: Shoulder Flexion WFL. Shoulder abduction WFL. Elbow flexion WFL. Wrist flexion WFL. Functional opening and closing of hand WFL. Left Upper Extremity: Shoulder Flexion WFL. Shoulder abduction WFL. Elbow flexion WFL. Wrist flexion WFL. Functional opening and closing of hand WFL. Right Lower Extremity: Hip flexion WFL. Hip abduction WFL. Knee flexion WFL. Ankle dorsiflexion WFL. Ankle plantarflexion WFL. Left Lower Extremity: Hip flexion WFL. Hip abduction WFL. Knee flexion WFL. Ankle dorsiflexion WFL. Ankle plantarflexion WFL. Strength: Right Upper Extremity: Shoulder flexors 4/5. Shoulder abductors 4/5. Elbow flexors 4/5. Elbow extensors 4/5. Nutrition Consultant strong. Left Upper Extremity: Shoulder flexors 4/5. Shoulder abductors 4/5. Elbow flexors 4/5. Elbow extensors 4/5. Nutrition Consultant strong. Right Lower Extremity: Hip flexors 4/5. Hip abductors 4/5. Knee flexors 5/5. Knee extensors 4/5. Ankle dorsiflexors 4/5. Ankle plantarflexors 4/5. Left Lower Extremity: Hip flexors 4/5. Hip abductors 4/5. Knee flexors 5/5. Knee extensors 4/5. Ankle dorsiflexors 4/5. Ankle plantarflexors 4/5. Bed Mobility/Transfers: Rolling independent Supine to sit independent Sit to supine independent Sit to stand independent Stand to sit independent Bed to reclining chair independent Reclining chair to bed independent Gait: 600 feet without an assistive device with supervision only by PT for directions. No path deviation. No LOB. No SOB. Denied headache, chest pain, and lightheadedness throughout activity. Stairs: Up-and-down 6 x 4 inch steps and 4 x 6 inch steps while holding onto 1 rail with step over step gait pattern with supervision. No LOB. No SOB. Denied headache, chest pain, and lightheadedness throughout activity. Balance: Static Sitting: Normal Dynamic Sitting: Normal Static Standing: Normal Dynamic Standing: Good Special Tests: Mobility Limitations Standardized Measure [facility] AM-PAC 6 clicks Basic Mobility Inpatient Short Form: Raw Score: 24 CMS Score: 0% deficit 4-Vinod Balance Test: Feet together 10 seocnds Semi-tandem 10 seconds Full tandem <10 seconds One-legged stance <10 seconds Informed Consent/Education: Patient was instructed in purpose of PT consult and plan of care. Agreeable to proceed with established PT POC to achieve personal goals. Assessment: No skilled services needed at this time. Patient back to baseline mobility level without assistive device. Patient is assessed as a 77636 low complexity based on the following: History: 83-year-old male with past medical history as indicated above Examination: As above Presentation: Stable Decision Makin low complexity Goals: N/A. PT evaluation only. Plan of Care/Treatment Plan: N/A. PT evaluation only. DISCHARGE RECOMMENDATIONS: [X] Home with no services. Home when medically cleared by hospitalist. No PT services needed. No equipment needs. [] Home with services [specify] [] Home with outpatient PT [] [] SNF for continued rehabilitation [] [] General Agent Care [] [] SNF versus LTC based on ability to participate and progress [] TREATMENT CODE/TIME: 46184 x 25 minutes for 1 unit (10:40-11:05). Thank you for the opportunity to participate in the care of this patient. Arleen Hines PT, DPT, CLT [facility] [place], [place]
--- NOTE | 2024-01-22 10:44 | W.PM.PROGNOT ---
Date of Service Date of service: 01/22/24 Time of Service: 10:44 Assessment and Plan Assessment and plan (1) Acute confusion: Status: Acute Assessment and plan: now at baseline. ? due to UTI, continue treatment fall precautions continue seroquel at high risk for acute delirium while hospitalized (2) Urinary tract infection: Status: Acute Assessment and plan: cultures pending will continue cefepime and vanco for now based on previous cultures (3) Urinary retention with incomplete bladder emptying: Status: Acute Assessment and plan: Continue Finesteride and place Terasozin on hold to see if BP remains stable. Horner catheter in place and draining, clear, pale yellow (4) Discharge planning issues: Status: Acute Assessment and plan: CM to follow palliative care has been following, will consult for continuity of care and goals of care. Discussed with Dr. Sanchez Subjective Subjective Patient reports: no new complaints, feels better, tolerating liquids well, tolerating a regular diet and afebrile Objective Last Vital Signs Temp 37.2 C 01/22/24 07:26 Pulse 65 01/22/24 07:26 Resp 16 01/22/24 07:26 BP 128/60 01/22/24 07:26 Pulse Ox 95 01/22/24 07:26 Laboratory Results - last 24 hr 01/21/24 01/21/24 01/21/24 10:57 11:28 12:08 WBC 16.01 H RBC 4.24 L Hgb 12.5 L Hct 38.3 L MCV 90 MCH 29.5 MCHC 32.6 RDW 14.3 H Plt Count 302 MPV 9.6 Immature Gran % 0.4 Neutrophils % 88.0 Lymphocytes % 5.4 Monocytes % 5.9 Eosinophils % 0.1 Basophils % 0.2 Nucleated RBC % 0.0 Absolute Neutrophils 14.09 H Absolute Lymphocytes 0.86 L Absolute Monocytes 0.94 H Absolute Eosinophils 0.02 Absolute Basophils 0.03 ESR 42 H VBG pH 7.42 H VBG pCO2 36 L VBG pO2 31 VBG HCO3 24 VBG Total CO2 22 L VBG O2 Saturation 59 VBG Base Excess -1 VBG Lactate 3.1 H* Sodium 131 L Potassium 4.0 Chloride 96 L Carbon Dioxide 25.2 Anion Gap 9.8 BUN 24 H Creatinine 1.3 Est GFR (CKD-EPI 2020) 54.85 Glucose 378 H Calcium 9.0 Phosphorus 3.4 Magnesium 1.9 Total Bilirubin 0.6 AST 15 ALT 17 Alkaline Phosphatase 105 Troponin I 70 H* C-Reactive Protein 4.83 H Total Protein 7.9 Albumin 3.3 L Lipase 18 Procalcitonin 0.2 Urine Color Yellow Urine Clarity Turbid Urine pH 5.5 Ur Specific [place] 1.025 Urine Protein 100 H Urine Ketones Negative Urine Blood Large H Urine Nitrite Negative Urine Bilirubin Negative Urine Urobilinogen 0.2 Ur Leukocyte Esterase Large H Urine RBC Urine WBC >50 H Ur Epithelial Cells Not Applicable Urine Crystals Not Applicable Urine Bacteria Not Applicable Urine Mucus Not Applicable Ur Culture Indicated? Yes Urine Glucose >=1000 H COVID-19 Source Nasopharynx SARS-CoV-2 (PCR) Negative Influenza Type A (PCR) Negative Influenza Type B (PCR) Negative RSV (PCR) Negative Add-On Test Request 01/22/24 06:23 WBC 13.88 H RBC 3.62 L Hgb 10.9 L Hct 33.5 L MCV 93 MCH 30.1 MCHC 32.5 RDW 14.5 H Plt Count 277 MPV 10.1 Immature Gran % 0.4 Neutrophils % 79.0 Lymphocytes % 11.3 Monocytes % 8.4 Eosinophils % 0.4 Basophils % 0.5 Nucleated RBC % 0.0 Absolute Neutrophils 10.97 H Absolute Lymphocytes 1.57 Absolute Monocytes 1.17 H Absolute Eosinophils 0.06 Absolute Basophils 0.07 ESR VBG pH VBG pCO2 VBG pO2 VBG HCO3 VBG Total CO2 VBG O2 Saturation VBG Base Excess VBG Lactate Sodium 140 Potassium 3.7 Chloride 108 H Carbon Dioxide 24.6 Anion Gap 7.4 BUN 19 H Creatinine 0.9 Est GFR (CKD-EPI 2020) 85.27 Glucose 142 H Calcium 8.3 L Phosphorus Magnesium Total Bilirubin 0.4 AST 18 ALT 13 L Alkaline Phosphatase 71 Troponin I C-Reactive Protein Total Protein 5.8 L Albumin 2.3 L Lipase Procalcitonin Urine Color Urine Clarity Urine pH Ur Specific [place] Urine Protein Urine Ketones Urine Blood Urine Nitrite Urine Bilirubin Urine Urobilinogen Ur Leukocyte Esterase Urine RBC Urine WBC Ur Epithelial Cells Urine Crystals Urine Bacteria Urine Mucus Ur Culture Indicated? Urine Glucose COVID-19 Source SARS-CoV-2 (PCR) Influenza Type A (PCR) Influenza Type B (PCR) RSV (PCR) Add-On Test Request DONE
[2024-01-22 10:51] LABS: Troponin I 52 ng/L (< or =60)
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
--- NOTE | 2024-01-22 12:38 | PDOC.HHF2F_ITS ---
Home Health Referral Home Health Orders Clinical synopsis of why skilled professionals are needed: frail elderly patient, confused, risk for discharge failure Medical diagnosis necessitation home health referral: UTI, confusion Registered Nurse: Check all that apply Instruct on new or changed medication(s)/assess compliance: Ordered Instruct on, and maintenance of, urinary device: Ordered Assess for exacerbation of medical condition, instruct patient/caregivers on signs and symptoms to report for early detection: Ordered Physical Therapist: Check all that apply Increase strength & endurance for safe mobility at home: Ordered To design/establish home maintenance program: Ordered Fall reduction therapy program for patient with history of frequent falls: Ordered Home safety evaluation and teaching/gait training including stair management (if applicable): Ordered Occupational Therapist: Evaluate and treat for patient unable to perform ADL/IADL/self-care: Ordered Solutions Architect Consultant: Assist with community resources: Ordered Assist with halfway care planning: Ordered Home Bound Status Requires the aid of supportive device (check all that apply): Walker Patient has a condition such that leaving home is medically contraindicated (Describe): Patient has been told not to drive; patient lives alone Describe why leaving home would require a considerable and taxing effort: Confusion Encounter Date and Reason: I certify that a FTF encounter for this patient was performed on January 22, 2024 and that such encounter was related to the primary reason the patient requires home health services. The encounter was conducted in the following manner: * By me as the certifying physician, BEAM BUILDER HELPER, PA or * By an inpatient physician, BEAM BUILDER HELPER or PA during an inpatient stay who communicated findings to me, Certification And Authentication I certify that I composed the above information based on my clinical judgment relating to this patient's medical condition and, if applicable, clinical findings communicated to me by the NPP or inpatient physician who performed the FTF encounter. Name of Provider that will be monitoring home health services: Vanita Johnson
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
--- NOTE | 2024-01-22 19:00 | PDOC.CMDIS ---
Date of service: 01/22/24 Time of Service: 13:30 LACE Index Scoring Tool Questions: Length of Stay (in days): 1 Was the patient admitted via the E.D.?: Yes Comorbidities: Dementia E.D. Visits: 15 Answers: Total Score: 11 Risk of Readmission: High Risk Care Management Discharge Plan Reason for Hospitalization: Sepsis, UTI Discharge Plan: Jamey returned home with a plan to admit to hospice at home tomorrow. His daughter was present for discharge and provided transportation home via private vehicle. He will follow up with palliative care/hospice, his PCP, and discharge plan of care. He is happy to be going home. Patient/Family Education Needs: Review discharge instructions and limitations, discussion of self care needs including ask me three. Services Needed at Discharge: Home Health Care Services (hospice consult) SDOH Health Related Social Needs: No Data to Display
== END 2024-01-22 14:43 | disposition home health service (06) | DRG 690 ==
LOC: ER 16:03 → MS 16:45
PROVIDERS: Nurse Practitioner Acute Care; Physician Assistant; Admitting Provider Internal Medicine; Emergency Provider Physician Assistant; PCP Family Medicine; Visit Provider Internal Medicine
DX: N39.0 Urinary tract infection, site not specified (principal); F02.82 Dementia in other diseases classified elsewhere, unspecified severity, with psychotic disturbance; F01.518 Vascular dementia, unspecified severity, with other behavioral disturbance; F02.818 Dementia in other diseases classified elsewhere, unspecified severity, with other behavioral disturbance; G31.09 Other frontotemporal neurocognitive disorder; G31.83 Neurocognitive disorder with Lewy bodies; G30.1 Alzheimer's disease with late onset; I10 Essential (primary) hypertension; N13.8 Other obstructive and reflux uropathy; N40.1 Benign prostatic hyperplasia with lower urinary tract symptoms; R33.9 Retention of urine, unspecified; B96.20 Unspecified Escherichia coli [E. coli] as the cause of diseases classified elsewhere; Z66 Do not resuscitate; Z96.0 Presence of urogenital implants; Z79.899 Other long term (current) drug therapy
CPT/HCPCS: 00123; 36415; 80053; 82805; 83690; 84145; 85652; 87040; 87077; 87637; 93005; 96361; 96365; 96367; 96375; 97161; 99285; J1650; 81003; 81015; 83605; 83735; 84100; 84484; 85025; 86140; 87086; 87186; 93010; 99222; 99238; J0131; J0692; J0696; J1836; J1885; J2405; J3372

== ENCOUNTER 2024-01-22 16:08 | Emergency (ER) | payer MEDICARE, SELFPAY ==
[2024-01-22] VITALS (12 sets, daily range): BP systolic 135–176; BP diastolic 70–89; PULSE 87–110; RESP 17–24; TEMP 36–36.5; O2SAT 98
--- NOTE | 2024-01-22 17:21 | ED.PROG_ITS ---
Date of service: 01/22/24 Time of Service: 17:21 Medical Decision Making I participated in this patient's care on arrival in the ED. In brief this is a DNI DNR 83-year-old male with a history of dementia chronic indwelling Horner in the setting of BPH with urinary obstruction arriving to the emergency department via private vehicle with bleeding from his penis. Patient was discharged earlier this afternoon from [facility]. Patient has a circumcised penis. There is a Horner in place and there is hematuria in the Horner leg bag. There is blood coming from the urethral meatus around the Horner catheter. No obvious external urethral nor penile lacerations. Will attempt to page Dr. Mendoza. If Dr. Mendoza is not available patient will likely benefit from emergent urological assessment and likely transfer to [facility]. 01/22 Patient was ultimately accepted to [facility] emergency department. Quality:[facility] Health Related Social Needs: No Data to Display Discharge Plan Discharge Details Chief Complaint: Male Reproductive Problem Primary Care Provider: Vanita Johnson V ED Provider: Armida Lazcano Home Meds and New Rx's Prescriptions: No Action finasteride 5 mg tablet 5 mg PO DAILY Qty: 90 4RF terazosin 10 mg capsule 10 mg PO QPM memantine 7 mg capsule,sprinkle,ER 24hr 14 mg PO DAILY Patient Comments: TAKE ONE CAPSULE BY MOUTH EVERY DAY (CAN BE AM. AND PM.) FOR 1-2 WEEKS THEN INCREASE TO TWO CAPSULES DAILY AT THE SAME TIME risperidone 0.5 mg tablet 0.5 mg PO PRN PRN metformin 500 mg tablet extended release 24 hr 500 mg PO BID cefpodoxime 200 mg tablet 200 mg PO BID Qty: 12 0RF Rx Instructions: must administer with a meal/food Discharge Data Discharge Date/Time-TO BE ENTERED AT DEPARTURE: 01/22/24 19:08
[2024-01-22 17:53] LABS: Abs Immature Grans 0.04 10^3/uL (0.0-0.06); Absolute Basophil Count 0.08 10^3/uL (0.0-0.2); Absolute Eosinophil Count 0.12 10^3/uL (0.0-0.7); Absolute Lymphocyte Count 1.34 10^3/uL (1.2-3.4); Basophils % 0.6; Eosinophils % 0.9; HCT 33.3 % (40.0-50.0); HGB 10.8 g/dL (13.5-17.5); Immature Grans % 0.3; Lymphocytes % 10.2; MCH 30.1 pg (27.0-33.0); MCHC 32.4 % (32.0-36.0); MCV 93 fL (80-95); MPV 9.3 fL (8.0-11.0); Monocytes % 7.9; Neutrophils % 80.1; Platelet Count 295 10^3/uL (130-400); RBC 3.59 10^6/uL (4.36-5.78); RDW 14.5 % (11.8-14.1); RDW-SD 49.9 fL
[2024-01-22 17:55] LABS: Absolute Monocyte Count 1.03 10^3/uL (0.1-0.8); Absolute Neutrophil Count 10.49 10^3/uL (1.2-6.7)
[2024-01-22] MEDS: Tranexamic Acid 1,000 MG/10 ML VIAL 1000 MG IVP (18:26)
[2024-01-22] MEDS: LORazepam 2 MG/ML VIAL 1 MG IVP (18:43)
[2024-01-22] MEDS: Haloperidol 5 MG/ML VIAL 2 MG IM/IV (19:09)
== END 2024-01-22 19:08 | disposition home or self-care (01) ==
LOC: ER 16:24
PROVIDERS: Emergency Provider Physician Assistant; PCP Family Medicine
DX: T83.83XA Hemorrhage due to genitourinary prosthetic devices, implants and grafts, initial encounter (principal)
CPT/HCPCS: 00123; 86850; 86900; 86901; 99283; 85025; J1630; J2060

== ENCOUNTER 2024-05-23 15:24 | Outpatient (REF) | payer MEDICARE, SELFPAY ==
[2024-05-23 14:10] LABS: Bilirubin Negative (Negative); Blood Negative (Negative); Clarity Sl Cloudy (Clear); Glucose Negative (Negative); Ketones Negative (Negative); Leukocyte Esterase Moderate (Negative); Nitrite Positive (Negative); Urobilinogen 0.2 mg/dL (Up to 0.2)
[2024-05-23 14:14] LABS: Bacteria Many HPF (Negative); C & S Indicated? C&S Done As Ordered; Casts Negative LPF (Negative); Crystals Negative HPF (Negative); Epithelial Cells Rare HPF (Negative); Mucus Trace (Negative); RBC 0-2 HPF (0-2)
== END 2024-05-23 15:25 | disposition home or self-care (01) ==
LOC: NCHCN 15:24
PROVIDERS: PCP Family Medicine; Visit Provider Nurse Practitioner
DX: N39.0 Urinary tract infection, site not specified (principal)
CPT/HCPCS: 87077; 81003; 81015; 87086; 87186